=== PATIENT | female | born 1940 | race African-American/Black ===

== ENCOUNTER 2017-10-03 09:36 | Inpatient (IN) | payer MEDICARE, OTHER ==
[2017-10-03] MEDS ORDERED: LABETALOL HCL INJ 20 MG/4 ML DISP.SYRIN IV ONE (10:09)
--- NOTE | 2017-10-03 10:16 | ER Document Report ---
ED General - General Mode of Arrival: Medic Information source: Patient TRAVEL OUTSIDE OF THE [place] IN LAST 30 DAYS: No - HPI Onset: This morning Onset/Duration: Sudden <CLINT BERNARDO - Last Filed: 10/03/17 14:10> <MILESMAGI Cool - Last Filed: 10/03/17 16:44> - General Chief Complaint: High Blood Pressure Stated Complaint: VOMITING Time Seen by Provider: 10/03/17 09:50 Notes: Patient is a 77 year old female with a history of Type 2 Diabetes and CHF presents to the emergency department via EMS complaining of nausea and vomiting onset this morning. Patient states that she felt nauseous this morning after she woke and used the restroom. Patient states she took her blood pressure medication this morning but may have vomited it up. EMS states the patients blood pressure upon arrival to her home was 235/94. EMS gave the patient 1 Zofran and 5 Metoprolol. Upon arrival to the emergency department, the patients blood pressure was 216/81. At bedside that patient states that she is not in any pain and the Zofran medication given by EMS has helped. Patient denies chest pain or any trouble breathing. Patients PCP is Dr. Curran and band manager is Dr. Elizondo. (CLINT BERNARDO) - Related Data Allergies/Adverse Reactions: No Known Allergies Allergy (Verified 05/05/16 00:14) Home Medications: Current Home Medications Bumetanide 10/03/17 [History] Carvedilol 10/03/17 [History] Gabapentin 100 mg PO 10/03/17 [History] Hydrochlorothiazide [Hydrodiuril 25 mg Tablet] 10/03/17 [History] Multivit with Calcium,Iron,Min [Multiple Vitamins For Women] 1 each PO DAILY [History] Past Medical History - Social History Smoking Status: Unknown if Ever Smoked Frequency of alcohol use: None Family History: CVA, DM, Hypertension Patient has suicidal ideation: No Patient has homicidal ideation: No - Past Medical History Cardiac Medical History: Reports: Hx Congestive Heart Failure - Pt reports she had HF last year, Hx Hypercholesterolemia, Hx Hypertension Pulmonary Medical History: Denies: Hx Tuberculosis Neurological Medical History: Reports: Hx Cerebrovascular Accident Endocrine Medical History: Reports: Hx Diabetes Mellitus Type 2 Musculoskeltal Medical History: 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 Psychiatric Medical History: Reports: Hx Anxiety, Hx Depression Past Surgical History: Reports: Hx Cholecystectomy, Hx Orthopedic Surgery - hand - Immunizations Hx Diphtheria, Pertussis, Tetanus Vaccination: Yes Hx Pneumococcal Vaccination: 01/11/12 <CLINT BERNARDO - Last Filed: 10/03/17 14:10> Review of Systems - Review of Systems Constitutional: No symptoms reported EENT: No symptoms reported Cardiovascular: No symptoms reported Gastrointestinal: See HPI, Nausea, Vomiting Genitourinary: No symptoms reported Female Genitourinary: No symptoms reported Musculoskeletal: No symptoms reported Skin: No symptoms reported Hematologic/Lymphatic: No symptoms reported Neurological/Psychological: No symptoms reported -: Yes All other systems reviewed and negative <CLINT BERNARDO - Last Filed: 10/03/17 14:10> Physical Exam - General General appearance: Appears well, Alert In distress: None - HEENT Head: Normocephalic, Atraumatic Eyes: Normal Conjunctiva: Normal Pupils: PERRL Neck: No: Carotid bruit - Respiratory Respiratory status: No respiratory distress Chest status: Nontender Breath sounds: Normal Chest palpation: Normal - Cardiovascular Rhythm: Regular Heart sounds: Normal auscultation - Abdominal Inspection: Normal Distension: No distension Bowel sounds: Normal Tenderness: Nontender Organomegaly: No organomegaly - Back Back: Normal - Extremities General upper extremity: Normal inspection, Normal ROM General lower extremity: Normal inspection, Normal ROM Ankle: No: Edema - Neurological Neuro grossly intact: Yes Cognition: Normal Orientation: AAOx4 [place] Coma Scale Eye Opening: Spontaneous [place] Coma Scale Verbal: Oriented Betsey Coma Scale Motor: Obeys Commands [place] Coma Scale Total: 15 Speech: Normal - Psychological Associated symptoms: Normal affect, Normal mood - Skin Skin Temperature: Warm Skin Moisture: Dry Skin Color: Normal <TOVAJIMAMALIA - Last Filed: 10/03/17 14:10> - Vital signs Vitals: Resp Pulse Ox 11 L 99 10/03/17 09:47 10/03/17 09:47 Course - Laboratory Result Diagrams: 10/03/17 10:44 10/03/17 10:44 <CLINT BERNARDO - Last Filed: 10/03/17 14:10> - Laboratory Result Diagrams: 10/03/17 10:44 10/03/17 10:44 - Diagnostic Test Radiology reviewed: Image reviewed, Reports reviewed - Chest x-ray shows stable cardiomegaly with no acute findings. - EKG Interpretation by Me EKG shows normal: Sinus rhythm, Emma, QRS Complexes, ST-T Waves. abnormal: Intervals - Prolonged QT interval Rate: Normal - 61 Rhythm: NSR Emma/QRS: Right axis deviation When compared to previous EKG there are: Changes noted - Consults Dr. Youngblood Time consulted: 16:40 Consulted provider: will come to ER <MAGI AQUINO - Last Filed: 10/03/17 16:44> - Vital Signs Vital signs: Temp Pulse Resp BP Pulse Ox 17 159/63 H 98 10/03/17 15:01 10/03/17 15:01 10/03/17 15:01 - Laboratory Laboratory results interpreted by me: 10/03/17 10/03/17 10/03/17 10:44 10:44 13:00 WBC 11.4 H RBC 3.46 L Hgb 10.0 L Hct 29.7 L RDW 14.9 H Absolute Neutrophils 8.7 H Potassium 3.2 L BUN 45 H Creatinine 2.60 H Est GFR ( Amer) 22 L Est GFR (Non-Af Amer) 18 L Glucose 246 H Magnesium 1.3 L Creatine Kinase 28 L Total Protein 6.0 L Albumin 2.9 L Urine Protein Urine Glucose (UA) Ur Leukocyte Esterase 10/03/17 14:27 WBC RBC Hgb Hct RDW Absolute Neutrophils Potassium BUN Creatinine Est GFR ( Amer) Est GFR (Non-Af Amer) Glucose Magnesium Creatine Kinase Total Protein Albumin Urine Protein >=500 H Urine Glucose (UA) 150 H Ur Leukocyte Esterase TRACE H Critical Care Note - Critical Care Note Total time excluding time spent on procedures (mins): 40 <MILESMAGI - Last Filed: 10/03/17 16:44> Discharge <CLINT BERNARDO - Last Filed: 10/03/17 14:10> - Discharge Admitting Provider: Hospitalist Unit Admitted: Telemetry <MAGI AQUINO - Last Filed: 10/03/17 16:44> - Discharge Clinical Impression: Uncontrolled hypertension, Chronic renal insufficiency, stage IV (severe), Hypokalemia, Elevated troponin Nausea and vomiting Qualifiers: Vomiting type: unspecified Vomiting Intractability: non-intractable Qualified Code(s): R11.2 - Nausea with vomiting, unspecified Condition: Stable Disposition: ADMITTED INPATIENT Referrals: JAY GARCIA MD [Primary Care Provider] - Follow up as needed Scribe Attestation: 10/03/17 10:31 I personally performed the services described in the documentation, reviewed and edited the documentation which was dictated to the scribe in my presence, and it accurately records my words and actions. (MAGI AQUINO) Scribe Documentation - Scribe Written by Dorita:: Dorita Webster, 10/03/2017 10:18 acting as scribe for :: Miles <CLINT BERNARDO - Last Filed: 10/03/17 14:10>
--- NOTE | 2017-10-03 10:56 | EKG REPORT ---
SEVERITY:- ABNORMAL ECG - SINUS RHYTHM RIGHT AXIS DEVIATION PROLONGED QT INTERVAL : Confirmed by: Ann Miranda MD 03-Oct-2017 10:56:01
[2017-10-03 10:57] LABS: ABSOLUTE BASOPHILS # (AUTO) 0.1 10^3/uL (0.0-0.2); ABSOLUTE EOSINOPHILS # (AUTO) 0.1 10^3/uL (0.0-0.6); ABSOLUTE LYMPHOCYTES (AUTO) 2.2 10^3/uL (0.5-4.7); ABSOLUTE MONOCYTES (AUTO) 0.4 10^3/uL (0.1-1.4); ABSOLUTE NEUT (AUTO) 8.7 10^3/uL (1.7-8.2); BASOPHILS % (AUTO) 0.7 % (0-2); EOSINOPHILS % (AUTO) 0.9 % (0-6); HEMATOCRIT 29.7 % (36.0-47.0); LYMPHOCYTES % (AUTO) 18.9 % (13-45); MEAN CORPUSCULAR HEMOGLOBIN 28.8 pg (27.0-33.4); MEAN CORPUSCULAR HGB CONC 33.6 g/dL (32.0-36.0); MEAN CORPUSCULAR VOLUME 86 fl (80-97); MONOCYTES % (AUTO) 3.8 % (3-13); PLATELET COUNT 318 10^3/uL (150-450); RED BLOOD COUNT 3.46 10^6/uL (3.72-5.28); RED CELL DISTRIBUTION WIDTH 14.9 % (11.5-14.0); SEGMENTED NEUTROPHILS % (AUTO) 75.7 % (42-78); TOTAL CELLS COUNTED % (AUTO) 100 %; WHITE BLOOD COUNT 11.4 10^3/uL (4.0-10.5)
--- NOTE | 2017-10-03 11:07 | RADIOLOGY REPORT (SQ) ---
EXAM DESCRIPTION: CHEST SINGLE VIEW COMPLETED DATE/TIME: 10/03/2017 10:56 am REASON FOR STUDY: BP235/94 w/ N V COMPARISON: 08/02/2016 NUMBER OF VIEWS: One view. TECHNIQUE: Single frontal radiographic view of the chest acquired. LIMITATIONS: None. FINDINGS: LUNGS AND PLEURA: No opacities, masses or pneumothorax. No pleural effusion. MEDIASTINUM AND HILAR STRUCTURES: No masses. Contour normal. HEART AND VASCULAR STRUCTURES: Heart enlarged without failure. Normal vasculature. BONES: No acute findings. HARDWARE: None in the chest. OTHER: No other significant finding. IMPRESSION: STABLE CARDIOMEGALY. NO OTHER SIGNIFICANT RADIOGRAPHIC FINDING IN THE CHEST. TECHNICAL DOCUMENTATION: JOB ID: [id number] [employer]- All Rights Reserved
[2017-10-03 11:15] LABS: ALANINE AMINOTRANSFERASE 21 U/L (9-52); ALBUMIN 2.9 g/dL (3.5-5.0); ALKALINE PHOSPHATASE 81 U/L (38-126); ANION GAP 9 (5-19); ASPARTATE AMINO TRANSFERASE 17 U/L (14-36); BILIRUBIN,DIRECT 0.2 mg/dL (0.0-0.4); BILIRUBIN,TOTAL 0.4 mg/dL (0.2-1.3); BLOOD UREA NITROGEN 45 mg/dL (7-20); CALCIUM 9.8 mg/dL (8.4-10.2); CARBON DIOXIDE 30 mmol/L (22-30); CHLORIDE 105 mmol/L (98-107); CREATINE KINASE 32 U/L (30-135); GLUCOSE 246 mg/dL (75-110); MAGNESIUM 1.3 mg/dL (1.6-2.3); POTASSIUM 3.2 mmol/L (3.6-5.0); SODIUM 144.1 mmol/L (137-145)
[2017-10-03 11:26] LABS: CREATINE KINASE MB 0.28 ng/mL (<4.55)
[2017-10-03 11:28] LABS: TROPONIN I 0.057 ng/mL
[2017-10-03] MEDS ORDERED: HYDRALAZINE HCL INJ/PF 20 MG/1 ML SDV IV ONE ×3 (11:31→14:31)
[2017-10-03] MEDS ORDERED: POTASSIUM CHLORIDE 20 MEQ/15 ML UDCUP PO ONE (12:55)
[2017-10-03] MEDS ORDERED: ONDANSETRON HCL INJ/PF 4 MG/2 ML SDV IV ONE (12:55)
[2017-10-03 14:45] LABS: APPEARANCE,URINE SLIGHTLY-CLOUDY; BILIRUBIN,URINE NEGATIVE (NEGATIVE); COLOR,URINE YELLOW; GLUCOSE, URINE 150 mg/dL (NEGATIVE); KETONES,URINE NEGATIVE (NEGATIVE); LEUKOCYTE ESTERASE,URINE TRACE (NEGATIVE); NITRITE,URINE NEGATIVE (NEGATIVE); PROTEIN,URINE >=500 mg/dL (NEGATIVE); URINE SPECIFIC GRAVITY 1.009; UROBILINOGEN,URINE NEGATIVE mg/dL (<2.0)
[2017-10-03] MEDS ORDERED: ACETAMINOPHEN 325 MG TABLET PO PRN (16:53)
[2017-10-03] MEDS ORDERED: NITROGLYCERIN 0.4 MG/TAB 25 TAB/BOTTLE SL PRN ×2 (16:56→17:04)
[2017-10-03] MEDS ORDERED: CARVEDILOL 3.125 MG TABLET PO ONE (17:30)
[2017-10-03] MEDS ORDERED: ONDANSETRON HCL INJ/PF 4 MG/2 ML SDV IV PRN (18:00)
[2017-10-03] MEDS: FERROUS SULFATE 325 MG TABLET PO SCH (18:02)
[2017-10-03] MEDS ORDERED: DEXTROSE 50%-WATER 25 GM/50 ML DISP.SYRIN IV PRN ×2 (18:14)
[2017-10-03] MEDS ORDERED: DEXTROSE 40% GEL 15 GM TUBE PO PRN ×2 (18:14)
[2017-10-03] MEDS ORDERED: GLUCAGON,HUMAN RECOMB 1 MG INJ IM PRN (18:14)
[2017-10-03] MEDS ORDERED: INSULIN LISPRO 100 UNIT/ML 3 ML VIAL SUBCUT PRN (18:14)
--- NOTE | 2017-10-03 18:20 | PDOC H&P ---
History of Present Illness Admission Date/PCP: 10/03/17 16:49 JAY GARCIA Patient complains of: Headache and vomiting History of Present Illness: KAM DEAN is a 77 year old female history of hypertension, diabetes, CKD, congestive, heart failure, hyperlipidemia, peripheral vascular disease and pulmonary embolism and with a 1 day history of headache and vomiting. Patient states this morning she began vomiting. She reports taking her blood pressure medications and then she vomited again. When the EMS was called patient was noted to have systolic blood pressure of 235/95. Patient denied any chest pain or shortness of breath or have a headache. In the ED patient was noted to have a elevated blood pressure at which time she was given labetalol followed by several doses of IV hydralazine. Patient blood pressure did come down to 165/ 64. ED called to admit patient for hypertensive emergency. Past Medical History Cardiac Medical History: Reports: Congestive Heart Failure - Pt reports she had HF last year, Hyperlipidema, Hypertension Denies: Coronary Artery Disease, Myocardial Infarction, Peripheral Vascular Disease, Pulmonary Embolism Pulmonary Medical History: Denies: Tuberculosis Endocrine Medical History: Reports: Diabetes Mellitus Type 2 Musculoskeltal Medical History: Reports: Arthritis - hip Psychiatric Medical History: Reports: Depression Hematology: Reports: Anemia Past Surgical History Past Surgical History: Reports: Cholecystectomy, Orthopedic Surgery - hand Social History Information Source: Patient Smoking Status: Unknown if Ever Smoked Frequency of Alcohol Use: None Hx Recreational Drug Use: No Drugs: None Hx Prescription Drug Abuse: No - Advance Directive Resuscitation Status: Full Code Family History Family History: CVA, DM, Hypertension Parental Family History Reviewed: No Children Family History Reviewed: No Sibling(s) Family History Reviewed.: No Medication/Allergy Allergies/Adverse Reactions: No Known Allergies Allergy (Verified 05/05/16 00:14) Review of Systems Constitutional: ABSENT: chills, fever(s), headache(s), weight gain, weight loss Eyes: ABSENT: visual disturbances Ears: ABSENT: hearing changes Cardiovascular: ABSENT: chest pain, dyspnea on exertion, edema, orthropnea, palpitations Respiratory: ABSENT: cough, hemoptysis Gastrointestinal: ABSENT: abdominal pain, constipation, diarrhea, hematemesis, hematochezia, nausea, vomiting Genitourinary: ABSENT: dysuria, hematuria Musculoskeletal: PRESENT: muscle weakness. ABSENT: joint swelling Integumentary: ABSENT: rash, wounds Neurological: PRESENT: other - Headache. ABSENT: abnormal gait, abnormal speech , confusion, dizziness, focal weakness, syncope Psychiatric: ABSENT: anxiety, depression, homidical ideation, suicidal ideation Endocrine: ABSENT: cold intolerance, heat intolerance, polydipsia, polyuria Hematologic/Lymphatic: ABSENT: easy bleeding, easy bruising Physical Exam Vital Signs: Temp Pulse Resp BP Pulse Ox 15 158/59 H 97 10/03/17 17:01 10/03/17 17:01 10/03/17 17:01 General appearance: PRESENT: no acute distress, well-developed, well-nourished Head exam: PRESENT: atraumatic, normocephalic Eye exam: PRESENT: conjunctiva pink, EOMI, PERRLA. ABSENT: scleral icterus Ear exam: PRESENT: normal external ear exam Mouth exam: PRESENT: moist, tongue midline Teeth exam: PRESENT: poor dentation - Odiferous Neck exam: ABSENT: carotid bruit, JVD, lymphadenopathy, thyromegaly Respiratory exam: PRESENT: clear to auscultation santa. ABSENT: rales, rhonchi, wheezes Cardiovascular exam: PRESENT: RRR, +S1, +S2, other - Loud S2. ABSENT: diastolic murmur, rubs, systolic murmur Pulses: PRESENT: normal dorsalis pedis pul Vascular exam: PRESENT: normal capillary refill GI/Abdominal exam: PRESENT: normal bowel sounds, soft. ABSENT: distended, guarding, mass, organolmegaly, rebound, tenderness Rectal exam: PRESENT: deferred Extremities exam: PRESENT: full ROM. ABSENT: calf tenderness, clubbing, pedal edema Neurological exam: PRESENT: alert, awake, oriented to person, oriented to place , oriented to time, oriented to situation, CN II-XII grossly intact. ABSENT: motor sensory deficit Psychiatric exam: PRESENT: appropriate affect, normal mood. ABSENT: homicidal ideation, suicidal ideation Skin exam: PRESENT: dry, intact, warm. ABSENT: cyanosis, rash Results Laboratory Results: 10/03/17 10/03/17 10/03/17 10:44 10:44 10:44 WBC 11.4 H RBC 3.46 L Hgb 10.0 L Hct 29.7 L MCV 86 MCH 28.8 MCHC 33.6 RDW 14.9 H Plt Count 318 Seg Neutrophils % 75.7 Lymphocytes % 18.9 Monocytes % 3.8 Eosinophils % 0.9 Basophils % 0.7 Absolute Neutrophils 8.7 H Absolute Lymphocytes 2.2 Absolute Monocytes 0.4 Absolute Eosinophils 0.1 Absolute Basophils 0.1 Sodium 144.1 Potassium 3.2 L Chloride 105 Carbon Dioxide 30 Anion Gap 9 BUN 45 H Creatinine 2.60 H Est GFR ( Amer) 22 L Est GFR (Non-Af Amer) 18 L Glucose 246 H Calcium 9.8 Magnesium 1.3 L Total Bilirubin 0.4 Direct Bilirubin 0.2 AST 17 ALT 21 Alkaline Phosphatase 81 Creatine Kinase 32 Troponin I 0.057 Total Protein 6.0 L Albumin 2.9 L 10/03/17 10/03/17 10/03/17 13:00 13:00 15:00 WBC RBC Hgb Hct MCV MCH MCHC RDW Plt Count Seg Neutrophils % Lymphocytes % Monocytes % Eosinophils % Basophils % Absolute Neutrophils Absolute Lymphocytes Absolute Monocytes Absolute Eosinophils Absolute Basophils Sodium Potassium Chloride Carbon Dioxide Anion Gap BUN Creatinine Est GFR ( Amer) Est GFR (Non-Af Amer) Glucose Calcium Magnesium Total Bilirubin Direct Bilirubin AST ALT Alkaline Phosphatase Creatine Kinase 28 L Troponin I 0.068 0.077 Total Protein Albumin Impressions: Chest X-Ray 10/03/17 10:10 IMPRESSION: STABLE CARDIOMEGALY. NO OTHER SIGNIFICANT RADIOGRAPHIC FINDING IN THE CHEST. Assessment & Plan - Diagnosis (1) Hypertensive emergency Is this a current diagnosis for this admission?: Yes Plan: Hypertensive emergency resulting in headache and vomiting. Patient also has troponin leak. Patient was given several doses of IV hydralazine along with IV labetalol. Patient resumed on her home medications as she is no longer vomiting. Will monitor patient on telemetry. (2) Type 2 diabetes mellitus Qualifiers: Chronic kidney disease stage: stage 4 (severe) Is this a current diagnosis for this admission?: Yes Plan: Will start on sliding scale insulin. (3) Chronic renal insufficiency, stage IV (severe) Is this a current diagnosis for this admission?: Yes Plan: CKD stage IV uncertain of how her renal function is at baseline. Will follow- up BMP in the morning. Patient does follow-up with Dr. Elizondo nephrology. Monitor ins and outs and avoid nephrotoxins. (4) Elevated troponin Plan: Is likely due to elevated blood pressure. Patient denies any chest pain. Patient does have CKD stage IV. We will continue to trend troponins. Cardiac echo ordered for the morning. Patient being admitted on telemetry. Patient currently on Coreg 3.125 twice daily. (5) Hypokalemia Is this a current diagnosis for this admission?: Yes Plan: Likely due to the use of diuretics. She was given a dose of potassium in the ED. She was given 40 mEq. Follow-up in the a.m. (6) Hypomagnesemia Plan: Magnesium is 1.3. This is most likely also secondary to the use of diuretics. Patient given 2 g of magnesium. Will follow up in the morning. (7) Anemia Qualifiers: Chronic kidney disease stage: stage 4 (severe) Is this a current diagnosis for this admission?: Yes Plan: Most likely have anemia due to CKD stage IV. Will monitor hemoglobin. - Time Time Spent: 30 to 50 Minutes Anticipated discharge: Home Within: within 48 hours - Inpatient Certification Medical Necessity: Significant Comorbidiites Make Outpatient Treatment Too Risky , Need Close Monitoring Due to Risk of Patient Decompensation, Need For Continuous Telemetry Monitoring
[2017-10-03] MEDS ORDERED: INFLUENZA ADLT QUAD (36MOS+) 2017-18 VAC 0.5 ML SYR IM PRN (19:03)
[2017-10-03] MEDS ORDERED: HYDRALAZINE HCL INJ/PF 20 MG/1 ML SDV IV PRN (19:10)
[2017-10-03] MEDS ORDERED: HYDRALAZINE HCL 50 MG TABLET PO SCH (22:00)
[2017-10-03] MEDS ORDERED: DOXAZOSIN MESYLATE 2 MG TABLET PO SCH ×2 (22:00)
[2017-10-03] MEDS: HYDRALAZINE HCL 50 MG TABLET PO SCH (22:01)
[2017-10-03] MEDS: MAGNESIUM SULFATE/D5W 1 GM/100 ML RTUPB IV SCH ×2 (22:01→23:44)
[2017-10-03] MEDS: FAMOTIDINE 20 MG TABLET PO SCH (22:01)
[2017-10-03] MEDS: CARVEDILOL 3.125 MG TABLET PO SCH (23:40)
[2017-10-04] MEDS ORDERED: LANSOPRAZOLE 30 MG TAB.RAP.DR PO SCH (06:00)
[2017-10-04] MEDS: HYDRALAZINE HCL 50 MG TABLET PO SCH (06:15)
[2017-10-04 06:48] LABS: ANION GAP 6 (5-19); BLOOD UREA NITROGEN 49 mg/dL (7-20); CALCIUM 9.4 mg/dL (8.4-10.2); CARBON DIOXIDE 29 mmol/L (22-30); CHLORIDE 107 mmol/L (98-107); GLUCOSE 132 mg/dL (75-110); MAGNESIUM 2.1 mg/dL (1.6-2.3); POTASSIUM 3.4 mmol/L (3.6-5.0); SODIUM 142.3 mmol/L (137-145)
[2017-10-04 09:45] LABS: ANION GAP 11 (5-19); BLOOD UREA NITROGEN 49 mg/dL (7-20); CALCIUM 9.5 mg/dL (8.4-10.2); CARBON DIOXIDE 25 mmol/L (22-30); CHLORIDE 106 mmol/L (98-107); GLUCOSE 208 mg/dL (75-110); MAGNESIUM 2.2 mg/dL (1.6-2.3); POTASSIUM 3.5 mmol/L (3.6-5.0); SODIUM 142.2 mmol/L (137-145)
[2017-10-04] MEDS ORDERED: ESCITALOPRAM OXALATE 10 MG TABLET PO SCH (10:00)
[2017-10-04] MEDS ORDERED: (PENDING PHARMACY ID) (Multivit With Calcium,Iron,Min [Multiple Vitamins For Women] 1 EACH PO SCH (10:00)
[2017-10-04] MEDS ORDERED: MULTIVITAMIN TABLET PO SCH (10:00)
[2017-10-04] MEDS ORDERED: ISOSORBIDE MONONITRATE 30 MG TAB.ER.24H PO SCH ×2 (10:00)
[2017-10-04] MEDS ORDERED: CLOPIDOGREL BISULFATE 75 MG TABLET PO SCH (10:00)
[2017-10-04] MEDS ORDERED: ASPIRIN 81 MG TABLET, ENT COATED PO SCH (10:00)
[2017-10-04] MEDS: FERROUS SULFATE 325 MG TABLET PO SCH (10:34)
[2017-10-04] MEDS: FAMOTIDINE 20 MG TABLET PO SCH (10:35)
[2017-10-04] MEDS: CARVEDILOL 3.125 MG TABLET PO SCH (10:35)
--- NOTE | 2017-10-04 11:37 | XCELERA REPORT ---
[address] [address] Transthoracic Echocardiogram Report Name: KAM DEAN Age: 77 yrs Gender: Female : 1940 Patient Status: Inpatient Patient Location: [address] [place] [address] Study Date: 10/04/2017 09:16 AM Height: 66 in Weight: 176 lb BSA: 1.9 m2 Procedure: A complete two-dimensional transthoracic echocardiogram was performed (2D, M-mode, spectral and color flow Doppler). The study was technically adequate with some images being suboptimal in quality. Reason For Study: hypertension Ordering Physician: AMI BRAND Performed By: Sylvia Conn Interpretation Summary The left ventricular ejection fraction is normal. Doppler measurements suggest pseudonormalized left ventricular relaxation, which is associated with grade II/IV or mild to moderate diastolic dysfunction There is mild concentric left ventricular hypertrophy. The left ventricle is grossly normal size. Wall motion cannot be accurately commented on, but no definite regional wall motion abnormalities noted. The right ventricle is mildly dilated. The right ventricular systolic function is normal. The left atrium is moderately dilated. The right atrium is mildly dilated. There is a mild amount of mitral regurgitation There is no mitral valve stenosis. There is no aortic valve stenosis There is a trace amount of aortic regurgitation There is a trace to mild amount of tricuspid regurgitation There is moderate pulmonary hypertension by echo Right ventricular systolic pressure is estimated to be elevated at 50- 60mmHg. Small pericardial effusion. There are no echocardiographic or Doppler indications for cardiac tamponade MMode/2D Measurements & Calculations RVDd: 3.2 cm LVIDd: 4.8 cmFS: 26.7 % Ao root diam: 2.3 cm IVSd: 1.3 cm LVIDs: 3.5 cmEDV(Teich): 109.5 ml LVPWd: 1.5 cmESV(Teich): 52.6 ml Ao root area: 4.2 cm2 EF(Teich): 52.0 % LVOT diam: 2.0 cm LVOT area: 3.2 cm2 Doppler Measurements & Calculations MV E max hina: MV dec slope: Ao V2 max: LV V1 max P.1 cm/sec 864.1 cm/sec2 231.3 cm/sec 7.3 mmHg MV A max hina: MV dec time: Ao max PG: LV V1 mean P.8 cm/sec 0.17 sec 21.4 mmHg 4.0 mmHg MV E/A: 1.0 Ao V2 mean: LV V1 max: 156.1 cm/sec 135.1 cm/sec Ao mean PG: LV V1 mean: 10.7 mmHg 94.1 cm/sec Ao V2 VTI: 48.1 cmLV V1 VTI: NICHOLAS(I,D): 2.4 cm2 36.5 cm NICHOLAS(V,D): 1.9 cm2 SV(LVOT): 117.6 ml PA V2 max: PI end-d hina: TR max hina: 130.0 cm/sec 74.4 cm/sec 293.6 cm/sec PA max P.8 mmHg TR max P.5 mmHg Left Ventricle The left ventricle is grossly normal size. There is mild concentric left ventricular hypertrophy. The left ventricular ejection fraction is normal. Doppler measurements suggest pseudonormalized left ventricular relaxation, which is associated with grade II/IV or mild to moderate diastolic dysfunction. Wall motion cannot be accurately commented on, but no definite regional wall motion abnormalities noted. Right Ventricle The right ventricle is mildly dilated. There is normal right ventricular wall thickness. The right ventricular systolic function is normal. Atria The right atrium is mildly dilated. The left atrium is moderately dilated. Interarterial septum not well visualized and not well dopplered. Cannot comment on ASD/PFO presence. Mitral Valve The mitral valve is grossly normal. There is no mitral valve stenosis. There is a mild amount of mitral regurgitation. Aortic Valve The aortic valve is grossly normal. There is no aortic valve stenosis. There is a trace amount of aortic regurgitation. Tricuspid Valve The tricuspid valve is not well visualized, but is grossly normal. There is no tricuspid stenosis. There is a trace to mild amount of tricuspid regurgitation. There is moderate pulmonary hypertension by echo. Right ventricular systolic pressure is estimated to be elevated at 50-60mmHg. Pulmonic Valve The pulmonic valve is not well visualized. Great Vessels The aortic root is not well visualized but is probably normal size. The inferior vena cava appeared normal and decreased > 50% with respiration (RAP 5-10 mmHg). Effusions Small pericardial effusion. There are no echocardiographic or Doppler indications for cardiac tamponade. : AMI BRAND > Margie Denton
[2017-10-04 12:23] VITALS: BP 170/66
--- NOTE | 2017-10-05 16:11 | PDOC DISCHARGE SUMMARY ---
General - Admit/Disc Date/PCP Admission Date/Primary Care Provider: 10/03/17 16:49 JAY GARCIA Discharge Date: 10/04/17 - Discharge Diagnosis (1) Hypertensive emergency Is this a current diagnosis for this admission?: Yes (2) Type 2 diabetes mellitus Is this a current diagnosis for this admission?: Yes (3) Chronic renal insufficiency, stage IV (severe) Is this a current diagnosis for this admission?: Yes (5) Hypokalemia Is this a current diagnosis for this admission?: Yes (7) Anemia Is this a current diagnosis for this admission?: Yes (8) Diastolic CHF, chronic Is this a current diagnosis for this admission?: Yes - Additional Information Resuscitation Status: Full Code Discharge Diet: Cardiac, Diabetic Discharge Activity: Activity As Tolerated Home Medications: Aspirin [Ecotrin 81 mg EC Tablet] 81 mg PO DAILY 10/03/17 Bumetanide [Bumex 1 mg Tablet] 1 mg PO QAM 10/03/17 Cholecalciferol (Vitamin D3) [Vitamin D3 5000 unit Capsule] 5,000 unit PO DAILY 10/03/17 Clopidogrel Bisulfate [Plavix 75 mg Tablet] 75 mg PO DAILY 10/03/17 Doxazosin Mesylate [Cardura 4 mg Tablet] 4 mg PO Q12 10/03/17 Escitalopram Oxalate [Lexapro] 20 mg PO DAILY 10/03/17 Ferrous Sulfate [Feosol 325 mg Tablet] 325 mg PO BID 10/03/17 Gabapentin [Neurontin 100 mg Capsule] 200 mg PO Q8 10/03/17 Hydralazine HCl 100 mg PO Q8 10/03/17 Hydrochlorothiazide [Hydrodiuril 25 mg Tablet] 25 mg PO QAM 10/03/17 Isosorbide Mononitrate [Imdur 30 mg Tablet.er] 90 mg PO DAILY 10/03/17 Multivit-Min/Iron/Folic/Lutein [Centrum Silver Women Tablet] 1 each PO DAILY Nitroglycerin [Nitrostat 0.4 mg (1/150 Gr) Tabs 25/Bottle] 1 tab SL Q5MP PRN Pantoprazole Sodium [Protonix] 40 mg PO DAILY 10/03/17 Potassium Chloride [Klor-Con M20] 20 meq PO DAILY 10/03/17 Doxazosin Mesylate [Cardura 2 mg Tablet] 2 mg PO QHS tablet 10/04/17 Hydralazine HCl [Apresoline 50 mg Tablet] 100 mg PO Q8 tablet 10/04/17 History of Present Illness History of Present Illness: KAM DEAN is a 77 year old female history of hypertension, diabetes, CKD, congestive, heart failure, hyperlipidemia, peripheral vascular disease and pulmonary embolism and with a 1 day history of headache and vomiting. Patient states this morning she began vomiting. She reports taking her blood pressure medications and then she vomited again. When the EMS was called patient was noted to have systolic blood pressure of 235/95. Patient denied any chest pain or shortness of breath or have a headache. In the ED patient was noted to have a elevated blood pressure at which time she was given labetalol followed by several doses of IV hydralazine. Patient blood pressure did come down to 165/ 64. ED called to admit patient for hypertensive emergency. This original H&P was dictated by myself Dr. May Youngblood. Please refer to today's H&P for complete details. Hospital Course Hospital Course: Patient presented to the ED with symptomatic hypertension hypertensive emergency. Patient was vomiting with headache at home. Patient had systolic blood pressures greater than 200. Patient was given several doses of IV blood pressure medications resumed on her home medications. Patient headache and vomiting subsided on presentation to the ED. Patient was noted to have elevation in her troponins however patient did not have any chest pain. Her troponins did peak at 0.084 and trended back down to 0.079. Patient did have a cardiac echo done during this admission that did not show any wall motion abnormality concerning for an acute event. Patient was also placed on telemetry overnight. Patient was on beta-jacob twice a day however patient has bradycardia along with borderline QT prolongation. This medication was discontinued on discharge. Patient does have grade 2 out of 4 or mild to moderate diastolic dysfunction for which patient takes diuretics. Patient beta- jacob is being held until she follow-up with cardiology due to the above stated (bradycardia with borderline QT prolongation). She is continued on her diuretic with potassium supplementation. Patient was asked to follow-up with her hvac/r instructor prior to resuming this medication. Also had hypokalemia most likely due to the use of diuretics. Patient was given potassium supplementation. Her potassium was 3.5 on discharge. Patient was given 40 more mEq prior to discharge. Also had hypomagnesemia of 1.3 and this to may be secondary to the use of diuretics. Patient was given 2 g of magnesium. Patient repeat magnesium was 2.2. Patient does have a history of CKD stage IV. Her creatinine was mildly improved prior to discharge. Her creatinine went from 3.14 down to 3.01. Patient does follow with Dr. Elizondo her customer relations assistant. She most likely has anemia due to chronic kidney disease. Patient hemoglobin did appear fairly stable at 10. Patient blood pressures were improved along with her symptoms. Patient will have the follow-up with her PCP for further adjustment of her blood pressure medications to achieve the desired goal. Patient was discharged with a blood pressure of 170/66. She was feeling better and was ready to be discharged. Physical Exam Vital Signs: Temp Pulse Resp BP Pulse Ox 98.5 F 67 16 170/66 H 100 10/04/17 13:09 10/04/17 13:09 10/04/17 13:09 10/04/17 13:09 10/04/17 13:09 Intake & Output 10/04/17 10/05/17 10/06/17 06:59 06:59 06:59 Intake Total 310 Balance 310 Weight 80.6 kg General appearance: PRESENT: no acute distress, well-developed, well-nourished Head exam: PRESENT: normocephalic Eye exam: PRESENT: EOMI. ABSENT: scleral icterus Mouth exam: PRESENT: moist Neck exam: ABSENT: carotid bruit, JVD, lymphadenopathy, thyromegaly Respiratory exam: PRESENT: clear to auscultation santa. ABSENT: rales, rhonchi, wheezes Cardiovascular exam: PRESENT: RRR. ABSENT: diastolic murmur, rubs, systolic murmur Pulses: PRESENT: normal dorsalis pedis pul Vascular exam: PRESENT: normal capillary refill GI/Abdominal exam: PRESENT: normal bowel sounds, soft. ABSENT: distended, guarding, mass, organolmegaly, rebound, tenderness Rectal exam: PRESENT: deferred Extremities exam: PRESENT: full ROM. ABSENT: calf tenderness, clubbing, pedal edema Neurological exam: PRESENT: alert, awake, oriented to person, oriented to place , oriented to time, oriented to situation, CN II-XII grossly intact. ABSENT: motor sensory deficit Psychiatric exam: PRESENT: appropriate affect, normal mood. ABSENT: homicidal ideation, suicidal ideation Skin exam: PRESENT: dry, intact, warm. ABSENT: cyanosis, rash Results Laboratory Results: 10/04/17 09:04 10/03/17 10/03/17 17:53 23:48 Troponin I 0.084 0.079 Impressions: Chest X-Ray 10/03/17 10:10 IMPRESSION: STABLE CARDIOMEGALY. NO OTHER SIGNIFICANT RADIOGRAPHIC FINDING IN THE CHEST. Qualifiers PATEINT BEING DISCHARGED WITH ANY OF THE FOLLOWING DIAGNOSIS?: Heart Failure HF Pt being discharged on ACEI for LVEF less than 40%?: No Reason(s) for not prescribing ACEI:: Compl of medication care HF Pt being discharged on ARBS for LVEF less than 40%?: No Reason(s) for not prescribing ARBS:: Compl of medication care HF Pt discharged on evidence-based Beta Jacob:: No Reason(s) for not prescribing evidence-based Beta Jacob:: Compl of medication care Plan Time Spent: Greater than 30 Minutes - She was not discharged on any beta- jacob as she has sinus bradycardia along with borderline prolonged QT prolongation. Patient was asked to follow her hvac/r instructor prior to resuming this medication.
== END 2017-10-04 13:46 | disposition home or self-care (01) | DRG 305 ==
LOC: ER 09:36 → EH 16:49 → 5 18:46
PROVIDERS: ADMIT Pediatrics; ATTEND Pediatrics
DX: I16.1 Hypertensive emergency (principal); N18.4 Chronic kidney disease, stage 4 (severe); I50.32 Chronic diastolic (congestive) heart failure; I13.0 Hypertensive heart and chronic kidney disease with heart failure and stage 1 through stage 4 chronic kidney disease, or unspecified chronic kidney disease; D63.1 Anemia in chronic kidney disease; F41.9 Anxiety disorder, unspecified; R00.1 Bradycardia, unspecified; E83.42 Hypomagnesemia; R74.8 Abnormal levels of other serum enzymes; E11.51 Type 2 diabetes mellitus with diabetic peripheral angiopathy without gangrene; E11.22 Type 2 diabetes mellitus with diabetic chronic kidney disease; E87.6 Hypokalemia; F32.9 Major depressive disorder, single episode, unspecified; Z82.49 Family history of ischemic heart disease and other diseases of the circulatory system; Z83.3 Family history of diabetes mellitus; Z82.61 Family history of arthritis; Z90.49 Acquired absence of other specified parts of digestive tract; Z86.711 Personal history of pulmonary embolism; Z79.899 Other long term (current) drug therapy
CPT/HCPCS: 36415; 71010; 80048; 80053; 81001; 82550; 82553; 82962; 83735; 84484; 85025; 93005; 93010; 93306; 96374; 96375; 96376; 99291; J0360; J1815; J2405; J3475; J3490

== ENCOUNTER → 2017-10-30 | Outpatient (CLI) | payer MEDICARE, OTHER ==
--- NOTE | 2017-10-30 14:14 | RADIOLOGY REPORT (SQ) ---
EXAM DESCRIPTION: U/S RETROPERITON (RENAL/AORTA) COMPLETED DATE/TIME: 10/30/2017 11:02 am REASON FOR STUDY: CKD STAGE 4 N18.4 CHRONIC KIDNEY DISEASE, STAGE 4 (SEVERE) I12.9 HYPERTENSIVE CH RONIC KIDNEY DISEASE W STG 1-4/UNSP CHR COMPARISON: Bilateral renal ultrasound 01/11/2012 Abdominal ultrasound 08/03/2016 TECHNIQUE: Dynamic and static grayscale images acquired of the kidneys and bladder and recorded on P ACS. Additional selected color Doppler and spectral images recorded. LIMITATIONS: None. FINDINGS: RIGHT KIDNEY: 11.5 cm in length. Diffuse cortical thinning and increased echogenicity fro m medical renal disease. No hydronephrosis. No upper hydro ureter. No stones. No renal cysts or m asses. LEFT KIDNEY: 11 cm in length. Diffuse cortical thinning and increased cortical echogenicity from me dical renal disease. No hydronephrosis. No upper hydroureter. No stones. 2.2 cm left upper pole r enal cyst. No gross solid masses. BLADDER: No masses. Bilateral ureteral jets into the bladder are identified. OTHER FINDINGS: No other significant finding. IMPRESSION: Diffuse cortical thinning and increased echogenicity of both kidneys from medical renal disease 2.2 cm cyst left upper pole kidney TECHNICAL DOCUMENTATION: JOB ID: [email or web address]- All Rights Reserved
--- NOTE | 2017-10-30 14:20 | RADIOLOGY REPORT (SQ) ---
EXAM DESCRIPTION: U/S LTD DUPLEX ART/ROSA FLOW COMPLETED DATE/TIME: 10/30/2017 11:02 am REASON FOR STUDY: CKD STAGE 4 N18.4 CHRONIC KIDNEY DISEASE, STAGE 4 (SEVERE) I12.9 HYPERTENSIVE CH RONIC KIDNEY DISEASE W STG 1-4/UNSP CHR COMPARISON: Renal ultrasound 01/11/2012, 03/31/2015 Abdominal ultrasound 08/03/2016 TECHNIQUE: Realtime and static grayscale images acquired. Selected color Doppler, velocities and spe ctral images recorded. LIMITATIONS: Unable to adequately visualize the renal artery origins off the aorta due to midline mina wel gas FINDINGS: RIGHT KIDNEY: RENAL ARTERY VELOCITIES: At the hilum, 34 cm/sec. Segmental artery velocity 28 cm/sec. RENAL VEIN: Color doppler flow present, patent. VELOCITY RATIO: 0.5. Delayed systolic upstroke. More proximal renal artery stenosis could not be ex cluded. Consider non contrasted renal artery MRA for followup KIDNEY: 11.5 cm in length with diffuse cortical thinning and increased echogenicity. LEFT KIDNEY: RENAL ARTERY VELOCITIES: 32 cm/sec. Segmental artery velocity 28 cm/sec. RENAL VEIN: Color doppler flow present, patent. VELOCITY RATIO: 0.45. Delayed systolic upstroke. More proximal renal artery stenosis could not be ex cluded. Consider noncontrast renal artery MRA for followup KIDNEY: 11 cm in length with diffuse cortical thinning and increased echogenicity BLADDER: Unremarkable. Bilateral ureteral jets are identified OTHER: No other significant finding. IMPRESSION: Delayed systolic upstroke on the Doppler tracings at the left and right renal arteries a t the darya. More proximal renal artery stenosis could not be excluded. Consider non contrasted MRA of the renal arteries for followup COMMENT: NORMAL RENAL ARTERY/AORTA VELOCITY RATIO IS LESS THAN OR EQUAL TO 3.5. TECHNICAL DOCUMENTATION: JOB ID: [id number] [employer]- All Rights Reserved
== END ==
LOC: RAD 09:54
PROVIDERS: ATTEND Physician Assistant Medical
DX: I12.9 Hypertensive chronic kidney disease with stage 1 through stage 4 chronic kidney disease, or unspecified chronic kidney disease (principal); N18.4 Chronic kidney disease, stage 4 (severe); N28.1 Cyst of kidney, acquired
CPT/HCPCS: 76770; 93976

== ENCOUNTER 2017-11-02 11:47 | Inpatient (IN) | payer MEDICARE ==
--- NOTE | 2017-11-02 13:48 | ER Document Report ---
ED Medical Screen (RME) - General Chief Complaint: Blood Pressure Problem Stated Complaint: BLOOD PRESSURE ISSUES Time Seen by Provider: 11/02/17 13:43 Mode of Arrival: Ambulatory Information source: Patient Notes: 77 yo DM, HTN, renal failure (no dialysis) ACD-ID 3 yr ago female [address] Dr. Elizondo office appointment and had systolic blood pressure 260 and they send her to the ER after giving her an extra Clonidine in the office. No pain, headache, or dizziness. Stronger dose of clonidine [facility] 2 weeks [facility]. 239 /64 in [facility] again. TRAVEL OUTSIDE OF THE [place] IN LAST 30 DAYS: No - Related Data Allergies/Adverse Reactions: No Known Allergies Allergy (Verified 05/05/16 00:14) Past Medical History - Past Medical History Cardiac Medical History: Reports: Hx Congestive Heart Failure - Pt reports she had HF last year, Hx Hypercholesterolemia, Hx Hypertension Denies: Hx Coronary Artery Disease, Hx Heart Attack, Hx Peripheral Vascular Disease, Hx Pulmonary Embolism Pulmonary Medical History: Denies: Hx Tuberculosis Neurological Medical History: Reports: Hx Cerebrovascular Accident Endocrine Medical History: Reports: Hx Diabetes Mellitus Type 2 Renal/ Medical History: Denies: Hx Peritoneal Dialysis Musculoskeltal Medical History: 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 Psychiatric Medical History: Reports: Hx Anxiety, Hx Depression Past Surgical History: Reports: Hx Cholecystectomy, Hx Orthopedic Surgery - hand - Immunizations Hx Diphtheria, Pertussis, Tetanus Vaccination: Yes History of Influenza Vaccine for 07/2017 - 12/2017 Season: No Physical Exam - Vital signs Vitals: Temp Pulse Resp BP Pulse Ox 97.5 F 51 L 16 218/68 H 100 11/02/17 12:00 11/02/17 12:00 11/02/17 12:00 11/02/17 12:00 11/02/17 12:00 Course - Vital Signs Vital signs: Temp Pulse Resp BP Pulse Ox 97.5 F 51 L 16 218/68 H 100 11/02/17 12:00 11/02/17 12:00 11/02/17 12:00 11/02/17 12:00 11/02/17 12:00
--- NOTE | 2017-11-02 14:06 | ER Document Report ---
ED Medical Screen (RME) - General Chief Complaint: Blood Pressure Problem Stated Complaint: BLOOD PRESSURE ISSUES Time Seen by Provider: 11/02/17 13:43 Mode of Arrival: Ambulatory Notes: 77 [address] female sent from dr. kevin office with asymptomatic systolic hypertension. Started Clonidine 2 weeks ago, extra dose given in the office and sent to the ER . US and artrerial renal study done 1-22 her at [facility]. The radiologist does not think any further imaging today would help. Higher dose of clonidine called into to [facility]. Pt denises, headache , chest pain, SOB, dizziness, or abd. pain. TRAVEL OUTSIDE OF THE [place] IN LAST 30 DAYS: No - Related Data Allergies/Adverse Reactions: No Known Allergies Allergy (Verified 05/05/16 00:14) Past Medical History - Social History Chew tobacco use (# tins/day): No Frequency of alcohol use: None Drug Abuse: None - Past Medical History Cardiac Medical History: Reports: Hx Congestive Heart Failure - Pt reports she had HF last year, Hx Hypercholesterolemia, Hx Hypertension Denies: Hx Coronary Artery Disease, Hx Heart Attack, Hx Peripheral Vascular Disease, Hx Pulmonary Embolism Pulmonary Medical History: Denies: Hx Tuberculosis Neurological Medical History: Reports: Hx Cerebrovascular Accident Endocrine Medical History: Reports: Hx Diabetes Mellitus Type 2 Renal/ Medical History: Denies: Hx Peritoneal Dialysis Musculoskeltal Medical History: 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 Psychiatric Medical History: Reports: Hx Anxiety, Hx Depression Past Surgical History: Reports: Hx Cholecystectomy, Hx Orthopedic Surgery - hand - Immunizations Hx Diphtheria, Pertussis, Tetanus Vaccination: Yes History of Influenza Vaccine for 07/2017 - 12/2017 Season: No Physical Exam - Vital signs Vitals: Temp Pulse Resp BP Pulse Ox 97.5 F 51 L 16 218/68 H 100 11/02/17 12:00 11/02/17 12:00 11/02/17 12:00 11/02/17 12:00 11/02/17 12:00 Course - Vital Signs Vital signs: Temp Pulse Resp BP Pulse Ox 97.5 F 51 L 16 218/70 H 100 11/02/17 12:00 11/02/17 12:00 11/02/17 12:00 11/02/17 13:52 11/02/17 12:00
[2017-11-02 14:49] LABS: ABSOLUTE EOSINOPHILS # (AUTO) 0.1 10^3/uL (0.0-0.6); ABSOLUTE LYMPHOCYTES (AUTO) 2.5 10^3/uL (0.5-4.7); ABSOLUTE MONOCYTES (AUTO) 0.5 10^3/uL (0.1-1.4); ABSOLUTE NEUT (AUTO) 6.3 10^3/uL (1.7-8.2); BASOPHILS % (AUTO) 0.3 % (0-2); EOSINOPHILS % (AUTO) 0.8 % (0-6); HEMATOCRIT 26.5 % (36.0-47.0); HEMOGLOBIN 8.9 g/dL (12.0-15.5); LYMPHOCYTES % (AUTO) 26.6 % (13-45); MEAN CORPUSCULAR HEMOGLOBIN 29.3 pg (27.0-33.4); MEAN CORPUSCULAR HGB CONC 33.6 g/dL (32.0-36.0); MEAN CORPUSCULAR VOLUME 87 fl (80-97); PLATELET COUNT 258 10^3/uL (150-450); RED BLOOD COUNT 3.04 10^6/uL (3.72-5.28); RED CELL DISTRIBUTION WIDTH 15.1 % (11.5-14.0); SEGMENTED NEUTROPHILS % (AUTO) 67.3 % (42-78); TOTAL CELLS COUNTED % (AUTO) 100 %; WHITE BLOOD COUNT 9.4 10^3/uL (4.0-10.5)
[2017-11-02 15:04] LABS: APPEARANCE,URINE SLIGHTLY-CLOUDY; BILIRUBIN,URINE NEGATIVE (NEGATIVE); COLOR,URINE STRAW; GLUCOSE, URINE 50 mg/dL (NEGATIVE); KETONES,URINE NEGATIVE (NEGATIVE); LEUKOCYTE ESTERASE,URINE MODERATE (NEGATIVE); NITRITE,URINE NEGATIVE (NEGATIVE); PROTEIN,URINE >=500 mg/dL (NEGATIVE); URINE SPECIFIC GRAVITY 1.008; UROBILINOGEN,URINE NEGATIVE mg/dL (<2.0)
[2017-11-02 15:13] LABS: ALANINE AMINOTRANSFERASE 23 U/L (9-52); ALBUMIN 3.2 g/dL (3.5-5.0); ALKALINE PHOSPHATASE 75 U/L (38-126); ANION GAP 10 (5-19); ASPARTATE AMINO TRANSFERASE 14 U/L (14-36); BILIRUBIN,DIRECT 0.2 mg/dL (0.0-0.4); BILIRUBIN,TOTAL 0.4 mg/dL (0.2-1.3); BLOOD UREA NITROGEN 48 mg/dL (7-20); CALCIUM 9.7 mg/dL (8.4-10.2); CARBON DIOXIDE 25 mmol/L (22-30); CHLORIDE 110 mmol/L (98-107); GLUCOSE 158 mg/dL (75-110); SODIUM 144.5 mmol/L (137-145); TOTAL PROTEIN 6.3 g/dL (6.3-8.2)
--- NOTE | 2017-11-02 15:39 | EKG REPORT ---
SEVERITY:- ABNORMAL ECG - SINUS RHYTHM PROBABLE LEFT ATRIAL ABNORMALITY BORDERLINE R WAVE PROGRESSION, ANTERIOR LEADS BORDERLINE PROLONGED QT INTERVAL : Confirmed by: Margie Denton 02-Nov-2017 15:39:04
[2017-11-02] MEDS ORDERED: CLONIDINE HCL 0.1 MG TABLET PO ONE (15:49)
--- NOTE | 2017-11-02 15:49 | ER Document Report ---
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 Had extreme hypertension in the office. Was given clonidine. Has renal failure and but not on dialysis. Patient has had high blood pressure for a long time. Denies any symptoms at this time other than some shortness of breath. TRAVEL OUTSIDE OF THE [place] IN LAST 30 DAYS: No - HPI Patient complains to provider of: High blood pressure Onset/Duration: Gradual, Constant Quality of pain: No pain - Related Data Allergies/Adverse Reactions: No Known Allergies Allergy (Verified 05/05/16 00:14) Past Medical History - General Information source: Patient - Social History Smoking Status: Former Smoker Chew tobacco use (# tins/day): No Frequency of alcohol use: None Drug Abuse: None Lives with: Family Family History: CVA, DM, Hypertension Patient has suicidal ideation: No Patient has homicidal ideation: No - Past Medical History Cardiac Medical History: Reports: Hx Congestive Heart Failure - Pt reports she had HF last year, Hx Hypercholesterolemia, Hx Hypertension Denies: Hx Coronary Artery Disease, Hx Heart Attack, Hx Peripheral Vascular Disease, Hx Pulmonary Embolism Pulmonary Medical History: Denies: Hx Tuberculosis Neurological Medical History: Reports: Hx Cerebrovascular Accident Endocrine Medical History: Reports: Hx Diabetes Mellitus Type 2 Renal/ Medical History: Denies: Hx Peritoneal Dialysis Musculoskeltal Medical History: 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 Psychiatric Medical History: Reports: Hx Anxiety, Hx Depression Past Surgical History: Reports: Hx Cholecystectomy, Hx Orthopedic Surgery - hand - Immunizations Hx Diphtheria, Pertussis, Tetanus Vaccination: Yes Hx Pneumococcal Vaccination: 01/11/12 Review of Systems - Review of Systems Constitutional: Weakness. denies: Fever, Malaise EENT: Other - no Vision loss. denies: Eye pain, Blurred vision, Double vision, Nose discharge, Difficulty swallowing, Mouth pain, Mouth swelling Cardiovascular: denies: Chest pain, Palpitations, Heart racing Respiratory: Short of breath. denies: Sputum, Stridor, Wheezing Gastrointestinal: denies: Abdominal pain, Diarrhea, Nausea, Vomiting Genitourinary: denies: Burning, Dysuria, Discharge, Frequency, Flank pain Skin: denies: Change in color, Dryness, Lumps, Rash Hematologic/Lymphatic: Anemia. denies: Blood clots, Easy bleeding, Easy bruising Neurological/Psychological: denies: Confusion, Dementia, Hallucinations, Weakness, Lost consciousness, Headaches Physical Exam - Vital signs Vitals: Temp Pulse Resp BP Pulse Ox 97.5 F 51 L 16 218/68 H 100 11/02/17 12:00 11/02/17 12:00 11/02/17 12:00 11/02/17 12:00 11/02/17 12:00 Interpretation: Normal - General General appearance: Appears well, Alert - HEENT Head: Normocephalic, Atraumatic Eyes: Normal Pupils: PERRL - Respiratory Respiratory status: No respiratory distress Chest status: Nontender Breath sounds: Normal Chest palpation: Normal - Cardiovascular Rhythm: Regular Heart sounds: Normal auscultation Murmur: No - Abdominal Inspection: Normal Distension: No distension Bowel sounds: Normal Tenderness: Nontender Organomegaly: No organomegaly - Back Back: Normal, Nontender - Extremities General upper extremity: Normal inspection, Nontender, Normal color, Normal ROM , Normal temperature General lower extremity: Normal inspection, Nontender, Normal color, Normal ROM , Normal temperature, Normal weight bearing. No: Karen's sign - Neurological Neuro grossly intact: Yes Cognition: Normal Orientation: AAOx4 Betsey Coma Scale Eye Opening: Spontaneous Culver Coma Scale Verbal: Oriented Betsey Coma Scale Motor: Obeys Commands Culver Coma Scale Total: 15 Speech: Normal Motor strength normal: LUE, RUE, LLE, RLE Sensory: Normal - Psychological Associated symptoms: Normal affect, Normal mood - Skin Skin Temperature: Warm Skin Moisture: Dry Skin Color: Normal Course - Re-evaluation Re-evalutation: 11/02/17 17:59 Patient is extremely hypertensive. Followed by nephrology, Dr. Ryan Elizondo. Blood pressure systolic is still in the 250s and diastolic is right at 100. Slightly elevated troponin. Patient will need to be admitted for blood pressure control. Consulted hospitalist who agrees to the admit process at this time. - Vital Signs Vital signs: Temp Pulse Resp BP Pulse Ox 97.5 F 51 L 11 L 234/74 H 97 11/02/17 12:00 11/02/17 12:00 11/02/17 17:01 11/02/17 17:01 11/02/17 17:01 - Laboratory Result Diagrams: 11/02/17 14:12 11/02/17 14:12 Laboratory results interpreted by me: 11/02/17 11/02/17 11/02/17 14:12 14:12 14:12 RBC 3.04 L Hgb 8.9 L Hct 26.5 L RDW 15.1 H Chloride 110 H BUN 48 H Creatinine 3.49 H Est GFR ( Amer) 15 L Est GFR (Non-Af Amer) 13 L Glucose 158 H Albumin 3.2 L Urine Protein >=500 H Urine Glucose (UA) 50 H Ur Leukocyte Esterase MODERATE H Discharge - Discharge Clinical Impression: Hypertensive urgency Renal failure Qualifiers: Renal failure chronicity: chronic Chronic kidney disease stage: unspecified stage Qualified Code(s): N18.9 - Chronic kidney disease, unspecified Disposition: ADMITTED INPATIENT Admitting Provider: Silke Friend [place] [facility] Admitted: Telemetry
[2017-11-02 16:28] LABS: FREE T4 (FREE THYROXINE) 1.54 ng/dL (0.78-2.19)
[2017-11-02 16:42] LABS: THYROID STIMULATING HORMONE 3.45 uIU/mL (0.47-4.68)
--- NOTE | 2017-11-02 16:53 | RADIOLOGY REPORT (SQ) ---
EXAM DESCRIPTION: CHEST SINGLE VIEW COMPLETED DATE/TIME: 11/02/2017 4:33 pm REASON FOR STUDY: hypertension COMPARISON: 10/03/2017 EXAM PARAMETERS: NUMBER OF VIEWS: One view. TECHNIQUE: Single frontal radiographic view of the chest acquired. RADIATION DOSE: NA LIMITATIONS: None. FINDINGS: LUNGS AND PLEURA: No opacities, masses or pneumothorax. No pleural effusion. MEDIASTINUM AND HILAR STRUCTURES: No masses. Contour normal. HEART AND VASCULAR STRUCTURES: Cardiac silhouette remains enlarged and is unchanged in configuration. BONES: No acute findings. HARDWARE: None in the chest. OTHER: No other significant finding. IMPRESSION: No significant interval change. Cardiomegaly. No acute changes. Other findings as not ed above TECHNICAL DOCUMENTATION: JOB ID: [id number] [employer]- All Rights Reserved
[2017-11-02] MEDS ORDERED: ASPIRIN 81 MG TABLET, CHEWABLE PO ONE (18:00)
[2017-11-02] MEDS ORDERED: MAGNESIUM HYDROXIDE SUSP 30 ML UDCUP PO PRN (18:19)
[2017-11-02] MEDS ORDERED: OXYCODONE-ACETAMINOPHEN 5-325 MG TABLET PO PRN (18:19)
[2017-11-02] MEDS ORDERED: ONDANSETRON HCL INJ/PF 4 MG/2 ML SDV IV PRN (18:19)
[2017-11-02] MEDS ORDERED: MAG HYDROX/AL HYDROX/SIMETH SUSP 30 ML UDCUP PO PRN (18:19)
[2017-11-02] MEDS ORDERED: ZOLPIDEM TARTRATE 5 MG TABLET PO PRN (18:19)
[2017-11-02] MEDS ORDERED: ACETAMINOPHEN 325 MG TABLET PO PRN (18:19)
[2017-11-02] MEDS ORDERED: NITROGLYCERIN 0.4 MG/TAB 25 TAB/BOTTLE SL PRN (18:24)
[2017-11-02] MEDS ORDERED: DEXTROSE 40% GEL 15 GM TUBE PO PRN ×2 (18:38)
[2017-11-02] MEDS ORDERED: GLUCAGON,HUMAN RECOMB 1 MG INJ IM PRN (18:38)
[2017-11-02] MEDS ORDERED: DEXTROSE 50%-WATER 25 GM/50 ML DISP.SYRIN IV PRN ×2 (18:38)
--- NOTE | 2017-11-02 18:43 | PDOC H&P ---
History of Present Illness Admission Date/PCP: 11/02/17 18:21 Patient complains of: Elevated blood pressure History of Present Illness: KAM DEAN is a 77 year old female resistant hypertension and chronic kidney disease, stage 4, who was sent to the emergency department by her recreation worker today for evaluation and treatment of blood pressure. Apparently her blood pressure was markedly elevated. She has no specific complaints. In the ED, she had a pressure as high as 265/90. She did not report headache, visual disturbance, chest pain, palpitation, or acute shortness of breath. Gradually, she has experienced more fatigue with exertion. She is also noticed mild ankle edema. She was last hospitalized 10/03/2017 to 10/04/2017 for a hypertensive emergency. At that time, she was symptomatic with headache and vomiting. She did not tolerate a beta-ry due to bradycardia and prolonged QT interval. Past Medical History Cardiac Medical History: Reports: Congestive Heart Failure - Pt reports she had HF last year, Hyperlipidema, Hypertension Denies: Coronary Artery Disease, Myocardial Infarction, Peripheral Vascular Disease, Pulmonary Embolism Pulmonary Medical History: Denies: Tuberculosis Endocrine Medical History: Reports: Diabetes Mellitus Type 2 Musculoskeltal Medical History: Reports: Arthritis - hip Psychiatric Medical History: Reports: Depression Hematology: Reports: Anemia Past Surgical History Past Surgical History: Reports: Cholecystectomy, Orthopedic Surgery - hand Social History Information Source: Patient Lives with: Family Smoking Status: Former Smoker Frequency of Alcohol Use: None Hx Recreational Drug Use: No Drugs: None Hx Prescription Drug Abuse: No - Advance Directive Resuscitation Status: Full Code Family History Family History: CVA, DM, Hypertension Parental Family History Reviewed: No Children Family History Reviewed: No Sibling(s) Family History Reviewed.: No Medication/Allergy Home Medications: Aspirin [Ecotrin 81 mg EC Tablet] 81 mg PO DAILY 10/03/17 Bumetanide [Bumex 1 mg Tablet] 1 mg PO QAM 10/03/17 Cholecalciferol (Vitamin D3) [Vitamin D3 5000 unit Capsule] 5,000 unit PO DAILY 10/03/17 Clopidogrel Bisulfate [Plavix 75 mg Tablet] 75 mg PO DAILY 10/03/17 Doxazosin Mesylate [Cardura 4 mg Tablet] 4 mg PO Q12 10/03/17 Escitalopram Oxalate [Lexapro] 20 mg PO DAILY 10/03/17 Ferrous Sulfate [Feosol 325 mg Tablet] 325 mg PO BID 10/03/17 Gabapentin [Neurontin 100 mg Capsule] 200 mg PO Q8 10/03/17 Hydralazine HCl 100 mg PO Q8 10/03/17 Hydrochlorothiazide [Hydrodiuril 25 mg Tablet] 25 mg PO QAM 10/03/17 Isosorbide Mononitrate [Imdur 30 mg Tablet.er] 90 mg PO DAILY 10/03/17 Multivit-Min/Iron/Folic/Lutein [Centrum Silver Women Tablet] 1 each PO DAILY Nitroglycerin [Nitrostat 0.4 mg (1/150 Gr) Tabs 25/Bottle] 1 tab SL Q5MP PRN Pantoprazole Sodium [Protonix] 40 mg PO DAILY 10/03/17 Potassium Chloride [Klor-Con M20] 20 meq PO DAILY 10/03/17 Doxazosin Mesylate [Cardura 2 mg Tablet] 2 mg PO QHS tablet 10/04/17 Hydralazine HCl [Apresoline 50 mg Tablet] 100 mg PO Q8 tablet 10/04/17 Allergies/Adverse Reactions: No Known Allergies Allergy (Verified 05/05/16 00:14) Review of Systems Constitutional: ABSENT: fever(s), headache(s) Eyes: ABSENT: visual disturbances Ears: ABSENT: hearing changes Cardiovascular: PRESENT: dyspnea on exertion, edema. ABSENT: chest pain, orthropnea, palpitations Respiratory: ABSENT: dyspnea Gastrointestinal: ABSENT: abdominal pain, constipation, diarrhea, hematemesis, hematochezia, nausea, vomiting Musculoskeletal: ABSENT: joint swelling Neurological: ABSENT: abnormal gait, abnormal speech, confusion, dizziness, focal weakness, syncope Psychiatric: ABSENT: anxiety, depression, homidical ideation, suicidal ideation Endocrine: ABSENT: cold intolerance, heat intolerance, polydipsia, polyuria Physical Exam Vital Signs: Temp Pulse Resp BP Pulse Ox 97.5 F 51 L 19 230/79 H 96 11/02/17 12:00 11/02/17 12:00 11/02/17 18:01 11/02/17 18:01 11/02/17 18:01 General appearance: PRESENT: no acute distress, obese Head exam: PRESENT: atraumatic, normocephalic Eye exam: PRESENT: EOMI, PERRLA Mouth exam: PRESENT: moist Teeth exam: PRESENT: dental caries Neck exam: PRESENT: full ROM. ABSENT: carotid bruit, JVD Respiratory exam: PRESENT: clear to auscultation santa, unlabored Cardiovascular exam: PRESENT: bradycardia. ABSENT: diastolic murmur, gallop, systolic murmur GI/Abdominal exam: PRESENT: normal bowel sounds, soft. ABSENT: distended, guarding, mass, organolmegaly, rebound, tenderness Extremities exam: PRESENT: +1 edema - Ankles Neurological exam: PRESENT: alert, awake, oriented to person, oriented to place , oriented to time, oriented to situation, CN II-XII grossly intact. ABSENT: motor sensory deficit Psychiatric exam: PRESENT: appropriate affect, normal mood. ABSENT: homicidal ideation, suicidal ideation Results Impressions: Chest X-Ray 11/02/17 16:15 IMPRESSION: No significant interval change. Cardiomegaly. No acute changes. Other findings as noted above Assessment & Plan - Diagnosis (1) Hypertensive urgency Is this a current diagnosis for this admission?: Yes Plan: She is asymptomatic at this time. Admit. Telemetry. Resume home medications. Add Procardia XL 60 mg daily starting today. IV hydralazine ordered as needed for SBP > 160 or DBP > 90. (2) Chronic renal insufficiency, stage IV (severe) Is this a current diagnosis for this admission?: Yes Plan: Consult Dr. Elizondo. (3) Bradycardia Is this a current diagnosis for this admission?: Yes Plan: Unable to use beta blockers. (4) Diastolic CHF, chronic Is this a current diagnosis for this admission?: Yes Plan: Asymptomatic. (5) Type 2 diabetes mellitus Qualifiers: Diabetes mellitus complication status: with kidney complications Diabetes mellitus complication detail: with chronic kidney disease Diabetes mellitus chcf insulin use: without terminologist use Chronic kidney disease stage: stage 4 (severe) Qualified Code(s): E11.22 - Type 2 diabetes mellitus with diabetic chronic kidney disease; N18.4 - Chronic kidney disease, stage 4 (severe ); N18.4 - Chronic kidney disease, stage 4 (severe); N18.4 - Chronic kidney disease, stage 4 (severe); N18.4 - Chronic kidney disease, stage 4 (severe) Is this a current diagnosis for this admission?: Yes Plan: Blood sugars well controlled. Continue sliding scale. (6) Anemia in chronic kidney disease (CKD) Qualifiers: Chronic kidney disease stage: stage 4 (severe) Qualified Code(s): N18.4 - Chronic kidney disease, stage 4 (severe); D63.1 - Anemia in chronic kidney disease; D63.1 - Anemia in chronic kidney disease Is this a current diagnosis for this admission?: Yes Plan: Continue to monitor. - Time Time Spent: 50 to 70 Minutes Medications reviewed and adjusted accordingly: Yes Anticipated discharge: Home Within: within 48 hours - Inpatient Certification Based on my medical assessment, after consideration of the patient's comorbidities, presenting symptoms, or acuity I expect that the services needed warrant INPATIENT care.: Yes I certify that my determination is in accordance with my understanding of Medicare's requirements for reasonable and necessary INPATIENT services [42 CFR 412.3e].: Yes Medical Necessity: Failure to Improve With Outpatient Therapy
[2017-11-02] MEDS: HYDRALAZINE HCL INJ/PF 20 MG/1 ML SDV IV PRN (18:48)
[2017-11-02] MEDS ORDERED: NIFEDIPINE 30 MG TAB.ER.24 PO ONE (19:00)
[2017-11-02] MEDS ORDERED: (PENDING PHARMACY ID) (Hydralazine Hcl [Hydralazine Hcl] 100 MG) PO SCH (22:00)
[2017-11-02] MEDS: HYDRALAZINE HCL 50 MG TABLET PO SCH (23:01)
[2017-11-02] MEDS: GABAPENTIN 100 MG CAPSULE PO SCH (23:01)
[2017-11-02] MEDS: DOXAZOSIN MESYLATE 4 MG TABLET PO SCH (23:02)
[2017-11-02] MEDS: HEPARIN SOD (PORCINE) 5,000 UNIT/ML 1 ML SYRINGE SUBCUT SCH (23:02)
[2017-11-02] MEDS: INSULIN LISPRO 100 UNIT/ML 3 ML VIAL SUBCUT PRN (23:55)
[2017-11-03 07:41] LABS: HEMATOCRIT 25.1 % (36.0-47.0); HEMOGLOBIN 8.6 g/dL (12.0-15.5); MEAN CORPUSCULAR HEMOGLOBIN 29.6 pg (27.0-33.4); MEAN CORPUSCULAR HGB CONC 34.2 g/dL (32.0-36.0); MEAN CORPUSCULAR VOLUME 87 fl (80-97); PLATELET COUNT 249 10^3/uL (150-450); WHITE BLOOD COUNT 8.5 10^3/uL (4.0-10.5)
[2017-11-03 08:01] LABS: ALANINE AMINOTRANSFERASE 20 U/L (9-52); ALBUMIN 2.7 g/dL (3.5-5.0); ALKALINE PHOSPHATASE 64 U/L (38-126); ANION GAP 9 (5-19); ASPARTATE AMINO TRANSFERASE 13 U/L (14-36); BILIRUBIN,DIRECT 0.1 mg/dL (0.0-0.4); BILIRUBIN,TOTAL 0.3 mg/dL (0.2-1.3); BLOOD UREA NITROGEN 53 mg/dL (7-20); CALCIUM 9.1 mg/dL (8.4-10.2); CARBON DIOXIDE 24 mmol/L (22-30); CHLORIDE 110 mmol/L (98-107); GLUCOSE 104 mg/dL (75-110); MAGNESIUM 1.4 mg/dL (1.6-2.3); PHOSPHORUS 4.5 mg/dL (2.5-4.5); POTASSIUM 3.7 mmol/L (3.6-5.0); SODIUM 143.4 mmol/L (137-145); TOTAL PROTEIN 5.7 g/dL (6.3-8.2)
[2017-11-03] MEDS: CHOLECALCIFEROL (D3) 1,000 UNIT TABLET PO SCH (09:30)
[2017-11-03] MEDS: FERROUS SULFATE 325 MG TABLET PO SCH ×2 (09:30→17:40)
[2017-11-03] MEDS: ASPIRIN 81 MG TABLET, ENT COATED PO SCH (09:30)
[2017-11-03] MEDS: CLOPIDOGREL BISULFATE 75 MG TABLET PO SCH (09:31)
[2017-11-03] MEDS: POTASSIUM CHLORIDE 10 MEQ TABLET.SA PO SCH (09:31)
[2017-11-03] MEDS: MULTIVITAMIN TABLET PO SCH (09:32)
[2017-11-03] MEDS: ESCITALOPRAM OXALATE 10 MG TABLET PO SCH (09:32)
[2017-11-03] MEDS: NIFEDIPINE 30 MG TAB.ER.24 PO SCH (09:33)
[2017-11-03] MEDS: ISOSORBIDE MONONITRATE 30 MG TAB.ER.24H PO SCH (09:33)
[2017-11-03] MEDS: LANSOPRAZOLE 30 MG TAB.RAP.DR PO SCH (09:35)
[2017-11-03] MEDS: GABAPENTIN 100 MG CAPSULE PO SCH ×3 (09:35→22:59)
[2017-11-03] MEDS: HEPARIN SOD (PORCINE) 5,000 UNIT/ML 1 ML SYRINGE SUBCUT SCH ×3 (09:35→22:59)
[2017-11-03] MEDS: HYDRALAZINE HCL 50 MG TABLET PO SCH ×3 (09:35→23:11)
[2017-11-03] MEDS: DOXAZOSIN MESYLATE 4 MG TABLET PO SCH (09:35)
[2017-11-03] MEDS: HYDROCHLOROTHIAZIDE 25 MG TABLET PO SCH (09:35)
[2017-11-03] MEDS ORDERED: (PENDING PHARMACY ID) (Potassium Chloride [Klor-Con M20] 20 MEQ) PO SCH (10:00)
[2017-11-03] MEDS ORDERED: (PENDING PHARMACY ID) (Multivit-Min/Iron/Folic/Lutein [Centrum Silver Women Tablet] 1 EACH PO SCH (10:00)
[2017-11-03] MEDS: DOCUSATE SODIUM 100 MG CAPSULE PO SCH ×2 (11:40→17:40)
[2017-11-03] MEDS: BUMETANIDE 1 MG TABLET PO SCH (11:40)
[2017-11-03] MEDS ORDERED: DOXAZOSIN MESYLATE 4 MG TABLET PO SCH (11:57)
[2017-11-03] MEDS ORDERED: INFLUENZA ADLT QUAD (36MOS+) 2017-18 VAC 0.5 ML SYR IM PRN (13:18)
--- NOTE | 2017-11-03 13:37 | PDOC CONSULTATION ---
Consultation Consult Date: 11/03/17 Consult reason:: chronic renal failure History of Present Illness Admission Date/PCP: 11/02/17 18:21 History of Present Illness: KAM EDAN is a 77 year old female resistant hypertension, chronic kidney disease stage 4 with a baseline creatinine of 2.1,hypokalemia and iron deficiency anemia. I saw her at my office yesterday and at the time during the appointment she had an elevated bp in the 260s systolic. She was given 0.1mg of PO clonidine, which brought her bp to 210s systolic. At the time she did not complain of any signs or symptoms related her severely elevated bp. At home her blood pressures have been in the 200s but she once again denies any signs or symptoms. With the bp still elevated I recommended to her that she go to the ER so that she could be admitted and her blood pressure could be better controlled. In the ED, she had a pressure as high as 265/90, still asymptomatic. At the time of examination her blood pressure is controlled after several medications. According to her she is complaint with her home medications. Prior to this admission she was having to use increased dosages of clonidine and a renal artery doppler was done. The doppler suggested an MRA to truly rule out renal artery stenosis. She was last hospitalized 10/03/2017 to 10/04/2017 for a hypertensive emergency. At that time, she was symptomatic with headache and vomiting. Past Medical History Cardiac Medical History: Reports: Hyperlipidemia Denies: Coronary Artery Disease, Myocardial Infarction, Peripheral Vascular Disease, Pulmonary Embolism Pulmonary Medical History: Denies: Tuberculosis Endocrine Medical History: Reports: Diabetes Mellitus Type 2 Renal/ Medical History: Reports: Chronic Kidney Disease Stage IV, Hypokalemia , Hypomagnesemia Musculoskeltal Medical History: Reports: Arthritis - hip Psychiatric Medical History: Reports: Depression Past Surgical History Past Surgical History: Reports: Cholecystectomy, Orthopedic Surgery - hand Social History Lives with: Family Smoking Status: Former Smoker Frequency of Alcohol Use: None Hx Recreational Drug Use: No Drugs: None Hx Prescription Drug Abuse: No - Advance Directive Resuscitation Status: Full Code Family History Parental Family History Reviewed: No Children Family History Reviewed: NA Sibling(s) Family History Reviewed.: NA Medication/Allergy Home Medications: Atorvastatin Calcium [Lipitor 20 mg Tablet] 20 mg PO QHS 11/02/17 Bumetanide [Bumex 1 mg Tablet] 1 mg PO DAILY 11/02/17 Clonidine HCl [Catapres 0.2 mg Tablet] 0.2 mg PO Q12 11/02/17 Clopidogrel Bisulfate [Plavix 75 mg Tablet] 75 mg PO DAILY 11/02/17 Doxazosin Mesylate [Cardura 4 mg Tablet] 4 mg PO Q12 11/02/17 Escitalopram Oxalate [Lexapro] 20 mg PO DAILY 11/02/17 Isosorbide Mononitrate [Isosorbide Mononitrate ER] 30 mg PO Q8 11/02/17 Pantoprazole Sodium [Protonix] 40 mg PO DAILY 11/02/17 Allergies/Adverse Reactions: No Known Allergies Allergy (Verified 05/05/16 00:14) Review of Systems Constitutional: PRESENT: weakness. ABSENT: chills, fever(s), headache(s) Eyes: ABSENT: visual disturbances Nose, Mouth, and Throat: ABSENT: headache(s) Cardiovascular: PRESENT: edema. ABSENT: chest pain, dyspnea on exertion, orthropnea, palpitations Respiratory: ABSENT: cough, dyspnea, sputum Gastrointestinal: ABSENT: abdominal pain, constipation, diarrhea, nausea, vomiting Genitourinary: ABSENT: dysuria Musculoskeletal: PRESENT: muscle weakness. ABSENT: back pain Neurological: PRESENT: weakness. ABSENT: confusion, dizziness, focal weakness, numbness Physical Exam Vital Signs: Temp Pulse Resp BP Pulse Ox 97.7 F 65 18 135/45 H 96 11/03/17 08:43 11/03/17 08:43 11/03/17 08:43 11/03/17 08:43 11/03/17 08:43 Intake & Output 11/02/17 11/03/17 11/04/17 06:59 06:59 06:59 Weight 81.8 kg General appearance: PRESENT: no acute distress, well-developed, well-nourished Mouth exam: PRESENT: moist, tongue midline Neck exam: PRESENT: full ROM. ABSENT: carotid bruit, JVD, tracheal deviation Respiratory exam: PRESENT: clear to auscultation santa. ABSENT: accessory muscle use, crackles, rales, rhonchi, wheezes Cardiovascular exam: PRESENT: RRR, +S1, +S2 GI/Abdominal exam: PRESENT: normal bowel sounds, soft. ABSENT: ascites, distended, guarding, rebound, tenderness Extremities exam: PRESENT: pedal edema - -trace+. ABSENT: tenderness Musculoskeletal exam: PRESENT: normal inspection. ABSENT: tenderness Neurological exam: PRESENT: alert, awake, oriented to person, oriented to place , oriented to time, oriented to situation Psychiatric exam: PRESENT: appropriate affect, normal mood Skin exam: PRESENT: dry, intact, warm. ABSENT: cyanosis, rash Results Laboratory Results: 11/03/17 07:28 11/03/17 07:28 11/03/17 11/03/17 07:28 07:28 WBC 8.5 RBC 2.90 L Hgb 8.6 L Hct 25.1 L MCV 87 MCH 29.6 MCHC 34.2 RDW 15.0 H Plt Count 249 Sodium 143.4 Potassium 3.7 Chloride 110 H Carbon Dioxide 24 Anion Gap 9 BUN 53 H Creatinine 3.54 H Est GFR ( Amer) 15 L Est GFR (Non-Af Amer) 13 L Glucose 104 Calcium 9.1 Phosphorus 4.5 Magnesium 1.4 L Total Bilirubin 0.3 AST 13 L ALT 20 Alkaline Phosphatase 64 Total Protein 5.7 L Albumin 2.7 L Impressions: Chest X-Ray 11/02/17 16:15 IMPRESSION: No significant interval change. Cardiomegaly. No acute changes. Other findings as noted above Assessment & Plan - Diagnosis (1) Uncontrolled hypertension Plan: Recommend keeping blood pressure no lower than 160 systolic for the next few of days. Then in a few days bp can be tighter controlled. Ordering MRA w/o contrast to rule out renal artery stenosis. Also considering hyperaldosteronism , Aldosteron to renin ratio. Unlikely cushings as she does not have many of the features for cushings. Also unlikely to be pheochromocytoma since her only related symptom is occasional flushing. (2) Acute on chronic renal failure Plan: Most likely due to severely elevated blood pressure. Could also be from renal artery stenosis. Doppler could not rule out RANDY, will get MRA w/o contrast to rule out renal artery stenosis. No recent antibiotic use, does not appear to be dehydrated, and she is urinating fine so unlikely post obstructive JENIFER. (3) Anemia in chronic kidney disease (CKD) Qualifiers: Chronic kidney disease stage: stage 4 (severe) Qualified Code(s): N18.4 - Chronic kidney disease, stage 4 (severe); D63.1 - Anemia in chronic kidney disease; D63.1 - Anemia in chronic kidney disease Is this a current diagnosis for this admission?: Yes Plan: on PO iron, will draw iron saturations. If normal will consider epogen (4) Chronic renal insufficiency, stage IV (severe) Is this a current diagnosis for this admission?: Yes Plan: Base line is 2.1 (5) Hypokalemia Plan: looks to be currently controlled (6) Hypomagnesemia Plan: on PO replacement, will re-evaluate (7) Type 2 diabetes mellitus Qualifiers: Diabetes mellitus complication status: with kidney complications Diabetes mellitus complication detail: with chronic kidney disease Diabetes mellitus termite helper insulin use: without termite helper use Chronic kidney disease stage: stage 4 (severe) Qualified Code(s): E11.22 - Type 2 diabetes mellitus with diabetic chronic kidney disease; N18.4 - Chronic kidney disease, stage 4 (severe ); N18.4 - Chronic kidney disease, stage 4 (severe); N18.4 - Chronic kidney disease, stage 4 (severe); N18.4 - Chronic kidney disease, stage 4 (severe) Is this a current diagnosis for this admission?: Yes Plan: discussed with her proper control of diabetes - Notes Notes: Case and plan were discussed and formulated with Dr. Elizondo
--- NOTE | 2017-11-03 13:40 | RADIOLOGY REPORT (SQ) ---
EXAM DESCRIPTION: MRA ABDOMEN WITHOUT COMPLETED DATE/TIME: 11/03/2017 1:14 pm REASON FOR STUDY: Uncontrolled hypertension/Renal artery stenosis COMPARISON: None. TECHNIQUE: Coronal and Axial imaging with T1 and T2 weighting through the kidneys. 3-D MIPs perform ed at the work station. CONTRAST TYPE AND DOSE: Noncontrast study. RENAL FUNCTION: Noncontrast study. LIMITATIONS: None. FINDINGS: KIDNEYS: Kidneys are of normal size. Cortical cyst in the left kidney. OTHER ABDOMINAL ORGANS: No significant finding. BONY STRUCTURES: No significant finding as visualized. VASCULAR STRUCTURES: No significant finding. RIGHT RENAL ARTERY: A single renal artery. Normal without evidence for stenosis. LEFT RENAL ARTERY: A single renal artery. Normal without evidence for stenosis. AORTA, SMA, CELIAC AXIS AND ILIAC ARTERIES: No significant finding or stenosis. Incomplete imaging o f the origin of the celiac axis. OTHER: No other significant finding. IMPRESSION: NORMAL LEFT AND RIGHT RENAL ARTERIES. TECHNICAL DOCUMENTATION: JOB ID: [id number] [employer]- All Rights Reserved
--- NOTE | 2017-11-03 18:05 | PDOC PROGRESS REPORT ---
Subjective Progress Note for:: 11/03/17 Subjective:: No complaints Review of systems All organ systems evaluated and negative except as in subjective All significant laboratories and diagnostics have been reviewed Reason For Visit: HYPERTENSIVE URGENCY Physical Exam Vital Signs: Temp Pulse Resp BP Pulse Ox 98.2 F 53 L 18 135/49 H 95 11/03/17 16:03 11/03/17 16:03 11/03/17 16:03 11/03/17 16:03 11/03/17 16:03 Intake & Output 11/02/17 11/03/17 11/04/17 06:59 06:59 06:59 Intake Total 237 Balance 237 Weight 81.8 kg General appearance: PRESENT: no acute distress, cooperative Head exam: PRESENT: atraumatic, normocephalic Eye exam: PRESENT: EOMI, nystagmus Ear exam: PRESENT: normal external ear exam Mouth exam: PRESENT: moist Neck exam: PRESENT: full ROM. ABSENT: JVD, tenderness Respiratory exam: PRESENT: clear to auscultation santa Cardiovascular exam: PRESENT: RRR. ABSENT: diastolic murmur, systolic murmur Vascular exam: PRESENT: normal capillary refill GI/Abdominal exam: PRESENT: normal bowel sounds, soft. ABSENT: tenderness Extremities exam: ABSENT: full ROM, joint swelling, pedal edema Musculoskeletal exam: PRESENT: ambulatory, full ROM Neurological exam: PRESENT: alert, awake, oriented to person, oriented to place , oriented to time, oriented to situation, CN II-XII grossly intact Psychiatric exam: PRESENT: appropriate affect, normal mood Skin exam: PRESENT: intact, normal color Results Laboratory Results: 11/03/17 07:28 11/03/17 07:28 11/03/17 11/03/17 07:28 07:28 WBC 8.5 RBC 2.90 L Hgb 8.6 L Hct 25.1 L MCV 87 MCH 29.6 MCHC 34.2 RDW 15.0 H Plt Count 249 Sodium 143.4 Potassium 3.7 Chloride 110 H Carbon Dioxide 24 Anion Gap 9 BUN 53 H Creatinine 3.54 H Est GFR ( Amer) 15 L Est GFR (Non-Af Amer) 13 L Glucose 104 Calcium 9.1 Phosphorus 4.5 Magnesium 1.4 L Total Bilirubin 0.3 AST 13 L ALT 20 Alkaline Phosphatase 64 Total Protein 5.7 L Albumin 2.7 L Impressions: Chest X-Ray 11/02/17 16:15 IMPRESSION: No significant interval change. Cardiomegaly. No acute changes. Other findings as noted above Abdomen MRI with MRA 11/03/17 11:50 IMPRESSION: NORMAL LEFT AND RIGHT RENAL ARTERIES. Assessment & Plan - Diagnosis (1) Anemia in chronic kidney disease (CKD) Qualifiers: Chronic kidney disease stage: stage 4 (severe) Qualified Code(s): N18.4 - Chronic kidney disease, stage 4 (severe); D63.1 - Anemia in chronic kidney disease; D63.1 - Anemia in chronic kidney disease Is this a current diagnosis for this admission?: Yes Plan: Stable (2) Hypertensive urgency Is this a current diagnosis for this admission?: Yes Plan: Resolved. Renal adjusting medication due to sudden blood drop in blood pressure (3) Chronic renal insufficiency, stage IV (severe) Is this a current diagnosis for this admission?: Yes Plan: Renal requesting MRI and MRA of the kidneys (4) Diastolic CHF, chronic Is this a current diagnosis for this admission?: Yes Plan: stable - Time Time Spent with patient: Less than 15 minutes Medications reviewed and adjusted accordingly: Yes Anticipated discharge: Home Within: within 24 hours - Inpatient Certification Based on my medical assessment, after consideration of the patient's comorbidities, presenting symptoms, or acuity I expect that the services needed warrant INPATIENT care.: No I certify that my determination is in accordance with my understanding of Medicare's requirements for reasonable and necessary INPATIENT services [42 CFR 412.3e].: Yes Medical Necessity: Need Close Monitoring Due to Risk of Patient Decompensation
[2017-11-03] MEDS: HYDRALAZINE HCL INJ/PF 20 MG/1 ML SDV IV PRN (22:59)
[2017-11-03] MEDS: DOXAZOSIN MESYLATE 2 MG TABLET PO SCH (22:59)
[2017-11-03] MEDS: INSULIN LISPRO 100 UNIT/ML 3 ML VIAL SUBCUT PRN (23:23)
[2017-11-04 05:29] LABS: ABSOLUTE EOSINOPHILS # (AUTO) 0.3 10^3/uL (0.0-0.6); ABSOLUTE LYMPHOCYTES (AUTO) 2.7 10^3/uL (0.5-4.7); ABSOLUTE MONOCYTES (AUTO) 0.8 10^3/uL (0.1-1.4); ABSOLUTE NEUT (AUTO) 4.7 10^3/uL (1.7-8.2); BASOPHILS % (AUTO) 0.3 % (0-2); EOSINOPHILS % (AUTO) 3.2 % (0-6); HEMATOCRIT 23.5 % (36.0-47.0); HEMOGLOBIN 8.1 g/dL (12.0-15.5); MEAN CORPUSCULAR HEMOGLOBIN 30.3 pg (27.0-33.4); MEAN CORPUSCULAR HGB CONC 34.6 g/dL (32.0-36.0); MEAN CORPUSCULAR VOLUME 88 fl (80-97); PLATELET COUNT 228 10^3/uL (150-450); RED BLOOD COUNT 2.68 10^6/uL (3.72-5.28); RED CELL DISTRIBUTION WIDTH 15.3 % (11.5-14.0); SEGMENTED NEUTROPHILS % (AUTO) 55.5 % (42-78); TOTAL CELLS COUNTED % (AUTO) 100 %; WHITE BLOOD COUNT 8.4 10^3/uL (4.0-10.5)
[2017-11-04 05:42] LABS: ANION GAP 8 (5-19); BLOOD UREA NITROGEN 55 mg/dL (7-20); CALCIUM 8.9 mg/dL (8.4-10.2); CARBON DIOXIDE 26 mmol/L (22-30); CHLORIDE 110 mmol/L (98-107); GLUCOSE 83 mg/dL (75-110); POTASSIUM 3.6 mmol/L (3.6-5.0); SODIUM 143.6 mmol/L (137-145)
[2017-11-04] MEDS: HYDRALAZINE HCL 50 MG TABLET PO SCH (06:14)
[2017-11-04] MEDS: HEPARIN SOD (PORCINE) 5,000 UNIT/ML 1 ML SYRINGE SUBCUT SCH (06:14)
[2017-11-04] MEDS: GABAPENTIN 100 MG CAPSULE PO SCH (06:15)
[2017-11-04] MEDS: LANSOPRAZOLE 30 MG TAB.RAP.DR PO SCH (06:15)
[2017-11-04] MEDS: BUMETANIDE 1 MG TABLET PO SCH (08:37)
[2017-11-04] MEDS: HYDROCHLOROTHIAZIDE 25 MG TABLET PO SCH (08:39)
[2017-11-04] MEDS: CHOLECALCIFEROL (D3) 1,000 UNIT TABLET PO SCH (09:50)
[2017-11-04] MEDS: ISOSORBIDE MONONITRATE 30 MG TAB.ER.24H PO SCH (09:51)
[2017-11-04] MEDS: DOCUSATE SODIUM 100 MG CAPSULE PO SCH (09:52)
[2017-11-04] MEDS: POTASSIUM CHLORIDE 10 MEQ TABLET.SA PO SCH (09:52)
[2017-11-04] MEDS: CLOPIDOGREL BISULFATE 75 MG TABLET PO SCH (09:53)
[2017-11-04] MEDS: ESCITALOPRAM OXALATE 10 MG TABLET PO SCH (09:53)
[2017-11-04] MEDS: MULTIVITAMIN TABLET PO SCH (09:53)
[2017-11-04] MEDS: ASPIRIN 81 MG TABLET, ENT COATED PO SCH (09:53)
[2017-11-04] MEDS: NIFEDIPINE 30 MG TAB.ER.24 PO SCH (09:54)
[2017-11-04] MEDS: FERROUS SULFATE 325 MG TABLET PO SCH (09:55)
[2017-11-04] MEDS: DOXAZOSIN MESYLATE 2 MG TABLET PO SCH (09:56)
[2017-11-04 13:02] VITALS: BP 218/70
--- NOTE | 2017-11-04 14:09 | PDOC DISCHARGE SUMMARY ---
General - Admit/Disc Date/PCP Admission Date/Primary Care Provider: 11/02/17 18:21 Discharge Date: 11/04/17 - Discharge Diagnosis (1) Hypertensive urgency Is this a current diagnosis for this admission?: Yes (2) Anemia in chronic kidney disease (CKD) Is this a current diagnosis for this admission?: Yes (3) Chronic renal insufficiency, stage IV (severe) Is this a current diagnosis for this admission?: Yes (4) Diastolic CHF, chronic Is this a current diagnosis for this admission?: Yes - Additional Information Resuscitation Status: Full Code Prescriptions: Doxazosin Mesylate [Cardura 2 mg Tablet] 2 mg PO Q12 #60 tablet Nifedipine [Procardia XL 30 mg Tablet] 60 mg PO DAILY #60 tab.er.24 Home Medications: Atorvastatin Calcium [Lipitor 20 mg Tablet] 20 mg PO QHS 11/02/17 Bumetanide [Bumex 1 mg Tablet] 1 mg PO DAILY 11/02/17 Clonidine HCl [Catapres 0.2 mg Tablet] 0.2 mg PO Q12 11/02/17 Clopidogrel Bisulfate [Plavix 75 mg Tablet] 75 mg PO DAILY 11/02/17 Escitalopram Oxalate [Lexapro] 20 mg PO DAILY 11/02/17 Isosorbide Mononitrate [Isosorbide Mononitrate ER] 30 mg PO Q8 11/02/17 Pantoprazole Sodium [Protonix] 40 mg PO DAILY 11/02/17 Doxazosin Mesylate [Cardura 2 mg Tablet] 2 mg PO Q12 #60 tablet 11/04/17 Nifedipine [Procardia XL 30 mg Tablet] 60 mg PO DAILY #60 tab.er.24 11/04/17 History of Present Illness History of Present Illness: KAM DEAN is a 77 year old female with resistant hypertension and chronic kidney disease, stage 4, who was sent to the emergency department by her vp product on the day of for evaluation and treatment of blood pressure. Apparently her blood pressure was markedly elevated. She had no specific complaints. In the ED, she had a pressure as high as 265/90. She did not report headache, visual disturbance, chest pain, palpitation, or acute shortness of breath. She had mild ankle edema. She was last hospitalized 10/03/2017 to 10/04/2017 for a hypertensive emergency. At that time, she was symptomatic with headache and vomiting. She did not tolerate a beta-ry due to bradycardia and prolonged QT interval. Patient was admitted under the hospitalist service Hospital Course Hospital Course: Patient responded to adjustments of medication regimen which included adding Procardia XL to her regimen. She was followed up by renal service and decrease Cardura dose out of concern of not hypoperfusing her kidneys. MRI and MRA of the kidneys were negative for renal artery stenosis. Patient has been advised to follow both with her primary care provider and renal service. We anticipate that further adjustments of her medication will need to be pursued but can be done as outpatient. Patient remained stable throughout hospital stay and since she had achieved maximum benefit of hospitalization stay prompted to discharge under stable condition Physical Exam Vital Signs: Temp Pulse Resp BP Pulse Ox 98.5 F 54 L 18 146/49 H 97 11/03/17 23:13 11/04/17 03:51 11/03/17 23:13 11/03/17 23:13 11/04/17 03:51 Intake & Output 11/03/17 11/04/17 11/05/17 06:59 06:59 06:59 Intake Total 737 Output Total 1 Balance 736 Weight 81.8 kg General appearance: PRESENT: no acute distress, cooperative, well-developed, well-nourished Head exam: PRESENT: atraumatic, normocephalic Eye exam: PRESENT: EOMI, PERRLA Ear exam: PRESENT: normal external ear exam Mouth exam: PRESENT: moist, neck supple Neck exam: PRESENT: full ROM. ABSENT: JVD, lymphadenopathy, tenderness Respiratory exam: PRESENT: clear to auscultation [place] Cardiovascular exam: PRESENT: RRR. ABSENT: diastolic murmur, systolic murmur Vascular exam: PRESENT: normal capillary refill GI/Abdominal exam: PRESENT: normal bowel sounds, soft. ABSENT: tenderness Extremities exam: PRESENT: full ROM. ABSENT: clubbing, joint swelling, pedal edema Musculoskeletal exam: PRESENT: ambulatory, full ROM Neurological exam: PRESENT: alert, awake, oriented to person, oriented to place , oriented to time, oriented to situation, CN II-XII grossly intact Psychiatric exam: PRESENT: depressed. ABSENT: appropriate affect, normal mood Skin exam: PRESENT: intact, normal color Results Laboratory Results: 11/04/17 04:07 11/04/17 04:07 11/03/17 11/03/17 11/04/17 07:28 07:28 04:07 WBC 8.5 8.4 RBC 2.90 L 2.68 L Hgb 8.6 L 8.1 L Hct 25.1 L 23.5 L MCV 87 88 MCH 29.6 30.3 MCHC 34.2 34.6 RDW 15.0 H 15.3 H Plt Count 249 228 Seg Neutrophils % 55.5 Lymphocytes % 32.0 Monocytes % 9.0 Eosinophils % 3.2 Basophils % 0.3 Absolute Neutrophils 4.7 Absolute Lymphocytes 2.7 Absolute Monocytes 0.8 Absolute Eosinophils 0.3 Absolute Basophils 0.0 Sodium 143.4 Potassium 3.7 Chloride 110 H Carbon Dioxide 24 Anion Gap 9 BUN 53 H Creatinine 3.54 H Est GFR ( Amer) 15 L Est GFR (Non-Af Amer) 13 L Glucose 104 Calcium 9.1 Phosphorus 4.5 Magnesium 1.4 L Total Bilirubin 0.3 AST 13 L ALT 20 Alkaline Phosphatase 64 Total Protein 5.7 L Albumin 2.7 L 11/04/17 04:07 WBC RBC Hgb Hct MCV MCH MCHC RDW Plt Count Seg Neutrophils % Lymphocytes % Monocytes % Eosinophils % Basophils % Absolute Neutrophils Absolute Lymphocytes Absolute Monocytes Absolute Eosinophils Absolute Basophils Sodium 143.6 Potassium 3.6 Chloride 110 H Carbon Dioxide 26 Anion Gap 8 BUN 55 H Creatinine 3.42 H Est GFR ( Amer) 16 L Est GFR (Non-Af Amer) 13 L Glucose 83 Calcium 8.9 Phosphorus Magnesium Total Bilirubin AST ALT Alkaline Phosphatase Total Protein Albumin Impressions: Chest X-Ray 11/02/17 16:15 IMPRESSION: No significant interval change. Cardiomegaly. No acute changes. Other findings as noted above Abdomen MRI with MRA 11/03/17 11:50 IMPRESSION: NORMAL LEFT AND RIGHT RENAL ARTERIES. Plan Discharge Plan: Discharge home Time Spent: Less than 30 Minutes
[2017-11-08 15:14] LABS: ALDOSTERONE 1.1 ng/dL (0.0-30.0); ALDOSTERONE RENIN RATIO 2 1.8 (0.0-30.0); RENIN ACTIVITY 0.608 ng/mL/hr (0.167-5.380)
== END 2017-11-04 13:00 | disposition home or self-care (01) | DRG 305 ==
LOC: ER 11:47 → EH 18:21 → 3N 11-03 08:25
PROVIDERS: ADMIT Emergency Medicine; ATTEND Emergency Medicine
DX: I16.0 Hypertensive urgency (principal); N18.4 Chronic kidney disease, stage 4 (severe); I50.32 Chronic diastolic (congestive) heart failure; N17.9 Acute kidney failure, unspecified; I13.0 Hypertensive heart and chronic kidney disease with heart failure and stage 1 through stage 4 chronic kidney disease, or unspecified chronic kidney disease; D63.1 Anemia in chronic kidney disease; E87.6 Hypokalemia; E78.5 Hyperlipidemia, unspecified; M16.10 Unilateral primary osteoarthritis, unspecified hip; F32.9 Major depressive disorder, single episode, unspecified; E83.42 Hypomagnesemia; E11.22 Type 2 diabetes mellitus with diabetic chronic kidney disease; R00.1 Bradycardia, unspecified; I45.81 Long QT syndrome; F41.9 Anxiety disorder, unspecified; Z79.899 Other long term (current) drug therapy; Z90.49 Acquired absence of other specified parts of digestive tract; Z87.891 Personal history of nicotine dependence; Z86.73 Personal history of transient ischemic attack (TIA), and cerebral infarction without residual deficits; Z82.3 Family history of stroke; Z83.3 Family history of diabetes mellitus; Z82.49 Family history of ischemic heart disease and other diseases of the circulatory system
CPT/HCPCS: 36415; 71045; 80048; 80053; 81001; 82088; 82962; 83735; 84100; 84244; 84439; 84443; 84484; 85025; 85027; 93005; 93010; 99291; C8901; J0360; J1644; J1815; J3490

== ENCOUNTER 2018-01-01 08:46 | Emergency (ER) | payer MEDICARE, OTHER ==
[2018-01-01] MEDS ORDERED: LABETALOL HCL INJ 20 MG/4 ML DISP.SYRIN IV ONE (09:07)
--- NOTE | 2018-01-01 09:10 | ER Document Report ---
ED General - General Stated Complaint: VOMITING Time Seen by Provider: 01/01/18 09:00 Notes: HPI-77 years old female presents today with diffuse abdominal pain/discomfort and nausea since this morning. Denies any radiation of pain denies any crampy pain denies any diarrhea or constipation. Denies any dysuria frequency urgency. Denies any fever chills or other constitutional symptoms except that feeling general malaise. She has not taken her medications this morning. Her blood pressure is elevated. Denies any chest pain shortness of breath. All focal weaknesses REVIEW OF SYSTEMS: CONSTITUTIONAL : Denies fever, chills, or sweats. Denies recent illness. EENT: Denies eye, ear, throat, or mouth pain or symptoms. Denies nasal or sinus congestion or discharge. Denies throat, tongue, or mouth swelling or difficulty swallowing. CARDIOVASCULAR: Denies chest pain. Denies palpitations or racing or irregular heart beat. Denies ankle edema. RESPIRATORY: Denies cough, cold, or chest congestion. Denies shortness of breath, difficulty breathing, or wheezing. GASTROINTESTINAL: Denies blood in vomitus, stools, or per rectum. Denies black, tarry stools. Denies constipation. GENITOURINARY: Denies difficulty urinating, painful urination, burning, frequency, blood in urine, or discharge. FEMALE GENITOURINARY: Denies vaginal bleeding, heavy or abnormal periods, irregular periods. Denies vaginal discharge or odor. MUSCULOSKELETAL: Denies back or neck pain or stiffness. Denies joint pain or swelling. SKIN: Denies rash, lesions or sores. HEMATOLOGIC : Denies easy bruising or bleeding. LYMPHATIC: Denies swollen, enlarged glands. NEUROLOGICAL: Denies confusion or altered mental status. Denies passing out or loss of consciousness. Denies dizziness or lightheadedness. Denies headache. Denies weakness or paralysis or loss of use of either side. Denies problems with gait or speech. Denies sensory loss, numbness, or tingling. Denies seizures. PSYCHIATRIC: Denies anxiety or stress. Denies depression, suicidal ideation, or homicidal ideation. ALL OTHER SYSTEMS REVIEWED AND NEGATIVE. PHYSICAL EXAMINATION: GENERAL: Well-appearing, well-nourished and in no acute distress. HEAD: Atraumatic, normocephalic. EYES: Pupils equal round and reactive to light, extraocular movements intact, conjunctiva are normal. ENT: Nares patent, oropharynx clear without exudates. Moist mucous membranes. NECK: Normal range of motion, supple without lymphadenopathy LUNGS: Breath sounds clear to auscultation bilaterally and equal. No wheezes rales or rhonchi. HEART: Regular rate and rhythm without murmurs ABDOMEN: Soft, nontender, nondistended abdomen. No guarding, no rebound. No masses appreciated. Female : deferred Musculoskeletal: Normal range of motion, no pitting or edema. No cyanosis. NEUROLOGICAL: Cranial nerves grossly intact. Normal speech, normal gait. Normal sensory, motor exams PSYCH: Normal mood, normal affect. SKIN: Warm, Dry, normal turgor, no rashes or lesions noted. Dictation was performed using [employer] voice recognition software TRAVEL OUTSIDE OF THE [place] IN LAST 30 DAYS: No - Related Data Allergies/Adverse Reactions: No Known Allergies Allergy (Verified 01/01/18 09:16) Past Medical History - Social History Smoking Status: Never Smoker Family History: CVA, DM, Hypertension - Past Medical History Cardiac Medical History: Reports: Hx Congestive Heart Failure - Pt reports she had HF last year, Hx Hypercholesterolemia, Hx Hypertension Denies: Hx Coronary Artery Disease, Hx Heart Attack, Hx Peripheral Vascular Disease, Hx Pulmonary Embolism Pulmonary Medical History: Denies: Hx Tuberculosis Neurological Medical History: Reports: Hx Cerebrovascular Accident Endocrine Medical History: Reports: Hx Diabetes Mellitus Type 2 Renal/ Medical History: Denies: Hx Peritoneal Dialysis Musculoskeltal Medical History: 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 Psychiatric Medical History: Reports: Hx Anxiety, Hx Depression Past Surgical History: Reports: Hx Cholecystectomy, Hx Orthopedic Surgery - hand - Immunizations Hx Diphtheria, Pertussis, Tetanus Vaccination: Yes Hx Pneumococcal Vaccination: 01/11/12 Review of Systems - Review of Systems Notes: As per history of complain Constitutional: See HPI EENT: See HPI. denies: No symptoms reported, Eye pain, Eye discharge, Blurred vision, Tearing, Double vision, Ear pain, Ear discharge, Nose pain, Nose congestion, Nose discharge, Sinus pressure, Sinus discharge, Throat pain, Difficulty swallowing, Throat swelling, Mouth pain, Mouth swelling, Dental problem, Vertigo, Other Cardiovascular: See HPI. denies: No symptoms reported, Chest pain, Palpitations , Heart racing, Orthopnea, Dyspnea, Syncope, Dizziness, Lightheaded, Edema, Other, Paroxysmal Nocturnal Dysp Respiratory: See HPI Gastrointestinal: See HPI Genitourinary: See HPI Musculoskeletal: denies: No symptoms reported, See HPI, Back pain, Gout, Joint pain, Joint swelling, Muscle pain, Muscle stiffness, Neck pain, Deformity, Leg swelling, Ankle swelling, Other Skin: denies: No symptoms reported, See HPI, Change in color, Change in hair/ nails, Dryness, Lesions, Lumps, Rash, Other Physical Exam - Vital signs Vitals: Resp 10 L 01/01/18 09:01 Course - Re-evaluation Re-evalutation: 01/01/18 14:54 Blood pressure has come down after being treated with Cardizem - Vital Signs Vital signs: Temp Pulse Resp BP Pulse Ox 97.6 F 65 15 155/71 H 98 01/01/18 09:11 01/01/18 09:11 01/01/18 16:00 01/01/18 14:06 01/01/18 16:00 - Laboratory Result Diagrams: 01/01/18 09:07 01/01/18 09:07 Laboratory results interpreted by me: 01/01/18 01/01/18 01/01/18 09:07 09:07 12:42 WBC 17.3 H RDW 14.5 H Absolute Neutrophils 13.0 H Potassium 3.3 L BUN 44 H Creatinine 2.88 H Est GFR ( Amer) 19 L Est GFR (Non-Af Amer) 16 L Glucose 317 H Albumin 3.1 L Urine Protein >=500 H Urine Glucose (UA) >=500 H Urine Ketones TRACE H Ur Leukocyte Esterase TRACE H - Diagnostic Test Radiology reviewed: Reports reviewed - Abdominal series reported by radiologist as unremarkable-on my exam I find large amount of fecal material CT of the abdomen/pelvis reported by radiologist as normal Discharge - Discharge Clinical Impression: Constipation by delayed colonic transit, Hypertensive emergency Abdominal pain Qualifiers: Abdominal location: generalized Qualified Code(s): R10.84 - Generalized abdominal pain Condition: Fair Disposition: HOME, SELF-CARE Instructions: Abdominal Pain ([facility]), Antinausea Medication ([facility]), Bowel Obstruction ([facility]) Prescriptions: Dicyclomine HCl [Bentyl 10 mg Capsule] 1 cap PO TID #30 cap Lactulose [Cephulac Syrup 20 gm/30 ml Udcup] 20 gm PO BID #240 udc Forms: Return to Work
[2018-01-01 09:17] LABS: ABSOLUTE BASOPHILS # (AUTO) 0.2 10^3/uL (0.0-0.2); ABSOLUTE EOSINOPHILS # (AUTO) 0.2 10^3/uL (0.0-0.6); ABSOLUTE LYMPHOCYTES (AUTO) 3.4 10^3/uL (0.5-4.7); ABSOLUTE MONOCYTES (AUTO) 0.5 10^3/uL (0.1-1.4); EOSINOPHILS % (AUTO) 0.9 % (0-6); HEMATOCRIT 36.2 % (36.0-47.0); HEMOGLOBIN 12.1 g/dL (12.0-15.5); LYMPHOCYTES % (AUTO) 19.6 % (13-45); MEAN CORPUSCULAR HEMOGLOBIN 28.9 pg (27.0-33.4); MEAN CORPUSCULAR HGB CONC 33.4 g/dL (32.0-36.0); MEAN CORPUSCULAR VOLUME 86 fl (80-97); MONOCYTES % (AUTO) 3.1 % (3-13); PLATELET COUNT 378 10^3/uL (150-450); RED BLOOD COUNT 4.19 10^6/uL (3.72-5.28); RED CELL DISTRIBUTION WIDTH 14.5 % (11.5-14.0); SEGMENTED NEUTROPHILS % (AUTO) 75.4 % (42-78); TOTAL CELLS COUNTED % (AUTO) 100 %; WHITE BLOOD COUNT 17.3 10^3/uL (4.0-10.5)
[2018-01-01 09:35] LABS: ALANINE AMINOTRANSFERASE 15 U/L (9-52); ALBUMIN 3.1 g/dL (3.5-5.0); ALKALINE PHOSPHATASE 93 U/L (38-126); ANION GAP 9 (5-19); ASPARTATE AMINO TRANSFERASE 17 U/L (14-36); BILIRUBIN,DIRECT 0.4 mg/dL (0.0-0.4); BILIRUBIN,TOTAL 0.5 mg/dL (0.2-1.3); BLOOD UREA NITROGEN 44 mg/dL (7-20); CALCIUM 9.2 mg/dL (8.4-10.2); CARBON DIOXIDE 26 mmol/L (22-30); CHLORIDE 106 mmol/L (98-107); GLUCOSE 317 mg/dL (75-110); LIPASE 260.4 U/L (23-300); POTASSIUM 3.3 mmol/L (3.6-5.0); SODIUM 141.2 mmol/L (137-145); TOTAL PROTEIN 6.9 g/dL (6.3-8.2)
--- NOTE | 2018-01-01 09:47 | RADIOLOGY REPORT (SQ) ---
EXAM DESCRIPTION: ACUTE ABDOMEN SERIES COMPLETED DATE/TIME: 01/01/2018 9:36 am REASON FOR STUDY: Abdominal pain COMPARISON: None. NUMBER OF VIEWS: Three views. TECHNIQUE: Frontal chest, supine abdomen and upright/decubitus abdomen radiographic images acquired. LIMITATIONS: None. FINDINGS: CHEST: Lungs clear of infiltrates. FREE AIR: None. No abnormal gas collections. BOWEL GAS PATTERN: Nonobstructive pattern. No dilated loops or air fluid levels. CALCIFICATIONS: No suspicious calcifications. HARDWARE: None in the abdomen. SOFT TISSUES: No gross mass or suggestion of organomegaly. BONES: No acute fracture. No worrisome bone lesions. OTHER: No other significant finding. IMPRESSION: NO RADIOGRAPHIC EVIDENCE FOR ACUTE ABDOMINAL DISEASE. TECHNICAL DOCUMENTATION: JOB ID: [id number] [employer]- All Rights Reserved Reading location - IP/workstation name: [email or web address]
[2018-01-01] MEDS ORDERED: HYDRALAZINE HCL INJ/PF 20 MG/1 ML SDV IV ONE (09:59)
[2018-01-01] MEDS ORDERED: DILTIAZEM HCL INJ 25 MG/5 ML VIAL IV ONE (12:09)
[2018-01-01 13:17] LABS: APPEARANCE,URINE SLIGHTLY-CLOUDY; BILIRUBIN,URINE NEGATIVE (NEGATIVE); COLOR,URINE YELLOW; GLUCOSE, URINE >=500 mg/dL (NEGATIVE); KETONES,URINE TRACE mg/dL (NEGATIVE); LEUKOCYTE ESTERASE,URINE TRACE (NEGATIVE); NITRITE,URINE NEGATIVE (NEGATIVE); PROTEIN,URINE >=500 mg/dL (NEGATIVE); URINE SPECIFIC GRAVITY 1.017; UROBILINOGEN,URINE NEGATIVE mg/dL (<2.0)
[2018-01-01] MEDS ORDERED: POTASSIUM CHLORIDE 10 MEQ TABLET.SA PO ONE (14:24)
--- NOTE | 2018-01-01 14:39 | RADIOLOGY REPORT (SQ) ---
EXAM DESCRIPTION: CT ABD/PELVIS NO ORAL OR IV COMPLETED DATE/TIME: 01/01/2018 2:26 pm REASON FOR STUDY: Abdominal pain COMPARISON: None. TECHNIQUE: CT scan of the abdomen and pelvis performed without intravenous or oral contrast. Images reviewed with lung, soft tissue, and bone windows. Reconstructed coronal and sagittal MPR images revi ewed. All images stored on PACS. All CT scanners at this facility use dose modulation, iterative reconstruction, and/or weight based d osing when appropriate to reduce radiation dose to as low as reasonably achievable (ALARA). [facility]: Dose Right [facility]: CareDose [facility]: Dose Right [facility]: Teradose 4D [facility]: [employer] RADIATION DOSE: CT Rad equipment meets quality standard of care and radiation dose reduction techniq ues were employed. CTDIvol: 13.9 mGy. DLP: 783 mGy-cm.mGy. LIMITATIONS: Patient motion. FINDINGS: LOWER CHEST: Small pericardial effusion. Cardiomegaly. NON-CONTRASTED LIVER, SPLEEN, ADRENALS: Evaluation limited by lack of IV contrast. No identified sign ificant masses. PANCREAS: No masses. No peripancreatic inflammatory changes. GALLBLADDER: Surgically absent. RIGHT KIDNEY AND URETER: No suspicious masses. Assessment limited by lack of IV contrast. Renal yelena culi measuring up to about 2 mm. No hydronephrosis or hydroureter. LEFT KIDNEY AND URETER: No suspicious masses. Assessment limited by lack of IV contrast. No signifi cant calcifications. No hydronephrosis or hydroureter. AORTA AND RETROPERITONEUM: No aneurysm. No retroperitoneal masses or adenopathy. BOWEL AND PERITONEAL CAVITY: Diverticulosis descending and sigmoid colon. No inflammatory change. APPENDIX: Normal. PELVIS, BLADDER, AND ABDOMINAL WALL:Small amount of free fluid. Uterine fibroids. BONES: No acute findings. OTHER: No other significant finding. IMPRESSION: No acute findings in the abdomen or pelvis. COMMENT: Quality ID # [id number]: Final reports with documentation of one or more dose reduction techniques (e.g., Automated exposure control, adjustment of the mA and/or kV according to patient size, use of iterative reconstruction technique) TECHNICAL DOCUMENTATION: JOB ID: [id number] [employer]- All Rights Reserved Reading location - IP/workstation name: [email or web address]
[2018-01-01 16:20] VITALS: BP 155/71
== END 2018-01-01 16:27 | disposition home or self-care (01) ==
LOC: ER 08:46
DX: K59.01 Slow transit constipation (principal); I16.1 Hypertensive emergency; R10.84 Generalized abdominal pain; R11.2 Nausea with vomiting, unspecified; R53.81 Other malaise; I10 Essential (primary) hypertension; E11.9 Type 2 diabetes mellitus without complications; Z79.899 Other long term (current) drug therapy
CPT/HCPCS: 99285; 51701; 96374; 96375; 36415; 83690; 85025; 80076; 80048; 81001; 74022; 74176; J0360; J3490; A9270

== ENCOUNTER 2018-03-05 19:18 | Emergency (ER) | payer MEDICARE, OTHER ==
[2018-03-05] MEDS ORDERED: ONDANSETRON HCL INJ/PF 4 MG/2 ML SDV IV ONE (19:40)
[2018-03-05] MEDS ORDERED: NORMAL SALINE 1000 ML 500 ML IV ONE (19:40)
[2018-03-05 20:20] LABS: ABSOLUTE BASOPHILS # (AUTO) 0.1 10^3/uL (0.0-0.2); ABSOLUTE EOSINOPHILS # (AUTO) 0.1 10^3/uL (0.0-0.6); ABSOLUTE LYMPHOCYTES (AUTO) 1.8 10^3/uL (0.5-4.7); ABSOLUTE MONOCYTES (AUTO) 0.7 10^3/uL (0.1-1.4); ABSOLUTE NEUT (AUTO) 9.9 10^3/uL (1.7-8.2); BASOPHILS % (AUTO) 0.6 % (0-2); EOSINOPHILS % (AUTO) 0.5 % (0-6); HEMATOCRIT 30.2 % (36.0-47.0); HEMOGLOBIN 9.9 g/dL (12.0-15.5); LYMPHOCYTES % (AUTO) 14.3 % (13-45); MEAN CORPUSCULAR HEMOGLOBIN 28.1 pg (27.0-33.4); MEAN CORPUSCULAR HGB CONC 32.7 g/dL (32.0-36.0); MEAN CORPUSCULAR VOLUME 86 fl (80-97); MONOCYTES % (AUTO) 5.7 % (3-13); PLATELET COUNT 247 10^3/uL (150-450); RED BLOOD COUNT 3.51 10^6/uL (3.72-5.28); RED CELL DISTRIBUTION WIDTH 14.6 % (11.5-14.0); SEGMENTED NEUTROPHILS % (AUTO) 78.9 % (42-78); TOTAL CELLS COUNTED % (AUTO) 100 %; WHITE BLOOD COUNT 12.6 10^3/uL (4.0-10.5)
[2018-03-05] MEDS ORDERED: CLONIDINE HCL 0.2 MG TABLET PO ONE (20:36)
--- NOTE | 2018-03-05 20:37 | ER Document Report ---
ED General - General Chief Complaint: Nausea/Vomiting Stated Complaint: VOMITTING Time Seen by Provider: 03/05/18 19:35 Notes: Patient is a 77-year-old female with a past medical history of chronic kidney disease without dialysis dependence, hypertension, hyperlipidemia, who presents after having one episode of vomiting. Family states shortly prior to arrival the patient complained of some upper abdominal discomfort and then had one episode of mucousy vomiting. Patient states that since that time she has overall felt fine and no longer has any complaints. Family reports that the patient has a recurrent history of similar symptoms in the past and chart review does demonstrate that the patient has had multiple visits to the emergency department for similar complaints with no clear etiology seen on imaging or labs. At the time of my assessment the patient denies having any symptoms of any kind and previously states that she did not have any chest pain , shortness of breath, headache, neck pain weakness or numbness. She states that she simply felt nauseated, had some upper stomach cramping and then vomited. She has not discussed her recurrent vomiting episodes with her primary care doctor. She has not noted that anything seemed to improve or worsen her symptoms. TRAVEL OUTSIDE OF THE [place] IN LAST 30 DAYS: No - Related Data Allergies/Adverse Reactions: No Known Allergies Allergy (Verified 01/17/18 10:37) Past Medical History - General Information source: Patient, Relative - Social History Smoking Status: Never Smoker Chew tobacco use (# tins/day): No Frequency of alcohol use: None Drug Abuse: None Lives with: Family Family History: CVA, DM, Hypertension Patient has suicidal ideation: No Patient has homicidal ideation: No - Past Medical History Cardiac Medical History: Reports: Hx Congestive Heart Failure - Pt reports she had HF last year, Hx Hypercholesterolemia, Hx Hypertension Denies: Hx Coronary Artery Disease, Hx Heart Attack, Hx Peripheral Vascular Disease, Hx Pulmonary Embolism Pulmonary Medical History: Denies: Hx Tuberculosis Neurological Medical History: Reports: Hx Cerebrovascular Accident Endocrine Medical History: Reports: Hx Diabetes Mellitus Type 2 Renal/ Medical History: Denies: Hx Peritoneal Dialysis Musculoskeltal Medical History: 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 Psychiatric Medical History: Reports: Hx Anxiety, Hx Depression Past Surgical History: Reports: Hx Cholecystectomy, Hx Orthopedic Surgery - hand - Immunizations Hx Diphtheria, Pertussis, Tetanus Vaccination: Yes Hx Pneumococcal Vaccination: 01/11/12 Review of Systems - Review of Systems Notes: Constitutional: Negative for fever. HENT: Negative for sore throat. Eyes: Negative for visual changes. Cardiovascular: Negative for chest pain. Respiratory: Negative for shortness of breath. Gastrointestinal: Positive for abdominal discomfort and vomiting Genitourinary: Negative for dysuria. Musculoskeletal: Negative for back pain. Skin: Negative for rash. Neurological: Negative for headaches, weakness or numbness. 10 point ROS negative except as marked above and in HPI. Physical Exam - Vital signs Vitals: Resp Pulse Ox 20 92 03/05/18 19:35 03/05/18 19:35 Interpretation: Hypertensive Notes: PHYSICAL EXAMINATION: GENERAL: Appears stated age, in no distress HEAD: Atraumatic, normocephalic. EYES: Pupils equal round and reactive to light, extraocular movements intact, sclera anicteric, conjunctiva are normal. ENT: nares patent, oropharynx clear without exudates. Moderately dry mucous membranes. NECK: Normal range of motion, supple without lymphadenopathy LUNGS: Breath sounds clear to auscultation bilaterally and equal. No wheezes rales or rhonchi. HEART: Regular rate and rhythm without murmurs ABDOMEN: Soft, nontender, normoactive bowel sounds. No guarding, no rebound. No masses appreciated. EXTREMITIES: Normal range of motion, no pitting or edema. No cyanosis. NEUROLOGICAL: No focal neurological deficits. Moves all extremities spontaneously and on command. PSYCH: Normal mood, normal affect. SKIN: Warm, Dry, normal turgor, no rashes or lesions noted. Course - Re-evaluation Re-evalutation: 03/05/18 20:36 Patient is a 77-year-old female who presents with one episode of vomiting and generalized abdominal discomfort. The patient has been seen in the emergency department repeatedly for a similar issue with reassuring evaluations on each occasion. She denies any ongoing abdominal discomfort today. She denies any ongoing nausea. She states that she believes that she vomited up her afternoon antihypertensive medication clonidine. She denies any chest pain or shortness of breath. On abdominal examination she has no focal areas of rebound or guarding. Given her advanced age and chronic medical conditions will proceed with a workup including blood work, urinalysis, CT of the abdomen pelvis without contrast given history of renal dysfunction and reassess. 03/05/18 22:07 CT of the abdomen pelvis without any acute findings. Patient continues to feel well, no further vomiting or nausea. Her labs show improved kidney function from her most recent visit as well as her troponin likewise again being below where she normally is. Given her oral are all very reassuring assessment, I believe the patient is safe for disposition to home and the family agrees. At this time will discharge with return precautions and follow-up recommendations. Verbal discharge instructions given a the bedside and opportunity for questions given. Medication warnings reviewed. Patient is in agreement with this plan and has verbalized understanding of return precautions and the need for primary care follow-up in the next 24-72 hours. - Vital Signs Vital signs: Temp Pulse Resp BP Pulse Ox 98.4 F 20 92 03/05/18 19:52 03/05/18 19:35 03/05/18 19:35 - Laboratory Result Diagrams: 03/05/18 20:10 03/05/18 20:10 Laboratory results interpreted by me: 03/05/18 03/05/18 20:10 20:10 WBC 12.6 H RBC 3.51 L Hgb 9.9 L Hct 30.2 L RDW 14.6 H Seg Neutrophils % 78.9 H Absolute Neutrophils 9.9 H BUN 41 H Creatinine 3.03 H Est GFR ( Amer) 18 L Est GFR (Non-Af Amer) 15 L Glucose 237 H Albumin 3.0 L - Diagnostic Test Radiology reviewed: Image reviewed, Reports reviewed - EKG Interpretation by Me Additional EKG results interpreted by me: 03/05/18 22:12 Sinus rhythm. Rate 97. No ST elevations or depressions. QTC is 468. Discharge - Discharge Clinical Impression: Hypertensive urgency, Chronic renal insufficiency, stage IV (severe) Nausea and vomiting Qualifiers: Vomiting type: unspecified Vomiting Intractability: non-intractable Qualified Code(s): R11.2 - Nausea with vomiting, unspecified Condition: Stable Disposition: HOME, SELF-CARE Additional Instructions: You have been seen in the Emergency Department (ED) today for nausea and vomiting. Your work up today has not shown a clear cause for your symptoms. Follow up with your doctor as soon as possible regarding today's emergent visit and your symptoms of nausea. Return to the Emergency Department (ED) if you develop abdominal pain, bloody vomiting, bloody diarrhea, if you are unable to tolerate fluids due to vomiting , or if you develop other symptoms that concern you.
[2018-03-05 20:44] LABS: ALANINE AMINOTRANSFERASE 20 U/L (9-52); ALKALINE PHOSPHATASE 88 U/L (38-126); ANION GAP 13 (5-19); ASPARTATE AMINO TRANSFERASE 17 U/L (14-36); BILIRUBIN,DIRECT 0.4 mg/dL (0.0-0.4); BILIRUBIN,TOTAL 0.5 mg/dL (0.2-1.3); BLOOD UREA NITROGEN 41 mg/dL (7-20); CALCIUM 9.8 mg/dL (8.4-10.2); CARBON DIOXIDE 25 mmol/L (22-30); CHLORIDE 106 mmol/L (98-107); GLUCOSE 237 mg/dL (75-110); LIPASE 183.1 U/L (23-300); POTASSIUM 3.9 mmol/L (3.6-5.0); SODIUM 143.6 mmol/L (137-145); TOTAL PROTEIN 6.4 g/dL (6.3-8.2)
--- NOTE | 2018-03-05 21:18 | RADIOLOGY REPORT (SQ) ---
EXAM DESCRIPTION: CT ABD/PELVIS NO ORAL OR IV COMPLETED DATE/TIME: 03/05/2018 9:07 pm REASON FOR STUDY: vomiting, ab pain COMPARISON: 01/17/2018 and 01/01/2018. TECHNIQUE: CT scan of the abdomen and pelvis performed without intravenous or oral contrast. Images reviewed with lung, soft tissue, and bone windows. Reconstructed coronal and sagittal MPR images revi ewed. All images stored on PACS. All CT scanners at this facility use dose modulation, iterative reconstruction, and/or weight based d osing when appropriate to reduce radiation dose to as low as reasonably achievable (ALARA). [facility]: Dose Right [facility]: CareDose [facility]: Dose Right [facility]: Teradose 4D [facility]: [employer] RADIATION DOSE: CT Rad equipment meets quality standard of care and radiation dose reduction techniq ues were employed. CTDIvol: 7.7 mGy. DLP: 389 mGy-cm.mGy. LIMITATIONS: None. FINDINGS: LOWER CHEST: Moderate pleural effusions. Cardiomegaly. Trace pericardial effusion. NON-CONTRASTED LIVER, SPLEEN, ADRENALS: Evaluation limited by lack of IV contrast. No identified sign ificant masses. PANCREAS: No masses. No peripancreatic inflammatory changes. GALLBLADDER: Surgically absent. RIGHT KIDNEY AND URETER: No suspicious masses. Assessment limited by lack of IV contrast. No signif icant calcifications. No hydronephrosis or hydroureter. LEFT KIDNEY AND URETER: Cortical cyst. No suspicious masses. Assessment limited by lack of IV contra st. No significant calcifications. No hydronephrosis or hydroureter. AORTA AND RETROPERITONEUM: No aneurysm. No retroperitoneal masses or adenopathy. BOWEL AND PERITONEAL CAVITY: Diverticuli particularly in the descending and sigmoid colon. No obviou s masses or inflammatory changes. No free fluid. APPENDIX: Normal. PELVIS, BLADDER, AND ABDOMINAL WALL:No abnormal masses. No free fluid. Bladder normal. BONES: No significant findings. Chronic degenerative changes in the spine. OTHER: No other significant finding. IMPRESSION: 1. COLONIC DIVERTICULOSIS. NO CT FINDINGS OF ACUTE DIVERTICULITIS. 2. CORTICAL CYST LEFT KIDNEY. 3. MODERATE PLEURAL EFFUSIONS. CARDIOMEGALY WITH TRACE PERICARDIAL EFFUSION. 4. NO OTHER SIGNIFICANT OR ACUTE PROCESS IN THE ABDOMEN OR PELVIS. COMMENT: Quality ID # [id number]: Final reports with documentation of one or more dose reduction techniques (e.g., Automated exposure control, adjustment of the mA and/or kV according to patient size, use of iterative reconstruction technique) TECHNICAL DOCUMENTATION: JOB ID: [id number] [employer]- All Rights Reserved Reading location - IP/workstation name: [email or web address]
--- NOTE | 2018-03-05 22:27 | EKG REPORT ---
SEVERITY:- ABNORMAL ECG - SINUS TACHYCARDIA BORDERLINE T ABNORMALITIES, LATERAL LEADS : Confirmed by: Margie Denton 05-Mar-2018 22:26:15
[2018-03-05 22:48] VITALS: BP 201/87
== END 2018-03-05 23:22 | disposition home or self-care (01) ==
LOC: ER 19:18
DX: I12.9 Hypertensive chronic kidney disease with stage 1 through stage 4 chronic kidney disease, or unspecified chronic kidney disease (principal); I16.0 Hypertensive urgency; N18.4 Chronic kidney disease, stage 4 (severe); R11.2 Nausea with vomiting, unspecified; R10.10 Upper abdominal pain, unspecified; E11.9 Type 2 diabetes mellitus without complications
CPT/HCPCS: 93005; 99284; 96361; 96374; 36415; 82962; 83690; 85025; 80053; 84484; 74176; 93010; A9270; J2405; J7030

== ENCOUNTER 2018-03-09 09:15 | Inpatient (IN) | payer MEDICARE, OTHER ==
--- NOTE | 2018-03-09 10:12 | ER Document Report ---
ED General - General Chief Complaint: High Blood Pressure Stated Complaint: POSSIBLE HYPERTENSION Time Seen by Provider: 03/09/18 10:01 Notes: 77-year-old female patient to the emergency department chief complaint of hypertension and headache and right upper quadrant and right flank abdominal pain. Patient was seen here a few days ago and had complaints of evaluation. Everything checked out fairly unremarkable with exception of her baseline labs being slightly elevated. Patient has a chronic elevated troponin. Denies any chest pain at this time. States that she woke up this morning with a headache. Her son checked her blood pressure and it was 250/120 and she was also complaining of pain in the right upper quadrant again. By a doctor in [facility]. Denies any fever, chills, sweats. No change in her bowel habits. TRAVEL OUTSIDE OF THE [place] IN LAST 30 DAYS: No - HPI Onset: This morning Onset/Duration: Gradual - Related Data Allergies/Adverse Reactions: No Known Allergies Allergy (Verified 03/09/18 09:32) Past Medical History - General Information source: Patient, Relative - Social History Smoking Status: Never Smoker Frequency of alcohol use: None Drug Abuse: None Lives with: Family Family History: CVA, DM, Hypertension Patient has suicidal ideation: No Patient has homicidal ideation: No - Past Medical History Cardiac Medical History: Reports: Hx Congestive Heart Failure - Pt reports she had HF last year, Hx Hypercholesterolemia, Hx Hypertension Denies: Hx Coronary Artery Disease, Hx Heart Attack, Hx Peripheral Vascular Disease, Hx Pulmonary Embolism Pulmonary Medical History: Denies: Hx Tuberculosis Neurological Medical History: Reports: Hx Cerebrovascular Accident Endocrine Medical History: Reports: Hx Diabetes Mellitus Type 2 Renal/ Medical History: Denies: Hx Peritoneal Dialysis GI Medical History: Reports: Hx Gastroesophageal Reflux Disease Musculoskeltal Medical History: 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 Psychiatric Medical History: Reports: Hx Anxiety, Hx Depression Past Surgical History: Reports: Hx Cardiac Catheterization - stents, Hx Cholecystectomy, Hx Orthopedic Surgery - hand - Immunizations Hx Diphtheria, Pertussis, Tetanus Vaccination: Yes Hx Pneumococcal Vaccination: 01/11/12 Review of Systems - Review of Systems Constitutional: denies: Fever, Malaise, Weakness EENT: No symptoms reported Cardiovascular: denies: Chest pain, Palpitations, Heart racing Respiratory: denies: Cough, Hurts to breathe, Short of breath, Wheezing Gastrointestinal: Abdominal pain. denies: Diarrhea, Nausea, Vomiting Genitourinary: denies: Burning, Dysuria, Discharge Female Genitourinary: No symptoms reported Musculoskeletal: denies: Back pain, Joint pain, Muscle pain Skin: No symptoms reported Hematologic/Lymphatic: No symptoms reported Neurological/Psychological: Headaches. denies: Paralysis, Seizure, Lost consciousness Physical Exam - Vital signs Vitals: Temp Resp Pulse Ox 98.1 F 18 94 03/09/18 09:15 03/09/18 09:15 03/09/18 09:15 Interpretation: Normal - General General appearance: Appears well, Alert - HEENT Head: Normocephalic, Atraumatic Eyes: Normal Conjunctiva: Other - Only pale conjunctiva. no Obvious jaundice. Pupils: PERRL - Respiratory Respiratory status: No respiratory distress Chest status: Nontender Breath sounds: Normal Chest palpation: Normal - Cardiovascular Rhythm: Regular Heart sounds: Normal auscultation Murmur: No - Abdominal Inspection: Normal Distension: No distension Bowel sounds: Normal Tenderness: Tender, Other - Tenderness palpation right upper quadrant. No guarding. No rebound. No palpable masses. Pulsatile masses. Organomegaly: No organomegaly - Back Back: Normal, Nontender - Extremities General upper extremity: Normal inspection, Nontender, Normal color, Normal ROM , Normal temperature General lower extremity: Normal inspection, Nontender, Normal color, Normal ROM , Normal temperature, Normal weight bearing. No: Karen's sign - Neurological Neuro grossly intact: Yes Cognition: Normal Orientation: AAOx4 [place] Coma Scale Eye Opening: Spontaneous [place] Coma Scale Verbal: Oriented [place] Coma Scale Motor: Obeys Commands [place] Coma Scale Total: 15 Speech: Normal Motor strength normal: LUE, RUE, LLE, RLE Sensory: Normal - Psychological Associated symptoms: Normal affect, Normal mood - Skin Skin Temperature: Warm Skin Moisture: Dry Skin Color: Normal Course - Re-evaluation Re-evalutation: 03/09/18 13:25 At this time patient has slightly elevated troponin which is likely chronic but definitely worse than her baseline. Blood pressure is still quite elevated. This would classify her as a hypertensive emergency. Hydralazine and clonidine has been given. Aspirin given. I have consulted with the hospitalist at this time for admission. She does have a pleural effusion. She does have worsening hemoglobin and hematocrit but guaiac negative. Told to Dr. Pichardo will admit to [facility] - Vital Signs Vital signs: Temp Pulse Resp BP Pulse Ox 98.1 F 12 199/76 H 94 03/09/18 09:15 03/09/18 12:42 03/09/18 12:42 03/09/18 12:42 - Laboratory Result Diagrams: 03/09/18 09:45 03/09/18 09:45 Laboratory results interpreted by me: 03/09/18 03/09/18 03/09/18 09:45 09:45 12:35 RBC 2.93 L Hgb 8.5 L Hct 25.5 L RDW 14.5 H BUN 44 H Creatinine 3.25 H Est GFR ( Amer) 17 L Est GFR (Non-Af Amer) 14 L Glucose 260 H Total Protein 5.7 L Albumin 2.6 L Urine Protein >=500 H Urine Glucose (UA) 150 H Ur Leukocyte Esterase SMALL H - EKG Interpretation by Me EKG shows normal: Sinus rhythm, Ing[place], Intervals, QRS Complexes, ST-T Waves When compared to previous EKG there are: No significant change Critical Care Note - Critical Care Note Total time excluding time spent on procedures (mins): 45 Comments: Hypertensive, anemia elevated troponin Discharge - Discharge Clinical Impression: Hypertensive emergency, Chronic anemia, Elevated cardiac troponin Disposition: ADMITTED INPATIENT Admitting Provider: Hospitalist - [facility] Admitted: [facility]
[2018-03-09 10:16] LABS: ABSOLUTE LYMPHOCYTES (AUTO) 1.6 10^3/uL (0.5-4.7); ABSOLUTE MONOCYTES (AUTO) 0.6 10^3/uL (0.1-1.4); ABSOLUTE NEUT (AUTO) 6.8 10^3/uL (1.7-8.2); BASOPHILS % (AUTO) 0.3 % (0-2); EOSINOPHILS % (AUTO) 0.2 % (0-6); HEMATOCRIT 25.5 % (36.0-47.0); HEMOGLOBIN 8.5 g/dL (12.0-15.5); LYMPHOCYTES % (AUTO) 17.4 % (13-45); MEAN CORPUSCULAR HEMOGLOBIN 28.9 pg (27.0-33.4); MEAN CORPUSCULAR HGB CONC 33.3 g/dL (32.0-36.0); MEAN CORPUSCULAR VOLUME 87 fl (80-97); MONOCYTES % (AUTO) 6.3 % (3-13); PLATELET COUNT 211 10^3/uL (150-450); RED BLOOD COUNT 2.93 10^6/uL (3.72-5.28); RED CELL DISTRIBUTION WIDTH 14.5 % (11.5-14.0); SEGMENTED NEUTROPHILS % (AUTO) 75.8 % (42-78); TOTAL CELLS COUNTED % (AUTO) 100 %
[2018-03-09] MEDS ORDERED: CLONIDINE HCL 0.1 MG TABLET PO ONE (10:30)
[2018-03-09 10:33] LABS: ALANINE AMINOTRANSFERASE 18 U/L (9-52); ALBUMIN 2.6 g/dL (3.5-5.0); ALKALINE PHOSPHATASE 75 U/L (38-126); ANION GAP 9 (5-19); ASPARTATE AMINO TRANSFERASE 14 U/L (14-36); BILIRUBIN,DIRECT 0.3 mg/dL (0.0-0.4); BILIRUBIN,TOTAL 0.4 mg/dL (0.2-1.3); BLOOD UREA NITROGEN 44 mg/dL (7-20); CALCIUM 9.6 mg/dL (8.4-10.2); CARBON DIOXIDE 26 mmol/L (22-30); CHLORIDE 107 mmol/L (98-107); CREATINE KINASE 36 U/L (30-135); GLUCOSE 260 mg/dL (75-110); POTASSIUM 4.3 mmol/L (3.6-5.0); SODIUM 142.1 mmol/L (137-145); TOTAL PROTEIN 5.7 g/dL (6.3-8.2)
--- NOTE | 2018-03-09 10:36 | RADIOLOGY REPORT (SQ) ---
EXAM DESCRIPTION: CHEST SINGLE VIEW COMPLETED DATE/TIME: 03/09/2018 10:27 am REASON FOR STUDY: right rib pain COMPARISON: 01/17/2018, 11/02/2017 EXAM PARAMETERS: NUMBER OF VIEWS: One view. TECHNIQUE: Single frontal radiographic view of the chest acquired. RADIATION DOSE: NA LIMITATIONS: None. FINDINGS: LUNGS AND PLEURA: Left basilar airspace disease is present, atelectasis versus pneumonia. Right lung clear. No pleural effusion no pneumothorax. MEDIASTINUM AND HILAR STRUCTURES: No masses. Contour normal. HEART AND VASCULAR STRUCTURES: Stable marked cardiomegaly. BONES: No acute findings. HARDWARE: None in the chest. OTHER: No other significant finding. IMPRESSION: Left basilar airspace disease Stable marked cardiomegaly TECHNICAL DOCUMENTATION: JOB ID: [id number]- All Rights Reserved Reading location - IP/workstation name: [email or web address]
[2018-03-09 10:42] LABS: CREATINE KINASE MB 1.61 ng/mL (<4.55)
[2018-03-09 10:44] LABS: INTERNATIONAL RATION (INR) 1.01; PROTHROMBIN TIME 13.8 SEC (11.4-15.4)
[2018-03-09 10:45] LABS: PARTIAL THROMBOPLASTIN TIME 30.8 SEC (23.5-35.8); TROPONIN I 0.232 ng/mL
--- NOTE | 2018-03-09 10:51 | RADIOLOGY REPORT (SQ) ---
EXAM DESCRIPTION: CT HEAD WITHOUT COMPLETED DATE/TIME: 03/09/2018 10:36 am REASON FOR STUDY: hypertensive headache COMPARISON: 03/27/2015 CT brain TECHNIQUE: Axial images acquired through the brain without intravenous contrast. Images reviewed wi th bone, brain and subdural windows. Additional sagittal and coronal reconstructions were generated. Images stored on PACS. All CT scanners at this facility use dose modulation, iterative reconstruction, and/or weight based d osing when appropriate to reduce radiation dose to as low as reasonably achievable (ALARA). [facility]: Dose Right [facility]: CareDose [facility]: Dose Right [facility]: Teradose 4D [facility]: [employer] RADIATION DOSE: CT Rad equipment meets quality standard of care and radiation dose reduction techniq ues were employed. CTDIvol: 53.2 mGy. DLP: 1044 mGy-cm. mGy. LIMITATIONS: None. FINDINGS: VENTRICLES: Normal size and contour. CEREBRUM: No CT evidence of acute large territory ischemic change, acute intracranial hemorrhage, mas s effect, or midline shift. Old infarct in the left frontal deep periventricular white matter. Moderate small vessel ischemic ch jae in the hemispheric white matter, stable. CEREBELLUM: No masses. No hemorrhage. No alteration of density. No evidence for acute infarction. EXTRAAXIAL SPACES: No fluid collections. No masses. ORBITS AND GLOBE: No intra- or extraconal masses. Normal contour of globe without masses. CALVARIUM: No fracture. PARANASAL SINUSES: No fluid or mucosal thickening. SOFT TISSUES: No mass or hematoma. OTHER: No other significant finding. IMPRESSION: White matter disease and old left frontal deep periventricular white matter lacunar infa rct. No acute findings. EVIDENCE OF ACUTE STROKE: NO. COMMENT: Quality ID # [id number]: Final reports with documentation of one or more dose reduction techniques (e.g., Automated exposure control, adjustment of the mA and/or kV according to patient size, use of iterative reconstruction technique) TECHNICAL DOCUMENTATION: JOB ID: [id number] [email or web address]- All Rights Reserved Reading location - IP/workstation name: [facility]
[2018-03-09] MEDS ORDERED: ASPIRIN 325 MG TABLET PO ONE (11:10)
[2018-03-09] MEDS ORDERED: HYDRALAZINE HCL INJ/PF 20 MG/1 ML SDV IV ONE (12:18)
[2018-03-09 12:59] LABS: AMORPHOUS SEDIMENT,URINE TRACE /HPF; APPEARANCE,URINE SLIGHTLY-CLOUDY; BILIRUBIN,URINE NEGATIVE (NEGATIVE); COLOR,URINE YELLOW; GLUCOSE, URINE 150 mg/dL (NEGATIVE); KETONES,URINE NEGATIVE (NEGATIVE); LEUKOCYTE ESTERASE,URINE SMALL (NEGATIVE); NITRITE,URINE NEGATIVE (NEGATIVE); PROTEIN,URINE >=500 mg/dL (NEGATIVE); UROBILINOGEN,URINE NEGATIVE mg/dL (<2.0)
--- NOTE | 2018-03-09 13:21 | RADIOLOGY REPORT (SQ) ---
EXAM DESCRIPTION: U/S ABDOMEN COMPLETE W/O DOP COMPLETED DATE/TIME: 03/09/2018 1:11 pm REASON FOR STUDY: diffuse abd pain mostly RUQ, no GB COMPARISON: CT abdomen pelvis 03/05/2018, 01/17/2018 TECHNIQUE: Dynamic and static grayscale images acquired of the abdomen and recorded on PACS. Additio nal selected color Doppler and spectral images recorded. LIMITATIONS: Bowel gas FINDINGS: PANCREAS: Midline pancreas unremarkable LIVER: No masses. Echotexture normal. LIVER VASCULATURE: Normal directional flow of the main portal vein and hepatic veins. GALLBLADDER: Surgically absent ULTRASOUND-DETECTED DECKER'S SIGN: Not applicable INTRAHEPATIC DUCTS AND COMMON DUCT: CBD and intrahepatic ducts normal caliber. No filling defects. INFERIOR VENA CAVA: Normal flow. AORTA: No aneurysm. RIGHT KIDNEY: Normal size. Normal echogenicity. No solid or suspicious masses. No hydronephros is. No calcifications. LEFT KIDNEY: Normal size. Normal echogenicity. 2.5 cm left renal cortical cyst. No solid or odell picious masses. No hydronephrosis. No calcifications. SPLEEN: Normal size. No solid masses. PERITONEAL AND PLEURAL SPACES: Right pleural effusion at the edge of the field of view. OTHER: No other significant finding. IMPRESSION: Post cholecystectomy. TECHNICAL DOCUMENTATION: JOB ID: [id number] [employer]- All Rights Reserved Reading location - IP/workstation name: [email or web address]
[2018-03-09] MEDS ORDERED: HYDRALAZINE HCL INJ/PF 20 MG/1 ML SDV IV PRN ×2 (15:29→15:40)
[2018-03-09] MEDS ORDERED: ACETAMINOPHEN 325 MG TABLET PO PRN (15:30)
[2018-03-09] MEDS ORDERED: DEXTROSE 40% GEL 15 GM TUBE PO PRN ×2 (15:44)
[2018-03-09] MEDS ORDERED: DEXTROSE 50%-WATER 25 GM/50 ML DISP.SYRIN IV PRN ×2 (15:44)
[2018-03-09] MEDS ORDERED: GLUCAGON,HUMAN RECOMB 1 MG INJ IM PRN (15:44)
[2018-03-09] MEDS ORDERED: HYDRALAZINE HCL INJ/PF 20 MG/1 ML SDV ONE (15:58)
--- NOTE | 2018-03-09 16:28 | PDOC H&P ---
History of Present Illness Admission Date/PCP: 03/09/18 13:43 Dr Bina Elizondo Nephrology History of Present Illness: KAM DEAN is a 77 year old female with a known history of uncontrolled hypertension , CKD stage IV , chronic anemia who presented to the ED with severe headache. Patient may have forgotten to take her meds last night This morning her brother checked her blood pressure and it was over 250 systolic Call 911 she was brought to the ED for evaluation Upon initial evaluation in the ED the blood pressure was over the systolic was over 250 Patient was treated with hydralazine clonidine; blood pressure systolic came down to 190 She was subsequently admitted under hospitalist service for further evaluation and care Past Medical History Cardiac Medical History: Reports: Congestive Heart Failure - Pt reports she had HF last year, Hyperlipidema, Hypertension Denies: Coronary Artery Disease, Myocardial Infarction, Peripheral Vascular Disease, Pulmonary Embolism Pulmonary Medical History: Denies: Tuberculosis Endocrine Medical History: Reports: Diabetes Mellitus Type 2 GI Medical History: Reports: Gastroesophageal Reflux Disease Musculoskeltal Medical History: Reports: Arthritis - hip Psychiatric Medical History: Reports: Depression Hematology: Reports: Anemia Past Surgical History Past Surgical History: Reports: Cardiac Catheterization - stents, Cholecystectomy, Orthopedic Surgery - hand Social History Lives with: Family Smoking Status: Former Smoker Frequency of Alcohol Use: None Hx Recreational Drug Use: No Drugs: None Hx Prescription Drug Abuse: No - Advance Directive Resuscitation Status: Full Code Surrogate healthcare decision maker:: Brother Jeremi Rodriguez Family History Family History: CVA, DM, Hypertension Parental Family History Reviewed: Yes Children Family History Reviewed: Yes Sibling(s) Family History Reviewed.: Yes Medication/Allergy Home Medications: Atorvastatin Calcium [Lipitor 20 mg Tablet] 20 mg PO QHS 11/02/17 Bumetanide [Bumex 1 mg Tablet] 1 mg PO DAILY 11/02/17 Clonidine HCl [Catapres 0.2 mg Tablet] 0.2 mg PO TID 11/02/17 Clopidogrel Bisulfate [Plavix 75 mg Tablet] 75 mg PO DAILY 11/02/17 Escitalopram Oxalate [Lexapro] 20 mg PO DAILY 11/02/17 Isosorbide Mononitrate [Isosorbide Mononitrate ER] 90 mg PO DAILY 11/02/17 Pantoprazole Sodium [Protonix] 40 mg PO DAILY 11/02/17 Doxazosin Mesylate [Cardura 2 mg Tablet] 2 mg PO Q12 #60 tablet 11/04/17 Alprazolam 0.25 mg PO BID PRN 03/09/18 Aspirin [Aspirin EC] 81 mg PO DAILY 03/09/18 Calcitriol [Calcitriol] 0.25 mcg PO MOWEFR@1000 03/09/18 Ferrous Sulfate 325 mg PO BID 03/09/18 Gabapentin 200 mg PO TID 03/09/18 Hydralazine HCl 100 mg PO TID 03/09/18 Lisinopril 5 mg PO QHS 03/09/18 Magnesium 400 mg PO BID 03/09/18 Nitroglycerin [Nitrostat 0.4 mg (1/150 Gr) Tabs 25/Bottle] 1 tab SL Q5MP PRN 10/26 Potassium Chloride 20 meq PO DAILY 03/09/18 Allergies/Adverse Reactions: No Known Allergies Allergy (Verified 03/09/18 09:32) Review of Systems Constitutional: ABSENT: chills, fever(s), headache(s), weight gain, weight loss Eyes: ABSENT: visual disturbances Ears: ABSENT: hearing changes Cardiovascular: ABSENT: chest pain, dyspnea on exertion, edema, orthropnea, palpitations Respiratory: ABSENT: cough, hemoptysis Gastrointestinal: ABSENT: abdominal pain, constipation, diarrhea, hematemesis, hematochezia, nausea, vomiting Musculoskeletal: ABSENT: joint swelling Neurological: PRESENT: other - Severe headache Endocrine: ABSENT: cold intolerance, heat intolerance, polydipsia, polyuria Hematologic/Lymphatic: ABSENT: easy bleeding, easy bruising Physical Exam Vital Signs: Temp Pulse Resp BP Pulse Ox 98.1 F 81 18 201/69 H 97 03/09/18 09:15 03/09/18 14:53 03/09/18 14:34 03/09/18 14:32 03/09/18 14:34 General appearance: PRESENT: no acute distress, well-developed, well-nourished Head exam: PRESENT: atraumatic, normocephalic Eye exam: PRESENT: conjunctiva pink, EOMI, PERRLA. ABSENT: scleral icterus Neck exam: ABSENT: carotid bruit, JVD, lymphadenopathy, thyromegaly Respiratory exam: PRESENT: clear to auscultation santa. ABSENT: rales, rhonchi, wheezes Cardiovascular exam: PRESENT: RRR. ABSENT: diastolic murmur, rubs, systolic murmur Pulses: PRESENT: normal dorsalis pedis pul Vascular exam: PRESENT: normal capillary refill GI/Abdominal exam: PRESENT: normal bowel sounds, soft. ABSENT: distended, guarding, mass, organolmegaly, rebound, tenderness Extremities exam: ABSENT: calf tenderness, clubbing, full ROM, joint swelling, pedal edema, tenderness, +1 edema, +2 edema, other Musculoskeletal exam: ABSENT: ambulatory, deformity, dislocation, full ROM, normal inspection, tenderness, other Neurological exam: PRESENT: alert, awake, oriented to person, oriented to place , oriented to time, oriented to situation, CN II-XII grossly intact. ABSENT: motor sensory deficit Psychiatric exam: PRESENT: appropriate affect, normal mood Results Laboratory Results: 03/09/18 13:46 Lactic Acid 1.1 03/09/18 13:46 Troponin I 0.389 Impressions: Chest X-Ray 03/09/18 09:45 IMPRESSION: Left basilar airspace disease Stable marked cardiomegaly Abdomen Ultrasound 03/09/18 10:15 IMPRESSION: Post cholecystectomy. 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 No acute findings. EVIDENCE OF ACUTE STROKE: NO. Assessment & Plan - Diagnosis (1) Chronic anemia Is this a current diagnosis for this admission?: Yes (2) Hypertensive emergency Is this a current diagnosis for this admission?: Yes (3) Acute encephalopathy Is this a current diagnosis for this admission?: Yes (4) Diastolic CHF, chronic Is this a current diagnosis for this admission?: Yes (5) Type 2 diabetes mellitus Qualifiers: Is this a current diagnosis for this admission?: Yes (6) Elevated troponin Is this a current diagnosis for this admission?: Yes - Time Time Spent with patient: Patient medications was resumed We did order intermittent doses of hydralazine 20 mg every 4 hours to control blood pressure if systolic more than 160 If blood pressure cannot be controlled adequately in IMCU patient will be transferred to ICU for Cardene drip Patient has elevated troponin at 0.3 Elevated troponin likely secondary to hypertensive urgency; patient has no chest pain Initial EKG shows normal sinus rhythm LVH with ST-T changes We will continue aspirin Plavix Lipitor We will order serial troponins Repeat EKG in a.m. Time Spent: 50 to 70 Minutes - Inpatient Certification Based on my medical assessment, after consideration of the patient's comorbidities, presenting symptoms, or acuity I expect that the services needed warrant INPATIENT care.: Yes I certify that my determination is in accordance with my understanding of Medicare's requirements for reasonable and necessary INPATIENT services [42 CFR 412.3e].: Yes Medical Necessity: Need For Continuous Telemetry Monitoring
[2018-03-09] MEDS ORDERED: (PENDING PHARMACY ID) (Hydralazine Hcl [Hydralazine Hcl] 100 MG) PO SCH (18:00)
[2018-03-09] MEDS: INSULIN LISPRO 100 UNIT/ML 3 ML VIAL SUBCUT PRN ×2 (18:04→23:00)
[2018-03-09 18:34] LABS: ABSOLUTE BASOPHILS # (AUTO) 0.1 10^3/uL (0.0-0.2); ABSOLUTE EOSINOPHILS # (AUTO) 0.1 10^3/uL (0.0-0.6); ABSOLUTE LYMPHOCYTES (AUTO) 2.5 10^3/uL (0.5-4.7); ABSOLUTE MONOCYTES (AUTO) 0.6 10^3/uL (0.1-1.4); ABSOLUTE NEUT (AUTO) 6.2 10^3/uL (1.7-8.2); BASOPHILS % (AUTO) 0.8 % (0-2); EOSINOPHILS % (AUTO) 0.6 % (0-6); HEMATOCRIT 25.1 % (36.0-47.0); HEMOGLOBIN 8.6 g/dL (12.0-15.5); LYMPHOCYTES % (AUTO) 26.8 % (13-45); MEAN CORPUSCULAR HEMOGLOBIN 29.4 pg (27.0-33.4); MEAN CORPUSCULAR HGB CONC 34.1 g/dL (32.0-36.0); MEAN CORPUSCULAR VOLUME 86 fl (80-97); MONOCYTES % (AUTO) 6.2 % (3-13); PLATELET COUNT 206 10^3/uL (150-450); RED BLOOD COUNT 2.92 10^6/uL (3.72-5.28); RED CELL DISTRIBUTION WIDTH 14.4 % (11.5-14.0); SEGMENTED NEUTROPHILS % (AUTO) 65.6 % (42-78); TOTAL CELLS COUNTED % (AUTO) 100 %; WHITE BLOOD COUNT 9.4 10^3/uL (4.0-10.5)
--- NOTE | 2018-03-09 20:54 | EKG REPORT ---
SEVERITY:- ABNORMAL ECG - SINUS RHYTHM PROBABLE LVH WITH SECONDARY REPOL ABNRM BORDERLINE PROLONGED QT INTERVAL : Confirmed by: Margie Denton 09-Mar-2018 20:53:45
[2018-03-09] MEDS: GABAPENTIN 100 MG CAPSULE PO SCH (21:16)
[2018-03-09] MEDS: FAMOTIDINE 20 MG TABLET PO SCH (21:16)
[2018-03-09] MEDS: ATORVASTATIN CALCIUM 20 MG TABLET PO SCH (21:16)
[2018-03-09] MEDS: HYDRALAZINE HCL 50 MG TABLET PO SCH (21:17)
[2018-03-09] MEDS: DOXAZOSIN MESYLATE 2 MG TABLET PO SCH (21:17)
[2018-03-09] MEDS: CLONIDINE HCL 0.2 MG TABLET PO SCH (21:17)
[2018-03-09] MEDS ORDERED: LISINOPRIL 5 MG TABLET PO SCH (22:00)
[2018-03-10] MEDS: LANSOPRAZOLE 30 MG TAB.RAP.DR PO SCH (05:45)
[2018-03-10] MEDS: CLONIDINE HCL 0.2 MG TABLET PO SCH ×3 (05:45→22:28)
[2018-03-10] MEDS: GABAPENTIN 100 MG CAPSULE PO SCH ×3 (05:45→22:28)
[2018-03-10] MEDS: HYDRALAZINE HCL 50 MG TABLET PO SCH ×3 (05:46→22:28)
[2018-03-10 06:55] LABS: ABSOLUTE EOSINOPHILS # (AUTO) 0.2 10^3/uL (0.0-0.6); ABSOLUTE LYMPHOCYTES (AUTO) 2.3 10^3/uL (0.5-4.7); ABSOLUTE MONOCYTES (AUTO) 0.7 10^3/uL (0.1-1.4); ABSOLUTE NEUT (AUTO) 5.3 10^3/uL (1.7-8.2); BASOPHILS % (AUTO) 0.5 % (0-2); EOSINOPHILS % (AUTO) 2.5 % (0-6); HEMATOCRIT 23.4 % (36.0-47.0); MEAN CORPUSCULAR HEMOGLOBIN 29.2 pg (27.0-33.4); MEAN CORPUSCULAR HGB CONC 33.6 g/dL (32.0-36.0); MEAN CORPUSCULAR VOLUME 87 fl (80-97); MONOCYTES % (AUTO) 7.9 % (3-13); PLATELET COUNT 179 10^3/uL (150-450); RED BLOOD COUNT 2.69 10^6/uL (3.72-5.28); RED CELL DISTRIBUTION WIDTH 14.7 % (11.5-14.0); SEGMENTED NEUTROPHILS % (AUTO) 62.1 % (42-78); TOTAL CELLS COUNTED % (AUTO) 100 %; WHITE BLOOD COUNT 8.5 10^3/uL (4.0-10.5)
[2018-03-10 06:57] LABS: HEMOGLOBIN 7.9 g/dL (12.0-15.5)
[2018-03-10 07:13] LABS: BLOOD UREA NITROGEN 44 mg/dL (7-20); CALCIUM 9.5 mg/dL (8.4-10.2); GLUCOSE 144 mg/dL (75-110)
[2018-03-10 07:14] LABS: ALANINE AMINOTRANSFERASE 22 U/L (9-52); ALBUMIN 2.3 g/dL (3.5-5.0); ALKALINE PHOSPHATASE 68 U/L (38-126); ANION GAP 7 (5-19); ASPARTATE AMINO TRANSFERASE 14 U/L (14-36); BILIRUBIN,DIRECT 0.3 mg/dL (0.0-0.4); BILIRUBIN,TOTAL 0.4 mg/dL (0.2-1.3); CARBON DIOXIDE 26 mmol/L (22-30); CHLORIDE 107 mmol/L (98-107); CHOLESTEROL 192.27 mg/dL (0-200); POTASSIUM 4.1 mmol/L (3.6-5.0); SODIUM 139.6 mmol/L (137-145); TOTAL PROTEIN 5.2 g/dL (6.3-8.2); TRIGLYCERIDES 107 mg/dL (<150)
[2018-03-10 07:25] LABS: DIRECT LDL 98 mg/dL (<100)
[2018-03-10] MEDS: INSULIN LISPRO 100 UNIT/ML 3 ML VIAL SUBCUT PRN ×3 (07:57→22:28)
[2018-03-10] MEDS ORDERED: FUROSEMIDE INJ/PF 40 MG/4 ML SDV IV PRN (09:00)
[2018-03-10] MEDS ORDERED: NORMAL SALINE 250 ML IV PRN ×2 (09:00)
[2018-03-10] MEDS ORDERED: CEFTRIAXONE 1 GM/D5W RTU 1 GM/50 ML RTUPB IV SCH (10:00)
[2018-03-10] MEDS ORDERED: AMLODIPINE BESYLATE 10 MG TABLET PO SCH (10:00)
[2018-03-10] MEDS ORDERED: LISINOPRIL 5 MG TABLET PO SCH (10:00)
[2018-03-10] MEDS ORDERED: ISOSORBIDE MONONITRATE 30 MG TAB.ER.24H PO SCH ×2 (10:00)
[2018-03-10 10:07] LABS: ABSOLUTE RETICS # 0.048 10^6/uL (0.028-0.122); RETICULOCYTE COUNT (AUTO) 1.77 % (0.66-2.85)
[2018-03-10 10:43] LABS: FOLATE 7.92 ng/mL (>2.76)
[2018-03-10 10:53] LABS: IRON(TIBC) < 10.1 ug/dL (37-170)
[2018-03-10] MEDS ORDERED: EPOETIN ALFA INJ 20000 UNIT/1 ML VIAL (RENAL) SUBCUT ONE (11:00)
[2018-03-10] MEDS: FAMOTIDINE 20 MG TABLET PO SCH ×2 (11:07→22:28)
[2018-03-10] MEDS: DOXAZOSIN MESYLATE 2 MG TABLET PO SCH ×2 (11:07→22:28)
[2018-03-10] MEDS: ISOSORBIDE MONONITRATE 60 MG TAB.ER.24H PO SCH ×2 (11:07→22:27)
[2018-03-10] MEDS: CLOPIDOGREL BISULFATE 75 MG TABLET PO SCH (11:08)
[2018-03-10] MEDS: BUMETANIDE 1 MG TABLET PO SCH (11:08)
[2018-03-10] MEDS: LISINOPRIL 10 MG TABLET PO SCH ×2 (11:09→22:28)
[2018-03-10] MEDS: DOXYCYCLINE HYCLATE 100 MG TABLET PO SCH ×2 (11:09→22:28)
[2018-03-10] MEDS: FUROSEMIDE INJ/PF 40 MG/4 ML SDV IV SCH (11:10)
[2018-03-10] MEDS: ASPIRIN 81 MG TABLET, ENT COATED PO SCH (11:10)
[2018-03-10] MEDS: ESCITALOPRAM OXALATE 10 MG TABLET PO SCH (11:10)
[2018-03-10] MEDS: CEFTRIAXONE SODIUM 1,000 MG in DEXTROSE 5%-WATER 50 ML IV SCH (11:11)
--- NOTE | 2018-03-10 17:50 | PDOC PROGRESS REPORT ---
Subjective Progress Note for:: 03/10/18 Subjective:: patient has no complaints no chest pains or SOB Reason For Visit: ACCELERATED HYPERTENSION Physical Exam Vital Signs: Temp Pulse Resp BP Pulse Ox 98.8 F 63 20 167/55 H 95 03/10/18 17:00 03/10/18 17:00 03/10/18 17:00 03/10/18 17:00 03/10/18 17:00 Intake & Output 03/09/18 03/10/18 03/11/18 00:59 00:59 00:59 Intake Total 242 458 Output Total 0 Balance 242 458 Weight 76.4 kg 76.2 kg General appearance: PRESENT: no acute distress, well-developed, well-nourished Head exam: PRESENT: atraumatic, normocephalic Eye exam: PRESENT: conjunctiva pink, EOMI, PERRLA. ABSENT: scleral icterus Neck exam: ABSENT: carotid bruit, JVD, lymphadenopathy, thyromegaly Respiratory exam: PRESENT: clear to auscultation santa. ABSENT: rales, rhonchi, wheezes Cardiovascular exam: PRESENT: RRR. ABSENT: diastolic murmur, rubs, systolic murmur Pulses: PRESENT: normal dorsalis pedis pul Vascular exam: PRESENT: normal capillary refill GI/Abdominal exam: PRESENT: normal bowel sounds, soft. ABSENT: distended, guarding, mass, organolmegaly, rebound, tenderness Extremities exam: ABSENT: calf tenderness, clubbing, full ROM, joint swelling, pedal edema, tenderness, +1 edema, +2 edema, other Musculoskeletal exam: ABSENT: ambulatory, deformity, dislocation, full ROM, normal inspection, tenderness, other Neurological exam: PRESENT: alert, awake, oriented to person, oriented to place , oriented to time, oriented to situation, CN II-XII grossly intact. ABSENT: motor sensory deficit Psychiatric exam: PRESENT: appropriate affect, normal mood Results Laboratory Results: 03/10/18 06:17 03/10/18 06:17 03/09/18 03/09/18 03/10/18 17:47 18:16 06:17 WBC Cancelled 9.4 RBC Cancelled 2.92 L Hgb Cancelled 8.6 L Hct Cancelled 25.1 L MCV Cancelled 86 MCH Cancelled 29.4 MCHC Cancelled 34.1 RDW Cancelled 14.4 H Plt Count Cancelled 206 Seg Neutrophils % Cancelled 65.6 Lymphocytes % Cancelled 26.8 Monocytes % Cancelled 6.2 Eosinophils % Cancelled 0.6 Basophils % Cancelled 0.8 Absolute Neutrophils Cancelled 6.2 Absolute Lymphocytes Cancelled 2.5 Absolute Monocytes Cancelled 0.6 Absolute Eosinophils Cancelled 0.1 Absolute Basophils Cancelled 0.1 Retic Count (auto) Absolute Retic Sodium 139.6 Potassium 4.1 Chloride 107 Carbon Dioxide 26 Anion Gap 7 BUN 44 H Creatinine 3.15 H Est GFR ( Amer) 17 L Est GFR (Non-Af Amer) 14 L Glucose 144 H Calcium 9.5 Magnesium 1.9 Iron TIBC % Saturation Ferritin Total Bilirubin 0.4 AST 14 ALT 22 Alkaline Phosphatase 68 Total Protein 5.2 L Albumin 2.3 L Triglycerides 107 Cholesterol 192.27 LDL Cholesterol Direct 98 VLDL Cholesterol 21.0 HDL Cholesterol 47 Vitamin B12 Folate TSH Blood Type Antibody Screen 03/10/18 03/10/18 03/10/18 06:17 06:17 06:17 WBC 8.5 RBC 2.69 L Hgb 7.9 L Hct 23.4 L MCV 87 MCH 29.2 MCHC 33.6 RDW 14.7 H Plt Count 179 Seg Neutrophils % 62.1 Lymphocytes % 27.0 Monocytes % 7.9 Eosinophils % 2.5 Basophils % 0.5 Absolute Neutrophils 5.3 Absolute Lymphocytes 2.3 Absolute Monocytes 0.7 Absolute Eosinophils 0.2 Absolute Basophils 0.0 Retic Count (auto) Absolute Retic Sodium Potassium Chloride Carbon Dioxide Anion Gap BUN Creatinine Est GFR ( Amer) Est GFR (Non-Af Amer) Glucose Calcium Magnesium Iron < 10.1 L TIBC 176 L % Saturation UNABLE TO CALCULATE Ferritin 293.00 H Total Bilirubin AST ALT Alkaline Phosphatase Total Protein Albumin Triglycerides Cholesterol LDL Cholesterol Direct VLDL Cholesterol HDL Cholesterol Vitamin B12 826.0 Folate 7.92 TSH 2.25 Blood Type Antibody Screen 03/10/18 03/10/18 09:45 09:45 WBC RBC Hgb Hct MCV MCH MCHC RDW Plt Count Seg Neutrophils % Lymphocytes % Monocytes % Eosinophils % Basophils % Absolute Neutrophils Absolute Lymphocytes Absolute Monocytes Absolute Eosinophils Absolute Basophils Retic Count (auto) 1.77 Absolute Retic 0.048 Sodium Potassium Chloride Carbon Dioxide Anion Gap BUN Creatinine Est GFR ( Amer) Est GFR (Non-Af Amer) Glucose Calcium Magnesium Iron TIBC % Saturation Ferritin Total Bilirubin AST ALT Alkaline Phosphatase Total Protein Albumin Triglycerides Cholesterol LDL Cholesterol Direct VLDL Cholesterol HDL Cholesterol Vitamin B12 Folate TSH Blood Type B POSITIVE Antibody Screen NEGATIVE 03/09/18 03/09/18 03/09/18 13:46 17:47 18:16 Troponin I 0.389 Cancelled 0.379 NT-Pro-B Natriuret Pep 03/10/18 03/10/18 03/10/18 00:23 06:17 06:17 Troponin I 0.295 0.227 NT-Pro-B Natriuret Pep [id number] H Impressions: Chest X-Ray 03/09/18 09:45 IMPRESSION: Left basilar airspace disease Stable marked cardiomegaly Abdomen Ultrasound 03/09/18 10:15 IMPRESSION: Post cholecystectomy. 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 No acute findings. EVIDENCE OF ACUTE STROKE: NO. Assessment & Plan - Diagnosis (1) Chronic anemia Is this a current diagnosis for this admission?: Yes Plan: acute on chronic anemia iron deficiency and chronic disease transfuse 1 unit PRBC's replace iron / epoietin alpha (2) Hypertensive emergency Is this a current diagnosis for this admission?: Yes Plan: reevaluated meds (3) Acute encephalopathy Is this a current diagnosis for this admission?: Yes (4) Diastolic CHF, chronic Is this a current diagnosis for this admission?: Yes Plan: diurese with lasix [id number] (5) Type 2 diabetes mellitus Qualifiers: Is this a current diagnosis for this admission?: Yes (6) Elevated troponin Is this a current diagnosis for this admission?: Yes Plan: likely secondary to hypertensive episode continue ASA and plavix cardiology consult pending - Time Time Spent with patient: overall patient is stable and BP is normalizing Time Spent with patient: 25-34 minutes
[2018-03-10] MEDS ORDERED: FERUMOXYTOL (NESRD) 510 MG/17 ML VIAL IV ONE (18:36)
[2018-03-10] MEDS ORDERED: FERUMOXYTOL 510 MG in NORMAL SALINE 100 ML IV ONE (19:30)
[2018-03-10 20:49] LABS: HEMATOCRIT 27.9 % (36.0-47.0); HEMOGLOBIN 9.6 g/dL (12.0-15.5); MEAN CORPUSCULAR HEMOGLOBIN 29.4 pg (27.0-33.4); MEAN CORPUSCULAR HGB CONC 34.3 g/dL (32.0-36.0); MEAN CORPUSCULAR VOLUME 86 fl (80-97); PLATELET COUNT 193 10^3/uL (150-450); RED BLOOD COUNT 3.25 10^6/uL (3.72-5.28); RED CELL DISTRIBUTION WIDTH 14.7 % (11.5-14.0); WHITE BLOOD COUNT 9.8 10^3/uL (4.0-10.5)
[2018-03-10] MEDS: ATORVASTATIN CALCIUM 20 MG TABLET PO SCH (22:28)
[2018-03-10] MEDS ORDERED: BENZOCAINE/MENTHOL SORE THROAT LOZENGE BUCCAL PRN (23:42)
[2018-03-11] MEDS: LANSOPRAZOLE 30 MG TAB.RAP.DR PO SCH (05:26)
[2018-03-11] MEDS: HYDRALAZINE HCL 50 MG TABLET PO SCH ×2 (05:26→13:06)
[2018-03-11] MEDS: GABAPENTIN 100 MG CAPSULE PO SCH ×2 (05:26→13:06)
[2018-03-11] MEDS ORDERED: FERUMOXYTOL 510 MG in NORMAL SALINE 100 ML IV ONE (08:00)
--- NOTE | 2018-03-11 08:23 | EKG REPORT ---
SEVERITY:- ABNORMAL ECG - SINUS RHYTHM RIGHT AXIS DEVIATION BORDERLINE R WAVE PROGRESSION, ANTERIOR LEADS NONSPECIFIC T ABNORMALITIES, ANT-LAT LEADS : Confirmed by: Margie Denton 11-Mar-2018 08:23:24
[2018-03-11] MEDS: ISOSORBIDE MONONITRATE 60 MG TAB.ER.24H PO SCH (09:39)
[2018-03-11] MEDS: LISINOPRIL 10 MG TABLET PO SCH (09:39)
[2018-03-11] MEDS: DOXYCYCLINE HYCLATE 100 MG TABLET PO SCH (09:39)
[2018-03-11] MEDS: ESCITALOPRAM OXALATE 10 MG TABLET PO SCH (09:40)
[2018-03-11] MEDS: FAMOTIDINE 20 MG TABLET PO SCH (09:40)
[2018-03-11] MEDS: DOXAZOSIN MESYLATE 2 MG TABLET PO SCH (09:40)
[2018-03-11] MEDS: CLONIDINE HCL 0.2 MG TABLET PO SCH (09:40)
[2018-03-11] MEDS: ASPIRIN 81 MG TABLET, ENT COATED PO SCH (09:41)
[2018-03-11] MEDS: BUMETANIDE 1 MG TABLET PO SCH (09:41)
[2018-03-11] MEDS: FUROSEMIDE INJ/PF 40 MG/4 ML SDV IV SCH (09:41)
[2018-03-11] MEDS: CLOPIDOGREL BISULFATE 75 MG TABLET PO SCH (09:41)
[2018-03-11] MEDS: CEFTRIAXONE SODIUM 1,000 MG in DEXTROSE 5%-WATER 50 ML IV SCH (09:42)
[2018-03-11] MEDS ORDERED: NIFEDIPINE 30 MG TAB.ER.24 PO SCH (10:00)
[2018-03-11 11:35] VITALS: BP 146/66
[2018-03-11] MEDS: INSULIN LISPRO 100 UNIT/ML 3 ML VIAL SUBCUT PRN (12:01)
--- NOTE | 2018-03-11 16:58 | PDOC DISCHARGE SUMMARY ---
General - Admit/Disc Date/PCP Admission Date/Primary Care Provider: 03/09/18 13:43 NO LOCALMD Discharge Date: 03/11/18 - Discharge Diagnosis (1) Chronic anemia Is this a current diagnosis for this admission?: Yes Summary: 03/09/18 03/10/18 03/10/18 09:45 06:17 20:40 Hgb 8.5 L 9.6 L Hct 25.5 L 27.9 L Iron < 10.1 L TIBC 176 L % Saturation UNABLE TO CALCULATE Ferritin 293.00 H Vitamin B12 826.0 Folate 7.92 Acute on chronic anemia secondary to iron deficiency and chronic disease Patient was transfused 1 unit of blood She was also given an infusion of Feraheme Epoetin alpha 20,000 units subcu was administered (2) Hypertensive emergency Is this a current diagnosis for this admission?: Yes Summary: Patient had blood pressure over 200 on admission She was treated with intermittent doses of hydralazine Medications were reevaluated; at discharge blood pressure is controlled and vital signs are stable Selected Entries 03/11/18 12:36 Temperature 97.7 F Pulse Rate 71 Respiratory 18 Rate Blood Pressure 146/66 H [Left Upper Arm ] O2 Sat by Pulse 97 Oximetry (3) Acute encephalopathy Is this a current diagnosis for this admission?: Yes (4) Diastolic CHF, chronic Is this a current diagnosis for this admission?: Yes Summary: BNP was markedly elevated Chest x-ray was suggestive of left basilar airspace disease It was not suggestive heart failure Patient was given some Lasix IV She was discharged home her prior medication regimen (5) Type 2 diabetes mellitus Is this a current diagnosis for this admission?: Yes Summary: Patient was treated with intermittent doses of lispro She is to continue her prior regimen (6) Elevated troponin Is this a current diagnosis for this admission?: Yes Summary: Patient had elevated troponins between 0.2 and 0.3 She never had chest pain EKG remained unchanged It was felt that it was likely secondary to the hypertensive episode and not consistent with an acute coronary syndrome Patient is to follow-up with Dr. Miranda as an outpatient and stress testing will be scheduled if indicated (7) Pneumonia Is this a current diagnosis for this admission?: Yes Summary: Patient had an infiltrate at the left base She was treated with ceftriaxone and doxycycline during her stay she was discharged on doxycycline p.o. to complete 10 day treatment - Additional Information Resuscitation Status: Full Code Discharge Diet: Cardiac Discharge Activity: Activity As Tolerated Prescriptions: Clonidine HCl [Catapres 0.2 mg Tablet] 0.2 mg PO Q12 30 Days #60 tablet Doxycycline Hyclate [Vibramycin 100 mg Tablet] 100 mg PO Q12 #14 tablet Isosorbide Mononitrate [Imdur 60 mg Tablet.er] 120 mg PO DAILY 30 Days #60 tab.er.24h Lisinopril [Prinivil 10 mg Tablet] 20 mg PO Q12 30 Days #60 tablet Nifedipine [Procardia XL 30 mg Tablet] 60 mg PO Q12 30 Days #60 tab.er.24 Home Medications: Atorvastatin Calcium [Lipitor 20 mg Tablet] 20 mg PO QHS 11/02/17 Bumetanide [Bumex 1 mg Tablet] 1 mg PO DAILY 11/02/17 Clonidine HCl [Catapres 0.2 mg Tablet] 0.2 mg PO TID 11/02/17 Clopidogrel Bisulfate [Plavix 75 mg Tablet] 75 mg PO DAILY 11/02/17 Escitalopram Oxalate [Lexapro] 20 mg PO DAILY 11/02/17 Pantoprazole Sodium [Protonix] 40 mg PO DAILY 11/02/17 Doxazosin Mesylate [Cardura 2 mg Tablet] 2 mg PO Q12 #60 tablet 11/04/17 Alprazolam 0.25 mg PO BID PRN 03/09/18 Aspirin [Aspirin EC] 81 mg PO DAILY 03/09/18 Calcitriol 0.25 mcg PO MOWEFR@1000 03/09/18 Ferrous Sulfate 325 mg PO BID 03/09/18 Gabapentin 200 mg PO TID 03/09/18 Hydralazine HCl 100 mg PO TID 03/09/18 Magnesium 400 mg PO BID 03/09/18 Nitroglycerin [Nitrostat 0.4 mg (1/150 Gr) Tabs 25/Bottle] 1 tab SL Q5MP PRN 10/26 Potassium Chloride 20 meq PO DAILY 03/09/18 Clonidine HCl [Catapres 0.2 mg Tablet] 0.2 mg PO Q12 30 Days #60 tablet Doxycycline Hyclate [Vibramycin 100 mg Tablet] 100 mg PO Q12 #14 tablet Isosorbide Mononitrate [Imdur 60 mg Tablet.er] 120 mg PO DAILY 30 Days #60 tab.er.24h 03/11/18 Lisinopril [Prinivil 10 mg Tablet] 20 mg PO Q12 30 Days #60 tablet 03/11/18 Nifedipine [Procardia XL 30 mg Tablet] 60 mg PO Q12 30 Days #60 tab.er.24 History of Present Illness Patient complains of: headache; high blood pressure History of Present Illness: KAM DEAN is a 77 year old female with a known history of uncontrolled hypertension , CKD stage IV , chronic anemia who presented to the ED with severe headache. Patient may have forgotten to take her meds last night This morning her brother checked her blood pressure and it was over 250 systolic Call 911 she was brought to the ED for evaluation Upon initial evaluation in the ED the blood pressure was over the systolic was over 250 Patient was treated with hydralazine clonidine; blood pressure systolic came down to 190 She was subsequently admitted under hospitalist service for further evaluation and care Hospital Course Hospital Course: see above Physical Exam Vital Signs: Temp Pulse Resp BP Pulse Ox 97.7 F 71 18 146/66 H 97 03/11/18 12:36 03/11/18 12:36 03/11/18 12:36 03/11/18 12:36 03/11/18 12:36 Intake & Output 03/10/18 03/11/18 03/12/18 00:59 00:59 00:59 Intake Total 242 1470 1036 Output Total 0 Balance 242 1470 1036 Weight 76.4 kg 76.2 kg 75.6 kg Results Laboratory Results: 03/10/18 20:40 03/10/18 06:17 03/10/18 20:40 WBC 9.8 RBC 3.25 L Hgb 9.6 L Hct 27.9 L MCV 86 MCH 29.4 MCHC 34.3 RDW 14.7 H Plt Count 193 03/09/18 03/09/18 03/09/18 13:46 17:47 18:16 Troponin I 0.389 Cancelled 0.379 NT-Pro-B Natriuret Pep 03/10/18 03/10/18 03/10/18 00:23 06:17 06:17 Troponin I 0.295 0.227 NT-Pro-B Natriuret Pep [id number] H 03/11/18 05:22 Troponin I 0.141 NT-Pro-B Natriuret Pep EKG Comments: SINUS RHYTHM [MVSPC] . MULTIPLE PREMATURE COMPLEXES, VENT & SUPRAVEN [RAD] . RIGHT AXIS DEVIATION [AMI1] . BORDERLINE R WAVE PROGRESSION, ANTERIOR LEADS [T1AL] . NONSPECIFIC T ABNORMALITIES, ANT-LAT LEADS Impressions: Chest X-Ray 03/09/18 09:45 IMPRESSION: Left basilar airspace disease Stable marked cardiomegaly Abdomen Ultrasound 03/09/18 10:15 IMPRESSION: Post cholecystectomy. 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 No acute findings. EVIDENCE OF ACUTE STROKE: NO. Qualifiers - * PATIENT BEING DISCHARGED WITH ANY OF THE FOLLOWING DIAGNOSIS: No Plan Discharge Plan: discharge home ; follow up with PMD in 1 week Time Spent: Greater than 30 Minutes
--- NOTE | 2018-03-11 21:24 | PROGRESS NOTE E ---
Progress Note NAME: KAM DEAN : 1940 AGE: 77Y DATE: 03/11/2018 ROOM: 321 SUBJECTIVE: The patient denies any chest pain or discomfort. She appears to be less depressed today. There is no PND, orthopnea, or leg edema. There are no anginal symptoms. There is no arrhythmia seen on the monitor. There is no TIA or CVA symptoms. OBJECTIVE: GENERAL: On examination the patient appears to be well-built, presents as well-groomed. She is in no acute distress. VITAL SIGNS: She is afebrile with a temperature of 97.7 degrees Fahrenheit, pulse is 79 beats per minute, blood pressure 146/66, respirations are 18 per minute, O2 saturations are 97% on room air. HEENT: Head is atraumatic, normocephalic. Eyes: Pupils are equal, round and regular, reactive to light and accommodation. Extraocular movements are normal. There is no conjunctival pallor. There is no scleral icterus. ENT is negative. NECK: Supple. There is no JVD. There is no lymphadenopathy. There is no goiter. Carotids are equal. There is no bruit. Trachea is central. LUNGS: Clear to auscultation and percussion. HEART: S1, S2 is heard. There is no S3 gallop. There is no S4 gallop. There is a systolic murmur in the left sternal border and the apex. There is no rub. ABDOMEN: Soft, nontender. There is no hepatosplenomegaly. Bowel sounds are well heard. There are no tender areas or masses. EXTREMITIES: Femorals are diminished. Leg pulses are diminished. There is no pedal edema. There is no cyanosis or clubbing. There is no DVT or cellulitis. There is no calf tenderness. CENTRAL NERVOUS SYSTEM: The patient is conscious, awake, alert and oriented x3 with no focal deficits. PSYCHIATRIC: The patient.s judgment and insight are intact. Her affect is normal. She appears to be less depressed. DIAGNOSTICS: The patient's EKG shows sinus rhythm with premature ventricular beats and premature atrial beats, nonspecific T abnormalities anterolateral leads. The patient's troponin I has trended further down to 0.141. The patient's blood sugar is 177. IMPRESSION: 1. ACCELERATED HYPERTENSION/HYPERTENSIVE EMERGENCY. At present blood pressure is much well-controlled. Continue the patient on Cardura, clonidine, hydralazine, and Procardia XL 60 mg p.o. q.12 hours. 2. ELEVATED TROPONIN I. No definite evidence of non-ST elevation MN. Elevated troponin I is secondary to hypertensive emergency, this is hypertensive cardiovascular disease. 3. 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 Patient without any anginal symptoms, continue Imdur, continue aspirin and Plavix, continue other antihypertensive medication. 4. DIABETES MELLITUS TYPE 2 NONINSULIN DEPENDENT. Continue diet control. 5. DEPRESSION. Continue her antidepressants. 6. CHRONIC KIDNEY DISEASE STAGE 4. Continue to follow up with nephrology. Avoid nephrotoxic medications. 7. ANEMIA, IRON DEFICIENCY AND ANEMIA OF CHRONIC DISEASE. Note that the patient did receive blood transfusion and also given iron transfusion. 8. GERD. At present asymptomatic. Patient on proton-pump inhibitors. RECOMMENDATIONS: The patient is stable, would recommend discharging the patient. At present there is no clear cut indication for a stress test since the patient has no angina symptoms and also the patient should be treated medically since we know that the patient has nonobstructive coronary artery disease in the past. Also, unless the patient has significant anginal symptoms uncontrolled with medication the patient would not be a candidate for cardiac catheterization in view of her renal function. Cardiac catheterization to be done only if patient has intractable angina or impending acute coronary syndrome. Note, discussed with the patient and the patient's granddaughter and also with the attending physician on the case. A message left for patient's brother, Mr Jeremi Rodriguez, to call me back. He has not called me back again. The patient desires to follow up with me. We will follow the patient in the office. TIME SPENT: Thirty-five minutes spent on this patient with more than 50% of the time spent on direct patient care. Also her medications have been reviewed and discussed with the attending physician. Medical decision making at present is of moderate complexity. We will sign off and we will follow the patient in the office. DICTATING PHYSICIAN: LORENZA RING M.D. [id number] PHY#: [id number] ID: [id number] JOB#: [id number] ACCT: [id number] cc: >
--- NOTE | 2018-03-12 07:20 | CONSULTATION REPORT E ---
Consultation Report NAME: KAM DEAN : 1940 AGE: 77Y DATE: 03/10/2018 ROOM: 321 B TO: LORENZA RING M.D. FROM: Requesting Physician REASON FOR CONSULTATION: Elevated troponin I in a patient with uncontrolled/hypertensive emergency. HISTORY OF PRESENT ILLNESS: The patient is a poor historian. She is a 77-year-old -[place] female with known history of hypertension, which is difficult to control, chronic kidney disease stage 4, history of coronary artery disease, past history of non-ST elevation NM, past history of LV systolic dysfunction which recovered. She states that she woke up yesterday morning with severe headache. Her blood pressure was found by her brother to be 250/120 and she was brought to the emergency room. The patient denies any chest pain or palpitations. She was a little confused and dazed. She had some mental changes which is now resolved. Although the patient still has a slow mentation. She denies palpitations or syncope. There are no clear cut anginal symptoms. She did have some shortness of breath and her blood pressure was high. The patient's EKG is suggestive of sinus rhythm, probably LVH with strain pattern and the patient's troponin I was elevated at 0.227. PAST MEDICAL HISTORY: Is positive for a history of hypertension, which is difficult to control. She also has a history of diabetes mellitus type 2, it seems to be diet controlled. She has history of chronic kidney disease stage 4. She has a past history of CVA, the details of which are not very apparent but the patient states that she is recovered. She also has a history of GERD and also has right hip arthritis. In 2014, the patient was admitted with altered mental status, uncontrolled hypertension, and elevated troponin I which peaked to 11.94 at [facility]. She underwent a cardiac catheterization there which showed basically nonobstructive coronary artery disease and the patient's LV ejection fraction at the time was 25-30%. The patient was treated medically. The patient has no anginal symptoms. The patient has not had a recent stress test. Subsequently in 2015, the patient had a MUGA which showed a left ventricular ejection fraction of 73%. The patient also had an echocardiogram done here in September 2017 which showed that the left ventricular ejection fraction is normal. There was mild to moderate diastolic dysfunction. There is mild concentric left ventricular hypertrophy. Wall motion could not be accurately commented on but no definite regional wall motion abnormality. The right ventricle was mildly dilated. The right ventricular systolic function was normal. The left atrium is moderately dilated. There is mild amount of mitral regurgitation. There is no mitral valve stenosis. There is trace amount of aortic regurgitation. No aortic valve stenosis. There is a mild amount of tricuspid regurgitation. There is moderate pulmonary hypertension by echo. The right ventricular systolic pressure was moderately to severely elevated at 50-60 mmHg. There is a small pleural effusion. The patient has a history of depression and also the patient is found to be anemic. PAST SURGICAL HISTORY: Positive for cardiac catheterization, cholecystectomy, orthopedic surgery of the right hand. SOCIAL HISTORY: The patient lives with family. She is a former smoker but there is no history of EtOH abuse. She quit smoking a long time ago. ADVANCE DIRECTIVES: The patient is a full code. Her brother, Jeremi Rodriguez, is her healthcare power of sports attorney/surrogate healthcare decision maker. FAMILY HISTORY: Positive for CVA, diabetes mellitus, and hypertension. ALLERGIES: She has no known medical allergies. MEDICATIONS: 1. Acetaminophen 650 mg p.o. q.4 hours p.r.n. 2. Amlodipine 10 mg p.o. daily. 3. Aspirin 81 mg p.o. daily. 4. Lipitor 20 mg a day. 5. Bumex 1 mg p.o. daily. 6. Calcitriol 0.25 mcg p.o. Monday, Monday, Monday. 7. Ceftriaxone 1 gram IV daily. 8. Clonidine 0.2 mg p.o. q.12 hours. 9. Plavix 75 mg p.o. daily. 10. Hypoglycemic precautions with dextrose 30 grams p.o. and 15 grams p.o. p.r.n. hypoglycemia. 11. Dextrose 50 grams IV and 25 grams IV p.r.n. hypoglycemia. 12. Cardura 2 mg p.o. q.12 hours. 13. Doxycycline (Vibramycin) 100 mg p.o. q.12 hours. 14. Procrit 20,000 units subcutaneously q. month. 15. Lexapro 20 mg p.o. daily. 16. Pepcid 20 mg p.o. q.12 hours. 17. Feraheme injection, she has received 510 mg IV x1 and after that she did get an infusion of iron. She also got a blood transfusion. 18. Hydralazine 100 mg p.o. q.8 hours. 19. Accu-Chek a.c., t.i.d., and bedtime with sliding scale insulin coverage. 20. Glucagon 1 mg IM p.r.n., hypoglycemia. 21. Isosorbide mononitrate (Imdur) 60 mg p.o. q.12 hours. 22. Normal saline 30 mL per hour during blood transfusions. 23. Lisinopril 20 mg p.o. q.12 hours. 24. Prevacid 30 mg p.o. q.6 a.m. 25. She has received 1 unit of leukocyte reduced RBCs. REVIEW OF SYSTEMS: CONSTITUTIONAL: Denies any fever, chills or rigors. Complains of generalized fatigue and weakness. HEAD: Had headaches and was due blood pressure being high. She had transient altered mental status due to her hypertensive encephalopathy which is now resolved but the patient's mentation is slow. She also had some dizziness when her blood pressure was high. EYES: No history of amblyopia or diplopia. No history of amaurosis fugax. EARS: No history of hearing loss. No history of tinnitus. No history of recurrent ear infections. NOSE: No history of hay fever. No history of nosebleeds. No history of nasal polyps. MOUTH: No altered taste sensation. No ulcers in the mouth. No bleeding from the gums. THROAT: There is no odynophagia or dysphagia. No recurrent sore throats. SKIN: There is no pruritus. There is no eczema. There is no psoriasis. There is no yellowish discoloration of the skin. NECK: No painful or painless swelling of the neck. No neck pain. LUNGS: No history of asthma or COPD. No history of sleep apnea. No history of hemoptysis. No history of cough or sputum production. No history of wheezing. No history of pleuritic chest pain. No history of pulmonary embolism. CARDIAC: History of hypertension, difficult to control. History of coronary artery disease, nonobstructive in the past after a cath when she had a non-ST elevation NM. At the time the patient's LV ejection fraction was reduced at 25-30%, which has now normalized. She has a past history of LV diastolic heart failure, none recently. She did have some shortness of breath when her blood pressure was high. She denies any anginal symptoms. There is no PND, orthopnea, or leg edema. She said that she had trace to mild leg edema at home but after she was treated here in the hospital the edema is resolved. There is no syncope. There are no palpitations. GASTROINTESTINAL: History of GERD present, well-controlled with medication. No history of fatty food intolerance. She came in with right upper quadrant pain which as now resolved, the etiology of which is not clear. She has no altered bowel movements. There is no hematemesis or melena. There is no history of jaundice or cirrhosis of the liver. RENAL: History of chronic kidney disease stage 4, although the patient has no symptoms of UTI. No hematuria, pyuria, or dysuria. The patient's urine is suggestive of a UTI and the patient is being treated for that on antibiotics. MUSCULOSKELETAL: History of right hip arthritis present but no collagen vascular disease. ENDOCRINE: History of diabetes mellitus, most likely diet controlled. No history of thyroid disease. No history of polydipsia or polyuria. No history of heat or cold intolerance. No history of excessive sweating. No history of hirsutism. CENTRAL NERVOUS SYSTEM: Past history of CVA, the details of which are not clear but the patient states she is fully recovered. The patient had headaches when the patient came in with a blood pressure of 250 systolic, which is now resolved. There is no focal neurological signs when the blood pressure was high. There is no history of migraines or seizures. No gait imbalance. PSYCHIATRIC: The patient has a history of depression, does still appear to be depressed with a flat affect. There is no anxiety. There is no suicidal ideation. There is no homicidal ideation. VASCULAR: No history of calf or buttock claudication. No history of DVT. HEMATOLOGICAL: The patient is anemic, this seems to be iron deficient by workup. There is no history of bleeding diathesis or clotting disorders. PHYSICAL EXAMINATION: GENERAL: On examination the patient is well-built and well-nourished. She appears to be well-groomed, although appears to be depressed and with a flat affect. VITAL SIGNS: She is afebrile with a temperature of 97.9 degrees Fahrenheit, pulse is 57 beats per minute, blood pressure is 183/55, respirations are 18 per minute, O2 saturations are 98% on room air. HEENT: Head is atraumatic, normocephalic. Eyes: Pupils are equal, round and regular, reactive to light and accommodation. Extraocular movements are normal. There is no conjunctival pallor. There is no scleral icterus. Ears: Tympanic membranes are intact, external auditory canals are clear. Nose: There is no deviated nasal septum, there is no inflammation of the nasal mucous membrane. Mouth: Mucous membranes of the mouth are moist. Tongue is moist. There is no ulcer. There is no bleeding from the gums. Throat: There is no redness of the oropharynx. There are no exudates. SKIN: There are no skin rashes. There is no skin lesion. There is no petechiae or ecchymosis. NECK: Supple. There is no JVD. There is no lymphadenopathy. There is no goiter. Carotids are equal. There is no bruit. Trachea is central. LUNGS: Clear to auscultation and percussion. There is no chest wall tenderness. HEART: S1, S2 is heard. There is an S4 gallop present. There is no S3 gallop. There is a systolic murmur in the left sternal border and the apex. There is no rub. ABDOMEN: Soft, nontender. There is no hepatosplenomegaly. Bowel sounds are well heard. There are no tender areas or masses. EXTREMITIES: Femorals are slightly diminished. Leg pulses are diminished. At present there is trace pedal edema bilaterally. There is no cyanosis or clubbing. There is no DVT or cellulitis. There is no calf tenderness. CENTRAL NERVOUS SYSTEM: The patient is conscious, awake, slightly drowsy but oriented x3 with no focal deficits. PSYCHIATRIC: The patient's judgment and insight are intact, although she has slow mentation and has a flat affect and appears to be depressed. She does not appear to be combative or agitated. DIAGNOSTICS: The patient's EKG shows sinus rhythm probable LVH with strain pattern. The patient's troponin I was 0.227. Liver function tests are normal. The patient's sodium is 139.6, potassium 4.1, chloride is 107, CO2 is 26. The patient's BUN is 44, creatinine is 3.15, GFR is reduced at 17 mL which is chronic kidney disease stage 4. Her glucose is 144. Hemoglobin A1c is 8.5. Calcium is 9.5 and magnesium is 1.9. NT-proBNP was 100,000. Earlier the patient's troponin I was 0.389 on admission and subsequently came down to 0.39 and today is 0.227. The patient's adrenal cortisol is good at 47. LDL cholesterol is 98 and triglycerides are 107. Albumin is 2.3, total protein is 5.3. The rest of the labs have been reviewed. The patient's abdominal ultrasound shows post cholecystectomy, right pleural effusion at the edge of the view. Right kidney is of normal size, left kidney is of normal size. There is a 2.5 cm left renal cortical cyst, no solids or suspicious masses, no hydronephrosis, no . The spleen is normal size and no solid masses. Gallbladder is surgically absent. Liver vasculature normal. Directional flow of the main portal vein and hepatic vein. Liver shows no masses, echotexture is normal. Pancreas is midline and pancreas is unremarkable. The patient's chest x-ray shows left basilar airspace disease, stable marked cardiomegaly. IMPRESSION: 1. Hypertension emergency with hypertensive encephalopathy and also hypertensive cardiovascular disease causing leakage of troponin I. Blood pressure is better but still not optimally controlled. Agree with getting the patient's blood pressure down gently. 2. Elevated troponin I secondary to uncontrolled hypertension. Note, that the patient has in the past a nonobstructive coronary artery disease but this could have progressed and 3 years later would recommend that the patient have an IV Lexiscan Cardiolite. 3. Anemia secondary to chronic kidney disease and also iron deficiency. The patient received 1 unit of blood transfusion and also the patient received iron infusion. 4. Chronic kidney disease stage 4. 5. Coronary artery disease, nonobstructive by cath, would recommend continue the patient on isosorbide. 6. Diabetes mellitus type 2. The patient not on home medication. Note hemoglobin A1c is high. The patient may need antidiabetic medication to be started. At present the patient is on insulin. 7. History of LV diastolic heart failure in the past and history of LV systolic dysfunction with LV ejection fraction of 25-30% in 2014, which has recovered and September 2017 echo EF was normal with LV diastolic dysfunction. 8. Past history of CVA, fully recovered. 9. GERD. 10. Arthritis. 11. History of UTI. The patient being treated with antibiotic. 12. Depression. 13. Hyperlipidemia. 14. Transient altered mental status, most likely secondary to hypertensive encephalopathy now resolved. RECOMMENDATIONS: Continue current medication. If her blood pressure still is not well-controlled would change the patient's amlodipine to Procardia. Note that the patient has bradycardia, this may be secondary to , uncontrolled hypertension, and and also because the patient is on clonidine. The patient does not need any treatment for this at present. We will recheck an echo in the morning. We will recheck the patient's EKG and troponin I in the morning. Later the patient can have IV Lexiscan Cardiolite stress test, this can be also done as an outpatient once the blood pressure is well-controlled. Note, medical decision is of high complexity. The patient's medications have been reviewed and suggestions made. We will follow with you. TIME SPENT: Note that the patient was seen around 8 a.m. this morning. Note 60 minutes spent on this patient with more than 50% percent of the time spent on direct patient care. Note also records from [facility] have also been reviewed, especially the ones from 2016 and 2014. Her medications have been reviewed and the case discussed with the hospitalist. DICTATING PHYSICIAN: LORENZA RING M.D. [id number] PHY#: [id number] ID: [id number] JOB#: [id number] ACCT: [id number] cc:LORENZA RING M.D. >
[2018-03-12] MEDS ORDERED: CALCITRIOL 0.25 MCG CAPSULE PO SCH (10:00)
== END 2018-03-11 15:26 | disposition home health service (06) | DRG 304 ==
LOC: ER 09:15 → EH 13:43 → 3W 14:41
PROVIDERS: ADMIT Emergency Medicine; ATTEND Emergency Medicine
PROC: 30233N1 Transfusion of Nonautologous Red Blood Cells into Peripheral Vein, Percutaneous Approach (ICD-10-PCS; principal; 2018-03-10)
DX: I16.1 Hypertensive emergency (principal); J18.9 Pneumonia, unspecified organism; I50.32 Chronic diastolic (congestive) heart failure; N18.4 Chronic kidney disease, stage 4 (severe); I67.4 Hypertensive encephalopathy; Q61.01 Congenital single renal cyst; D50.9 Iron deficiency anemia, unspecified; I11.0 Hypertensive heart disease with heart failure; D63.1 Anemia in chronic kidney disease; E11.22 Type 2 diabetes mellitus with diabetic chronic kidney disease; I25.10 Atherosclerotic heart disease of native coronary artery without angina pectoris; I25.2 Old myocardial infarction; K21.9 Gastro-esophageal reflux disease without esophagitis; I08.3 Combined rheumatic disorders of mitral, aortic and tricuspid valves; M16.11 Unilateral primary osteoarthritis, right hip; I27.20 Pulmonary hypertension, unspecified; F32.9 Major depressive disorder, single episode, unspecified; E78.00 Pure hypercholesterolemia, unspecified; M19.90 Unspecified osteoarthritis, unspecified site; F41.9 Anxiety disorder, unspecified; Z79.899 Other long term (current) drug therapy; Z90.49 Acquired absence of other specified parts of digestive tract; Z86.73 Personal history of transient ischemic attack (TIA), and cerebral infarction without residual deficits; Z87.891 Personal history of nicotine dependence; Z79.02 Long term (current) use of antithrombotics/antiplatelets; Z79.82 Long term (current) use of aspirin; Z82.3 Family history of stroke; Z83.3 Family history of diabetes mellitus; Z82.49 Family history of ischemic heart disease and other diseases of the circulatory system
CPT/HCPCS: 36415; 36430; 70450; 71045; 76700; 80053; 80061; 81001; 82272; 82550; 82553; 82607; 82728; 82746; 82962; 83036; 83540; 83550; 83605; 83690; 83735; 83880; 84443; 84484; 85025; 85027; 85045; 85610; 85730; 86850; 86900; 86901; 86920; 87086; 87088; 87186; 93005; 93010; 96374; 99291; J0360; J0696; J1815; J1940; J3490; P9016; Q0139; Q4081

== ENCOUNTER 2018-04-13 23:50 | Emergency (ER) | payer MEDICARE, OTHER ==
--- NOTE | 2018-04-14 00:05 | ER Document Report ---
ED General - General Stated Complaint: BLOOD PRESSURE ISSUE Time Seen by Provider: 04/13/18 23:57 Notes: Patient is a 78-year-old female presents with complaint of fusion for over 24 hours. Family has not arrived but per report confusion has been there for almost 3 days. Patient is unable to give me any history whatsoever. She is hypertensive upon arrival. We will have to wait for family to arrive to get more history. TRAVEL OUTSIDE OF THE [place] IN LAST 30 DAYS: No - Related Data Allergies/Adverse Reactions: No Known Allergies Allergy (Verified 03/09/18 09:32) Past Medical History - Social History Smoking Status: Unknown if Ever Smoked Frequency of alcohol use: unknown Drug Abuse: Other - unknown Family History: CVA, DM, Hypertension - Past Medical History Cardiac Medical History: Reports: Hx Congestive Heart Failure - Pt reports she had HF last year, Hx Hypercholesterolemia, Hx Hypertension Denies: Hx Coronary Artery Disease, Hx Heart Attack, Hx Peripheral Vascular Disease, Hx Pulmonary Embolism Pulmonary Medical History: Denies: Hx Tuberculosis Neurological Medical History: Reports: Hx Cerebrovascular Accident Endocrine Medical History: Reports: Hx Diabetes Mellitus Type 2 Renal/ Medical History: Denies: Hx Peritoneal Dialysis GI Medical History: Reports: Hx Gastroesophageal Reflux Disease Musculoskeltal Medical History: 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 Psychiatric Medical History: Reports: Hx Anxiety, Hx Depression Past Surgical History: Reports: Hx Cardiac Catheterization - stents, Hx Cholecystectomy, Hx Orthopedic Surgery - hand - Immunizations Hx Diphtheria, Pertussis, Tetanus Vaccination: Yes Hx Pneumococcal Vaccination: 01/11/12 Review of Systems - Review of Systems -: Yes ROS unobtainable due to patient's medical condition - patient is altered Physical Exam - Vital signs Vitals: Resp Pulse Ox 15 98 04/13/18 23:56 04/13/18 23:56 - Notes Notes: General Appearance: She is awake but is not talking or answering questions. She is at times looking around the room. Confused and at other times just keeping her eyes closed. Vitals: reviewed, See vital signs table. Head: no swelling or tenderness to the head Eyes: PERRL, EOMI, Conjuctiva clear Mouth: No decreasd moisture Throat: No tonsillar inflammation, No airway obstruction, No lymphadenopathy Neck: Supple, no neck tenderness Lungs: No wheezing, No rales, No rhonci, No accessory muscle use, good air exchange bilaterally. Heart: Normal rate, Regular rythm, No murmur, no rub Abdomen: Normal BS, soft, No rigidity, no grimacing upon palpation of abdomen., No guarding, no rebound, no abdominal masses, no organomegaly Extremities: strength 5/5 in all extremities, good pulses in all extremities, no swelling or tenderness in the extremities, no edema. Skin: warm, dry, appropriate color, no rash Neuro: Awake but not talking. She will not following commands at this time. She does move her upper extremities little bit on her own. She also move her legs some on her own. This is spontaneous and not per command. No convulsions. She does withdrawal to painful stimuli. Course - Re-evaluation Re-evalutation: 04/14/18 00:16 Patient has a intraparenchymal head bleed on CT scan. I have ordered Cardene for blood pressure control. I have informed the nurse the plan to titrate to control her systolic blood pressure between 140-160. I have contacted [facility] spoke with the transfer center and they will be call me back with the neurosurgeon. 04/14/18 00:33 04/14/18 00:34 Spoke with Jazmin, nurse practitioner for neurosurgical team at [facility], who agrees to accept the patient for transfer. Requests that the patient's blood pressure be titrated below 140. IV access has now been obtained and we are starting nicardipine to titrate blood pressure. 04/14/18 01:58 Patient's mental status has remained unchanged. We are still trying to get her blood pressure under better control. She is maxed out on the nicardipine drip. I have also placed Nitropaste on her chest. I am now ordering hydralazine to try to get her blood pressure under better control. 04/14/18 02:37 Patient is actually clinically improving now. She is now more awake and alert and actually answering questions now. We will continue to try to do treat her blood pressure. She is just received a hydralazine. I will wait see if this improves her pressure any further. 04/14/18 03:28 The hydralazine did help her blood pressure. It is currently 147/51. It came as low as 120 systolically. She continues to be on the nicardipine drip. I have reevaluated her and she continues to be arousable and still continues to talk and look improved comparison when she first arrived. She has no signs of impending airway compromise. Patient is stable for transfer. Dictation of this chart was performed using voice recognition software; therefore, there may be some unintended grammatical errors. - Vital Signs Vital signs: Temp Pulse Resp BP Pulse Ox 98.3 F 17 187/73 H 96 04/13/18 23:57 04/14/18 02:08 04/14/18 02:08 04/14/18 02:08 - Laboratory Result Diagrams: 04/14/18 00:33 04/14/18 01:53 Laboratory results interpreted by me: 04/14/18 04/14/18 00:33 01:53 Hgb 11.2 L Hct 33.5 L RDW 15.7 H Chloride 112 H BUN 33 H Creatinine 3.31 H Est GFR ( Amer) 16 L Est GFR (Non-Af Amer) 14 L Glucose 193 H Albumin 3.0 L - EKG Interpretation by Me Additional EKG results interpreted by me: 04/14/18 01:28 EKG is reviewed and interpreted by me. EKG shows sinus rhythm with rate of [address] segment elevation or depression. No ischemic T-wave inversions. HI interval, QRS duration, QTc intervals are within normal range. Old EKG for comparison is from March 11, 2018. Discharge - Discharge Clinical Impression: Intracerebral bleed Qualifiers: Intracerebral hemorrhage etiology: nontraumatic Cerebral hemorrhage location: unspecified cerebral location Laterality: left Qualified Code(s): I61.9 - Nontraumatic intracerebral hemorrhage, unspecified Condition: Stable Disposition: [facility] Referrals: LOCALMD,NO [NO LOCAL MD] - Follow up as needed
--- NOTE | 2018-04-14 00:21 | RADIOLOGY REPORT (SQ) ---
EXAM DESCRIPTION: CT HEAD WITHOUT IV CONTRAST COMPLETED DATE/TME: 04/14/2018 00:00 CLINICAL HISTORY: 78 years, Female, altered mental status COMPARISON: 03/09/2018 TECHNIQUE: Axial CT images of the brain were obtained without contrast. [facility] 1043 Images stored on PACS. All CT scanners at this facility use dose modulation, iterative reconstruction, and/or weight based dosing when appropriate to reduce radiation dose to as low as reasonably achievable (ALARA). [facility]: Dose Right [facility]: CareDose [facility]: Dose Right [facility]: Teradose 4D [facility]: Smart mVisum LIMITATIONS: Somewhat limited secondary to patient motion FINDINGS: There is a 2.2 x 1.0 cm hemorrhage centered within the left basal ganglia with surrounding vasogenic edema. There is no midline shift, herniation, or hydrocephalus. There is diffuse cerebral atrophy with moderate periventricular deep white matter chronic microvascular changes. Again noted is an lacunar infarct involving the left basal ganglia. The paranasal sinuses and mastoid air cells are clear. There is no acute fracture. IMPRESSION: 2.2 x 1.0 cm hemorrhage centered within the left basal ganglia with surrounding vasogenic edema. No midline shift, herniation, or hydrocephalus. The above critical findings were discussed with and acknowledged by Dr. Soto at 11:19 PM on 04/13/2018. TECHNICAL DOCUMENTATION: Quality ID # [id number]: Final reports with documentation of one or more dose reduction techniques (e.g., Automated exposure control, adjustment of the mA and/or kV according to patient size, use of iterative reconstruction technique) 2010 [employer]- All Rights Reserved
--- NOTE | 2018-04-14 00:33 | RADIOLOGY REPORT (SQ) ---
EXAM DESCRIPTION: XR CHEST 1 VIEW COMPLETED DATE/TME: 04/14/2018 00:01 CLINICAL HISTORY: 78 years Female, altered mental status COMPARISON: 6.1.18 NUMBER OF VIEWS/TECHNIQUE: 1/AP FINDINGS: Adequate lung volume, clear parenchyma, mildly enlarged cardiac silhouette, and intact bony thorax. IMPRESSION: No acute cardiopulmonary findings.
[2018-04-14] MEDS: NICARDIPINE HCL RTU, ISO-OS 20 MG/200 ML RTUINJ IV PRN ×3 (00:37→03:37)
[2018-04-14 00:50] LABS: ABSOLUTE BASOPHILS # (AUTO) 0.1 10^3/uL (0.0-0.2); ABSOLUTE EOSINOPHILS # (AUTO) 0.3 10^3/uL (0.0-0.6); ABSOLUTE LYMPHOCYTES (AUTO) 3.4 10^3/uL (0.5-4.7); ABSOLUTE MONOCYTES (AUTO) 0.8 10^3/uL (0.1-1.4); ABSOLUTE NEUT (AUTO) 4.8 10^3/uL (1.7-8.2); BASOPHILS % (AUTO) 0.6 % (0-2); EOSINOPHILS % (AUTO) 3.2 % (0-6); HEMATOCRIT 33.5 % (36.0-47.0); HEMOGLOBIN 11.2 g/dL (12.0-15.5); MEAN CORPUSCULAR HGB CONC 33.5 g/dL (32.0-36.0); MEAN CORPUSCULAR VOLUME 87 fl (80-97); MONOCYTES % (AUTO) 8.3 % (3-13); PLATELET COUNT 273 10^3/uL (150-450); RED BLOOD COUNT 3.88 10^6/uL (3.72-5.28); RED CELL DISTRIBUTION WIDTH 15.7 % (11.5-14.0); SEGMENTED NEUTROPHILS % (AUTO) 51.9 % (42-78); TOTAL CELLS COUNTED % (AUTO) 100 %; WHITE BLOOD COUNT 9.3 10^3/uL (4.0-10.5)
[2018-04-14 00:52] LABS: INTERNATIONAL RATION (INR) 0.97; PARTIAL THROMBOPLASTIN TIME 26.7 SEC (23.5-35.8); PROTHROMBIN TIME 13.3 SEC (11.4-15.4)
[2018-04-14] MEDS ORDERED: NITROGLYCERIN 2% OINTMENT 1 GM PACKET TP ONE (01:26)
[2018-04-14] MEDS ORDERED: HYDRALAZINE HCL INJ/PF 20 MG/1 ML SDV IV ONE (01:58)
[2018-04-14 02:23] LABS: ALANINE AMINOTRANSFERASE 18 U/L (9-52); ALKALINE PHOSPHATASE 86 U/L (38-126); ANION GAP 11 (5-19); ASPARTATE AMINO TRANSFERASE 17 U/L (14-36); BILIRUBIN,DIRECT 0.4 mg/dL (0.0-0.4); BILIRUBIN,TOTAL 0.5 mg/dL (0.2-1.3); BLOOD UREA NITROGEN 33 mg/dL (7-20); CALCIUM 9.9 mg/dL (8.4-10.2); CARBON DIOXIDE 22 mmol/L (22-30); CHLORIDE 112 mmol/L (98-107); GLUCOSE 193 mg/dL (75-110); POTASSIUM 4.7 mmol/L (3.6-5.0); SODIUM 144.5 mmol/L (137-145); TOTAL PROTEIN 6.5 g/dL (6.3-8.2)
[2018-04-14 03:42] VITALS: BP 148/69
--- NOTE | 2018-04-14 10:37 | EKG REPORT ---
SEVERITY:- ABNORMAL ECG - SINUS RHYTHM PROBABLE LVH WITH SECONDARY REPOL ABNRM : Confirmed by: Doe Padilla MD 14-Apr-2018 10:36:38
== END 2018-04-14 03:45 | disposition short-term general hospital (02) ==
LOC: ER 23:50
DX: I61.9 Nontraumatic intracerebral hemorrhage, unspecified (principal); R41.0 Disorientation, unspecified; I11.0 Hypertensive heart disease with heart failure; I50.9 Heart failure, unspecified; E78.00 Pure hypercholesterolemia, unspecified; E11.9 Type 2 diabetes mellitus without complications; K21.9 Gastro-esophageal reflux disease without esophagitis; Z86.73 Personal history of transient ischemic attack (TIA), and cerebral infarction without residual deficits
CPT/HCPCS: 93005; 99285; 96375; 96365; 96366; 36415; 85025; 85610; 85730; 80053; 84484; 71045; 70450; 93010; A9270; J0360; J3490

== ENCOUNTER 2018-05-03 12:15 | Outpatient (CLI) | payer MEDICARE ==
[~2018-05-03 12:15] MED LIST: ACETAMINOPHEN 325 MG TABLET PO PRN; DIPHENHYDRAMINE HCL 25 MG CAPSULE PO PRN; FUROSEMIDE INJ/PF 20 MG/2 ML SDV IV PRN
[2018-05-03 13:03] LABS: HEMATOCRIT 22.7 % (36.0-47.0); MEAN CORPUSCULAR HEMOGLOBIN 29.5 pg (27.0-33.4); MEAN CORPUSCULAR HGB CONC 33.8 g/dL (32.0-36.0); MEAN CORPUSCULAR VOLUME 87 fl (80-97); PLATELET COUNT 189 10^3/uL (150-450); RED BLOOD COUNT 2.59 10^6/uL (3.72-5.28); RED CELL DISTRIBUTION WIDTH 17.9 % (11.5-14.0); WHITE BLOOD COUNT 8.6 10^3/uL (4.0-10.5)
[2018-05-03] MEDS ORDERED: NORMAL SALINE 250 ML IV PRN (13:10)
[2018-05-03 13:12] LABS: HEMOGLOBIN 7.7 g/dL (12.0-15.5)
[2018-05-04 00:21] LABS: ABSOLUTE EOSINOPHILS # (AUTO) 0.3 10^3/uL (0.0-0.6); ABSOLUTE LYMPHOCYTES (AUTO) 1.9 10^3/uL (0.5-4.7); ABSOLUTE MONOCYTES (AUTO) 0.6 10^3/uL (0.1-1.4); ABSOLUTE NEUT (AUTO) 4.4 10^3/uL (1.7-8.2); BASOPHILS % (AUTO) 0.4 % (0-2); EOSINOPHILS % (AUTO) 4.1 % (0-6); HEMATOCRIT 25.9 % (36.0-47.0); HEMOGLOBIN 8.7 g/dL (12.0-15.5); LYMPHOCYTES % (AUTO) 26.9 % (13-45); MEAN CORPUSCULAR HEMOGLOBIN 29.1 pg (27.0-33.4); MEAN CORPUSCULAR HGB CONC 33.7 g/dL (32.0-36.0); MEAN CORPUSCULAR VOLUME 86 fl (80-97); MONOCYTES % (AUTO) 7.6 % (3-13); PLATELET COUNT 171 10^3/uL (150-450); RED CELL DISTRIBUTION WIDTH 16.7 % (11.5-14.0); TOTAL CELLS COUNTED % (AUTO) 100 %; WHITE BLOOD COUNT 7.2 10^3/uL (4.0-10.5)
[2018-05-04] MEDS ORDERED: CLONIDINE HCL 0.1 MG TABLET ONE (05:58)
[2018-05-04] MEDS ORDERED: CLONIDINE HCL 0.1 MG TABLET PO ONE (06:15)
[2018-05-04 08:30] VITALS: BP 159/50
== END 2018-05-04 08:23 ==
LOC: LAB 12:15 → 2S 12:52 → LAB 05-04 08:23
PROVIDERS: ATTEND Internal Medicine
PROC: 30233N1 Transfusion of Nonautologous Red Blood Cells into Peripheral Vein, Percutaneous Approach (ICD-10-PCS; principal; 2018-05-03)
DX: D64.9 Anemia, unspecified (principal)
CPT/HCPCS: 86900; 86901; 36415; 36430; 86850; 82962; 85025; 86920; P9016; A9270 ×3; J1940

== ENCOUNTER 2018-05-09 01:38 | Inpatient (IN) | payer MEDICARE ==
[2018-05-09] MEDS ORDERED: IPRATROPIUM/ALBUTEROL 0.5-2.5 MG/3 ML AMPUL NEB ONE ×3 (01:54→04:24)
[2018-05-09] MEDS ORDERED: MAGNESIUM SULFATE/D5W 1 GM/100 ML RTUPB IV ONE ×2 (01:54)
[2018-05-09] MEDS ORDERED: METHYLPREDNISOLONE INJ 125 MG/2 ML SDV IV ONE (01:54)
--- NOTE | 2018-05-09 01:56 | ER Document Report ---
ED Respiratory Problem - General Stated Complaint: SHORTNESS OF BREATH Time Seen by Provider: 05/09/18 01:49 Notes: Patient is a 78-year-old female that comes emergency department by EMS from [facility] for chief complaint of respiratory distress. Patient was diagnosed with pneumonia yesterday, placed on Levaquin, EMS found patient initially with oxygen saturation in the 80s, she was given DuoNeb treatment and placed on oxygen, oxygen came up into the upper 90s. Past medical history includes CHF, CAD, no history of COPD or asthma reported. Patient is confused at baseline, she is unable to give me any meaningful history at this time. TRAVEL OUTSIDE OF THE [place] IN LAST 30 DAYS: No - Related Data Allergies/Adverse Reactions: No Known Allergies Allergy (Verified 03/09/18 09:32) Past Medical History - General Information source: Patient, Transfer Record, Emergency Med Personnel - Social History Smoking Status: Never Smoker Frequency of alcohol use: None Drug Abuse: None Lives with: Alf Family History: CVA, DM, Hypertension - Past Medical History Cardiac Medical History: Reports: Hx Congestive Heart Failure - Pt reports she had HF last year, Hx Hypercholesterolemia, Hx Hypertension Denies: Hx Coronary Artery Disease, Hx Heart Attack, Hx Peripheral Vascular Disease, Hx Pulmonary Embolism Pulmonary Medical History: Denies: Hx Tuberculosis Neurological Medical History: Reports: Hx Cerebrovascular Accident Endocrine Medical History: Reports: Hx Diabetes Mellitus Type 2 Renal/ Medical History: Denies: Hx Peritoneal Dialysis GI Medical History: Reports: Hx Gastroesophageal Reflux Disease Musculoskeletal Medical History: 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 Psychiatric Medical History: Reports: Hx Anxiety, Hx Depression Past Surgical History: Reports: Hx Cardiac Catheterization - stents, Hx Cholecystectomy, Hx Orthopedic Surgery - hand - Immunizations Hx Diphtheria, Pertussis, Tetanus Vaccination: Yes Hx Pneumococcal Vaccination: 01/11/12 Review of Systems - Review of Systems Constitutional: No symptoms reported EENT: No symptoms reported Cardiovascular: No symptoms reported Respiratory: See HPI Gastrointestinal: No symptoms reported Genitourinary: No symptoms reported Female Genitourinary: No symptoms reported Musculoskeletal: No symptoms reported Skin: No symptoms reported Hematologic/Lymphatic: No symptoms reported Neurological/Psychological: No symptoms reported Physical Exam - Vital signs Vitals: Pulse Ox 97 05/09/18 01:41 - Notes Notes: GENERAL: Alert, mild respiratory distress HEAD: Normocephalic, atraumatic. EYES: Pupils equal, round, and reactive to light. Extraocular movements intact. ENT: Oral mucosa moist, tongue midline. [Nares patent, no nasal septal hematoma , TM's intact.] NECK: Full range of motion. Supple. Trachea midline. LUNGS: Extra wheezes throughout, few scattered rhonchi, no overt rales noted. Patient is tachypneic. HEART: Regular rate and rhythm. No murmur ABDOMEN: Soft, non-tender. Non-distended. Bowel sounds present in all 4 quadrants. EXTREMITIES: Moves all 4 extremities spontaneously. No edema, normal radial and dorsalis pedis pulses bilaterally. No cyanosis. BACK: no cervical, thoracic, lumbar midline tenderness. No saddle anesthesia, normal distal neurovascular exam. NEUROLOGICAL: Patient is alert, she is cooperative, she answers questions but she is confused to time and events [cranial nerves II through XII grossly intact ]. SKIN: Warm, dry, normal turgor. No rashes or lesions noted. Course - Re-evaluation Re-evalutation: On initial evaluation patient is in mild respiratory distress with tachypnea, expiratory wheezes throughout, a few scattered rhonchi. No overt rales. No overt lower extremity edema. Patient is unable to give me any meaningful history but she is alert and cooperative. After DuoNeb, magnesium tachypnea resolved, patient is breathing normally now. Respiratory distress has resolved. Chest x-ray showing either multifocal pneumonia or fluid overload. Leukocytosis , recent starting of Levaquin for pneumonia, and patient's evaluation are more suggestive of pneumonia. Starting additional antibiotic. Patient does have history of CHF, BNP is elevated, given dose of Lasix as well. Urine showing infection, culture placed. Discussed with Dr. Soto. Chemistry showing chronic kidney disease without significant change from prior. Indeterminate troponin. Venous blood gas is unremarkable. After respiratory distress resolved patient fell asleep, remains arousable, heart rate did drop into the 40s and 50s although she has had this in the past as well. She denies any dizziness, chest pain. Blood pressure without significant change. 05/09/18 03:15 Brother came to bedside, states that patient is full code, she had a recent hemorrhagic stroke at [facility] and is at [facility] for rehab from this. Patient is answering questions appropriately, identifies brother without difficulty, he states she is at her mental baseline at this time. Because of patient's oxygen requirement with multifocal pneumonia will discuss with hospitalist for admission. He states agreement with this plan. 05/09/18 04:40 Called and spoke with hospitalist, Dr. Vega, they are backed up with multiple admissions at this time, they did take report however, admit initiated at this time. 05/09/18 07:[address] Landry, patient will be accepted to the hospital, Anu ALCANTAR will see the patient. - Vital Signs Vital signs: Temp Pulse Resp BP Pulse Ox 98.6 F 13 147/44 H 99 05/09/18 07:00 05/09/18 07:01 05/09/18 07:00 05/09/18 07:01 - Laboratory Result Diagrams: 05/09/18 02:03 05/09/18 02:03 Laboratory results interpreted by me: 05/09/18 05/09/18 05/09/18 02:03 02:03 02:03 WBC 14.3 H RBC 3.39 L Hgb 9.7 L Hct 29.5 L RDW 16.5 H Seg Neutrophils % 89.9 H Lymphocytes % 8.4 L Monocytes % 1.3 L Absolute Neutrophils 12.9 H Sodium 145.9 H Chloride 112 H Carbon Dioxide 20 L BUN 53 H Creatinine 4.77 H Est GFR ( Amer) 11 L Est GFR (Non-Af Amer) 9 L Glucose 120 H NT-Pro-B Natriuret Pep 15646 H Albumin 2.9 L Urine Protein Urine Blood Ur Leukocyte Esterase 05/09/18 03:21 WBC RBC Hgb Hct RDW Seg Neutrophils % Lymphocytes % Monocytes % Absolute Neutrophils Sodium Chloride Carbon Dioxide BUN Creatinine Est GFR ( Amer) Est GFR (Non-Af Amer) Glucose NT-Pro-B Natriuret Pep Albumin Urine Protein >=500 H Urine Blood SMALL H Ur Leukocyte Esterase MODERATE H Discharge - Discharge Clinical Impression: Multifocal pneumonia, Hypoxia CHF exacerbation Qualifiers: Heart failure type: unspecified Qualified Code(s): I50.9 - Heart failure, unspecified Urinary tract infection Qualifiers: Urinary tract infection type: site unspecified Hematuria presence: without hematuria Qualified Code(s): N39.0 - Urinary tract infection, site not specified Condition: Stable Disposition: ADMITTED INPATIENT Admitting Provider: Hospitalist Unit Admitted: Telemetry Referrals: ARIZMENDI,ROSY D, DO [Primary Care Provider] - Follow up as needed
[2018-05-09] MEDS: MAGNESIUM SULFATE/D5W 1 GM/100 ML RTUPB IV SCH ×2 (02:10→02:17)
[2018-05-09 02:27] LABS: ABSOLUTE LYMPHOCYTES (AUTO) 1.2 10^3/uL (0.5-4.7); ABSOLUTE MONOCYTES (AUTO) 0.2 10^3/uL (0.1-1.4); ABSOLUTE NEUT (AUTO) 12.9 10^3/uL (1.7-8.2); BASOPHILS % (AUTO) 0.2 % (0-2); EOSINOPHILS % (AUTO) 0.2 % (0-6); HEMATOCRIT 29.5 % (36.0-47.0); HEMOGLOBIN 9.7 g/dL (12.0-15.5); LYMPHOCYTES % (AUTO) 8.4 % (13-45); MEAN CORPUSCULAR HEMOGLOBIN 28.5 pg (27.0-33.4); MEAN CORPUSCULAR HGB CONC 32.7 g/dL (32.0-36.0); MEAN CORPUSCULAR VOLUME 87 fl (80-97); MONOCYTES % (AUTO) 1.3 % (3-13); PLATELET COUNT 236 10^3/uL (150-450); RED BLOOD COUNT 3.39 10^6/uL (3.72-5.28); RED CELL DISTRIBUTION WIDTH 16.5 % (11.5-14.0); SEGMENTED NEUTROPHILS % (AUTO) 89.9 % (42-78); TOTAL CELLS COUNTED % (AUTO) 100 %; WHITE BLOOD COUNT 14.3 10^3/uL (4.0-10.5)
[2018-05-09 02:30] LABS: VENOUS BLOOD BASE EXCESS -2.7 mmol/L; VENOUS BLOOD HCO3 22.9 mmol/L (20-32); VENOUS BLOOD PCO2 43.1 mmHg (35-63); VENOUS BLOOD PH 7.34 (7.30-7.42)
[2018-05-09 02:44] LABS: ALANINE AMINOTRANSFERASE 22 U/L (9-52); ALBUMIN 2.9 g/dL (3.5-5.0); ALKALINE PHOSPHATASE 76 U/L (38-126); ANION GAP 14 (5-19); ASPARTATE AMINO TRANSFERASE 16 U/L (14-36); BILIRUBIN,DIRECT 0.4 mg/dL (0.0-0.4); BILIRUBIN,TOTAL 0.6 mg/dL (0.2-1.3); BLOOD UREA NITROGEN 53 mg/dL (7-20); CALCIUM 9.7 mg/dL (8.4-10.2); CARBON DIOXIDE 20 mmol/L (22-30); CHLORIDE 112 mmol/L (98-107); CREATINE KINASE 35 U/L (30-135); GLUCOSE 120 mg/dL (75-110); SODIUM 145.9 mmol/L (137-145); TOTAL PROTEIN 6.3 g/dL (6.3-8.2)
--- NOTE | 2018-05-09 02:55 | RADIOLOGY REPORT (SQ) ---
EXAM DESCRIPTION: XR CHEST 1 VIEW COMPLETED DATE/TME: 05/09/2018 01:53 CLINICAL HISTORY: 78 years Female, hypoxia, shortness of breath COMPARISON: None. NUMBER OF VIEWS/TECHNIQUE: 1/AP FINDINGS: Moderate lung volume, moderate bilateral lower lobar opacity-effusion, moderate interstitial markings, moderately enlarged cardiac silhouette, and intact bony thorax. IMPRESSION: Moderate mixed interstitial and basilar opacities. Differential diagnosis includes CHF/pulmonary edema and multifocal pneumonia.
[2018-05-09 03:06] LABS: TROPONIN I 0.037 ng/mL
[2018-05-09] MEDS ORDERED: CEFEPIME 2 GM/D5W RTU 2 GM/50 ML RTUPB IV ONE (03:08)
[2018-05-09] MEDS ORDERED: FUROSEMIDE INJ/PF 20 MG/2 ML SDV IV ONE (03:08)
[2018-05-09 03:56] LABS: APPEARANCE,URINE SLIGHTLY-CLOUDY; BILIRUBIN,URINE NEGATIVE (NEGATIVE); COLOR,URINE LIGHT YELLOW; GLUCOSE, URINE NEGATIVE (NEGATIVE); KETONES,URINE NEGATIVE (NEGATIVE); LEUKOCYTE ESTERASE,URINE MODERATE (NEGATIVE); NITRITE,URINE NEGATIVE (NEGATIVE); PROTEIN,URINE >=500 mg/dL (NEGATIVE); URINE SPECIFIC GRAVITY 1.012; UROBILINOGEN,URINE NEGATIVE mg/dL (<2.0)
[2018-05-09] MEDS ORDERED: LEVALBUTEROL HCL NEB 1.25 MG/3 ML AMPUL NEB PRN (08:59)
[2018-05-09] MEDS ORDERED: ACETAMINOPHEN 650 MG SUPP.RECT PR PRN (08:59)
[2018-05-09] MEDS ORDERED: ONDANSETRON HCL INJ/PF 4 MG/2 ML SDV IV PRN (09:11)
[2018-05-09] MEDS ORDERED: VANCOMYCIN HCL 0 MG in DEXTROSE 5%-WATER 250 ML IV NR (09:30)
[2018-05-09] MEDS ORDERED: CEFEPIME 2 GM/D5W RTU 2 GM/50 ML RTUPB IV SCH (10:00)
[2018-05-09] MEDS ORDERED: LEVOFLOXACIN 750 MG/D5W RTU 750 MG/150 ML RTUPB IV ONE (10:00)
[2018-05-09] MEDS ORDERED: (PENDING PHARMACY ID) (Isosorbide Mononitrate [Isosorbide Mononitrate Er] 120 MG) PO SCH (10:00)
[2018-05-09] MEDS ORDERED: FAMOTIDINE INJ/PF 20 MG/2 ML SDV IV SCH (10:00)
[2018-05-09] MEDS: ESCITALOPRAM OXALATE 10 MG TABLET PO SCH (10:05)
[2018-05-09] MEDS: FAMOTIDINE INJ/PF 20 MG/2 ML SDV IV SCH (10:05)
[2018-05-09] MEDS: FUROSEMIDE INJ/PF 20 MG/2 ML SDV IV SCH ×2 (10:05→21:09)
[2018-05-09] MEDS: ASPIRIN 81 MG TABLET, CHEWABLE PO SCH (10:06)
[2018-05-09] MEDS: DOXAZOSIN MESYLATE 2 MG TABLET PO SCH ×2 (10:06→21:08)
[2018-05-09] MEDS: ISOSORBIDE MONONITRATE 60 MG TAB.ER.24H PO SCH (10:06)
[2018-05-09] MEDS: AMLODIPINE BESYLATE 10 MG TABLET PO SCH (10:06)
[2018-05-09] MEDS ORDERED: VANCOMYCIN HCL 1,500 MG in DEXTROSE 5%-WATER 250 ML IV ONE (11:00)
[2018-05-09 11:09] LABS: ANION GAP 12 (5-19); BLOOD UREA NITROGEN 58 mg/dL (7-20); CALCIUM 8.7 mg/dL (8.4-10.2); CARBON DIOXIDE 21 mmol/L (22-30); CHLORIDE 111 mmol/L (98-107); GLUCOSE 147 mg/dL (75-110); POTASSIUM 5.2 mmol/L (3.6-5.0); SODIUM 143.7 mmol/L (137-145)
--- NOTE | 2018-05-09 12:05 | PDOC H&P ---
History of Present Illness Admission Date/PCP: 05/09/18 07:39 ROSY ARIZMENDI DO Patient complains of: Decreased alertness History of Present Illness: DAYA DEAN is a 78 year old female with an extensive past medical history including recent admission to [facility] in April 2018 for ICH, non- STEMI, encephalopathy, as well as, CHF, CAD, HTN, HLD, CKD3, IDDM, hypothyroidism, history of hepatitis C, and bipolar disorder who presented to the emergency department today from [facility] via EMS with report of decreased alertness. The patient was noted to be in respiratory distress, initially presumed to be related to treated with IV magnesium, Solu-Medrol, and nebulizer treatments. Evaluation in the emergency department reveals leukocytosis (WBC 14.3), baseline anemia (hemoglobin 9.7), hypernatremia (sodium 145.9), acute on chronic renal insufficiency (creatinine of 4.77, BUN 53, GFR 11), indeterminately elevated troponin (0.037), elevated proBNP (25k decreased from 100 k 03/26), EKG demonstrating normal sinus rhythm, and a chest x-ray which revealed pulmonary edema versus multifocal pneumonia. The patient is referred to the hospitalist service for admission and management of metabolic encephalopathy (unclear baseline), acute on chronic renal failure, and mild respiratory distress. Past Medical History Cardiac Medical History: Reports: Congestive Heart Failure, Coronary Artery Disease, Myocardial Infarction, Hyperlipidema, Hypertension Denies: Peripheral Vascular Disease, Pulmonary Embolism Pulmonary Medical History: Denies: Tuberculosis EENT Medical History: Reports: None Neurological Medical History: Reports: Hemorrhagic CVA Endocrine Medical History: Reports: Diabetes Mellitus Type 2, Hypothyroidism Renal/ Medical History: Reports: Chronic Kidney Disease Malignancy Medical History: Reports: None GI Medical History: Reports: Gastroesophageal Reflux Disease Musculoskeltal Medical History: Reports: Arthritis - hip Skin Medical History: Reports: None Psychiatric Medical History: Reports: Bipolar Disorder, Depression Traumatic Medical History: Reports: None Hematology: Reports: Anemia Infectious Medical History: Reports: None Past Surgical History Past Surgical History: Reports: Cardiac Catheterization - stents, Cholecystectomy, Orthopedic Surgery - hand Social History Information Source: Emergency Med Personnel, [facility] Records, Outside Facility Records Lives with: Fpc Smoking Status: Never Smoker Frequency of Alcohol Use: None Hx Recreational Drug Use: No Drugs: None Hx Prescription Drug Abuse: No - Advance Directive Resuscitation Status: Full Code Family History Family History: CVA, DM, Hypertension Family History: History obtained from [facility] records Parental Family History Reviewed: Yes Children Family History Reviewed: Yes Sibling(s) Family History Reviewed.: Yes Medication/Allergy Home Medications: Alprazolam [Xanax] 0.25 mg PO BIDP PRN 05/09/18 Amlodipine Besylate [Norvasc 10 mg Tablet] 10 mg PO DAILY 05/09/18 Aspirin [Aspirin 81 mg Chewable Tablet] 81 mg PO DAILY 05/09/18 Atorvastatin Calcium [Lipitor 20 mg Tablet] 20 mg PO QHS 05/09/18 Bumetanide [Bumex 1 mg Tablet] 1 mg PO DAILY 05/09/18 Calcitriol [Rocaltrol 0.25 mcg Capsule] 0.25 mcg PO MOWEFR@1000 05/09/18 Carvedilol [Coreg 12.5 mg Tablet] 12.5 mg PO BIDBS 05/09/18 Clonidine HCl [Catapres 0.1 mg Tablet] 0.1 mg PO Q8HP PRN 05/09/18 Doxazosin Mesylate [Cardura 2 mg Tablet] 2 mg PO Q12 05/09/18 Escitalopram Oxalate [Lexapro] 20 mg PO DAILY 05/09/18 Ferrous Sulfate [Feosol 325 mg Tablet] 325 mg PO BID 05/09/18 Gabapentin [Neurontin 100 mg Capsule] 200 mg PO Q8 05/09/18 Hydralazine HCl 100 mg PO Q8 05/09/18 Insulin Regular, Human [Humulin R (Reg) Insulin 100 unit/mL] 0 units SUBCUT ACHS 05/09/18 Isosorbide Mononitrate [Isosorbide Mononitrate ER] 120 mg PO DAILY 05/09/18 Lisinopril [Prinivil] 20 mg PO Q12 05/09/18 Multivit,Tx with Iron,Minerals [Thera-M] 1 tab PO WSUPPER 05/09/18 Nitroglycerin [Nitrostat] 0.4 mg SL Q5MP PRN 05/09/18 [place]-3 Fatty Acids/Fish Oil [[place]-3 1,000 mg Softgel] 4 cap PO DAILY 05/09/18 Pantoprazole Sodium [Protonix] 40 mg PO DAILY 05/09/18 Potassium Chloride 20 meq PO DAILY 05/09/18 Allergies/Adverse Reactions: No Known Allergies Allergy (Verified 03/09/18 09:32) Review of Systems ROS unobtainable: Due to mental status Physical Exam Vital Signs: Temp Pulse Resp BP Pulse Ox 98.2 F 7 L 152/50 H 100 05/09/18 09:31 05/09/18 09:31 05/09/18 09:31 05/09/18 09:31 Intake & Output 05/08/18 05/09/18 05/10/18 06:59 06:59 06:59 Weight 84.2 kg General appearance: PRESENT: mild distress, obese, well-nourished Head exam: PRESENT: atraumatic, normocephalic Eye exam: PRESENT: conjunctiva pink, EOMI, PERRLA Mouth exam: PRESENT: moist Teeth exam: PRESENT: edentulous, poor dentation Neck exam: PRESENT: full ROM. ABSENT: thyromegaly, tracheal deviation Respiratory exam: PRESENT: crackles - Bibasilar, decreased breath sounds - Poor inspiratory effort/body habitus, rhonchi, symmetrical, other - 4lpm via NC. ABSENT: accessory muscle use, retraction, wheezes Cardiovascular exam: PRESENT: bradycardia, +S1, +S2. ABSENT: systolic murmur Pulses: PRESENT: normal carotid pulses, normal dorsalis pedis pul GI/Abdominal exam: PRESENT: normal bowel sounds, soft. ABSENT: guarding, tenderness Rectal exam: PRESENT: deferred Extremities exam: ABSENT: pedal edema Neurological exam: PRESENT: oriented to person, other - Arousable with sternal rub; somnolent, quickly falls back to sleep. Was able to state her name but did not answer any further questions. Limited participation exam; does not follow directions. Unclear baseline: Confused, incontinent, requires feeding assistance per SNF notes. Skin exam: PRESENT: dry, intact, warm Results Laboratory Results: 05/09/18 10:15 05/09/18 10:15 Sodium 143.7 Potassium 5.2 H Chloride 111 H Carbon Dioxide 21 L Anion Gap 12 BUN 58 H Creatinine 3.94 H Est GFR ( Amer) 13 L Est GFR (Non-Af Amer) 11 L Glucose 147 H Calcium 8.7 Impressions: Chest X-Ray 05/09/18 01:53 IMPRESSION: Moderate mixed interstitial and basilar opacities. Differential diagnosis includes CHF/pulmonary edema and multifocal pneumonia. Assessment & Plan - Diagnosis (1) Acute respiratory failure with hypoxia Is this a current diagnosis for this admission?: Yes Plan: Pt presented via EMS with report respiratory distress and recent outpatient diagnosis of pneumonia. She was found to have room air oxygen saturations in the 80s. Likely her acute respiratory failure is multactorial secondary to HCAP, and A/C renal failure with CHF exacerbation resulting in pulmonary edema. The patient has already recieved Solu-medrol 125 mg IV, Magnesium 1 gm IV, and Furosemide 20 mg IV via the ED provider. VBG is reassuring; ABG pending. CXR reveals multifocal PNA vs pulmonary edema. The patient is admitted to [facility] on continuous cardiac telemetry. She is provided supplemental oxygen as needed to maintain saturations >88%. Scheduled and as needed nebulizer treatments are ordered. Cultures and antibiotics as outlined below. We will diuresis and evaluate CHF as outlined below. Nephrology has been consulted with regard to acutely worsened CKD. (2) Metabolic encephalopathy Is this a current diagnosis for this admission?: Yes Plan: The patient was sent from [facility] for report of decreased mental alertness and respiratory distress. The patient has an unclear baseline; per SNF notes she is confused at baseline, incontinent of urine and stool at baseline, and requires feeding assistance. Of note, the patient was recently admitted to [facility] for metabolic encephalopathy, intracranial hemorrhage, cerebral edema, and non-STEMI. Per ED provider's note, the patient answered questions appropriately and is reported at her baseline per family members. However, at that time I meet with the patient, she is arousable with sternal rub only, quickly falls back to sleep , was able to answer the that her name with Daya but would not answer or could not answer any further questions or follow directions. We will address infectious processes; UTI and HCAP as outlined elsewhere. We will manage acute on chronic CKD and acute on chronic CHF exacerbations is elsewhere. We will provide for patient safety; fall and aspiration precautions. Supportive therapy. PT/OT/ST evaluations are ordered. Low threshold for repeat head CT; will request recent CT/MRI results from provided for comparison. (3) Acute on chronic renal failure Qualifiers: Chronic kidney disease stage: stage 4 (severe) Is this a current diagnosis for this admission?: Yes Plan: The patient was admitted with a creatinine of 4.77; appears that her baseline is 3.1. BUN is slightly elevated at 58; baseline appears to be 45. eGFR is 11; baseline of 17. Although the patient does not appear to have peripheral edema, her chest x-ray is suggestive of pulmonary edema. She is being provided IV furosemide for diuresis. We will avoid nephrotoxic medications as able. Fortunately, her potassium was normal at 5.0. However, in anticipation of possible dialysis needs, will consult Dr. Elizondo. Appreciate nephrology's evaluation and recommendations. (4) CHF (congestive heart failure) Is this a current diagnosis for this admission?: Yes Plan: ProBNP is elevated to 25,800. Previous proBNP was 100,000. Outpatient records reveal that she recently had a non-STEMI at [facility]. We have requested most recent echocardiogram. Troponin is indeterminately elevated at 0.037; will trend. Repeat echo has been ordered. The patient's home medication regiment of amlodipine, atorvastatin, Cardura, hydralazine, and Imdur are continued. Holding lisinopril secondary to acute worsening of renal failure. Holding Bumex while providing IV furosemide for diuresis. We will trend troponins. Will obtain repeat CXR in the a.m. Consider cardiology consultation. (5) Leukocytosis Is this a current diagnosis for this admission?: Yes Plan: WBCs elevated to 14.3. T-max since arrival is 99.1. Leukocytosis is secondary to urinary tract infection and likely multifocal healthcare associated pneumonia. Blood and urine cultures are pending. Sputum culture has been ordered. The patient is empirically placed on IV cefepime, Levaquin, and vancomycin for coverage of healthcare associated pneumonia as the patient was recently admitted to an outpatient hospital. Antibiotics are renally adjusted by pharmacy. Will adjust antibiotics as cultures and sensitivities result. (6) Urinary tract infection Qualifiers: Urinary tract infection type: site unspecified Hematuria presence: without hematuria Qualified Code(s): N39.0 - Urinary tract infection, site not specified Is this a current diagnosis for this admission?: Yes Plan: Urinalysis is suggestive of UTI with small blood, moderate leuk esterase, 156 WBCs, and 3+ bacteria. The patient's mental status precludes her ability to confirm symptoms. Urine culture has been ordered. The patient has empirically been placed on cefepime, vancomycin, and Levaquin for coverage of healthcare associated pneumonia which should be more than sufficient to cover urinary tract infection. Of course, antibiotics will be adjusted as cultures result. Will keep in mind that the patient is likely colonized and may not have an active urinary tract infection. 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 Accu-Cheks before meals and at bedtime with Humalog for sliding scale coverage. Hypoglycemia protocols are in place. (8) Hx of intracranial hemorrhage Is this a current diagnosis for this admission?: No Plan: The patient was recently admitted to [facility] with intracranial hemorrhage, cerebral edema, encephalopathy, and non-STEMI. We will continue her daily aspirin therapy. We will hold on DVT prophylaxis heparin/Lovenox due to recent hemorrhage; she is placed on SAKINA hose and SCDs. We will request recent head CT/MRI. Low threshold for repeat imaging if the patient develops hypertensive urgency, further decreased mental status from present, seizure-like activity, or other signs/symptoms of acute process. (9) Hx of non-ST elevation myocardial infarction (NSTEMI) Is this a current diagnosis for this admission?: No Plan: Continue daily statin and ASA therapy. Will monitor on continuous cardiac telemetry. EKG revealed NSR without ST elevation or depression. Trending troponins. Have requested recent echocardiogram from [facility]. - Time Time Spent: Greater than 70 Minutes Medications reviewed and adjusted accordingly: Yes Anticipated discharge: SNF - Resident at [facility]. - Inpatient Certification Based on my medical assessment, after consideration of the patient's comorbidities, presenting symptoms, or acuity I expect that the services needed warrant INPATIENT care.: Yes I certify that my determination is in accordance with my understanding of Medicare's requirements for reasonable and necessary INPATIENT services [42 CFR 412.3e].: Yes Medical Necessity: Need For Continuous Telemetry Monitoring, Need for IV Antibiotics
[2018-05-09 13:25] LABS: ARTERIAL BLOOD BASE EXCESS -2.2 mmol/L; ARTERIAL BLOOD FIO2 ROOMAIR; ARTERIAL BLOOD HCO3 21.7 mmol/L (20-26); ARTERIAL BLOOD O2 SATURATION 97.3 % (94-98); ARTERIAL BLOOD PCO2 33.1 mmHg (35-45); ARTERIAL BLOOD PH 7.43 (7.35-7.45); ARTERIAL BLOOD PO2 91.5 mmHg (80-100); ARTERIAL BLOOD TOTAL CO2 22.7 mmol/L (21-25)
[2018-05-09] MEDS ORDERED: (PENDING PHARMACY ID) (Hydralazine Hcl [Hydralazine Hcl] 100 MG) PO SCH (14:00)
[2018-05-09] MEDS: HYDRALAZINE HCL 50 MG TABLET PO SCH ×2 (14:36→21:07)
[2018-05-09] MEDS: IPRATROPIUM/ALBUTEROL 0.5-2.5 MG/3 ML AMPUL NEB SCH ×2 (16:12→23:41)
[2018-05-09] MEDS: FERROUS SULFATE 325 MG TABLET PO SCH (17:59)
[2018-05-09] MEDS: CARVEDILOL 12.5 MG TABLET PO SCH (17:59)
--- NOTE | 2018-05-09 20:07 | XCELERA REPORT ---
[address] [address] Transthoracic Echocardiogram Report Name: KAM DEAN Age: 78 yrs Gender: Female : 1940 Patient Status: Inpatient Patient [address] Study Date: 05/09/2018 10:17 AM Procedure: A two-dimensional transthoracic echocardiogram with color flow Doppler was performed. Study Quality: Fair. Reason For Study: CHF, recent MO, pulm edema History: CHF, recent MO, pulm edema. Ordering Physician: CIRILO MEYERS Performed By: Briana Florence Interpretation Summary The left ventricle is normal in size. There is normal left ventricular wall thickness. LV EF is 65% Left ventricular systolic function is normal. The left ventricular wall motion is normal. There is no thrombus. The right ventricle is grossly normal size. The right atrium is normal. The interatrial septum is intact with no evidence for an atrial septal defect. The left atrium is moderately dilated. There is no evidence of mitral valve prolapse. There is no vegetation seen on the mitral valve. There is no mitral valve stenosis. There is a mild amount of mitral regurgitation There is no aortic valve stenosis There is no LVOT obstruction. No aortic regurgitation is present. There is no tricuspid stenosis. There is a mild amount of tricuspid regurgitation RVSP is 54 to 59 mm of Hg ,with RA mean of 5 to 10. There is no pulmonic valvular stenosis. There is a trace amount of pulmonic regurgitation There is no pericardial effusion. Small left pleural effusion. MMode/2D Measurements & Calculations RVDd: 3.0 cm LVIDd: 5.3 cm FS: 39.0 % Ao root diam: 3.0 cm IVSd: 0.90 cm LVIDs: 3.2 cm EDV(Teich): 137.1 mlAo root area: 7.2 cm2 LVPWd: 0.98 cmESV(Teich): 42.5 ml EF(Teich): 69.0 % LVOT diam: 1.7 cm LVOT area: 2.3 cm2 Doppler Measurements & Calculations Ao V2 max: LV V1 max PG: PA V2 max: PI max hina: 171.5 cm/sec 6.3 mmHg 108.4 cm/sec 126.2 cm/sec Ao max PG: LV V1 max: PA max PG: PI max P.4 mmHg 11.8 mmHg 125.2 cm/sec 4.7 mmHg PI dec slope: NICHOLAS(V,D): 1.6 cm2 108.4 cm/sec2 TR max hina: 351.0 cm/sec TR max P.3 mmHg Left Ventricle The left ventricle is normal in size. There is normal left ventricular wall thickness. LV EF is 65%. Left ventricular systolic function is normal. LV diastolic function not assessed. The left ventricular wall motion is normal. There is no thrombus. There is no ventricular septal defect visualized. Right Ventricle The right ventricle is grossly normal size. The right ventricle is not well visualized secondary to technical limitations. Atria The right atrium is normal. The left atrium is moderately dilated. The interatrial septum is intact with no evidence for an atrial septal defect. Mitral Valve There is no evidence of mitral valve prolapse. There is no vegetation seen on the mitral valve. There is no mitral valve stenosis. There is a mild amount of mitral regurgitation. Aortic Valve There is no aortic valvular vegetation. There is no aortic valve stenosis. There is no LVOT obstruction. No aortic regurgitation is present. Tricuspid Valve There is no tricuspid stenosis. There is a mild amount of tricuspid regurgitation. There is moderate pulmonary hypertension by echo. RVSP is 54 to 59 mm of Hg ,with RA mean of 5 to 10. Pulmonic Valve There is no pulmonic valvular stenosis. There is a trace amount of pulmonic regurgitation. Great Vessels The aortic root is not well visualized but is probably normal size. Effusions There is no pericardial effusion. Small left pleural effusion. : CIRILO MEYERS > Ann Miranda
[2018-05-09] MEDS: ATORVASTATIN CALCIUM 20 MG TABLET PO SCH (21:08)
[2018-05-09] MEDS: CEFEPIME 1 GM/D5W RTU 1 GM/50 ML RTUPB IV SCH (21:41)
--- NOTE | 2018-05-09 21:49 | EKG REPORT ---
SEVERITY:- BORDERLINE ECG - SINUS RHYTHM BORDERLINE R WAVE PROGRESSION, ANTERIOR LEADS : Confirmed by: Margie Denton 09-May-2018 21:48:55
[2018-05-10 04:58] LABS: ANION GAP 12 (5-19); BLOOD UREA NITROGEN 63 mg/dL (7-20); CALCIUM 9.3 mg/dL (8.4-10.2); CARBON DIOXIDE 22 mmol/L (22-30); CHLORIDE 110 mmol/L (98-107); GLUCOSE 177 mg/dL (75-110); POTASSIUM 5.1 mmol/L (3.6-5.0); SODIUM 143.7 mmol/L (137-145)
[2018-05-10 06:17] LABS: ABSOLUTE LYMPHOCYTES (AUTO) 0.9 10^3/uL (0.5-4.7); ABSOLUTE MONOCYTES (AUTO) 0.3 10^3/uL (0.1-1.4); ABSOLUTE NEUT (AUTO) 8.7 10^3/uL (1.7-8.2); HEMATOCRIT 22.7 % (36.0-47.0); LYMPHOCYTES % (AUTO) 8.7 % (13-45); MEAN CORPUSCULAR HGB CONC 33.4 g/dL (32.0-36.0); MEAN CORPUSCULAR VOLUME 87 fl (80-97); MONOCYTES % (AUTO) 3.3 % (3-13); PLATELET COUNT 188 10^3/uL (150-450); RED BLOOD COUNT 2.62 10^6/uL (3.72-5.28); RED CELL DISTRIBUTION WIDTH 16.8 % (11.5-14.0); TOTAL CELLS COUNTED % (AUTO) 100 %; WHITE BLOOD COUNT 9.9 10^3/uL (4.0-10.5)
[2018-05-10 06:31] LABS: HEMOGLOBIN 7.6 g/dL (12.0-15.5)
[2018-05-10] MEDS: HYDRALAZINE HCL 50 MG TABLET PO SCH ×3 (06:36→21:28)
[2018-05-10] MEDS: IPRATROPIUM/ALBUTEROL 0.5-2.5 MG/3 ML AMPUL NEB SCH ×3 (08:08→23:44)
[2018-05-10 08:17] LABS: ABSOLUTE MONOCYTES (AUTO) 0.4 10^3/uL (0.1-1.4); ABSOLUTE NEUT (AUTO) 8.5 10^3/uL (1.7-8.2); HEMATOCRIT 23.3 % (36.0-47.0); LYMPHOCYTES % (AUTO) 10.5 % (13-45); MEAN CORPUSCULAR HEMOGLOBIN 28.8 pg (27.0-33.4); MEAN CORPUSCULAR HGB CONC 33.6 g/dL (32.0-36.0); MEAN CORPUSCULAR VOLUME 86 fl (80-97); MONOCYTES % (AUTO) 4.1 % (3-13); PLATELET COUNT 188 10^3/uL (150-450); RED BLOOD COUNT 2.72 10^6/uL (3.72-5.28); RED CELL DISTRIBUTION WIDTH 16.8 % (11.5-14.0); SEGMENTED NEUTROPHILS % (AUTO) 85.4 % (42-78); TOTAL CELLS COUNTED % (AUTO) 100 %; WHITE BLOOD COUNT 9.9 10^3/uL (4.0-10.5)
[2018-05-10 08:21] LABS: HEMOGLOBIN 7.8 g/dL (12.0-15.5)
[2018-05-10 08:44] LABS: ANION GAP 13 (5-19); BLOOD UREA NITROGEN 63 mg/dL (7-20); CALCIUM 9.4 mg/dL (8.4-10.2); CARBON DIOXIDE 20 mmol/L (22-30); CHLORIDE 111 mmol/L (98-107); GLUCOSE 156 mg/dL (75-110); POTASSIUM 5.2 mmol/L (3.6-5.0); SODIUM 143.6 mmol/L (137-145)
--- NOTE | 2018-05-10 09:59 | RADIOLOGY REPORT (SQ) ---
EXAM DESCRIPTION: CHEST SINGLE VIEW COMPLETED DATE/TIME: 05/10/2018 9:35 am REASON FOR STUDY: dyspnea COMPARISON: 05/09/2018 NUMBER OF VIEWS: One view. TECHNIQUE: Single frontal radiographic image of the chest acquired. LIMITATIONS: None. FINDINGS: LUNGS AND PLEURA: Persistent bilateral airspace disease slightly improved from prior study . MEDIASTINUM AND HILAR STRUCTURES: Stable heart size. Less central vascular congestion. HEART AND VASCULAR STRUCTURES: Stable appearance. BONES: No acute findings. HARDWARE: None in the chest. OTHER: No other significant finding. IMPRESSION: Findings are most consistent with resolving vascular congestion. TECHNICAL DOCUMENTATION: JOB ID: [id number] [employer]- All Rights Reserved Reading location - IP/workstation name: [email or web address]
[2018-05-10] MEDS: FAMOTIDINE INJ/PF 20 MG/2 ML SDV IV SCH (10:30)
[2018-05-10] MEDS: FERROUS SULFATE 325 MG TABLET PO SCH ×2 (10:31→18:45)
[2018-05-10] MEDS: AMLODIPINE BESYLATE 10 MG TABLET PO SCH (10:31)
[2018-05-10] MEDS: DOXAZOSIN MESYLATE 2 MG TABLET PO SCH ×2 (10:32→21:30)
[2018-05-10] MEDS: ESCITALOPRAM OXALATE 10 MG TABLET PO SCH (10:32)
[2018-05-10] MEDS: ASPIRIN 81 MG TABLET, CHEWABLE PO SCH (10:32)
[2018-05-10] MEDS: ISOSORBIDE MONONITRATE 60 MG TAB.ER.24H PO SCH (10:32)
[2018-05-10] MEDS: CARVEDILOL 12.5 MG TABLET PO SCH ×2 (10:33→18:45)
[2018-05-10] MEDS: FUROSEMIDE INJ/PF 20 MG/2 ML SDV IV SCH ×2 (14:03→21:30)
--- NOTE | 2018-05-10 14:46 | PDOC CONSULTATION ---
Consultation Consult Date: 05/10/18 Consult reason:: acute on chronic renal failure History of Present Illness Admission Date/PCP: 05/09/18 07:39 ROSY ARIZMENDI DO History of Present Illness: KAM DEAN is a 78 year old female with an extensive past medical history including recent admission to [facility] in April 2018 for ICH, non- STEMI, encephalopathy, as well as, CHF, CAD, HTN, HLD, CKD4, IDDM, hypothyroidism, history of hepatitis C, and bipolar disorder. She was brought to the ED via EMS from the [facility]. She was brought due to respiratory distress and and altered mental status. Initial oxygen saturation were in the 80s. She was given solu-medrol, IV magnesium and some nebulizer treatments. She had a chest x-ray and some labs done. The chest x-ray showed pulmonary edema with possible pneumonia. The labs showed a creatinine of 4.7, bun of 53, hemoglobin of 9.7, BNP that was at 25,000 and a UA that was positive for possible UTI. She was given IV lasix and started on several broad spectrum antibiotics. Today on examination the patient still appeared altered. She was not oriented to person, place or time. She at the time denied chest pain, SOB, fevers, chills , nausea, vomiting, diarrhea, or constipation. Her appetite is normal. Her hemoglobin this morning was 7.8 from 9.7. She denies seeing blood in her stool. Due to her altered mental status she was not able to give a detailed history. The accuracy of her answers to her examination/ROS are not reliable due to her AMS. 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 Endocrine Medical History: Reports: Diabetes Mellitus Type 2, Hypothyroidism Complications of Diabetes: Reports: None Renal/ Medical History: Reports: Chronic Kidney Disease Stage IV, Hypokalemia , Hypomagnesemia Malignancy Medical History: Reports: None GI Medical History: Reports: Gastroesophageal Reflux Disease Musculoskeltal Medical History: Reports: Arthritis - hip Skin Medical History: Reports: None Psychiatric Medical History: Reports: Bipolar Disorder, Depression Traumatic Medical History: Reports: None Infectious Medical History: Reports: None Past Surgical History Past Surgical History: Reports: Cardiac Catheterization - stents, Cholecystectomy, Orthopedic Surgery - hand Social History Lives with: Intermediate Smoking Status: Never Smoker Frequency of Alcohol Use: None Hx Recreational Drug Use: No Drugs: None Hx Prescription Drug Abuse: No - Advance Directive Resuscitation Status: Full Code Family History Parental Family History Reviewed: No Children Family History Reviewed: NA Sibling(s) Family History Reviewed.: NA Medication/Allergy Home Medications: Alprazolam [Xanax] 0.25 mg PO BIDP PRN 05/09/18 Amlodipine Besylate [Norvasc 10 mg Tablet] 10 mg PO DAILY 05/09/18 Aspirin [Aspirin 81 mg Chewable Tablet] 81 mg PO DAILY 05/09/18 Atorvastatin Calcium [Lipitor 20 mg Tablet] 20 mg PO QHS 05/09/18 Bumetanide [Bumex 1 mg Tablet] 1 mg PO DAILY 05/09/18 Calcitriol [Rocaltrol 0.25 mcg Capsule] 0.25 mcg PO MOWEFR@1000 05/09/18 Carvedilol [Coreg 12.5 mg Tablet] 12.5 mg PO BIDBS 05/09/18 Clonidine HCl [Catapres 0.1 mg Tablet] 0.1 mg PO Q8HP PRN 05/09/18 Doxazosin Mesylate [Cardura 2 mg Tablet] 2 mg PO Q12 05/09/18 Escitalopram Oxalate [Lexapro] 20 mg PO DAILY 05/09/18 Ferrous Sulfate [Feosol 325 mg Tablet] 325 mg PO BID 05/09/18 Gabapentin [Neurontin 100 mg Capsule] 200 mg PO Q8 05/09/18 Hydralazine HCl 100 mg PO Q8 05/09/18 Insulin Regular, Human [Humulin R (Reg) Insulin 100 unit/mL] 0 units SUBCUT ACHS 05/09/18 Isosorbide Mononitrate [Isosorbide Mononitrate ER] 120 mg PO DAILY 05/09/18 Lisinopril [Prinivil] 20 mg PO Q12 05/09/18 Multivit,Tx with Iron,Minerals [Thera-M] 1 tab PO WSUPPER 05/09/18 Nitroglycerin [Nitrostat] 0.4 mg SL Q5MP PRN 05/09/18 [place]-3 Fatty Acids/Fish Oil [[place]-3 1,000 mg Softgel] 4 cap PO DAILY 05/09/18 Pantoprazole Sodium [Protonix] 40 mg PO DAILY 05/09/18 Potassium Chloride 20 meq PO DAILY 05/09/18 Allergies/Adverse Reactions: No Known Allergies Allergy (Verified 03/09/18 09:32) Review of Systems Constitutional: ABSENT: anorexia, chills, fever(s), headache(s), weakness Nose, Mouth, and Throat: ABSENT: headache(s) Cardiovascular: PRESENT: dyspnea on exertion, edema. ABSENT: chest pain, orthropnea, palpitations Respiratory: PRESENT: cough, sputum. ABSENT: dyspnea Gastrointestinal: ABSENT: abdominal pain, constipation, diarrhea, nausea, vomiting Genitourinary: PRESENT: dysuria. ABSENT: difficulty urinating, hematuria Neurological: ABSENT: confusion, dizziness, numbness, weakness Physical Exam Vital Signs: Temp Pulse Resp BP Pulse Ox 97.3 F 64 15 139/49 H 98 05/10/18 07:49 05/10/18 07:49 05/10/18 07:49 05/10/18 07:49 05/10/18 07:49 Intake & Output 05/09/18 05/10/18 05/11/18 06:59 06:59 06:59 Intake Total 450 Output Total 1100 Balance -650 Weight 81.8 kg General appearance: PRESENT: no acute distress, well-developed, well-nourished Mouth exam: PRESENT: moist, neck supple Neck exam: PRESENT: full ROM. ABSENT: JVD Respiratory exam: PRESENT: crackles, rhonchi. ABSENT: accessory muscle use, rales, wheezes Cardiovascular exam: PRESENT: RRR, +S1, +S2 GI/Abdominal exam: PRESENT: soft. ABSENT: ascites, distended, mass, tenderness Extremities exam: PRESENT: pedal edema, +2 edema. ABSENT: tenderness Musculoskeletal exam: ABSENT: normal inspection, tenderness Neurological exam: PRESENT: altered, awake. ABSENT: alert, oriented to person, oriented to place, oriented to time, oriented to situation Skin exam: PRESENT: dry, intact, warm. ABSENT: cyanosis Results Laboratory Results: 05/10/18 08:01 05/10/18 08:01 05/09/18 05/09/18 05/09/18 10:15 12:20 12:25 WBC RBC Hgb Hct MCV MCH MCHC RDW Plt Count Seg Neutrophils % Lymphocytes % Monocytes % Eosinophils % Basophils % Absolute Neutrophils Absolute Lymphocytes Absolute Monocytes Absolute Eosinophils Absolute Basophils Carbonic Acid 1.00 L HCO3/H2CO3 Ratio 21:1 ABG pH 7.43 ABG pCO2 33.1 L ABG pO2 91.5 ABG HCO3 21.7 ABG O2 Saturation 97.3 ABG Base Excess -2.2 FiO2 ROOMAIR Sodium 143.7 Potassium 5.2 H Chloride 111 H Carbon Dioxide 21 L Anion Gap 12 BUN 58 H Creatinine 3.94 H Est GFR ( Amer) 13 L Est GFR (Non-Af Amer) 11 L Glucose 147 H Lactic Acid 0.9 Calcium 8.7 05/10/18 05/10/18 05/10/18 04:25 04:25 05:58 WBC Cancelled 9.9 RBC Cancelled 2.62 L Hgb Cancelled 7.6 L D Hct Cancelled 22.7 L MCV Cancelled 87 MCH Cancelled 29.0 MCHC Cancelled 33.4 RDW Cancelled 16.8 H Plt Count Cancelled 188 Seg Neutrophils % Cancelled 88.0 H Lymphocytes % Cancelled 8.7 L Monocytes % Cancelled 3.3 Eosinophils % Cancelled 0.0 Basophils % Cancelled 0.0 Absolute Neutrophils Cancelled 8.7 H Absolute Lymphocytes Cancelled 0.9 Absolute Monocytes Cancelled 0.3 Absolute Eosinophils Cancelled 0.0 Absolute Basophils Cancelled 0.0 Carbonic Acid HCO3/H2CO3 Ratio ABG pH ABG pCO2 ABG pO2 ABG HCO3 ABG O2 Saturation ABG Base Excess FiO2 Sodium 143.7 Potassium 5.1 H Chloride 110 H Carbon Dioxide 22 Anion Gap 12 BUN 63 H Creatinine 4.82 H Est GFR ( Amer) 11 L Est GFR (Non-Af Amer) 9 L Glucose 177 H Lactic Acid Calcium 9.3 05/10/18 05/10/18 08:01 08:01 WBC 9.9 RBC 2.72 L Hgb 7.8 L Hct 23.3 L MCV 86 MCH 28.8 MCHC 33.6 RDW 16.8 H Plt Count 188 Seg Neutrophils % 85.4 H Lymphocytes % 10.5 L Monocytes % 4.1 Eosinophils % 0.0 Basophils % 0.0 Absolute Neutrophils 8.5 H Absolute Lymphocytes 1.0 Absolute Monocytes 0.4 Absolute Eosinophils 0.0 Absolute Basophils 0.0 Carbonic Acid HCO3/H2CO3 Ratio ABG pH ABG pCO2 ABG pO2 ABG HCO3 ABG O2 Saturation ABG Base Excess FiO2 Sodium 143.6 Potassium 5.2 H Chloride 111 H Carbon Dioxide 20 L Anion Gap 13 BUN 63 H Creatinine 4.49 H Est GFR ( Amer) 12 L Est GFR (Non-Af Amer) 10 L Glucose 156 H Lactic Acid Calcium 9.4 05/09/18 05/09/18 05/09/18 10:15 15:55 21:28 Troponin I 0.044 0.041 0.044 NT-Pro-B Natriuret Pep 05/10/18 04:25 Troponin I NT-Pro-B Natriuret Pep 61540 H Assessment & Plan - Diagnosis (1) Acute on chronic renal failure Qualifiers: Chronic kidney disease stage: stage 4 (severe) Is this a current diagnosis for this admission?: Yes Plan: nonoliguric JENIFER due to CHF, other factors affecting it include ATN from her current pneumonia and UTI. Continue on current dose of lasix. Will look to also get a renal ultrasound of the kidneys. Re-evaluate tomorrow morning. No current indication for [employer]. (2) Anemia Qualifiers: Chronic kidney disease stage: stage 4 (severe) Plan: concerns for an internal bleed with the sudden drop in hemoglobin over a one day period. Will look to get iron studies for tomorrow pending studies she may need procrit, pen. If there is no internal bleed than the hemoglobin should come slightly. up with more fluid being removed. (3) CHF (congestive heart failure) Is this a current diagnosis for this admission?: Yes Plan: continue on lasix as is. Currently looks to be improving clinically. (4) Acute respiratory failure with hypoxia Is this a current diagnosis for this admission?: Yes Plan: Currently being managed by hospitalist (5) Multifocal pneumonia Plan: Currently on vanc, cefepime and levofloxicin. Recommend a sputum culture for more accurate antibiotic treatment. (6) Urinary tract infection Qualifiers: Urinary tract infection type: site unspecified Hematuria presence: without hematuria Qualified Code(s): N39.0 - Urinary tract infection, site not specified Is this a current diagnosis for this admission?: Yes Plan: currently awaiting culture, on 3 antibiotics previously listed. (7) Acute encephalopathy Plan: could be due to UTI other concerns include elevated ammonia. Will look to day an ammonia level. (8) Uncontrolled hypertension Plan: becoming more controlled as fluid is removed. (9) Elevated troponin Plan: due to CHF and CKD. She denies chest pain (10) Diabetes Qualifiers: Diabetes mellitus type: type 2 Diabetes mellitus assisted insulin use: with assisted use Chronic kidney disease stage: stage 4 (severe) Is this a current diagnosis for this admission?: Yes (11) Hx of non-ST elevation myocardial infarction (NSTEMI) Is this a current diagnosis for this admission?: No (12) Hx of intracranial hemorrhage Is this a current diagnosis for this admission?: No
[2018-05-10 15:44] LABS: HEMATOCRIT 23.1 % (36.0-47.0); MEAN CORPUSCULAR HEMOGLOBIN 28.9 pg (27.0-33.4); MEAN CORPUSCULAR HGB CONC 33.5 g/dL (32.0-36.0); MEAN CORPUSCULAR VOLUME 86 fl (80-97); PLATELET COUNT 190 10^3/uL (150-450); RED BLOOD COUNT 2.68 10^6/uL (3.72-5.28); WHITE BLOOD COUNT 9.9 10^3/uL (4.0-10.5)
[2018-05-10 15:48] LABS: HEMOGLOBIN 7.8 g/dL (12.0-15.5)
[2018-05-10 15:54] LABS: ANION GAP 11 (5-19); BLOOD UREA NITROGEN 63 mg/dL (7-20); CALCIUM 9.3 mg/dL (8.4-10.2); CARBON DIOXIDE 24 mmol/L (22-30); CHLORIDE 109 mmol/L (98-107); GLUCOSE 175 mg/dL (75-110); POTASSIUM 5.2 mmol/L (3.6-5.0); SODIUM 143.9 mmol/L (137-145)
--- NOTE | 2018-05-10 19:24 | PDOC PROGRESS REPORT ---
Subjective Progress Note for:: 05/10/18 Subjective:: The patient is a 78 year old female with an extensive past medical history including recent admission to [facility] in April 2018 for ICH, non- STEMI, encephalopathy, as well as, CHF, CAD, HTN, HLD, CKD3, IDDM, hypothyroidism, history of hepatitis C, and bipolar disorder who was admitted on 05/09/18 for acute respiratory failure with hypoxia, metabolic encephalopathy, acute on chronic renal failure, and acute CHF exacerbation. The patient was seen on morning rounds. She was found resting in bed comfortably on supplemental oxygen via nasal cannula. She is alert and oriented to self today. She is conversational, although remains confused and inappropriate with some of her statements. Overall, she is demonstrating much improved alertness and clarity in speech today. It is possible that she has returned to her baseline mental status as SNF notes reports that she is confused and incontinent at baseline and requires assistance with meals. Due to altered mental status, the patient is not able to comment on HPI/ROS. No concerns per nursing. Reason For Visit: ACUTE RESPIRATORY FAILURE,MULTIFOCAL PNA, Physical Exam Vital Signs: Temp Pulse Resp BP Pulse Ox 98.1 F 57 L 16 134/43 H 98 05/10/18 15:26 05/10/18 16:10 05/10/18 16:10 05/10/18 15:26 05/10/18 16:10 Intake & Output 05/09/18 05/10/18 05/11/18 06:59 06:59 06:59 Intake Total 450 428 Output Total 1100 450 Balance -650 -22 Weight 81.8 kg General appearance: PRESENT: no acute distress, hard of hearing, obese, well- developed, well-nourished Head exam: PRESENT: atraumatic, normocephalic Eye exam: PRESENT: conjunctiva pink, EOMI, PERRLA. ABSENT: scleral icterus Ear exam: PRESENT: normal external ear exam Mouth exam: PRESENT: moist, tongue midline Neck exam: ABSENT: carotid bruit, JVD, lymphadenopathy, thyromegaly Respiratory exam: PRESENT: crackles - Decreased from yesterday, decreased breath sounds - Bibasilar, symmetrical, unlabored, other - Supplemental oxygen via nasal cannula. ABSENT: rales, wheezes Cardiovascular exam: PRESENT: RRR, +S1, +S2. ABSENT: diastolic murmur, rubs, systolic murmur Pulses: PRESENT: normal dorsalis pedis pul Vascular exam: PRESENT: normal capillary refill GI/Abdominal exam: PRESENT: normal bowel sounds, soft. ABSENT: distended, guarding, mass, organolmegaly, rebound, tenderness Rectal exam: PRESENT: deferred Extremities exam: ABSENT: calf tenderness, clubbing, pedal edema Neurological exam: PRESENT: alert, awake, oriented to person. ABSENT: oriented to place, oriented to time, oriented to situation, motor sensory deficit Psychiatric exam: PRESENT: flat affect, normal mood. ABSENT: homicidal ideation , suicidal ideation Skin exam: PRESENT: dry, intact, warm. ABSENT: cyanosis, rash Results Laboratory Results: 05/10/18 15:07 05/10/18 15:07 05/10/18 05/10/18 05/10/18 04:25 04:25 05:58 WBC Cancelled 9.9 RBC Cancelled 2.62 L Hgb Cancelled 7.6 L D Hct Cancelled 22.7 L MCV Cancelled 87 MCH Cancelled 29.0 MCHC Cancelled 33.4 RDW Cancelled 16.8 H Plt Count Cancelled 188 Seg Neutrophils % Cancelled 88.0 H Lymphocytes % Cancelled 8.7 L Monocytes % Cancelled 3.3 Eosinophils % Cancelled 0.0 Basophils % Cancelled 0.0 Absolute Neutrophils Cancelled 8.7 H Absolute Lymphocytes Cancelled 0.9 Absolute Monocytes Cancelled 0.3 Absolute Eosinophils Cancelled 0.0 Absolute Basophils Cancelled 0.0 Sodium 143.7 Potassium 5.1 H Chloride 110 H Carbon Dioxide 22 Anion Gap 12 BUN 63 H Creatinine 4.82 H Est GFR ( Amer) 11 L Est GFR (Non-Af Amer) 9 L Glucose 177 H Calcium 9.3 Ammonia 05/10/18 05/10/18 05/10/18 08:01 08:01 15:07 WBC 9.9 9.9 RBC 2.72 L 2.68 L Hgb 7.8 L 7.8 L Hct 23.3 L 23.1 L MCV 86 86 MCH 28.8 28.9 MCHC 33.6 33.5 RDW 16.8 H 17.0 H Plt Count 188 190 Seg Neutrophils % 85.4 H Lymphocytes % 10.5 L Monocytes % 4.1 Eosinophils % 0.0 Basophils % 0.0 Absolute Neutrophils 8.5 H Absolute Lymphocytes 1.0 Absolute Monocytes 0.4 Absolute Eosinophils 0.0 Absolute Basophils 0.0 Sodium 143.6 Potassium 5.2 H Chloride 111 H Carbon Dioxide 20 L Anion Gap 13 BUN 63 H Creatinine 4.49 H Est GFR ( Amer) 12 L Est GFR (Non-Af Amer) 10 L Glucose 156 H Calcium 9.4 Ammonia 05/10/18 05/10/18 15:07 16:28 WBC RBC Hgb Hct MCV MCH MCHC RDW Plt Count Seg Neutrophils % Lymphocytes % Monocytes % Eosinophils % Basophils % Absolute Neutrophils Absolute Lymphocytes Absolute Monocytes Absolute Eosinophils Absolute Basophils Sodium 143.9 Potassium 5.2 H Chloride 109 H Carbon Dioxide 24 Anion Gap 11 BUN 63 H Creatinine 4.89 H Est GFR ( Amer) 10 L Est GFR (Non-Af Amer) 9 L Glucose 175 H Calcium 9.3 Ammonia < 8.7 L 05/09/18 05/09/18 05/09/18 10:15 15:55 21:28 Troponin I 0.044 0.041 0.044 NT-Pro-B Natriuret Pep 05/10/18 04:25 Troponin I NT-Pro-B Natriuret Pep 94397 H Impressions: Chest X-Ray 05/10/18 06:00 IMPRESSION: Findings are most consistent with resolving vascular congestion. Assessment & Plan - Diagnosis (1) Acute respiratory failure with hypoxia Is this a current diagnosis for this admission?: Yes Plan: Improved; is no longer tachypneic, have been able to reduce supplemental oxygen at 2 lpm while maintaining oxygen saturations in the high 90s. Pt presented via EMS with report respiratory distress and recent outpatient diagnosis of pneumonia. She was found to have room air oxygen saturations in the 80s. Likely her acute respiratory failure is multactorial secondary to HCAP, and A/C renal failure with CHF exacerbation resulting in pulmonary edema. The patient has already recieved Solu-medrol 125 mg IV, Magnesium 1 gm IV, and Furosemide 20 mg IV via the ED provider. VBG is reassuring; ABG normal. CXR reveals multifocal PNA vs pulmonary edema. Repeat chest x-ray demonstrates improvement of vascular congestion; more likely pulmonary edema than multifocal pneumonia. The patient is admitted to [facility] on continuous cardiac telemetry. She is provided supplemental oxygen as needed to maintain saturations >88%. Scheduled and as needed nebulizer treatments are ordered. Cultures and antibiotics as outlined below. We will diuresis and evaluate CHF as outlined below. Nephrology has been consulted with regard to acutely worsened CKD. (2) Metabolic encephalopathy Is this a current diagnosis for this admission?: Yes Plan: Improved; the patient is alert and oriented to self, conversational but confused. Improved clarity of speech and alertness today. Likely at or near his baseline. Per SNF notes she is confused at baseline, incontinent of urine and stool at baseline, and requires feeding assistance. Of note, the patient was recently admitted to [facility] for metabolic encephalopathy, intracranial hemorrhage, cerebral edema, and non-STEMI. Ammonia is normal. We will address infectious processes; UTI and HCAP as outlined elsewhere. We will manage acute on chronic CKD and acute on chronic CHF exacerbations is elsewhere. We will provide for patient safety; fall and aspiration precautions. Supportive therapy. PT/OT/ST evaluations are ordered. Low threshold for repeat head CT; will request recent CT/MRI results from provided for comparison. (3) Acute on chronic renal failure Qualifiers: Chronic kidney disease stage: stage 4 (severe) Is this a current diagnosis for this admission?: Yes Plan: Stable; chronic. The patient was admitted with a creatinine of 4.77. Although the patient does not appear to have peripheral edema, her chest x-ray is suggestive of pulmonary edema. She is being provided IV furosemide for diuresis. We will avoid nephrotoxic medications as able. Appreciate nephrology's evaluation and recommendations; fortunately, the patient is known to Dr. Elizondo and his PA. Appreciate their evaluation and recommendations. (4) CHF (congestive heart failure) Is this a current diagnosis for this admission?: Yes Plan: Improved; although proBNP is trending up slightly, her respiratory status, lung sounds, chest x-ray are much improved. Outpatient records reveal that she recently had a non-STEMI at [facility]. We have requested most recent echocardiogram. Troponins indeterminately elevated, but stable 4. Will no longer trend. Echocardiogram revealed LVEF 65% The patient's home medication regiment of amlodipine, atorvastatin, Cardura, hydralazine, and Imdur are continued. Holding lisinopril secondary to acute worsening of renal failure. Blood pressures are acceptable. Holding Bumex while providing IV furosemide for diuresis. Consider cardiology consultation. (5) Leukocytosis Is this a current diagnosis for this admission?: Yes Plan: Resolved. Leukocytosis is secondary to urinary tract infection and less likely multifocal healthcare associated pneumonia. Blood cultures have no growth at 24 hours Urine culture is growing gram-negative rods Sputum culture has been ordered. The patient is empirically placed on IV cefepime, Levaquin, and vancomycin for coverage of healthcare associated pneumonia as the patient was recently admitted to an outpatient hospital. Antibiotics are renally adjusted by pharmacy. Will adjust antibiotics as cultures and sensitivities result. (6) Urinary tract infection Qualifiers: Urinary tract infection type: site unspecified Hematuria presence: without hematuria Qualified Code(s): N39.0 - Urinary tract infection, site not specified Is this a current diagnosis for this admission?: Yes Plan: Urinalysis is suggestive of UTI with small blood, moderate leuk esterase, 156 WBCs, and 3+ bacteria. The patient's mental status precludes her ability to confirm symptoms. Urine culture growing gram-negative rods. The patient has empirically been placed on cefepime, vancomycin, and Levaquin for coverage of healthcare associated pneumonia which should be more than sufficient to cover urinary tract infection. Of course, antibiotics will be adjusted as cultures result. (7) Diabetes Qualifiers: Diabetes mellitus type: type 2 Diabetes mellitus long-term insulin use: with long-term use Chronic kidney disease stage: stage 4 (severe) Is this a current diagnosis for this admission?: Yes Plan: The patient is placed on a consistent carb diet. Accu-Cheks before meals and at bedtime with Humalog for sliding scale coverage. Hypoglycemia protocols are in place. (8) Hx of intracranial hemorrhage Is this a current diagnosis for this admission?: No Plan: The patient was recently admitted to [facility] with intracranial hemorrhage, cerebral edema, encephalopathy, and non-STEMI. We will continue her daily aspirin therapy. We will hold on DVT prophylaxis heparin/Lovenox due to recent hemorrhage; she is placed on SAKINA hose and SCDs. We will request recent head CT/MRI. Low threshold for repeat imaging if the patient develops hypertensive urgency, further decreased mental status from present, seizure-like activity, or other signs/symptoms of acute process. (9) Hx of non-ST elevation myocardial infarction (NSTEMI) Is this a current diagnosis for this admission?: No Plan: Continue daily statin and ASA therapy. Will monitor on continuous cardiac telemetry. EKG revealed NSR without ST elevation or depression. Trending troponins. Have requested recent echocardiogram from [facility]. - Time Time Spent with patient: 15-24 minutes Medications reviewed and adjusted accordingly: Yes Anticipated discharge: SNF
[2018-05-10] MEDS: ATORVASTATIN CALCIUM 20 MG TABLET PO SCH (21:29)
[2018-05-10] MEDS: CEFEPIME 1 GM/D5W RTU 1 GM/50 ML RTUPB IV SCH (21:31)
[2018-05-11 05:05] LABS: ABSOLUTE LYMPHOCYTES (AUTO) 1.6 10^3/uL (0.5-4.7); ABSOLUTE MONOCYTES (AUTO) 0.8 10^3/uL (0.1-1.4); ABSOLUTE NEUT (AUTO) 9.2 10^3/uL (1.7-8.2); ABSOLUTE RETICS # 0.029 10^6/uL (0.028-0.122); BASOPHILS % (AUTO) 0.1 % (0-2); HEMATOCRIT 23.6 % (36.0-47.0); LYMPHOCYTES % (AUTO) 13.8 % (13-45); MEAN CORPUSCULAR HEMOGLOBIN 28.4 pg (27.0-33.4); MEAN CORPUSCULAR HGB CONC 33.1 g/dL (32.0-36.0); MEAN CORPUSCULAR VOLUME 86 fl (80-97); MONOCYTES % (AUTO) 6.9 % (3-13); PLATELET COUNT 197 10^3/uL (150-450); RED BLOOD COUNT 2.75 10^6/uL (3.72-5.28); RED CELL DISTRIBUTION WIDTH 17.1 % (11.5-14.0); RETICULOCYTE COUNT (AUTO) 1.06 % (0.66-2.85); SEGMENTED NEUTROPHILS % (AUTO) 79.2 % (42-78); TOTAL CELLS COUNTED % (AUTO) 100 %; WHITE BLOOD COUNT 11.6 10^3/uL (4.0-10.5)
[2018-05-11 05:10] LABS: HEMOGLOBIN 7.8 g/dL (12.0-15.5)
[2018-05-11 05:31] LABS: ANION GAP 12 (5-19); BLOOD UREA NITROGEN 69 mg/dL (7-20); CALCIUM 9.1 mg/dL (8.4-10.2); CARBON DIOXIDE 22 mmol/L (22-30); CHLORIDE 110 mmol/L (98-107); GLUCOSE 135 mg/dL (75-110); IRON(TIBC) 111.7 ug/dL (37-170); POTASSIUM 4.6 mmol/L (3.6-5.0); SODIUM 143.7 mmol/L (137-145)
[2018-05-11] MEDS ORDERED: LORAZEPAM INJ 2 MG/1 ML VIAL IM ONE (06:15)
[2018-05-11 06:28] LABS: FOLATE 8.07 ng/mL (>2.76)
[2018-05-11] MEDS: IPRATROPIUM/ALBUTEROL 0.5-2.5 MG/3 ML AMPUL NEB SCH ×2 (08:28→15:53)
[2018-05-11] MEDS ORDERED: FUROSEMIDE INJ/PF 40 MG/4 ML SDV IV SCH (09:15)
[2018-05-11] MEDS ORDERED: LEVOFLOXACIN 500 MG/D5W RTU 500 MG/100 ML RTUPB IV SCH (10:00)
[2018-05-11] MEDS ORDERED: FUROSEMIDE INJ/PF 20 MG/2 ML SDV IV SCH (10:00)
[2018-05-11] MEDS: FUROSEMIDE INJ/PF 40 MG/4 ML SDV IV SCH ×2 (10:03→21:30)
[2018-05-11] MEDS: AMLODIPINE BESYLATE 10 MG TABLET PO SCH (10:04)
[2018-05-11] MEDS: ISOSORBIDE MONONITRATE 60 MG TAB.ER.24H PO SCH (10:04)
[2018-05-11] MEDS: ASPIRIN 81 MG TABLET, CHEWABLE PO SCH (10:04)
[2018-05-11] MEDS: DOXAZOSIN MESYLATE 2 MG TABLET PO SCH ×2 (10:04→21:30)
[2018-05-11] MEDS: ESCITALOPRAM OXALATE 10 MG TABLET PO SCH (10:04)
[2018-05-11] MEDS: FERROUS SULFATE 325 MG TABLET PO SCH ×2 (10:07→18:08)
[2018-05-11] MEDS: CARVEDILOL 12.5 MG TABLET PO SCH (10:07)
[2018-05-11] MEDS ORDERED: VANCOMYCIN HCL 750 MG in DEXTROSE 5%-WATER 250 ML IV SCH (11:00)
--- NOTE | 2018-05-11 11:43 | PDOC PROGRESS REPORT ---
Subjective Progress Note for:: 05/11/18 Subjective:: The patient is a 78 year old female with an extensive past medical history including recent admission to [facility] in April 2018 for ICH, non- STEMI, encephalopathy, as well as, CHF, CAD, HTN, HLD, CKD3, IDDM, hypothyroidism, history of hepatitis C, and bipolar disorder who was admitted on 05/09/18 for acute respiratory failure with hypoxia, metabolic encephalopathy, acute on chronic renal failure, and acute CHF exacerbation. The patient was seen on morning rounds. She was found resting in bed comfortably on supplemental oxygen via nasal cannula eating breakfast with assistance. She is alert and oriented to self only. She is conversational, and although remains confused, is further improved from yesterday. The patient denies headaches, dizziness, chest pain, shortness of breath and cough. No concerns per nursing. Reason For Visit: ACUTE RESPIRATORY FAILURE,MULTIFOCAL PNA, Physical Exam Vital Signs: Temp Pulse Resp BP Pulse Ox 98.3 F 51 L 14 156/55 H 99 05/11/18 07:38 05/11/18 08:28 05/11/18 08:28 05/11/18 07:38 05/11/18 08:28 Intake & Output 05/10/18 05/11/18 05/12/18 06:59 06:59 06:59 Intake Total 450 578 Output Total 1100 1100 Balance -650 -522 Weight 81.8 kg 84.7 kg General appearance: PRESENT: no acute distress, hard of hearing, obese, well- developed, well-nourished Head exam: PRESENT: atraumatic, normocephalic Eye exam: PRESENT: conjunctiva pink, EOMI, PERRLA. ABSENT: scleral icterus Ear exam: PRESENT: normal external ear exam Mouth exam: PRESENT: moist, tongue midline Neck exam: ABSENT: carotid bruit, JVD, lymphadenopathy, thyromegaly Respiratory exam: PRESENT: clear to auscultation santa, symmetrical, unlabored, other - Oxygen at 2lpm via NC. ABSENT: rales, rhonchi, wheezes Cardiovascular exam: PRESENT: RRR. ABSENT: diastolic murmur, rubs, systolic murmur Pulses: PRESENT: normal dorsalis pedis pul Vascular exam: PRESENT: normal capillary refill GI/Abdominal exam: PRESENT: normal bowel sounds, soft. ABSENT: distended, guarding, mass, organolmegaly, rebound, tenderness Rectal exam: PRESENT: deferred Extremities exam: PRESENT: full ROM. ABSENT: calf tenderness, clubbing, pedal edema Neurological exam: PRESENT: alert, awake, oriented to person, CN II-XII grossly intact, other - Pleasantly confused. ABSENT: oriented to place, oriented to time, oriented to situation, motor sensory deficit Psychiatric exam: PRESENT: appropriate affect, normal mood. ABSENT: homicidal ideation, suicidal ideation Skin exam: PRESENT: dry, intact, warm. ABSENT: cyanosis, rash Results Laboratory Results: 05/11/18 04:19 05/11/18 04:19 05/10/18 05/10/18 05/10/18 15:07 15:07 16:28 WBC 9.9 RBC 2.68 L Hgb 7.8 L Hct 23.1 L MCV 86 MCH 28.9 MCHC 33.5 RDW 17.0 H Plt Count 190 Seg Neutrophils % Lymphocytes % Monocytes % Eosinophils % Basophils % Absolute Neutrophils Absolute Lymphocytes Absolute Monocytes Absolute Eosinophils Absolute Basophils Retic Count (auto) Absolute Retic Sodium 143.9 Potassium 5.2 H Chloride 109 H Carbon Dioxide 24 Anion Gap 11 BUN 63 H Creatinine 4.89 H Est GFR ( Amer) 10 L Est GFR (Non-Af Amer) 9 L Glucose 175 H Calcium 9.3 Iron TIBC % Saturation Ferritin Ammonia < 8.7 L Vitamin B12 Folate 05/11/18 05/11/18 04:19 04:19 WBC 11.6 H RBC 2.75 L Hgb 7.8 L Hct 23.6 L MCV 86 MCH 28.4 MCHC 33.1 RDW 17.1 H Plt Count 197 Seg Neutrophils % 79.2 H Lymphocytes % 13.8 Monocytes % 6.9 Eosinophils % 0.0 Basophils % 0.1 Absolute Neutrophils 9.2 H Absolute Lymphocytes 1.6 Absolute Monocytes 0.8 Absolute Eosinophils 0.0 Absolute Basophils 0.0 Retic Count (auto) 1.06 Absolute Retic 0.029 Sodium 143.7 Potassium 4.6 Chloride 110 H Carbon Dioxide 22 Anion Gap 12 BUN 69 H Creatinine 4.91 H Est GFR ( Amer) 10 L Est GFR (Non-Af Amer) 9 L Glucose 135 H Calcium 9.1 Iron 111.7 TIBC 154 L % Saturation 73 Ferritin 501.00 H Ammonia Vitamin B12 821.0 Folate 8.07 05/09/18 05/09/18 05/09/18 10:15 15:55 21:28 Troponin I 0.044 0.041 0.044 NT-Pro-B Natriuret Pep 05/10/18 05/11/18 04:25 04:19 Troponin I NT-Pro-B Natriuret Pep 86944 H 78916 H Impressions: Chest X-Ray 05/10/18 06:00 IMPRESSION: Findings are most consistent with resolving vascular congestion. Assessment & Plan - Diagnosis (1) Acute respiratory failure with hypoxia Is this a current diagnosis for this admission?: Yes Plan: Continues to improve; vital signs are stable, lung sounds are clear. Pt presented via EMS with report respiratory distress and recent outpatient diagnosis of pneumonia. She was found to have room air oxygen saturations in the 80s. Likely her acute respiratory failure is related to A/C renal failure with CHF exacerbation resulting in pulmonary edema. Do not feel that the patient has a healthcare associated pneumonia. VBG is reassuring; ABG normal. CXR reveals multifocal PNA vs pulmonary edema. Repeat chest x-ray demonstrated improved bilateral airspace disease most consistent with resolving vascular congestion. The patient is admitted to [facility] on continuous cardiac telemetry. She is provided supplemental oxygen as needed to maintain saturations >88%; will begin attempting to wean oxygen today. Scheduled and as needed nebulizer treatments are ordered. Cultures and antibiotics as outlined below. We will diuresis and evaluate CHF as outlined below. Nephrology has been consulted with regard to acutely worsened CKD. (2) Metabolic encephalopathy Is this a current diagnosis for this admission?: Yes Plan: Resolved; patient likely at baseline mental status. The patient is alert and oriented to self, conversational but confused, does follow directions and answer short yes/no questions appropriately. Per SNF notes she is confused at baseline, incontinent of urine and stool at baseline, and requires feeding assistance. Of note, the patient was recently admitted to [facility] for metabolic encephalopathy, intracranial hemorrhage, cerebral edema, and non-STEMI. Ammonia is normal. We will address UTI as outlined elsewhere. We will manage acute on chronic CKD and acute on chronic CHF exacerbations is elsewhere. We will provide for patient safety; fall and aspiration precautions. Supportive therapy. PT/OT/ST evaluations are ordered. Low threshold for repeat head CT; will request recent CT/MRI results from provided for comparison. (3) Acute on chronic renal failure Qualifiers: Chronic kidney disease stage: stage 4 (severe) Is this a current diagnosis for this admission?: Yes Plan: Stable; chronic. We will avoid nephrotoxic medications as able. Appreciate nephrology's evaluation and recommendations; fortunately, the patient is known to Dr. Elizondo and his PA. Appreciate their evaluation and recommendations. (4) CHF (congestive heart failure) Is this a current diagnosis for this admission?: Yes Plan: Continues to improve; although proBNP is trending up slightly. Acute respiratory failure is resolving; lung sounds clear, no edema. Outpatient records reveal that she recently had a non-STEMI at [facility]. We have requested most recent echocardiogram. Troponins indeterminately elevated, but stable 4. Will no longer trend. Echocardiogram revealed LVEF 65% The patient's home medication regiment of amlodipine, atorvastatin, Cardura, hydralazine, and Imdur are continued. Holding lisinopril secondary to acute worsening of renal failure. Blood pressures are acceptable. Holding Bumex while providing IV furosemide for diuresis. Consider cardiology consultation. (5) Leukocytosis Is this a current diagnosis for this admission?: Yes Plan: Improved. Leukocytosis is secondary to urinary tract infection. Blood cultures have no growth at 48 hours Urine culture grew E. coli Sputum culture has been ordered. The patient was empirically placed on IV cefepime, Levaquin, and vancomycin for coverage of healthcare associated pneumonia as the patient was recently admitted to an outpatient hospital. As HCAP has been ruled out, will de-escalate to cefepime only. Antibiotics are renally adjusted by pharmacy. (6) Urinary tract infection Qualifiers: Urinary tract infection type: site unspecified Hematuria presence: without hematuria Qualified Code(s): N39.0 - Urinary tract infection, site not specified Is this a current diagnosis for this admission?: Yes Plan: Urinalysis is suggestive of UTI with small blood, moderate leuk esterase, 156 WBCs, and 3+ bacteria. The patient's mental status precludes her ability to confirm symptoms. Urine culture positive for E. coli. Continue IV cefepime. 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 Accu-Cheks before meals and at bedtime with Humalog for sliding scale coverage. Hypoglycemia protocols are in place. (8) Anemia Qualifiers: Anemia type: due to chronic kidney disease Chronic kidney disease stage: stage 4 (severe) Qualified Code(s): N18.4 - Chronic kidney disease, stage 4 ( severe); D63.1 - Anemia in chronic kidney disease; D63.1 - Anemia in chronic kidney disease Is this a current diagnosis for this admission?: Yes Plan: Hgb 9.7 on admission; slight downward trend to 7.8 Occult stool is pending. No outward sign of bleeding. Anemia panel reviewed. Plan per nephrology. Will monitor and transfuse for Hgb <7 or if active bleeding. (9) Hx of non-ST elevation myocardial infarction (NSTEMI) Is this a current diagnosis for this admission?: No Plan: Continue daily statin and ASA therapy. Will monitor on continuous cardiac telemetry. EKG revealed NSR without ST elevation or depression. Trending troponins. Have requested recent echocardiogram from [facility]. (10) Hx of intracranial hemorrhage Is this a current diagnosis for this admission?: No Plan: The patient was recently admitted to [facility] with intracranial hemorrhage, cerebral edema, encephalopathy, and non-STEMI. We will continue her daily aspirin therapy. We will hold on DVT prophylaxis heparin/Lovenox due to recent hemorrhage; she is placed on SAKINA hose and SCDs. We will request recent head CT/MRI. Low threshold for repeat imaging if the patient develops hypertensive urgency, further decreased mental status from present, seizure-like activity, or other signs/symptoms of acute process. - Time Time Spent with patient: 15-24 minutes Medications reviewed and adjusted accordingly: Yes Anticipated discharge: SNF [facility] Within: within 48 hours
--- NOTE | 2018-05-11 11:46 | PDOC PROGRESS REPORT ---
Subjective Progress Note for:: 05/11/18 Subjective:: Patient was laying in her bed at the time of examination. She was altered and believed that she was in a house laying in bed. She denied chest pain, SOB, n/v/ d/c. She also denied fevers or chills. Reason For Visit: ACUTE RESPIRATORY FAILURE,MULTIFOCAL PNA, Physical Exam Vital Signs: Temp Pulse Resp BP Pulse Ox 98.3 F 51 L 14 156/55 H 99 05/11/18 07:38 05/11/18 08:28 05/11/18 08:28 05/11/18 07:38 05/11/18 08:28 Intake & Output 05/10/18 05/11/18 05/12/18 06:59 06:59 06:59 Intake Total 450 578 Output Total 1100 1100 Balance -650 -522 Weight 81.8 kg 84.7 kg General appearance: PRESENT: no acute distress, well-developed, well-nourished Mouth exam: PRESENT: moist, neck supple Neck exam: ABSENT: JVD Respiratory exam: PRESENT: crackles, rales. ABSENT: accessory muscle use, clear to auscultation santa, rhonchi, wheezes Cardiovascular exam: PRESENT: RRR, +S1, +S2 GI/Abdominal exam: PRESENT: soft. ABSENT: ascites, distended, mass, tenderness Extremities exam: PRESENT: +1 edema. ABSENT: pedal edema, +2 edema Musculoskeletal exam: PRESENT: normal inspection. ABSENT: tenderness Neurological exam: PRESENT: altered. ABSENT: oriented to person, oriented to place, oriented to time, oriented to situation Skin exam: PRESENT: dry, intact, warm. ABSENT: cyanosis Results Laboratory Results: 05/11/18 04:19 05/11/18 04:19 05/10/18 05/10/18 05/10/18 15:07 15:07 16:28 WBC 9.9 RBC 2.68 L Hgb 7.8 L Hct 23.1 L MCV 86 MCH 28.9 MCHC 33.5 RDW 17.0 H Plt Count 190 Seg Neutrophils % Lymphocytes % Monocytes % Eosinophils % Basophils % Absolute Neutrophils Absolute Lymphocytes Absolute Monocytes Absolute Eosinophils Absolute Basophils Retic Count (auto) Absolute Retic Sodium 143.9 Potassium 5.2 H Chloride 109 H Carbon Dioxide 24 Anion Gap 11 BUN 63 H Creatinine 4.89 H Est GFR ( Amer) 10 L Est GFR (Non-Af Amer) 9 L Glucose 175 H Calcium 9.3 Iron TIBC % Saturation Ferritin Ammonia < 8.7 L Vitamin B12 Folate 05/11/18 05/11/18 04:19 04:19 WBC 11.6 H RBC 2.75 L Hgb 7.8 L Hct 23.6 L MCV 86 MCH 28.4 MCHC 33.1 RDW 17.1 H Plt Count 197 Seg Neutrophils % 79.2 H Lymphocytes % 13.8 Monocytes % 6.9 Eosinophils % 0.0 Basophils % 0.1 Absolute Neutrophils 9.2 H Absolute Lymphocytes 1.6 Absolute Monocytes 0.8 Absolute Eosinophils 0.0 Absolute Basophils 0.0 Retic Count (auto) 1.06 Absolute Retic 0.029 Sodium 143.7 Potassium 4.6 Chloride 110 H Carbon Dioxide 22 Anion Gap 12 BUN 69 H Creatinine 4.91 H Est GFR ( Amer) 10 L Est GFR (Non-Af Amer) 9 L Glucose 135 H Calcium 9.1 Iron 111.7 TIBC 154 L % Saturation 73 Ferritin 501.00 H Ammonia Vitamin B12 821.0 Folate 8.07 05/09/18 05/09/18 05/09/18 10:15 15:55 21:28 Troponin I 0.044 0.041 0.044 NT-Pro-B Natriuret Pep 05/10/18 05/11/18 04:25 04:19 Troponin I NT-Pro-B Natriuret Pep 93551 H 43381 H Impressions: Chest X-Ray 05/10/18 06:00 IMPRESSION: Findings are most consistent with resolving vascular congestion. Assessment & Plan - Diagnosis (1) Acute on chronic renal failure Is this a current diagnosis for this admission?: Yes Plan: currently not improving, does still have signs of fluid overload. Will look to increase lasix dose. 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 Discussed with the family about her receiving procrit, I informed them of the pro's and con's. Also I informed them of common side affects and the black box warnings that come with procrit. The family was agreeable to her to receive procrit. Will order for procrit 20,000 units q7 weeks. (3) CHF (congestive heart failure) Is this a current diagnosis for this admission?: Yes Plan: increased lasix (4) Acute respiratory failure with hypoxia Is this a current diagnosis for this admission?: Yes Plan: resolved (5) Multifocal pneumonia Plan: on vanc, cefepime and levofloxic, managed by hospitalist (6) Urinary tract infection Qualifiers: Qualified Code(s): N39.0 - Urinary tract infection, site not specified Is this a current diagnosis for this admission?: Yes Plan: resolving, on antibiotics (7) Acute encephalopathy Plan: amonia levels were normal, more likely to be related to UTI. 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
[2018-05-11] MEDS ORDERED: EPOETIN ALFA INJ 20000 UNIT/1 ML VIAL (RENAL) SUBCUT SCH (12:00)
[2018-05-11] MEDS: HYDRALAZINE HCL 50 MG TABLET PO SCH ×4 (12:05→21:31)
[2018-05-11 14:12] LABS: HEMATOCRIT 23.3 % (36.0-47.0); MEAN CORPUSCULAR HGB CONC 33.7 g/dL (32.0-36.0); MEAN CORPUSCULAR VOLUME 86 fl (80-97); PLATELET COUNT 187 10^3/uL (150-450); RED BLOOD COUNT 2.71 10^6/uL (3.72-5.28); RED CELL DISTRIBUTION WIDTH 16.7 % (11.5-14.0); WHITE BLOOD COUNT 9.7 10^3/uL (4.0-10.5)
[2018-05-11 14:14] LABS: HEMOGLOBIN 7.9 g/dL (12.0-15.5)
[2018-05-11 14:29] LABS: ANION GAP 11 (5-19); BLOOD UREA NITROGEN 71 mg/dL (7-20); CALCIUM 8.9 mg/dL (8.4-10.2); CARBON DIOXIDE 22 mmol/L (22-30); CHLORIDE 110 mmol/L (98-107); GLUCOSE 99 mg/dL (75-110); POTASSIUM 4.5 mmol/L (3.6-5.0); SODIUM 143.4 mmol/L (137-145)
--- NOTE | 2018-05-11 18:18 | EKG REPORT ---
SEVERITY:- OTHERWISE NORMAL ECG - SINUS BRADYCARDIA APCs : Confirmed by: Margie Denton 11-May-2018 18:18:33
[2018-05-11] MEDS: CEFEPIME 1 GM/D5W RTU 1 GM/50 ML RTUPB IV SCH (21:29)
[2018-05-11] MEDS: ATORVASTATIN CALCIUM 20 MG TABLET PO SCH (21:30)
[2018-05-12] MEDS: IPRATROPIUM/ALBUTEROL 0.5-2.5 MG/3 ML AMPUL NEB SCH ×3 (00:36→17:15)
[2018-05-12] MEDS: HYDRALAZINE HCL 50 MG TABLET PO SCH ×3 (05:01→21:21)
[2018-05-12 05:19] LABS: ABSOLUTE MONOCYTES (AUTO) 0.9 10^3/uL (0.1-1.4); ABSOLUTE NEUT (AUTO) 6.6 10^3/uL (1.7-8.2); BASOPHILS % (AUTO) 0.1 % (0-2); EOSINOPHILS % (AUTO) 0.4 % (0-6); HEMATOCRIT 23.4 % (36.0-47.0); LYMPHOCYTES % (AUTO) 21.3 % (13-45); MEAN CORPUSCULAR HEMOGLOBIN 29.4 pg (27.0-33.4); MEAN CORPUSCULAR VOLUME 86 fl (80-97); MONOCYTES % (AUTO) 9.7 % (3-13); PLATELET COUNT 189 10^3/uL (150-450); RED BLOOD COUNT 2.71 10^6/uL (3.72-5.28); RED CELL DISTRIBUTION WIDTH 16.7 % (11.5-14.0); SEGMENTED NEUTROPHILS % (AUTO) 68.5 % (42-78); TOTAL CELLS COUNTED % (AUTO) 100 %; WHITE BLOOD COUNT 9.6 10^3/uL (4.0-10.5)
[2018-05-12 05:44] LABS: ANION GAP 14 (5-19); BLOOD UREA NITROGEN 71 mg/dL (7-20); CARBON DIOXIDE 21 mmol/L (22-30); CHLORIDE 110 mmol/L (98-107); GLUCOSE 76 mg/dL (75-110); POTASSIUM 4.3 mmol/L (3.6-5.0)
[2018-05-12] MEDS: FERROUS SULFATE 325 MG TABLET PO SCH ×2 (09:59→17:38)
[2018-05-12] MEDS: ASPIRIN 81 MG TABLET, CHEWABLE PO SCH (09:59)
[2018-05-12] MEDS: AMLODIPINE BESYLATE 10 MG TABLET PO SCH (10:00)
[2018-05-12] MEDS: ESCITALOPRAM OXALATE 10 MG TABLET PO SCH (10:00)
[2018-05-12] MEDS: ISOSORBIDE MONONITRATE 60 MG TAB.ER.24H PO SCH (10:00)
[2018-05-12] MEDS: DOXAZOSIN MESYLATE 2 MG TABLET PO SCH ×2 (10:00→21:21)
[2018-05-12] MEDS: FUROSEMIDE INJ/PF 40 MG/4 ML SDV IV SCH ×2 (10:00→21:21)
--- NOTE | 2018-05-12 16:07 | PDOC PROGRESS REPORT ---
Subjective Progress Note for:: 05/12/18 Subjective:: The patient is a 78 year old female with an extensive past medical history including recent admission to [facility] in April 2018 for ICH, non- STEMI, encephalopathy, as well as, CHF, CAD, HTN, HLD, CKD3, IDDM, hypothyroidism, history of hepatitis C, and bipolar disorder who was admitted on 05/09/18 for acute respiratory failure with hypoxia, metabolic encephalopathy, acute on chronic renal failure, and acute CHF exacerbation. The patient was seen on morning rounds. She was found resting in bed comfortably on supplemental oxygen via nasal cannula. She was found sleeping but woke easily when I set her name. Initially she did not respond to my questions, but then as I was leaving the room asked whether or not her heart was okay. She is told that her heart rate is okay today which she smiles. The patient denies headaches, dizziness, chest pain, shortness of breath and cough. She denies any other questions or concerns. No concerns per nursing. Reason For Visit: ACUTE RESPIRATORY FAILURE,MULTIFOCAL PNA, Physical Exam Vital Signs: Temp Pulse Resp BP Pulse Ox 99.2 F 60 12 142/42 H 98 05/12/18 11:46 05/12/18 14:00 05/12/18 11:46 05/12/18 11:46 05/12/18 11:46 Intake & Output 05/11/18 05/12/18 05/13/18 06:59 06:59 06:59 Intake Total 578 633 50 Output Total 1100 1375 425 Balance -522 -742 -375 Weight 84.7 kg 84.6 kg General appearance: PRESENT: no acute distress, obese, well-developed, well- nourished Head exam: PRESENT: atraumatic, normocephalic Eye exam: PRESENT: conjunctiva pink, EOMI, PERRLA. ABSENT: scleral icterus Ear exam: PRESENT: normal external ear exam Mouth exam: PRESENT: moist, tongue midline Neck exam: ABSENT: carotid bruit, JVD, lymphadenopathy, thyromegaly Respiratory exam: PRESENT: clear to auscultation santa, symmetrical, unlabored, other - Supplemental oxygen via nasal cannula. ABSENT: rales, rhonchi, wheezes Cardiovascular exam: PRESENT: bradycardia, RRR. ABSENT: diastolic murmur, rubs , systolic murmur Pulses: PRESENT: normal dorsalis pedis pul Vascular exam: PRESENT: normal capillary refill GI/Abdominal exam: PRESENT: normal bowel sounds, soft. ABSENT: distended, guarding, mass, organolmegaly, rebound, tenderness Rectal exam: PRESENT: deferred Extremities exam: PRESENT: full ROM. ABSENT: calf tenderness, clubbing, pedal edema Neurological exam: PRESENT: alert, awake, oriented to person, CN II-XII grossly intact, other - Pleasantly confused. ABSENT: oriented to place, oriented to time, oriented to situation, motor sensory deficit Psychiatric exam: PRESENT: appropriate affect, normal mood. ABSENT: homicidal ideation, suicidal ideation Skin exam: PRESENT: dry, intact, warm. ABSENT: cyanosis, rash Results Laboratory Results: 05/12/18 04:06 05/12/18 04:06 05/12/18 05/12/18 04:06 04:06 WBC 9.6 RBC 2.71 L Hgb 8.0 L Hct 23.4 L MCV 86 MCH 29.4 MCHC 34.0 RDW 16.7 H Plt Count 189 Seg Neutrophils % 68.5 Lymphocytes % 21.3 Monocytes % 9.7 Eosinophils % 0.4 Basophils % 0.1 Absolute Neutrophils 6.6 Absolute Lymphocytes 2.0 Absolute Monocytes 0.9 Absolute Eosinophils 0.0 Absolute Basophils 0.0 Sodium 145.0 Potassium 4.3 Chloride 110 H Carbon Dioxide 21 L Anion Gap 14 BUN 71 H Creatinine 4.59 H Est GFR ( Amer) 11 L Est GFR (Non-Af Amer) 9 L Glucose 76 Calcium 9.0 05/09/18 05/09/18 05/09/18 10:15 15:55 21:28 Troponin I 0.044 0.041 0.044 NT-Pro-B Natriuret Pep 05/10/18 05/11/18 05/12/18 04:25 04:19 04:06 Troponin I NT-Pro-B Natriuret Pep 13531 H 92609 H 81558 H Impressions: Chest X-Ray 05/10/18 06:00 IMPRESSION: Findings are most consistent with resolving vascular congestion. Assessment & Plan - Diagnosis (1) Acute respiratory failure with hypoxia Is this a current diagnosis for this admission?: Yes Plan: Continues to improve; vital signs are stable, lung sounds are clear. Attempting to wean oxygen today. Pt presented via EMS with report respiratory distress and recent outpatient diagnosis of pneumonia. She was found to have room air oxygen saturations in the 80s. Likely her acute respiratory failure is related to A/C renal failure with CHF exacerbation resulting in pulmonary edema. Do not feel that the patient has a healthcare associated pneumonia. VBG is reassuring; ABG normal. CXR reveals multifocal PNA vs pulmonary edema. Repeat chest x-ray demonstrated improved bilateral airspace disease most consistent with resolving vascular congestion. The patient is admitted to [facility] on continuous cardiac telemetry. She is provided supplemental oxygen as needed to maintain saturations >88%; will begin attempting to wean oxygen today. Scheduled and as needed nebulizer treatments are ordered. Cultures and antibiotics as outlined below. We will diuresis and evaluate CHF as outlined below. Nephrology has been consulted with regard to acutely worsened CKD. (2) Metabolic encephalopathy Is this a current diagnosis for this admission?: Yes Plan: Resolved; at baseline mental status s/p recent ICH. The patient is alert and oriented to self, conversational but confused, does follow directions and answer short yes/no questions appropriately. Per SNF notes she is confused at baseline, incontinent of urine and stool at baseline, and requires feeding assistance. Of note, the patient was recently admitted to [facility] for metabolic encephalopathy, intracranial hemorrhage, cerebral edema, and non-STEMI. Laboratory evaluation including ammonia is unremarkable other than her baseline kidney function. We will address UTI as outlined elsewhere. We will manage acute on chronic CKD and acute on chronic CHF exacerbations is elsewhere. We will provide for patient safety; fall and aspiration precautions. Supportive therapy. PT/OT/ST evaluations are ordered. Low threshold for repeat head CT; will request recent CT/MRI results from [facility] for comparison. We have received MRI results from [facility] if comparison is necessary. (3) Acute on chronic renal failure Qualifiers: Chronic kidney disease stage: stage 4 (severe) Is this a current diagnosis for this admission?: Yes Plan: Stable; chronic. We will avoid nephrotoxic medications as able. Appreciate nephrology's evaluation and recommendations; fortunately, the patient is known to Dr. Elizondo and his PA. Appreciate their evaluation and recommendations. Furosemide increased per nephrology. (4) CHF (congestive heart failure) Is this a current diagnosis for this admission?: Yes Plan: Appears to have resolved; proBNP is stable at 32K. Acute respiratory failure has resolving; lung sounds clear, no edema. Outpatient records reveal that she recently had a non-STEMI at [facility]. Records from [facility] now in paper chart. Troponins indeterminately elevated, but stable 4. Will no longer trend. Echocardiogram revealed LVEF 65% The patient's home medication regiment of amlodipine, atorvastatin, Cardura, hydralazine, and Imdur are continued. Carvedilol discontinued secondary to bradycardia. Holding lisinopril secondary to acute worsening of renal failure. Holding Bumex while providing IV furosemide for diuresis; furosemide recently increased by nephrology. (5) Leukocytosis Is this a current diagnosis for this admission?: Yes Plan: Resolved. Leukocytosis is secondary to urinary tract infection. Blood cultures have no growth at 72 hours Urine culture grew E. coli Sputum culture has been ordered. The patient was empirically placed on IV cefepime, Levaquin, and vancomycin for coverage of healthcare associated pneumonia as the patient was recently admitted to an outpatient hospital. As HCAP has been ruled out, will de-escalate to cefepime only. Day #3 Antibiotics are renally adjusted by pharmacy. (6) Urinary tract infection Qualifiers: Urinary tract infection type: site unspecified Hematuria presence: without hematuria Qualified Code(s): N39.0 - Urinary tract infection, site not specified Is this a current diagnosis for this admission?: Yes Plan: Urinalysis is suggestive of UTI with small blood, moderate leuk esterase, 156 WBCs, and 3+ bacteria. The patient's mental status precludes her ability to confirm symptoms. Urine culture positive for E. coli. Continue IV cefepime. Day #3. We will repeat urinalysis in the a.m.; if cleared, may discontinue antibiotic therapy. 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 Accu-Cheks before meals and at bedtime with Humalog for sliding scale coverage. Hypoglycemia protocols are in place. (8) Anemia Qualifiers: Anemia type: due to chronic kidney disease Chronic kidney disease stage: stage 4 (severe) Qualified Code(s): N18.4 - Chronic kidney disease, stage 4 ( severe); D63.1 - Anemia in chronic kidney disease; D63.1 - Anemia in chronic kidney disease Is this a current diagnosis for this admission?: Yes Plan: Hgb 9.7 on admission; slight downward trend to 7.6. Now stable at 8.0 Occult stool is pending. No outward sign of bleeding. Anemia panel reviewed. Plan per nephrology. Has been provided Procrit. Will monitor and transfuse for Hgb <7 or if active bleeding. (9) Hx of non-ST elevation myocardial infarction (NSTEMI) Is this a current diagnosis for this admission?: No Plan: Continue daily statin and ASA therapy. Will monitor on continuous cardiac telemetry. EKG revealed NSR without ST elevation or depression. Trending troponins. Have requested recent echocardiogram from [facility]. (10) Hx of intracranial hemorrhage Is this a current diagnosis for this admission?: No Plan: The patient was recently admitted to [facility] with intracranial hemorrhage, cerebral edema, encephalopathy, and non-STEMI. We will continue her daily aspirin therapy. We will hold on DVT prophylaxis heparin/Lovenox due to recent hemorrhage; she is placed on SAKINA hose and SCDs. We will request recent head CT/MRI. Low threshold for repeat imaging if the patient develops hypertensive urgency, further decreased mental status from present, seizure-like activity, or other signs/symptoms of acute process. - Time Time Spent with patient: 15-24 minutes Medications reviewed and adjusted accordingly: Yes [facility]: within 48 hours - Once cleared by nephrology.
[2018-05-12] MEDS: CEFEPIME 1 GM/D5W RTU 1 GM/50 ML RTUPB IV SCH (21:20)
[2018-05-12] MEDS: ATORVASTATIN CALCIUM 20 MG TABLET PO SCH (21:21)
[2018-05-13] MEDS: IPRATROPIUM/ALBUTEROL 0.5-2.5 MG/3 ML AMPUL NEB SCH ×2 (00:54→08:31)
[2018-05-13 05:00] LABS: HEMATOCRIT 25.6 % (36.0-47.0); HEMOGLOBIN 8.8 g/dL (12.0-15.5); MEAN CORPUSCULAR HEMOGLOBIN 29.6 pg (27.0-33.4); MEAN CORPUSCULAR HGB CONC 34.4 g/dL (32.0-36.0); MEAN CORPUSCULAR VOLUME 86 fl (80-97); PLATELET COUNT 190 10^3/uL (150-450); RED BLOOD COUNT 2.98 10^6/uL (3.72-5.28); RED CELL DISTRIBUTION WIDTH 16.3 % (11.5-14.0); WHITE BLOOD COUNT 8.4 10^3/uL (4.0-10.5)
[2018-05-13 05:30] LABS: ANION GAP 13 (5-19); BLOOD UREA NITROGEN 66 mg/dL (7-20); CALCIUM 9.3 mg/dL (8.4-10.2); CARBON DIOXIDE 24 mmol/L (22-30); CHLORIDE 110 mmol/L (98-107); GLUCOSE 79 mg/dL (75-110); POTASSIUM 3.7 mmol/L (3.6-5.0); SODIUM 146.5 mmol/L (137-145)
[2018-05-13] MEDS: HYDRALAZINE HCL 50 MG TABLET PO SCH ×3 (05:35→22:49)
[2018-05-13 06:38] LABS: APPEARANCE,URINE SLIGHTLY-CLOUDY; BILIRUBIN,URINE NEGATIVE (NEGATIVE); COLOR,URINE STRAW; GLUCOSE, URINE NEGATIVE (NEGATIVE); KETONES,URINE NEGATIVE (NEGATIVE); LEUKOCYTE ESTERASE,URINE TRACE (NEGATIVE); NITRITE,URINE NEGATIVE (NEGATIVE); PROTEIN,URINE 100 mg/dL (NEGATIVE); URINE SPECIFIC GRAVITY 1.009; UROBILINOGEN,URINE NEGATIVE mg/dL (<2.0)
[2018-05-13] MEDS: AMLODIPINE BESYLATE 10 MG TABLET PO SCH (10:23)
[2018-05-13] MEDS: DOXAZOSIN MESYLATE 2 MG TABLET PO SCH ×2 (10:23→22:49)
[2018-05-13] MEDS: ESCITALOPRAM OXALATE 10 MG TABLET PO SCH (10:23)
[2018-05-13] MEDS: FUROSEMIDE 40 MG TABLET PO SCH ×2 (10:23→18:25)
[2018-05-13] MEDS: FERROUS SULFATE 325 MG TABLET PO SCH ×2 (10:23→18:25)
[2018-05-13] MEDS: ASPIRIN 81 MG TABLET, CHEWABLE PO SCH (10:23)
[2018-05-13] MEDS: ISOSORBIDE MONONITRATE 60 MG TAB.ER.24H PO SCH (10:24)
--- NOTE | 2018-05-13 12:13 | PDOC PROGRESS REPORT ---
Subjective Progress Note for:: 05/13/18 Subjective:: The patient is a 78 year old female with an extensive past medical history including recent admission to [facility] in April 2018 for ICH, non- STEMI, encephalopathy, as well as, CHF, CAD, HTN, HLD, CKD3, IDDM, hypothyroidism, history of hepatitis C, and bipolar disorder who was admitted on 05/09/18 for acute respiratory failure with hypoxia, metabolic encephalopathy, acute on chronic renal failure, and acute CHF exacerbation. The patient was seen on morning rounds. She was found resting in bed on supplemental oxygen via nasal cannula. She was found sleeping but woke easily when I said her name. She is orientated to self today but does not answer any other questions. She appears to be comfortable and is not in any acute distress. ROS limited secondary to patient's baseline mental status. No concerns per nursing. Reason For Visit: ACUTE RESPIRATORY FAILURE,MULTIFOCAL PNA, Physical Exam Vital Signs: Temp Pulse Resp BP Pulse Ox 97.8 F 70 14 155/63 H 99 05/13/18 07:49 05/13/18 08:24 05/13/18 08:24 05/13/18 07:49 05/13/18 08:24 Intake & Output 05/12/18 05/13/18 05/14/18 06:59 06:59 06:59 Intake Total 633 265 Output Total 1375 7655 - Weight 84.6 kg 81.8 kg General appearance: PRESENT: no acute distress, well-developed, well-nourished Head exam: PRESENT: atraumatic, normocephalic Eye exam: PRESENT: conjunctiva pink, EOMI, PERRLA. ABSENT: scleral icterus Ear exam: PRESENT: normal external ear exam Mouth exam: PRESENT: moist, tongue midline Neck exam: ABSENT: carotid bruit, JVD, lymphadenopathy, thyromegaly Respiratory exam: PRESENT: clear to auscultation santa, symmetrical, unlabored. ABSENT: rales, rhonchi, wheezes Cardiovascular exam: PRESENT: RRR, +S1, +S2. ABSENT: diastolic murmur, rubs, systolic murmur Pulses: PRESENT: normal dorsalis pedis pul Vascular exam: PRESENT: normal capillary refill GI/Abdominal exam: PRESENT: normal bowel sounds, soft. ABSENT: distended, guarding, mass, organolmegaly, rebound, tenderness Rectal exam: PRESENT: deferred Extremities exam: PRESENT: full ROM. ABSENT: calf tenderness, clubbing, pedal edema Neurological exam: PRESENT: alert, awake, oriented to person, other - Baseline mental status.. ABSENT: oriented to place, oriented to time, oriented to situation, motor sensory deficit Psychiatric exam: PRESENT: appropriate affect, normal mood. ABSENT: homicidal ideation, suicidal ideation Skin exam: PRESENT: dry, intact, warm. ABSENT: cyanosis, rash Results Laboratory Results: 05/13/18 04:04 05/13/18 04:04 05/13/18 05/13/18 05/13/18 04:04 04:04 06:15 WBC 8.4 RBC 2.98 L Hgb 8.8 L Hct 25.6 L MCV 86 MCH 29.6 MCHC 34.4 RDW 16.3 H Plt Count 190 Sodium 146.5 H Potassium 3.7 Chloride 110 H Carbon Dioxide 24 Anion Gap 13 BUN 66 H Creatinine 4.53 H Est GFR ( Amer) 11 L Est GFR (Non-Af Amer) 9 L Glucose 79 Calcium 9.3 Urine Color STRAW Urine Appearance SLIGHTLY-CLOUDY Urine pH 5.0 Ur Specific [place] 1.009 Urine Protein 100 H Urine Glucose (UA) NEGATIVE Urine Ketones NEGATIVE Urine Blood NEGATIVE Urine Nitrite NEGATIVE Ur Leukocyte Esterase TRACE H Urine WBC (Auto) 24 Urine RBC (Auto) 8 05/09/18 05/09/18 05/09/18 10:15 15:55 21:28 Troponin I 0.044 0.041 0.044 NT-Pro-B Natriuret Pep 05/10/18 05/11/18 05/12/18 04:25 04:19 04:06 Troponin I NT-Pro-B Natriuret Pep 26687 H 74748 H 29049 H Impressions: Chest X-Ray 05/10/18 06:00 IMPRESSION: Findings are most consistent with resolving vascular congestion. Assessment & Plan - Diagnosis (1) Acute respiratory failure with hypoxia Is this a current diagnosis for this admission?: Yes Plan: Resolved; vital signs are stable, lung sounds are clear. Successfully weaning oxygen. Pt presented via EMS with report respiratory distress and recent outpatient diagnosis of pneumonia. She was found to have room air oxygen saturations in the 80s. Likely her acute respiratory failure is related to A/C renal failure with CHF exacerbation resulting in pulmonary edema. Do not feel that the patient has a healthcare associated pneumonia. VBG is reassuring; ABG normal. CXR reveals multifocal PNA vs pulmonary edema. Repeat chest x-ray demonstrated improved bilateral airspace disease most consistent with resolving vascular congestion. The patient is admitted to [facility] on continuous cardiac telemetry. She is provided supplemental oxygen as needed to maintain saturations >88%. As needed nebulizer treatments are provided. Cultures and antibiotics as outlined below. We will diuresis and evaluate CHF as outlined below. Nephrology has been consulted with regard to acutely worsened CKD. (2) Metabolic encephalopathy Is this a current diagnosis for this admission?: Yes Plan: Resolved; at baseline mental status s/p recent ICH. The patient is alert and oriented to self, conversational but confused, does follow directions and answer short yes/no questions appropriately. Per SNF notes she is confused at baseline, incontinent of urine and stool at baseline, and requires feeding assistance. Of note, the patient was recently admitted to [facility] for metabolic encephalopathy, intracranial hemorrhage, cerebral edema, and non-STEMI. Laboratory evaluation including ammonia is unremarkable other than her baseline kidney function. We will address UTI as outlined elsewhere. We will manage acute on chronic CKD and acute on chronic CHF exacerbations is elsewhere. We will provide for patient safety; fall and aspiration precautions. Supportive therapy. PT/OT/ST evaluations are ordered. Low threshold for repeat head CT; will request recent CT/MRI results from [facility] for comparison. We have received MRI results from [facility] if comparison is necessary. (3) Acute on chronic renal failure Qualifiers: Chronic kidney disease stage: stage 4 (severe) Is this a current diagnosis for this admission?: Yes Plan: Stable; chronic. We will avoid nephrotoxic medications as able. Appreciate nephrology's evaluation and recommendations; fortunately, the patient is known to Dr. Elizondo and his PA. Appreciate their evaluation and recommendations. Will transition to p.o. furosemide today. Pre-renal diet, daily weights, strict I&Os. (4) CHF (congestive heart failure) Is this a current diagnosis for this admission?: Yes Plan: Appears to have resolved; proBNP is stable at 32K. Acute respiratory failure has resolving; lung sounds clear, no edema. Outpatient records reveal that she recently had a non-STEMI at [facility]. Records from [facility] now in paper chart. Troponins indeterminately elevated, but stable 4. Will no longer trend. Echocardiogram revealed LVEF 65% The patient's home medication regiment of amlodipine, atorvastatin, Cardura, hydralazine, and Imdur are continued. Carvedilol discontinued secondary to bradycardia. Holding lisinopril secondary to acute worsening of renal failure. Transitioned to p.o. furosemide today. Cardiac diet, daily weights, strict I&Os. (5) Leukocytosis Is this a current diagnosis for this admission?: Yes Plan: Resolved. Leukocytosis is secondary to urinary tract infection. Blood cultures have no growth at 72 hours. Urine culture grew E. coli. Sputum culture has been ordered. The patient was empirically placed on IV cefepime, Levaquin, and vancomycin for coverage of healthcare associated pneumonia as the patient was recently admitted to an outpatient hospital. IV antibiotics have been discontinued. She received Vancomycin x3 days, Levaquin x3 days, Cefepime x 4 days. (6) Urinary tract infection Qualifiers: Urinary tract infection type: site unspecified Hematuria presence: without hematuria Qualified Code(s): N39.0 - Urinary tract infection, site not specified Is this a current diagnosis for this admission?: Yes Plan: Urinalysis is suggestive of UTI with small blood, moderate leuk esterase, 156 WBCs, and 3+ bacteria. The patient's mental status precludes her ability to confirm symptoms. Urine culture positive for E. coli. Repeat UA this am much improved; trace leuk exterase, 24 WBC, trace bacteria. Recieved cefepime x4 days. Will continue ceftin 250 mg BID to complete a total 10 day course. Will d/c matos in am to allow for continued I&O monitoring after transition to p.o. lasix. (7) Diabetes Qualifiers: Diabetes mellitus type: type 2 Diabetes mellitus termination clerk insulin use: with termination clerk use Chronic kidney disease stage: stage 4 (severe) Is this a current diagnosis for this admission?: Yes Plan: The patient is placed on a consistent carb diet. Accu-Cheks before meals and at bedtime with Humalog for sliding scale coverage. Hypoglycemia protocols are in place. (8) Anemia Qualifiers: Anemia type: due to chronic kidney disease Chronic kidney disease stage: stage 4 (severe) Qualified Code(s): N18.4 - Chronic kidney disease, stage 4 ( severe); D63.1 - Anemia in chronic kidney disease; D63.1 - Anemia in chronic kidney disease Is this a current diagnosis for this admission?: Yes Plan: Hgb 9.7 on admission; slight downward trend to 7.6. Now improved to 8.8 Occult stool is pending. No outward sign of bleeding. Anemia panel reviewed. Plan per nephrology. Has been provided Procrit. Will monitor and transfuse for Hgb <7 or if active bleeding. (9) Hx of non-ST elevation myocardial infarction (NSTEMI) Is this a current diagnosis for this admission?: No Plan: Continue daily statin and ASA therapy. Will monitor on continuous cardiac telemetry. EKG revealed NSR without ST elevation or depression. Trending troponins. Have requested recent echocardiogram from [facility]. (10) Hx of intracranial hemorrhage Is this a current diagnosis for this admission?: No Plan: The patient was recently admitted to [facility] with intracranial hemorrhage, cerebral edema, encephalopathy, and non-STEMI. We will continue her daily aspirin therapy. We will hold on DVT prophylaxis heparin/Lovenox due to recent hemorrhage; she is placed on SAKINA hose and SCDs. We will request recent head CT/MRI. Low threshold for repeat imaging if the patient develops hypertensive urgency, further decreased mental status from present, seizure-like activity, or other signs/symptoms of acute process. - Time Time Spent with patient: 15-24 minutes Medications reviewed and adjusted accordingly: Yes Anticipated discharge: SNF - Established resident at [facility] Within: within 24 hours
[2018-05-13] MEDS: CEFUROXIME 250 MG TABLET PO SCH (18:25)
--- NOTE | 2018-05-13 19:20 | PROGRESS NOTE E ---
Progress Note NAME: KAM DEAN : 1940 AGE: 78Y DATE: 05/13/2018 ROOM: 309 SUBJECTIVE: Note, the patient remains in sinus rhythm. Her heart rate is much improved. The patient is nonverbal, but seems to be awake. There is no arrhythmia seen on the monitor. Unable to get any further history, since the patient does not respond verbally. OBJECTIVE: GENERAL: On examination, the patient appears to be chronically ill. She is well-groomed. VITAL SIGNS: She is afebrile, with a temperature of 98.3 degrees Fahrenheit, a pulse of 70 beats per minute, blood pressure 122/56, respirations of 16 per minute. O2 sats are 99% on 1 liter nasal cannula. HEENT: Head is atraumatic, normocephalic. Eyes: Pupils are equal, round, regular, reactive to light. ENT is negative. NECK: Supple. There is no JVD. Carotids are equal. There is no bruit. There is no lymphadenopathy. There is no goiter. There is no JVD. Trachea is central. LUNGS: Clear to auscultation and percussion. HEART: S1, S2 are heard. There is no S3 gallop. There is no S4 gallop. There is a systolic murmur at the left sternal border, at the apex. There is no rub. ABDOMEN: Soft, nontender. There is no hepatosplenomegaly. Bowel sounds are well-heard. There are no tender areas or masses. EXTREMITIES: Femorals are diminished. There are no femoral bruits. Leg pulses are diminished. There is no pedal edema. There is no DVT or cellulitis. There is no cyanosis or clubbing. DIRECTOR OF HOME ECONOMICS: The patient is conscious and awake, but nonverbal. She does move all 4 extremities. PSYCHIATRIC: The patient does not appear to be agitated. Full psychiatric exam could not be done. DIAGNOSTICS: The patient's white count is 8400, hemoglobin is 8.8, hematocrit is 25.6 and the platelet count is 190,000. The patient's sodium is 146.5, potassium 3.6, chloride is 110, CO2 is 24. The patient's BUN is 66, creatinine is 4.53. GFR is reduced at 11, which is chronic kidney disease, stage 5. His glucose is 79. Calcium is 9.3. IMPRESSION: 1. BRADYCARDIA, SECONDARY TO BETA CLEMENCIA, HAS RESOLVED. Heart rate has come up. Will slowly restart the patient on Coreg 3.125 mg p.o. q.12 hours and increase as tolerated. 2. ALTERED MENTAL STATUS, SECONDARY TO METABOLIC ENCEPHALOPATHY. 3. ACUTE RESPIRATORY FAILURE WITH HYPOXEMIA, WHICH SEEMS TO HAVE RESOLVED. Her O2 sats are acceptable. 4. ACUTE ON CHRONIC RENAL FAILURE. The patient is chronic kidney disease, stage 5. 5. CONGESTIVE HEART FAILURE, MOST LIKELY DIASTOLIC HEART FAILURE, SECONDARY TO VOLUME OVERLOAD. At present, seems to be compensated. 6. URINARY TRACT INFECTION. Patient on antibiotics. 7. DIABETES MELLITUS. 8. ANEMIA, MOST LIKELY SECONDARY TO CHRONIC DISEASE. 9. PAST HISTORY OF NON-ST ELEVATION DC. 10. PAST HISTORY OF INTRACRANIAL HEMORRHAGE. RECOMMENDATIONS: As mentioned earlier, continue current medications. The patient is on aspirin. Would restart the patient's Coreg at 3.125 mg p.o. q.12 hours and increase as tolerated. Continue hydralazine, isosorbide mononitrate and Lasix. Continue respiratory treatment. Continue statin. Continue amlodipine. Note, 40 minutes spent on this patient, with more than 50% of the time spent on direct patient care. Medical decision-making is of moderate to high complexity. Dr. Denton will follow the patient in the a.m. DICTATING PHYSICIAN: LORENZA RING M.D. [id number] PHY#: [id number] ID: [id number] JOB#: [id number] ACCT: [id number] cc: >
[2018-05-13] MEDS: ATORVASTATIN CALCIUM 20 MG TABLET PO SCH (22:49)
[2018-05-13] MEDS: CARVEDILOL 3.125 MG TABLET PO SCH (22:50)
[2018-05-14 05:18] LABS: HEMOGLOBIN 8.5 g/dL (12.0-15.5); MEAN CORPUSCULAR HEMOGLOBIN 29.4 pg (27.0-33.4); MEAN CORPUSCULAR HGB CONC 34.2 g/dL (32.0-36.0); MEAN CORPUSCULAR VOLUME 86 fl (80-97); PLATELET COUNT 210 10^3/uL (150-450); RED CELL DISTRIBUTION WIDTH 16.2 % (11.5-14.0); WHITE BLOOD COUNT 10.6 10^3/uL (4.0-10.5)
[2018-05-14] MEDS: CEFUROXIME 250 MG TABLET PO SCH (05:22)
[2018-05-14] MEDS: HYDRALAZINE HCL 50 MG TABLET PO SCH ×2 (05:23→13:32)
[2018-05-14 06:05] LABS: ANION GAP 12 (5-19); BLOOD UREA NITROGEN 63 mg/dL (7-20); CARBON DIOXIDE 26 mmol/L (22-30); CHLORIDE 109 mmol/L (98-107); GLUCOSE 90 mg/dL (75-110); POTASSIUM 3.2 mmol/L (3.6-5.0); SODIUM 146.6 mmol/L (137-145)
[2018-05-14] MEDS ORDERED: POTASSIUM CHLORIDE 20 MEQ/15 ML UDCUP PO ONE (09:00)
[2018-05-14] MEDS: ASPIRIN 81 MG TABLET, CHEWABLE PO SCH (09:44)
[2018-05-14] MEDS: FERROUS SULFATE 325 MG TABLET PO SCH (09:44)
[2018-05-14] MEDS: DOXAZOSIN MESYLATE 2 MG TABLET PO SCH (09:44)
[2018-05-14] MEDS: ESCITALOPRAM OXALATE 10 MG TABLET PO SCH (09:45)
[2018-05-14] MEDS: ISOSORBIDE MONONITRATE 60 MG TAB.ER.24H PO SCH (09:45)
[2018-05-14] MEDS: FUROSEMIDE 40 MG TABLET PO SCH (09:45)
[2018-05-14] MEDS: CARVEDILOL 3.125 MG TABLET PO SCH (09:45)
[2018-05-14] MEDS: AMLODIPINE BESYLATE 10 MG TABLET PO SCH (09:46)
--- NOTE | 2018-05-14 10:35 | CONSULTATION REPORT E ---
Consultation Report NAME: KMA DEAN : 1940 AGE: 78Y DATE: 05/12/2018 309 A TO: LORENZA RING M.D. FROM: DOUGLAS CERVANTES M.D. Requesting Physician PHYSICAL EXAMINATION: GENERAL: On physical examination the patient is conscious but confused with no focal deficit. PSYCHIATRIC: The patient does not appear to be agitated. DIAGNOSTICS: The patient's EKG done yesterday shows sinus bradycardia with a heart rate of 43 beats per minute, otherwise within normal limits. The patient's echocardiogram done there is normal left ventricular wall thickness and ejection fraction is 65%. The left ventricular systolic function is normal. There is no wall motion . There is no mitral valve stenosis. There is no mitral prolapse. There is mild to moderate mitral regurgitation. There is no aortic valve stenosis. There is no aortic regurgitation. There is no tricuspid stenosis. There is mild tricuspid regurgitation. Right ventricle systolic pressure is moderately increased at 10 mmHg with a RA mean of 5-10. There is no pericardial effusion. There is a small left pleural effusion. LABORATORY: The patient's white count is 9600, hemoglobin is 9, hematocrit is 23.4, platelet count is 189,000. The patient's sodium is 145, potassium 4.3, chloride 110, CO2 is 110. The patient's BUN is 71, creatinine is 4.59. GFR is reduced at 11 which is chronic kidney disease stage V. Glucose is 76, calcium is 9.0. IMPRESSION: 1. Bradycardia secondary to the beta ry. Note, the heart rate has improved after stopping of beta ry. 2. Acute respiratory failure with hypoxemia, improved. 3. Metabolic encephalopathy, still patient appears to be confused. 4. Acute on chronic renal failure. At present patient approaching end-stage renal disease. 5. History of congestive heart failure at present most likely secondary to volume overload since patient's systolic function is normal. 6. Urinary tract infection. Patient on antibiotics. 7. Diabetes mellitus. 8. Past history of intracranial hemorrhage. 9. Recent history of non-ST elevation myocardial infarction. The patient on statin and aspirin. RECOMMENDATIONS: Would stop the patient's beta ry and reassess and see if she can be started on a smaller dose. Derek has been discussed with the patient's attending physician. Note, medical decision-making is of moderate complexity. Medications have been reviewed and medications adjusted. Note, 50 minutes spent on this patient with more than 50% of the time spent on direct patient care. Will try to get the patient's medical records from [facility]. Thanking you. Will follow with you. DICTATING PHYSICIAN: LORENZA RING M.D. [id number] PHY#: [id number] ID: [id number] JOB#: [id number] ACCT: [id number] cc:LORENZA RING M.D. >
--- NOTE | 2018-05-14 10:36 | CONSULTATION REPORT E ---
Consultation Report NAME: KAM DEAN : 1940 AGE: 78Y DATE: 05/12/2018 309 A TO: LORENZA RING M.D. FROM: DOUGLAS CERVANTES M.D. Requesting Physician REASON FOR CONSULTATION: Pericardial . HISTORY OF PRESENT ILLNESS: Note the patient has dementia and is not able to give a good history. Her records were reviewed. She has a history of being admitted this admission for acute on chronic respiratory failure with hypoxemia, acute on chronic renal failure and also urinary tract infection and metabolic encephalopathy. The patient is found to be bradycardia with a heart rate of 30s to 40s with a stable blood pressure that the patient was on Coreg 12.5 mg p.o. b.i.d. which has been stopped and the patient's heart rate is now 57 beats per minute. The patient appears to be comfortable. There is no leg edema. The patient is able to lie down flat. No other history obtainable. PAST MEDICAL HISTORY: Positive for a history of hypertension, which is difficult to control. She has a history of diabetes mellitus type 2. She has history of chronic kidney disease stage 4. She has a past history of CVA, the details of which are not apparent but has fully. She also has a history of GERD. She, as per records, was recently admitted to [facility] with non-ST elevation CA. The patient in the past had an LV ejection fraction which is severely depressed at 25-30% but recently her LV ejection fraction has been within normal limits. In September 2017, the patient had an echo which showed normal LV ejection fraction. The patient also has a history of depression and also has a history of dementia. PAST SURGICAL HISTORY: Positive for cardiac catheterization, cholecystectomy, and orthopedic surgery of the right hand. SOCIAL HISTORY: The patient lives with family. She is a former smoker but there is no history of EtOH abuse. She quit smoking a long time ago. ADVANCE DIRECTIVES: The patient is a FULL CODE. Her brother, Jeremi Rodriguez, is her healthcare power of civil rights attorney/surrogate healthcare decision maker. Previous symptoms not obtainable. MEDICATIONS: Medication records have been reviewed and note her Coreg has been discontinued by me. ALLERGIES: The patient has no known medical allergies. PHYSICAL EXAMINATION: GENERAL: On examination the patient is well-built and well-nourished. She appears to be well-groomed, although appears to be depressed and with a flat affect. VITAL SIGNS: On examination, patient's temperature is 99.3 degrees Fahrenheit, her pulse is 57 beats per minute, blood pressure is 142/42, respirations are 12 per minute, O2 saturations are 98% on 2 L. HEENT: Head is atraumatic, normocephalic. Eyes: Pupils are equal, round and regular, reactive to light and accommodation. There is no conjunctival pallor. There is no scleral icterus. Ears: Tympanic membranes are intact, external auditory canals are clear. Nose: There is no deviated nasal septum, there is no inflammation of the nasal mucous membrane. Mouth: Mucous membranes of the mouth are moist. Tongue is moist. There is no ulcer. There is no bleeding from the gums. Throat: There is no redness of the oropharynx. There are no exudates. SKIN: There are no skin rashes. There is no petechiae or ecchymosis. There is no skin lesion. NECK: Supple. There is no JVD. Carotids are equal. There is no bruit. There is no lymphadenopathy. There is no goiter. Trachea is central. LUNGS: Clear to auscultation and percussion. HEART: S1, S2 is heard. S1 is of normal intensity. There is no S3 gallop. There is no S4 gallop. There is a systolic murmur in the left sternal border and the apex. There is no rub. ABDOMEN: Soft, nontender. There is no hepatosplenomegaly. Bowel sounds are well heard. There are no tender areas or masses. EXTREMITIES: Femorals are slightly diminished. Leg pulses are diminished. At present there is no pedal edema. There is no cyanosis or clubbing. CENTRAL NERVOUS SYSTEM: The patient is conscious, awake, alert, oriented x3 with no focal deficits. END OF DICTATION DICTATING PHYSICIAN: LORENZA RING M.D. [id number] PHY#: [id number] ID: [id number] JOB#: [id number] ACCT: [id number] cc:LORENZA RING M.D. >
--- NOTE | 2018-05-14 13:47 | PDOC PROGRESS REPORT ---
Subjective Progress Note for:: 05/14/18 Subjective:: Patient was sitting up in her bed at the time eating strawberries. She was altered and not speaking much. She was not able to answer any of the questions I was asking her. Reason For Visit: ACUTE RESPIRATORY FAILURE,MULTIFOCAL PNA, Physical Exam Vital Signs: Temp Pulse Resp BP Pulse Ox 99.0 F 81 16 153/45 H 97 05/14/18 11:25 05/14/18 11:48 05/14/18 11:48 05/14/18 11:25 05/14/18 11:48 Intake & Output 05/13/18 05/14/18 05/15/18 06:59 06:59 06:59 Intake Total 265 100 Output Total 2275 4700 Balance -2009 Weight 81.8 kg 80.4 kg General appearance: PRESENT: no acute distress, well-developed, well-nourished Mouth exam: PRESENT: moist, neck supple Neck exam: ABSENT: JVD Respiratory exam: PRESENT: clear to auscultation santa. ABSENT: accessory muscle use, crackles, rales, rhonchi, wheezes Cardiovascular exam: PRESENT: RRR, +S1, +S2 GI/Abdominal exam: PRESENT: soft. ABSENT: ascites, distended, mass, tenderness Extremities exam: ABSENT: pedal edema, tenderness, +1 edema, +2 edema Musculoskeletal exam: PRESENT: normal inspection. ABSENT: tenderness Neurological exam: PRESENT: altered, awake. ABSENT: oriented to person, oriented to place, oriented to time, oriented to situation Psychiatric exam: PRESENT: appropriate affect, normal mood Skin exam: PRESENT: dry, intact, warm Results Laboratory Results: 05/14/18 04:41 05/14/18 04:41 05/14/18 05/14/18 04:41 04:41 WBC 10.6 H RBC 2.90 L Hgb 8.5 L Hct 25.0 L MCV 86 MCH 29.4 MCHC 34.2 RDW 16.2 H Plt Count 210 Sodium 146.6 H Potassium 3.2 L Chloride 109 H Carbon Dioxide 26 Anion Gap 12 BUN 63 H Creatinine 4.00 H Est GFR ( Amer) 13 L Est GFR (Non-Af Amer) 11 L Glucose 90 Calcium 9.0 05/09/18 05/09/18 05/09/18 10:15 15:55 21:28 Troponin I 0.044 0.041 0.044 NT-Pro-B Natriuret Pep 05/10/18 05/11/18 05/12/18 04:25 04:19 04:06 Troponin I NT-Pro-B Natriuret Pep 51262 H 70210 H 55742 H Impressions: Chest X-Ray 05/10/18 06:00 IMPRESSION: Findings are most consistent with resolving vascular congestion. Assessment & Plan - Diagnosis (1) Acute on chronic renal failure Is this a current diagnosis for this admission?: Yes Plan: patient is trending toward baseline, at this time she is stable and can be discharged from nephrology's standpoint. Recommend she follows up in 10 to 14 days with me in the office. (2) Anemia Qualifiers: Qualified Code(s): N18.4 - Chronic kidney disease, stage 4 (severe); D63.1 - Anemia in chronic kidney disease; D63.1 - Anemia in chronic kidney disease Plan: will look to continue her on procrit (3) CHF (congestive heart failure) Is this a current diagnosis for this admission?: Yes Plan: improved (4) Multifocal pneumonia Plan: resolving (5) Urinary tract infection Qualifiers: Qualified Code(s): N39.0 - Urinary tract infection, site not specified Is this a current diagnosis for this admission?: Yes Plan: resolving (6) Acute encephalopathy Plan: looks to have a baseline altered mental status since the stroke a month ago (7) Uncontrolled hypertension Plan: mostly controlled (8) Diabetes Qualifiers: Qualified Code(s): E11.22 - Type 2 diabetes mellitus with diabetic chronic kidney disease; N18.4 - Chronic kidney disease, stage 4 (severe); N18.4 - Chronic kidney disease, stage 4 (severe); N18.4 - Chronic kidney disease, stage 4 (severe); N18.4 - Chronic kidney disease, stage 4 (severe); Z79.4 - FDC (current) use of insulin; Z79.4 - FDC (current) use of insulin; Z79.4 - FDC (current) use of insulin; 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
--- NOTE | 2018-05-14 13:55 | PDOC TRANSFER SUMMARY ---
General - Admit/Disc Date/PCP Admission Date/Primary Care Provider: 05/09/18 07:39 ROSY ARIZMENDI, DO Discharge Date: 05/14/18 - Discharge Diagnosis (1) Acute respiratory failure with hypoxia Is this a current diagnosis for this admission?: Yes Summary: Resolved. The patient was admitted by EMS with report of respiratory distress and recent outpatient diagnosis of pneumonia. She was found to have a room air oxygen saturation in the 80s. Her acute respiratory distress with was presumed to be related to pulmonary edema in the setting of acute on chronic renal failure and CHF exacerbation. She was empirically placed on IV antibiotics for concern for healthcare acquired pneumonia. This has subsequently been ruled out. Her medications were optimized for control of her chronic renal insufficiency and CHF. She is successfully been weaned from supplemental oxygen. She is discharged to [facility] where she is an established resident. Recommendations are for the patient to follow-up with her primary care provider within [address] Elizondo within 10-14 days. She should have repeat CBC and BMP evaluated within 1 week. (2) Metabolic encephalopathy Is this a current diagnosis for this admission?: Yes Summary: Resolved; secondary to hypoxia, acute on chronic kidney failure, CHF exacerbation, and urinary tract infection. The patient presented with a report of decreased mental status from her baseline. Of note, the patient was recently discharged from an outside facility with intracranial hemorrhage and cerebral edema; per the records, the patient is oriented to self at baseline, impulsive, incontinent and requires assistance with meals. Upon admission, the patient was noted to be somnolent but arousable and unable to answer questions or follow commands. She is now oriented to self and intermittently appropriately conversational. She does follow commands with prompting. (3) Acute on chronic renal failure Is this a current diagnosis for this admission?: Yes Summary: Improving. The patient was found to have fluid volume overload; her gabapentin and lisinopril were discontinued. Her Bumex was held and she was provided diuresis with IV furosemide. She had excellent urinary output with resolution of pumonary edema and downward trend in creatinine; currently 4.0. Nephrology was consulted and aided in management of renal function. They have cleared her for discharge. She is discharged with a prescription for p.o. furosemide. (4) CHF (congestive heart failure) Is this a current diagnosis for this admission?: Yes Summary: Stable; chronic. The patient was admitted with a CHF exacerbation evidenced by pulmonary edema. Her proBNP noted to be 32,000. Her acute respiratory failure and pulmonary edema resolved with IV furosemide. She did experience some bradycardia and therefore her carvedilol dose was reduced from 12.5 twice daily to 3.5 twice daily. Echocardiogram at our facility as this admission demonstrated LVEF 65%. (5) Leukocytosis Is this a current diagnosis for this admission?: Yes Summary: Improving; secondary to urinary tract infection and inflammatory response to acute respiratory failure. Blood cultures were negative at 5 days. Urine culture demonstrated E. coli with minimal resistance. (6) Urinary tract infection Is this a current diagnosis for this admission?: Yes Summary: The patient's urinalysis was suggestive of urinary tract infection. Urine culture revealed E. coli. She was initially placed on cefepime and vancomycin for concern for age; this is been ruled out. Once culture results were available she was transitioned to oral Ceftin for completion of antibiotic therapy. She is discharged with a prescription for Ceftin to complete a total of 10 days of antibiotic therapy. (7) Diabetes Is this a current diagnosis for this admission?: Yes (8) Anemia Is this a current diagnosis for this admission?: Yes Summary: Chronic, secondary to chronic renal insufficiency. She was provided Procrit during this admission. Hemoglobin now stable at 8.5; trending up. (9) Hx of non-ST elevation myocardial infarction (NSTEMI) Is this a current diagnosis for this admission?: No (10) Hx of intracranial hemorrhage Is this a current diagnosis for this admission?: No - Additional Information Resuscitation Status: Full Code Discharge Diet: Cardiac, Other (Comments) - Pre-Renal Discharge Activity: Activity As Tolerated, Balance Activity w/Rest Prescriptions: Carvedilol [Coreg 3.125 mg Tablet] 3.125 mg PO Q12 #60 tablet Cefuroxime Axetil [Ceftin 250 mg Tablet] 250 mg PO Q12A #14 tablet Furosemide [Lasix 40 mg Tablet] 40 mg PO BID #60 tablet Potassium Chloride 20 meq PO DAILY #30 tablet.er Home Medications: Alprazolam [Xanax] 0.25 mg PO BIDP PRN 05/09/18 Amlodipine Besylate [Norvasc 10 mg Tablet] 10 mg PO DAILY 05/09/18 Aspirin [Aspirin 81 mg Chewable Tablet] 81 mg PO DAILY 05/09/18 Atorvastatin Calcium [Lipitor 20 mg Tablet] 20 mg PO QHS 05/09/18 Calcitriol [Rocaltrol 0.25 mcg Capsule] 0.25 mcg PO MOWEFR@1000 05/09/18 Clonidine HCl [Catapres 0.1 mg Tablet] 0.1 mg PO Q8HP PRN 05/09/18 Doxazosin Mesylate [Cardura 2 mg Tablet] 2 mg PO Q12 05/09/18 Escitalopram Oxalate [Lexapro] 20 mg PO DAILY 05/09/18 Ferrous Sulfate [Feosol 325 mg Tablet] 325 mg PO BID 05/09/18 Hydralazine HCl 100 mg PO Q8 05/09/18 Isosorbide Mononitrate [Isosorbide Mononitrate ER] 120 mg PO DAILY 05/09/18 Multivit,Tx with Iron,Minerals [Thera-M] 1 tab PO WSUPPER 05/09/18 Nitroglycerin [Nitrostat] 0.4 mg SL Q5MP PRN 05/09/18 Lynn-3 Fatty Acids/Fish Oil [Lynn-3 1,000 mg Softgel] 4 cap PO DAILY 05/09/18 Pantoprazole Sodium [Protonix] 40 mg PO DAILY 05/09/18 Carvedilol [Coreg 3.125 mg Tablet] 3.125 mg PO Q12 #60 tablet 05/14/18 Cefuroxime Axetil [Ceftin 250 mg Tablet] 250 mg PO Q12A #14 tablet 05/14/18 Furosemide [Lasix 40 mg Tablet] 40 mg PO BID #60 tablet 05/14/18 Potassium Chloride 20 meq PO DAILY #30 tablet.er 05/14/18 History of Present Illness Admission Date/PCP: 05/09/18 07:39 ROSY ARIZMENDI DO History of Present Illness: KAM DEAN is a 78 year old female with an extensive past medical history including recent admission to [facility] in April 2018 for ICH, non- STEMI, encephalopathy, as well as, CHF, CAD, HTN, HLD, CKD3, IDDM, hypothyroidism, history of hepatitis C, and bipolar disorder who presented to the emergency department today from [facility] via EMS with report of decreased alertness. The patient was noted to be in respiratory distress, initially presumed to be related to treated with IV magnesium, Solu-Medrol, and nebulizer treatments. Evaluation in the emergency department reveals leukocytosis (WBC 14.3), baseline anemia (hemoglobin 9.7), hypernatremia (sodium 145.9), acute on chronic renal insufficiency (creatinine of 4.77, BUN 53, GFR 11), indeterminately elevated troponin (0.037), elevated proBNP (25k decreased from 100 k 03/26), EKG demonstrating normal sinus rhythm, and a chest x-ray which revealed pulmonary edema versus multifocal pneumonia. The patient is referred to the hospitalist service for admission and management of metabolic encephalopathy (unclear baseline), acute on chronic renal failure, and mild respiratory distress. Physical Exam Vital Signs: Temp Pulse Resp BP Pulse Ox 99.0 F 81 16 153/45 H 97 05/14/18 11:25 05/14/18 11:48 05/14/18 11:48 05/14/18 11:25 05/14/18 11:48 Intake & Output 05/13/18 05/14/18 05/15/18 06:59 06:59 06:59 Intake Total 265 100 Output Total 2275 1210 Weight 81.8 kg 80.4 kg Results Laboratory Results: 05/14/18 04:41 05/14/18 04:41 05/14/18 05/14/18 04:41 04:41 WBC 10.6 H RBC 2.90 L Hgb 8.5 L Hct 25.0 L MCV 86 MCH 29.4 MCHC 34.2 RDW 16.2 H Plt Count 210 Sodium 146.6 H Potassium 3.2 L Chloride 109 H Carbon Dioxide 26 Anion Gap 12 BUN 63 H Creatinine 4.00 H Est GFR ( Amer) 13 L Est GFR (Non-Af Amer) 11 L Glucose 90 Calcium 9.0 05/09/18 05/09/18 05/09/18 10:15 15:55 21:28 Troponin I 0.044 0.041 0.044 NT-Pro-B Natriuret Pep 05/10/18 05/11/18 05/12/18 04:25 04:19 04:06 Troponin I NT-Pro-B Natriuret Pep 83975 H 04241 H 43519 H Impressions: Chest X-Ray 05/10/18 06:00 IMPRESSION: Findings are most consistent with resolving vascular congestion. Transfer Plan - Disposition Transfer Plan: Discharge to SNF; pr is an established resident at [facility]. - Time Spent with Patient Time spent with patient: Less than 30 Minutes Qualifiers - * PATIENT BEING DISCHARGED WITH ANY OF THE FOLLOWING DIAGNOSIS: Heart Failure HF Pt being discharged on ACEI for LVEF less than 40%?: No Reason(s) for not prescribing ACEI:: Medical Contraindication HF Pt being discharged on ARBS for LVEF less than 40%?: No Reason(s) for not prescribing ARBS:: Medical Contraindication HF Pt with Afib discharged with Warfarin?: No Reason(s) for not prescribing Warfarin:: Not indicated - NSR HF Pt discharged on evidence-based Beta Jacob:: Yes Plan Discharge Plan: Discharge to [facility]. Follow up with Primary Care Provider within 1 week. Follow up with Dr. Elizondo within 10-14 days. Recommend repeat CBC and BMP within 1 week. Time Spent: Less than 30 Minutes
[2018-05-14 15:28] VITALS: BP 135/44
== END 2018-05-14 16:35 | DRG 193 ==
LOC: ER 01:38 → EH 07:39 → 3N 17:52
PROVIDERS: ADMIT Internal Medicine; ATTEND Internal Medicine
PROC: 3E0F73Z Introduction of Anti-inflammatory into Respiratory Tract, Via Natural or Artificial Opening (ICD-10-PCS; principal; 2018-05-09)
DX: J18.9 Pneumonia, unspecified organism (principal); J96.21 Acute and chronic respiratory failure with hypoxia; G93.41 Metabolic encephalopathy; N17.0 Acute kidney failure with tubular necrosis; I50.33 Acute on chronic diastolic (congestive) heart failure; N18.4 Chronic kidney disease, stage 4 (severe); I13.0 Hypertensive heart and chronic kidney disease with heart failure and stage 1 through stage 4 chronic kidney disease, or unspecified chronic kidney disease; E11.22 Type 2 diabetes mellitus with diabetic chronic kidney disease; D63.1 Anemia in chronic kidney disease; I25.10 Atherosclerotic heart disease of native coronary artery without angina pectoris; E03.9 Hypothyroidism, unspecified; F31.9 Bipolar disorder, unspecified; B96.20 Unspecified Escherichia coli [E. coli] as the cause of diseases classified elsewhere; F03.90 Unspecified dementia, unspecified severity, without behavioral disturbance, psychotic disturbance, mood disturbance, and anxiety; K21.9 Gastro-esophageal reflux disease without esophagitis; R00.1 Bradycardia, unspecified; I34.0 Nonrheumatic mitral (valve) insufficiency; E87.6 Hypokalemia; E83.42 Hypomagnesemia; M16.10 Unilateral primary osteoarthritis, unspecified hip; E78.00 Pure hypercholesterolemia, unspecified; E66.9 Obesity, unspecified; T50.995A Adverse effect of other drugs, medicaments and biological substances, initial encounter; Y92.9 Unspecified place or not applicable; F41.9 Anxiety disorder, unspecified; Z68.28 Body mass index [BMI] 28.0-28.9, adult; I25.2 Old myocardial infarction; Z79.899 Other long term (current) drug therapy; Z79.82 Long term (current) use of aspirin; Z79.4 Long term (current) use of insulin; Z86.19 Personal history of other infectious and parasitic diseases; Z90.49 Acquired absence of other specified parts of digestive tract; Z87.891 Personal history of nicotine dependence; Z95.5 Presence of coronary angioplasty implant and graft; Z86.73 Personal history of transient ischemic attack (TIA), and cerebral infarction without residual deficits; Z82.3 Family history of stroke; Z83.3 Family history of diabetes mellitus; Z82.49 Family history of ischemic heart disease and other diseases of the circulatory system
CPT/HCPCS: 36415; 71045; 80048; 80053; 81001; 82140; 82550; 82607; 82728; 82746; 82803; 82962; 83540; 83550; 83605; 83735; 83880; 84484; 85025; 85027; 85045; 87040; 87086; 87088; 87186; 93005; 93010; 93306; 94640; 96374; 96375; 96376; 99285; G8978-GP; G8979-GP; G8987-GO; G8988-GO; G8996-GN; G8997-GN; G8998-GN; J0692; J1940; J1956; J2060; J2405; J2930; J3370; J3475; J3490; J7060; J7620; Q4081; S0028

== ENCOUNTER 2018-05-23 16:10 | Emergency (ER) | payer MEDICARE ==
[2018-05-23] MEDS ORDERED: ASPIRIN 81 MG TABLET, CHEWABLE PO ONE (16:36)
--- NOTE | 2018-05-23 16:37 | ER Document Report ---
ED Medical Screen (RME) - General Chief Complaint: Irregular Pulse Stated Complaint: LOW HEART RATE Time Seen by Provider: 05/23/18 16:30 Notes: 78 years old female with multiple cardiac history and other, bradycardia, presents today because her heart rate was fluctuating between 30-60 according to the visiting nurse. And also was having shortness of breath and lower leg swelling. On examination-bilateral inspiratory crackles were heard in the lower lung field. And also 2-3+ pitting edema over the ankle. TRAVEL OUTSIDE OF THE [place] IN LAST 30 DAYS: No - Related Data Allergies/Adverse Reactions: No Known Allergies Allergy (Verified 05/23/18 16:27) Past Medical History - Past Medical History Cardiac Medical History: Reports: Hx Congestive Heart Failure, Hx Coronary Artery Disease, Hx Heart Attack, Hx Hypercholesterolemia, Hx Hypertension Denies: Hx Peripheral Vascular Disease, Hx Pulmonary Embolism Pulmonary Medical History: Denies: Hx Tuberculosis Neurological Medical History: Reports: Hx Cerebrovascular Accident Endocrine Medical History: Reports: Hx Diabetes Mellitus Type 2, Hx Hypothyroidism Renal/ Medical History: Denies: Hx Peritoneal Dialysis GI Medical History: Reports: Hx Gastroesophageal Reflux Disease Musculoskeltal Medical History: 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 Psychiatric Medical History: Reports: Hx Anxiety, Hx Bipolar Disorder, Hx Depression Past Surgical History: Reports: Hx Cardiac Catheterization - stents, Hx Cholecystectomy, Hx Orthopedic Surgery - hand - Immunizations Hx Diphtheria, Pertussis, Tetanus Vaccination: Yes History of Influenza Vaccine for 07/2017 - 12/2017 Season: No Physical Exam - Vital signs Vitals: Temp Pulse Resp Pulse Ox 97.7 F 64 16 97 05/23/18 16:18 05/23/18 16:18 05/23/18 16:18 05/23/18 16:18 Course - Vital Signs Vital signs: Temp Pulse Resp BP Pulse Ox 97.7 F 64 16 97 05/23/18 16:18 05/23/18 16:18 05/23/18 16:18 05/23/18 16:18 Doctor's Discharge - Discharge Referrals: JOHN DELONG MD [Primary Care Provider] - Follow up as needed
[2018-05-23 17:16] LABS: INTERNATIONAL RATION (INR) 0.95; PROTHROMBIN TIME 13.2 SEC (11.4-15.4)
[2018-05-23 17:23] LABS: ABSOLUTE EOSINOPHILS # (AUTO) 0.4 10^3/uL (0.0-0.6); ABSOLUTE LYMPHOCYTES (AUTO) 2.8 10^3/uL (0.5-4.7); ABSOLUTE MONOCYTES (AUTO) 0.8 10^3/uL (0.1-1.4); ABSOLUTE NEUT (AUTO) 8.1 10^3/uL (1.7-8.2); BASOPHILS % (AUTO) 0.3 % (0-2); EOSINOPHILS % (AUTO) 3.2 % (0-6); HEMATOCRIT 29.7 % (36.0-47.0); HEMOGLOBIN 9.8 g/dL (12.0-15.5); LYMPHOCYTES % (AUTO) 23.3 % (13-45); MEAN CORPUSCULAR HEMOGLOBIN 28.3 pg (27.0-33.4); MEAN CORPUSCULAR HGB CONC 33.1 g/dL (32.0-36.0); MEAN CORPUSCULAR VOLUME 86 fl (80-97); MONOCYTES % (AUTO) 6.5 % (3-13); PLATELET COUNT 323 10^3/uL (150-450); RED BLOOD COUNT 3.47 10^6/uL (3.72-5.28); RED CELL DISTRIBUTION WIDTH 17.7 % (11.5-14.0); SEGMENTED NEUTROPHILS % (AUTO) 66.7 % (42-78); TOTAL CELLS COUNTED % (AUTO) 100 %; WHITE BLOOD COUNT 12.2 10^3/uL (4.0-10.5)
[2018-05-23 17:25] LABS: ALANINE AMINOTRANSFERASE 16 U/L (9-52); ALBUMIN 3.2 g/dL (3.5-5.0); ALKALINE PHOSPHATASE 66 U/L (38-126); ANION GAP 9 (5-19); ASPARTATE AMINO TRANSFERASE 26 U/L (14-36); BILIRUBIN,DIRECT 0.3 mg/dL (0.0-0.4); BILIRUBIN,TOTAL 0.6 mg/dL (0.2-1.3); BLOOD UREA NITROGEN 52 mg/dL (7-20); CALCIUM 9.1 mg/dL (8.4-10.2); CARBON DIOXIDE 29 mmol/L (22-30); CHLORIDE 110 mmol/L (98-107); CREATINE KINASE 32 U/L (30-135); GLUCOSE 123 mg/dL (75-110); POTASSIUM 3.7 mmol/L (3.6-5.0); SODIUM 148.3 mmol/L (137-145); TOTAL PROTEIN 6.9 g/dL (6.3-8.2)
--- NOTE | 2018-05-23 17:35 | RADIOLOGY REPORT (SQ) ---
EXAM DESCRIPTION: CHEST SINGLE VIEW COMPLETED DATE/TIME: 05/23/2018 5:13 pm REASON FOR STUDY: Shortness of breath COMPARISON: 05/10/2018 EXAM PARAMETERS: NUMBER OF VIEWS: One view. TECHNIQUE: Single frontal radiographic view of the chest acquired. RADIATION DOSE: NA LIMITATIONS: None. FINDINGS: LUNGS AND PLEURA: Possible small effusions. No opacities. MEDIASTINUM AND HILAR STRUCTURES: No masses. Contour normal. HEART AND VASCULAR STRUCTURES: Heart is enlarged. No evidence failure. BONES: No acute findings. HARDWARE: None in the chest. OTHER: No other significant finding. IMPRESSION: Cardiac enlargement without failure. Possible small effusions. TECHNICAL DOCUMENTATION: JOB ID: [id number] [employer]- All Rights Reserved Reading location - IP/workstation name: [email or web address]
[2018-05-23 17:38] LABS: CREATINE KINASE MB 0.57 ng/mL (<4.55); TROPONIN I 0.029 ng/mL
--- NOTE | 2018-05-23 18:34 | ER Document Report ---
ED General - General Chief Complaint: Irregular Pulse Stated Complaint: LOW HEART RATE Time Seen by Provider: 05/23/18 16:30 TRAVEL OUTSIDE OF THE [place] IN LAST 30 DAYS: No - HPI Notes: 78-year-old female with multiple medical problems including congestive heart failure and coronary artery disease presents with episode of low heart rate at home. She was discharged from the hospital earlier this month to a rehab facility. She has been home for 5 days. Visiting nurse stated that her heart rate was between 30 and 60. Patient has had no symptoms. She denies any chest pain, shortness of breath, lightheadedness. Denies any increased leg swelling from baseline. - Related Data Allergies/Adverse Reactions: No Known Allergies Allergy (Verified 05/23/18 16:27) Past Medical History - Social History Smoking Status: Former Smoker Chew tobacco use (# tins/day): No Frequency of alcohol use: None Drug Abuse: None Family History: CVA, DM, Hypertension Patient has suicidal ideation: No Patient has homicidal ideation: No - Past Medical History Cardiac Medical History: Reports: Hx Congestive Heart Failure, Hx Coronary Artery Disease, Hx Heart Attack, Hx Hypercholesterolemia, Hx Hypertension Denies: Hx Peripheral Vascular Disease, Hx Pulmonary Embolism Pulmonary Medical History: Reports: Hx Pneumonia Denies: Hx Tuberculosis Neurological Medical History: Reports: Hx Cerebrovascular Accident Endocrine Medical History: Reports: Hx Diabetes Mellitus Type 2, Hx Hypothyroidism Renal/ Medical History: Denies: Hx Peritoneal Dialysis GI Medical History: Reports: Hx Gastroesophageal Reflux Disease Musculoskeletal Medical History: 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 HENT: Negative for sore throat. Eyes: Negative for visual changes. Cardiovascular: Negative for chest pain. Positive for edema Respiratory: Negative for shortness of breath. Gastrointestinal: Negative for abdominal pain, vomiting or diarrhea. Genitourinary: Negative for dysuria. Musculoskeletal: Negative for back pain. Skin: Negative for rash. Neurological: Negative for headaches, weakness or numbness. 10 point ROS negative except as marked above and in HPI. Physical Exam - Vital signs Vitals: Temp Pulse Resp Pulse Ox 97.7 F 64 16 97 05/23/18 16:18 05/23/18 16:18 05/23/18 16:18 05/23/18 16:18 - Notes Notes: PHYSICAL EXAMINATION: GENERAL: Well-appearing, well-nourished and in no acute distress. HEAD: Atraumatic, normocephalic. EYES: Pupils equal round and reactive to light, extraocular movements intact, conjunctiva are normal. ENT: nares patent, oropharynx clear without exudates. Moist mucous membranes. NECK: Normal range of motion, supple without lymphadenopathy LUNGS: Breath sounds clear to auscultation bilaterally and equal. No wheezes rales or rhonchi. HEART: Occasional bradycardic rate and irregular rhythm, no chest wall tenderness ABDOMEN: Soft, nontender, normoactive bowel sounds. No guarding, no rebound. No masses appreciated. EXTREMITIES: Normal range of motion, 2+ bilateral pitting edema. No cyanosis. NEUROLOGICAL: Cranial nerves grossly intact. Normal speech, normal gait. Normal sensory and motor exams. PSYCH: Normal mood, normal affect. SKIN: Warm, Dry, normal turgor, no rashes or lesions noted. Course - Re-evaluation Re-evalutation: 05/23/18 18:31 All labs have significantly improved from prior admission May 18. Hemoglobin increased from 9.1-9.8. Creatinine decreased from 3.29-2.94. BNP decreased from prior, but is still chronically elevated at 23,000. Chest x-ray shows cardiomegaly with no signs of pulmonary edema and small pleural effusions. She has irregular heart rate with frequent PACs. Heart rate has remained in the 50s-60s. She was asymptomatic with the reported event at home and rate could have been confounded by PACs with compensatory pauses. Will discharge with primary care follow-up. At this time will discharge with return precautions and follow-up recommendations. Verbal discharge instructions given a the bedside and opportunity for questions given. Medication warnings reviewed. Patient is in agreement with this plan and has verbalized understanding of return precautions and the need for primary care follow-up in the next 24-72 hours. - Vital Signs Vital signs: Temp Pulse Resp BP Pulse Ox 97.7 F 64 20 188/58 H 97 05/23/18 16:18 05/23/18 16:18 05/23/18 18:02 05/23/18 18:02 05/23/18 18:02 - Laboratory Result Diagrams: 05/23/18 17:00 05/23/18 17:00 Laboratory results interpreted by me: 05/23/18 05/23/18 05/23/18 17:00 17:00 17:00 WBC 12.2 H RBC 3.47 L Hgb 9.8 L Hct 29.7 L RDW 17.7 H Sodium 148.3 H Chloride 110 H BUN 52 H Creatinine 2.94 H Est GFR ( Amer) 19 L Est GFR (Non-Af Amer) 16 L Glucose 123 H NT-Pro-B Natriuret Pep 57672 H Albumin 3.2 L Discharge - Discharge Clinical Impression: Bradycardia Condition: Stable Disposition: HOME, SELF-CARE Additional Instructions: 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 Return for any worsening or concerning symptoms. Referrals: JOHN DELONG MD [Primary Care Provider] - Follow up in 3-5 days
[2018-05-23 20:47] VITALS: BP 176/54
--- NOTE | 2018-05-24 07:34 | EKG REPORT ---
SEVERITY:- ABNORMAL ECG - SINUS RHYTHM PROBABLE LEFT ATRIAL ABNORMALITY PROBABLE LVH WITH SECONDARY REPOL ABNRM : Confirmed by: Doe Padilla MD 24-May-2018 07:33:56
== END 2018-05-23 20:35 | disposition home or self-care (01) ==
LOC: ER 16:10
DX: R00.1 Bradycardia, unspecified (principal); I50.9 Heart failure, unspecified; I25.10 Atherosclerotic heart disease of native coronary artery without angina pectoris; Z87.891 Personal history of nicotine dependence; I10 Essential (primary) hypertension; E78.00 Pure hypercholesterolemia, unspecified; E11.9 Type 2 diabetes mellitus without complications
CPT/HCPCS: 36415; 71045; 80053; 82550; 82553; 83880; 84484; 85025; 85610; 93005; 93010; 99285

== ENCOUNTER 2018-05-27 00:52 | Inpatient (IN) | payer MEDICARE ==
[2018-05-27] MEDS ORDERED: ONDANSETRON HCL INJ/PF 4 MG/2 ML SDV IV ONE (01:32)
[2018-05-27] MEDS ORDERED: NITROGLYCERIN/D5W 50 MG/250 ML RTUINJ IV PRN ×2 (01:37→04:43)
[2018-05-27] MEDS ORDERED: FUROSEMIDE INJ/PF 40 MG/4 ML SDV IV ONE (01:39)
--- NOTE | 2018-05-27 01:41 | ER Document Report ---
ED General - General Stated Complaint: NOT FEELING WELL Time Seen by Provider: 05/27/18 01:08 Cannot obtain history due to: Dementia, Unstable vital signs Notes: Patient is a 78-year-old female with a past medical history of dementia, chronic diastolic heart failure, chronic respiratory failure, hypertension, who presents by EMS for "not feeling well". The patient is unable to clarify any details why she is here with a course of her illness. She only repeats "help me " over and over again. She appears extremely unwell TRAVEL OUTSIDE OF THE [place] IN LAST 30 DAYS: No - Related Data Allergies/Adverse Reactions: No Known Allergies Allergy (Verified 05/23/18 16:27) Past Medical History - General Information source: Patient, Transfer Record, [facility] Records Cannot obtain history due to: Dementia, Unstable vital signs, Altered mental status - Social History Smoking Status: Unknown if Ever Smoked Frequency of alcohol use: None Drug Abuse: None Lives with: Jail Family History: CVA, DM, Hypertension - Past Medical History Cardiac Medical History: Reports: Hx Congestive Heart Failure, Hx Coronary Artery Disease, Hx Heart Attack, Hx Hypercholesterolemia, Hx Hypertension Denies: Hx Peripheral Vascular Disease, Hx Pulmonary Embolism Pulmonary Medical History: Reports: Hx Pneumonia Denies: Hx Tuberculosis Neurological Medical History: Reports: Hx Cerebrovascular Accident Endocrine Medical History: Reports: Hx Diabetes Mellitus Type 2, Hx Hypothyroidism Renal/ Medical History: Denies: Hx Peritoneal Dialysis GI Medical History: Reports: Hx Gastroesophageal Reflux Disease Musculoskeletal Medical History: 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 Psychiatric Medical History: Reports: Hx Anxiety, Hx Bipolar Disorder, Hx Depression Past Surgical History: Reports: Hx Cardiac Catheterization - stents, Hx Cholecystectomy, Hx Orthopedic Surgery - hand - Immunizations Hx Diphtheria, Pertussis, Tetanus Vaccination: Yes Hx Pneumococcal Vaccination: 01/11/12 Review of Systems - Review of Systems -: Yes ROS unobtainable due to patient's medical condition Physical Exam - Vital signs Vitals: Pulse Ox 96 05/27/18 01:28 Course - Re-evaluation Re-evalutation: 05/27/18 01:39 Patient presents in acute respiratory distress, breathing 36 times per minute, hypoxic to the low 80s on room air, was 94% on room air 4 days ago. She has been hospitalized previously earlier this month for CHF with associated pulmonary edema and distress this appears to be recurrence of the same. Patient has a known history of CKD stage III, diastolic heart failure although her ejection fraction on most recent echocardiogram was noted to be 65%. Patient was immediately assessed. Due to her ongoing distress despite 6 L by nasal cannula she was immediately therefore placed on BiPAP. Separable chest x- ray shows vascular congestion without overt pulmonary edema. Patient's blood pressure was noted be markedly elevated at 205 systolic. Patient will be started on aggressive nitro glycerin infusion starting at 80 mg/min after a milligram bolus. Will also give 40 mg of IV furosemide. Will obtain labs, continue on continuous monitor and reassess at regular intervals as the patient is currently critically ill. 05/27/18 02:46 Documentation is delayed as I have been continuous at the patient's bedside for approximate the past 1 hour. The patient continues respiratory distress although did have marked improvement after being placed on BiPAP. She is currently saturating 99% on 40% FiO2 12 on 6. The patient was an extremely difficult IV access. She had no visible external jugular veins. I attempted peripheral ultrasound to obtain peripheral access however on 4 separate occasions I was able to cannulate a brachial vein but was unable to thread or obtain appropriate blood return. Given the ongoing critical nature the patient , her markedly elevated blood pressure had need for IV nitroglycerin, IV furosemide, and her critical state I did proceed to place a right femoral central line without any complication. The patient was then given a 1 mg bolus of nitroglycerin. She has then been started on a nitroglycerin infusion of 80 mcg/min and will up titrate to target a systolic pressure of 160. 40 mg of furosemide is now been administered. 05/27/18 03:13 Nitroglycerin infusion has been increased 120 mcg/min. Patient's breathing continues to be improved on BiPAP. Blood pressure remains markedly elevated despite infusion of nitroglycerin and nitroglycerin bolus. 05/27/18 04:12 Patient's respiratory status remains overall unchanged. Mentation unchanged. She continues to ventilate well on BiPAP. Her nitroglycerin infusion has been increased to 180 mg/min as her systolic blood pressure continue to be elevated to the 190s. I discussed this case with Dr. King Guerra who is excepted the patient for admission. - Vital Signs Vital signs: Temp Pulse Resp BP Pulse Ox 24 H 200/94 H 98 05/27/18 03:51 05/27/18 03:51 05/27/18 03:51 - Laboratory Result Diagrams: 05/27/18 01:30 05/27/18 01:30 Laboratory results interpreted by me: 05/27/18 05/27/18 01:30 01:30 WBC 21.3 H RBC 3.71 L Hgb 10.5 L Hct 32.2 L RDW 18.7 H Monocytes % (Manual) 0 L Abs Neuts (Manual) 14.9 H Abs Lymphs (Manual) 6.2 H Abs Monocytes (Manual) 0.0 L NT-Pro-B Natriuret Pep 12906 H - Diagnostic Test Radiology reviewed: Image reviewed, Reports reviewed Radiology results interpreted by me: 05/27/18 03:14 Chest x-ray: Vascular congestion without overt pulmonary edema. Procedures - Central Line Right Femoral Consent obtained: Yes Central line pre-insertion: Sterile PPE donned, Chloraprep applied, Sterile drapes applied Central line lumen type: Triple Anesthetic type: 1% Lidocaine mL's of anesthesia: 4 Ultrasound guided: Yes CM at insertion site: 30 Line secured with sutures: Yes Central line post-insertion: Blood return from lumens, Biopatch applied, Sutured , Sterile dressing applied Number of attempts: 1 Complications: No Critical Care Note - Critical Care Note Total time excluding time spent on procedures (mins): 76 Comments: Critical care time spent obtaining history from patient or surrogate, discussions with consultants, development of treatment plan with patient or surrogate, evaluation of patient's response to treatment, examination of patient , ordering and performing treatments and interventions, ordering and review of laboratory studies, re-evaluation of patient's condition, ordering and review of radiographic studies and review of old charts Discharge - Discharge Clinical Impression: Hypoxia, Hypertensive emergency, Chronic renal insufficiency, stage IV (severe) CHF exacerbation Qualifiers: Heart failure type: unspecified Qualified Code(s): I50.9 - Heart failure, unspecified Condition: Critical Disposition: ADMITTED INPATIENT Admitting Provider: Hospitalist Unit Admitted: ICU Referrals: JOHN DELONG MD [Primary Care Provider] - Follow up as needed
--- NOTE | 2018-05-27 01:47 | RADIOLOGY REPORT (SQ) ---
EXAM DESCRIPTION: XR CHEST 1 VIEW COMPLETED DATE/TME: 05/27/2018 01:31 CLINICAL HISTORY: 78 years Female, resp distress COMPARISON: 8.15.18 NUMBER OF VIEWS/TECHNIQUE: 1/AP FINDINGS: Pulmonary vascular congestion, normal cardiac silhouette, increased lung volume. No pneumothorax. Stable bony thorax. IMPRESSION: No significant change.
[2018-05-27 02:01] LABS: HEMATOCRIT 32.2 % (36.0-47.0); HEMOGLOBIN 10.5 g/dL (12.0-15.5); MEAN CORPUSCULAR HEMOGLOBIN 28.4 pg (27.0-33.4); MEAN CORPUSCULAR HGB CONC 32.7 g/dL (32.0-36.0); MEAN CORPUSCULAR VOLUME 87 fl (80-97); PLATELET COUNT 308 10^3/uL (150-450); RED BLOOD COUNT 3.71 10^6/uL (3.72-5.28); RED CELL DISTRIBUTION WIDTH 18.7 % (11.5-14.0); WHITE BLOOD COUNT 21.3 10^3/uL (4.0-10.5)
[2018-05-27 02:24] LABS: ABSOLUTE LYMPHOCYTES# (MANUAL) 6.2 10^3/uL (0.5-4.7); ABSOLUTE NEUTROPHILS# (MANUAL) 14.9 10^3/uL (1.7-8.2); BASOPHILS % (MANUAL) 0 % (0-2); EOSINOPHILS % (MANUAL) 1 % (0-6); LYMPHOCYTES % (MANUAL) 29 % (13-45); MONOCYTES % (MANUAL) 0 % (3-13); SEGMENTED NEUTROPHILS % (MAN) 70 % (42-78); TOTAL CELLS COUNTED 100
[2018-05-27 02:25] LABS: ANISOCYTOSIS 1+; PLATELET COMMENT ADEQUATE; POLYCHROMASIA 1+
[2018-05-27] MEDS ORDERED: ALPRAZOLAM 0.25 MG TABLET PO PRN (04:40)
[2018-05-27 04:41] LABS: ALANINE AMINOTRANSFERASE 22 U/L (9-52); ALBUMIN 2.8 g/dL (3.5-5.0); ALKALINE PHOSPHATASE 74 U/L (38-126); ANION GAP 12 (5-19); ASPARTATE AMINO TRANSFERASE 19 U/L (14-36); BILIRUBIN,DIRECT 0.3 mg/dL (0.0-0.4); BILIRUBIN,TOTAL 0.7 mg/dL (0.2-1.3); BLOOD UREA NITROGEN 50 mg/dL (7-20); CALCIUM 9.1 mg/dL (8.4-10.2); CARBON DIOXIDE 26 mmol/L (22-30); CHLORIDE 111 mmol/L (98-107); GLUCOSE 220 mg/dL (75-110); SODIUM 148.8 mmol/L (137-145); TOTAL PROTEIN 6.1 g/dL (6.3-8.2)
[2018-05-27] MEDS ORDERED: MAG HYDROX/AL HYDROX/SIMETH SUSP 30 ML UDCUP PO PRN (04:41)
[2018-05-27] MEDS ORDERED: MAGNESIUM HYDROXIDE SUSP 30 ML UDCUP PO PRN (04:41)
--- NOTE | 2018-05-27 04:56 | PDOC H&P ---
History of Present Illness Admission Date/PCP: 05/27/18 04:23 JOHN DELONG Patient complains of: Shortness of breath History of Present Illness: KAM DEAN is a 78 year old female with a past medical history of stage IV chronic kidney disease, diastolic heart failure, recurrent admissions for hypertensive emergency and vascular dementia. Patient was recently discharged from [facility] to live with her son who is at bedside stating she became abruptly short of breath prompting evaluation in the emergency room where she is found to have a blood pressure of 217/117. He states blood pressure medication recently changed secondary to bradycardia. Patient admits chest tightness, no nausea or vomiting. In the emergency room she is started on BiPAP , IV Lasix and IV nitroglycerin then referred to the hospitalist for admission. Past Medical History Cardiac Medical History: Reports: Congestive Heart Failure, Coronary Artery Disease, Myocardial Infarction, Hyperlipidema, Hypertension Denies: Peripheral Vascular Disease, Pulmonary Embolism Pulmonary Medical History: Reports: Pneumonia Denies: Tuberculosis Endocrine Medical History: Reports: Diabetes Mellitus Type 2, Hypothyroidism GI Medical History: Reports: Gastroesophageal Reflux Disease Musculoskeltal Medical History: Reports: Arthritis - hip Psychiatric Medical History: Reports: Bipolar Disorder, Depression Hematology: Reports: Anemia Past Surgical History Past Surgical History: Reports: Cardiac Catheterization - stents, Cholecystectomy, Orthopedic Surgery - hand Social History Information Source: Patient, Relative, [facility] Records Lives with: [facility] Smoking Status: Unknown if Ever Smoked Frequency of Alcohol Use: None Hx Recreational Drug Use: No Drugs: None Hx Prescription Drug Abuse: No - Advance Directive Resuscitation Status: Do Not Resuscitate Family History Family History: CVA, DM, Hypertension Parental Family History Reviewed: Yes Children Family History Reviewed: Yes Sibling(s) Family History Reviewed.: Yes Medication/Allergy Home Medications: Aspirin [Aspirin 81 mg Chewable Tablet] 81 mg PO DAILY 05/09/18 Calcitriol [Rocaltrol 0.25 mcg Capsule] 0.25 mcg PO MOWEFR@1000 05/09/18 Escitalopram Oxalate [Lexapro] 20 mg PO DAILY 05/09/18 Hydralazine HCl 100 mg PO Q8 05/09/18 Isosorbide Mononitrate [Isosorbide Mononitrate ER] 120 mg PO DAILY 05/09/18 Nitroglycerin [Nitrostat] 0.4 mg SL Q5MP PRN 05/09/18 Pantoprazole Sodium [Protonix] 40 mg PO DAILY 05/09/18 Alprazolam 0.25 mg PO BID PRN 05/23/18 Aspirin 81 mg PO DAILY 05/23/18 Clonidine HCl 0.2 mg PO TID 05/23/18 Clopidogrel Bisulfate [Plavix 75 mg Tablet] 75 mg PO DAILY 05/23/18 Gabapentin 200 mg PO TID 05/23/18 Lisinopril 20 mg PO BID 05/23/18 Magnesium Oxide 400 mg PO BID 05/23/18 Nifedipine [Adalat cc] 60 mg PO BID 05/23/18 Potassium Chloride 20 meq PO DAILY 05/23/18 Allergies/Adverse Reactions: No Known Allergies Allergy (Verified 05/23/18 16:27) Review of Systems ROS unobtainable: Other - Severe dyspnea Physical Exam Vital Signs: Temp Pulse Resp BP Pulse Ox 24 H 200/94 H 98 05/27/18 03:51 05/27/18 03:51 05/27/18 03:51 General appearance: PRESENT: cooperative, severe distress. ABSENT: no acute distress, hard of hearing Head exam: PRESENT: atraumatic, normocephalic Eye exam: PRESENT: conjunctiva pink, EOMI, PERRLA. ABSENT: scleral icterus Ear exam: PRESENT: normal external ear exam Mouth exam: PRESENT: moist, tongue midline Neck exam: PRESENT: full ROM, JVD. ABSENT: carotid bruit, lymphadenopathy Respiratory exam: PRESENT: accessory muscle use, crackles, prolonged expiratory phas, rales, retraction, symmetrical, tachypnea. ABSENT: rhonchi, stridor Cardiovascular exam: PRESENT: gallop, +S1, +S2, tachycardia Pulses: PRESENT: normal dorsalis pedis pul Vascular exam: PRESENT: normal capillary refill GI/Abdominal exam: PRESENT: normal bowel sounds, soft. ABSENT: distended, guarding, mass, organolmegaly, rebound, tenderness Rectal exam: PRESENT: deferred Extremities exam: PRESENT: full ROM, +1 edema - Right leg. ABSENT: calf tenderness, clubbing, pedal edema Neurological exam: PRESENT: alert, awake, oriented to person, oriented to place , oriented to time, oriented to situation, CN II-XII grossly intact. ABSENT: motor sensory deficit Psychiatric exam: PRESENT: appropriate affect, normal mood. ABSENT: homicidal ideation, suicidal ideation Skin exam: PRESENT: dry, intact, warm. ABSENT: cyanosis, rash Results Impressions: Chest X-Ray 05/27/18 01:31 IMPRESSION: No significant change. Assessment & Plan - Diagnosis (1) Hypertensive emergency Is this a current diagnosis for this admission?: Yes Plan: Unclear medication compliance, complicated by vascular dementia. IV nitroglycerin, Lasix and hydralazine, attempt to transition clonidine and nitroglycerin to transdermal patch (2) CHF exacerbation Qualifiers: Heart failure type: unspecified Qualified Code(s): I50.9 - Heart failure, unspecified Is this a current diagnosis for this admission?: Yes Plan: Diastolic failure secondary to #1, follow-up cardiac enzymes (3) Chronic renal insufficiency, stage IV (severe) Is this a current diagnosis for this admission?: Yes Plan: Chemistry pending, not a candidate for dialysis. (4) Leg edema, right Is this a current diagnosis for this admission?: Yes Plan: Denies trauma, ultrasound for evaluation of DVT. - Time Time Spent: 50 to 70 Minutes - Inpatient Certification Medical Necessity: Need Close Monitoring Due to Risk of Patient Decompensation
[2018-05-27 05:08] LABS: APPEARANCE,URINE CLEAR; BILIRUBIN,URINE NEGATIVE (NEGATIVE); COLOR,URINE YELLOW; GLUCOSE, URINE 150 mg/dL (NEGATIVE); KETONES,URINE NEGATIVE (NEGATIVE); LEUKOCYTE ESTERASE,URINE NEGATIVE (NEGATIVE); NITRITE,URINE NEGATIVE (NEGATIVE); PROTEIN,URINE >=500 mg/dL (NEGATIVE); URINE SPECIFIC GRAVITY 1.015; UROBILINOGEN,URINE NEGATIVE mg/dL (<2.0)
[2018-05-27 06:37] LABS: VENOUS BLOOD BASE EXCESS 1.3 mmol/L; VENOUS BLOOD HCO3 27.1 mmol/L (20-32); VENOUS BLOOD PCO2 49.7 mmHg (35-63); VENOUS BLOOD PH 7.36 (7.30-7.42)
[2018-05-27 07:17] LABS: CREATINE KINASE MB 1.79 ng/mL (<4.55)
[2018-05-27 07:20] LABS: TROPONIN I 0.314 ng/mL
[2018-05-27] MEDS: HYDRALAZINE HCL 50 MG TABLET PO SCH ×3 (07:32→22:58)
[2018-05-27] MEDS: HEPARIN SOD (PORCINE) 5,000 UNIT/ML 1 ML SYRINGE SUBCUT SCH ×3 (07:33→22:57)
--- NOTE | 2018-05-27 07:55 | EKG REPORT ---
SEVERITY:- ABNORMAL ECG - SINUS TACHYCARDIA BORDERLINE R WAVE PROGRESSION, ANTERIOR LEADS NONSPECIFIC T ABNORMALITIES, LATERAL LEADS LA ABNORMALITY : Confirmed by: Doe Padilla MD 27-May-2018 07:54:15
[2018-05-27] MEDS: LISINOPRIL 10 MG TABLET PO SCH ×2 (09:55→18:29)
[2018-05-27] MEDS: GABAPENTIN 100 MG CAPSULE PO SCH ×3 (09:55→18:29)
[2018-05-27] MEDS: ASPIRIN 81 MG TABLET, CHEWABLE PO SCH (09:55)
[2018-05-27] MEDS: POTASSIUM CHLORIDE 10 MEQ CAPSULE.ER PO SCH ×2 (09:55→22:57)
[2018-05-27] MEDS: CLONIDINE HCL 0.2 MG TABLET PO SCH ×3 (09:56→18:58)
[2018-05-27] MEDS: ISOSORBIDE MONONITRATE 60 MG TAB.ER.24H PO SCH (09:56)
[2018-05-27] MEDS: CLOPIDOGREL BISULFATE 75 MG TABLET PO SCH (09:56)
[2018-05-27] MEDS: DOCUSATE SODIUM 100 MG CAPSULE PO SCH (09:56)
[2018-05-27] MEDS: MAGNESIUM OXIDE 400 MG TABLET PO SCH ×2 (09:56→18:29)
[2018-05-27] MEDS ORDERED: FUROSEMIDE INJ/PF 40 MG/4 ML SDV IV SCH (10:00)
[2018-05-27 11:19] LABS: ANION GAP 10 (5-19); BLOOD UREA NITROGEN 51 mg/dL (7-20); CALCIUM 9.1 mg/dL (8.4-10.2); CARBON DIOXIDE 27 mmol/L (22-30); CHLORIDE 110 mmol/L (98-107); CREATINE KINASE 43 U/L (30-135); GLUCOSE 172 mg/dL (75-110); POTASSIUM 4.2 mmol/L (3.6-5.0); SODIUM 147.4 mmol/L (137-145)
[2018-05-27 11:31] LABS: CREATINE KINASE MB 3.13 ng/mL (<4.55); TROPONIN I 0.883 ng/mL
--- NOTE | 2018-05-27 12:54 | EKG REPORT ---
SEVERITY:- ABNORMAL ECG - SINUS RHYTHM PROBABLE LEFT ATRIAL ABNORMALITY ABNORMAL T, CONSIDER ISCHEMIA, ANT-LAT LEADS BORDERLINE PROLONGED QT INTERVAL : Confirmed by: Doe Padilla MD 27-May-2018 12:54:09
[2018-05-27 15:27] LABS: ARTERIAL BLOOD BASE EXCESS 5.1 mmol/L; ARTERIAL BLOOD H2CO3 1.34 mmol/L (1.05-1.35); ARTERIAL BLOOD HCO3 29.8 mmol/L (20-26); ARTERIAL BLOOD O2 SATURATION 98.8 % (94-98); ARTERIAL BLOOD PCO2 44.5 mmHg (35-45); ARTERIAL BLOOD PH 7.44 (7.35-7.45); ARTERIAL BLOOD PO2 136.6 mmHg (80-100); ARTERIAL BLOOD TOTAL CO2 31.1 mmol/L (21-25)
[2018-05-27 15:30] LABS: ARTERIAL BLOOD FIO2 40%
[2018-05-27 16:09] LABS: FREE T3 2.66 pg/mL (2.77-5.27); FREE T4 (FREE THYROXINE) 1.26 ng/dL (0.78-2.19)
[2018-05-27 16:23] LABS: THYROID STIMULATING HORMONE 1.18 uIU/mL (0.47-4.68)
--- NOTE | 2018-05-27 17:23 | Progress Note ---
Provider Note Provider Note: Patient admitted to the ICU earlier this morning. Please see initial H&P for assessment and plan. Patient seen on rounds early this morning in the ICU. Spoke with ICU team and nursing regarding patient care and management. Patient is currently on BiPAP for respiratory distress and CHF exacerbation. Her ABG today was grossly normal with good PO2, pH and PCO2. I did look at her previous BNP numbers and they have always been greater than 20 ,000 or so. At one time she was given 100,000 BNP. She does have a history of renal failure and this may also contribute to this elevated number. She is currently on Lasix IV for diuresing but not really making that much urine. Her creatinine is stable but we need to monitor it for good urine output. During the day called by nursing since patient's heart rate was in the 30s-40s with elevated troponin but her blood pressure was stable. I have consulted Dr. Miranda, certified coder, regarding patient's elevated troponin and bradycardia and I had spoken to him over the phone. He has already seen patient and told me to do nothing about it at this time since her blood pressure is stable.
[2018-05-27 17:27] LABS: CREATINE KINASE MB 2.55 ng/mL (<4.55); TROPONIN I 0.945 ng/mL
[2018-05-27 22:20] LABS: CREATINE KINASE MB 2.18 ng/mL (<4.55)
[2018-05-27 22:24] LABS: TROPONIN I 0.75 ng/mL
[2018-05-27] MEDS: CLONIDINE HCL 0.1 MG TABLET PO SCH (23:01)
[2018-05-28 04:06] LABS: TROPONIN I 0.546 ng/mL
[2018-05-28 04:11] LABS: CREATINE KINASE MB 2.01 ng/mL (<4.55)
[2018-05-28] MEDS: HYDRALAZINE HCL 50 MG TABLET PO SCH ×3 (05:08→23:22)
[2018-05-28] MEDS: HEPARIN SOD (PORCINE) 5,000 UNIT/ML 1 ML SYRINGE SUBCUT SCH ×3 (05:08→23:23)
[2018-05-28 05:37] LABS: ABSOLUTE EOSINOPHILS # (AUTO) 0.2 10^3/uL (0.0-0.6); ABSOLUTE LYMPHOCYTES (AUTO) 2.1 10^3/uL (0.5-4.7); ABSOLUTE MONOCYTES (AUTO) 0.6 10^3/uL (0.1-1.4); ABSOLUTE NEUT (AUTO) 4.2 10^3/uL (1.7-8.2); BASOPHILS % (AUTO) 0.6 % (0-2); EOSINOPHILS % (AUTO) 3.1 % (0-6); HEMATOCRIT 24.8 % (36.0-47.0); LYMPHOCYTES % (AUTO) 30.1 % (13-45); MEAN CORPUSCULAR HEMOGLOBIN 28.9 pg (27.0-33.4); MEAN CORPUSCULAR HGB CONC 33.1 g/dL (32.0-36.0); MEAN CORPUSCULAR VOLUME 87 fl (80-97); MONOCYTES % (AUTO) 7.8 % (3-13); PLATELET COUNT 201 10^3/uL (150-450); RED BLOOD COUNT 2.84 10^6/uL (3.72-5.28); RED CELL DISTRIBUTION WIDTH 17.9 % (11.5-14.0); SEGMENTED NEUTROPHILS % (AUTO) 58.4 % (42-78); TOTAL CELLS COUNTED % (AUTO) 100 %; WHITE BLOOD COUNT 7.1 10^3/uL (4.0-10.5)
[2018-05-28 05:47] LABS: ANION GAP 7 (5-19); BLOOD UREA NITROGEN 54 mg/dL (7-20); CALCIUM 9.1 mg/dL (8.4-10.2); CARBON DIOXIDE 30 mmol/L (22-30); CHLORIDE 112 mmol/L (98-107); GLUCOSE 96 mg/dL (75-110); POTASSIUM 4.5 mmol/L (3.6-5.0); SODIUM 148.7 mmol/L (137-145)
[2018-05-28 06:00] LABS: HEMOGLOBIN 8.2 g/dL (12.0-15.5)
[2018-05-28] MEDS: POTASSIUM CHLORIDE 10 MEQ CAPSULE.ER PO SCH ×2 (11:11→23:21)
[2018-05-28] MEDS: GABAPENTIN 100 MG CAPSULE PO SCH ×3 (11:11→18:08)
[2018-05-28] MEDS: CLONIDINE HCL 0.1 MG TABLET PO SCH ×2 (11:12→23:22)
[2018-05-28] MEDS: ISOSORBIDE MONONITRATE 60 MG TAB.ER.24H PO SCH (11:12)
[2018-05-28] MEDS: ASPIRIN 81 MG TABLET, CHEWABLE PO SCH (11:12)
[2018-05-28] MEDS: CLOPIDOGREL BISULFATE 75 MG TABLET PO SCH (11:13)
[2018-05-28] MEDS: DOCUSATE SODIUM 100 MG CAPSULE PO SCH (11:13)
[2018-05-28] MEDS: LISINOPRIL 10 MG TABLET PO SCH ×2 (11:13→18:08)
[2018-05-28] MEDS: MAGNESIUM OXIDE 400 MG TABLET PO SCH ×2 (11:13→18:07)
[2018-05-28] MEDS: FUROSEMIDE 20 MG TABLET PO SCH (11:14)
--- NOTE | 2018-05-28 15:06 | RADIOLOGY REPORT (SQ) ---
EXAM DESCRIPTION: VENOUS UNILATERAL LOWER COMPLETED DATE/TIME: 05/28/2018 2:52 pm REASON FOR STUDY: right leg edema COMPARISON: None. TECHNIQUE: Dynamic and static moore scale and color images acquired of the right leg venous system. S elected spectral images acquired with additional compression and augmentation maneuvers. The contrala teral common femoral vein and saphenofemoral junction were also imaged. Images stored on PACS. LIMITATIONS: None. FINDINGS: RIGHT: COMMON FEMORAL: Bandages for central line in the right common femoral vein. Not examined. FEMORAL: Normal compression and augmentation. No visualized echogenic material on moore scale. No defe cts on color images. POPLITEAL: Normal compression, augmentation. No visualized echogenic material on moore scale. No defec ts on color images. CALF VESSELS: Normal compression, augmentation. No visualized echogenic material on moore scale. No de fects on color images. GSV and SSV: Normal compression, augmentation. No visualized echogenic material on moore scale. No def ects on color images. ANY DEEP VENOUS INSUFFICIENCY: Not evaluated. ANY EVIDENCE OF POPLITEAL CYST: No. OTHER: No other significant finding. LEFT COMMON FEMORAL VEIN AND SAPHENOFEMORAL JUNCTION: Normal phasicity, compression and augmentation. No visualized echogenic material on moore scale. No de fects on color images. IMPRESSION: NO EVIDENCE OF DVT OR SVT IN THE RIGHT LEG. TECHNICAL DOCUMENTATION: JOB ID: [id number] [employer]- All Rights Reserved Reading location - IP/workstation name: [email or web address]
[2018-05-28 16:16] LABS: ARTERIAL BLOOD BASE EXCESS 4.9 mmol/L; ARTERIAL BLOOD H2CO3 1.33 mmol/L (1.05-1.35); ARTERIAL BLOOD HCO3 29.4 mmol/L (20-26); ARTERIAL BLOOD O2 SATURATION 96.8 % (94-98); ARTERIAL BLOOD PCO2 44.1 mmHg (35-45); ARTERIAL BLOOD PH 7.44 (7.35-7.45); ARTERIAL BLOOD PO2 85.7 mmHg (80-100); ARTERIAL BLOOD TOTAL CO2 30.8 mmol/L (21-25)
[2018-05-28 16:17] LABS: ARTERIAL BLOOD FIO2 2L
[2018-05-28 16:40] LABS: ANION GAP 7 (5-19); BLOOD UREA NITROGEN 57 mg/dL (7-20); CALCIUM 8.9 mg/dL (8.4-10.2); CARBON DIOXIDE 28 mmol/L (22-30); CHLORIDE 109 mmol/L (98-107); GLUCOSE 160 mg/dL (75-110); POTASSIUM 5.1 mmol/L (3.6-5.0)
[2018-05-28 16:50] LABS: CREATINE KINASE MB 1.1 ng/mL (<4.55); TROPONIN I 0.254 ng/mL
--- NOTE | 2018-05-28 17:31 | RADIOLOGY REPORT (SQ) ---
EXAM DESCRIPTION: CT HEAD WITHOUT COMPLETED DATE/TIME: 05/28/2018 4:59 pm REASON FOR STUDY: rule out intercranial hemorrhage COMPARISON: 04/14/2018 TECHNIQUE: Axial images acquired through the brain without intravenous contrast. Images reviewed wi th bone, brain and subdural windows. Additional sagittal and coronal reconstructions were generated. Images stored on PACS. All CT scanners at this facility use dose modulation, iterative reconstruction, and/or weight based d osing when appropriate to reduce radiation dose to as low as reasonably achievable (ALARA). [facility]: Dose Right [facility]: CareDose [facility]: Dose Right [facility]: Teradose 4D [facility]: Smart Jiberish RADIATION DOSE: CT Rad equipment meets quality standard of care and radiation dose reduction techniq ues were employed. CTDIvol: 53.2 mGy. DLP: 964 mGy-cm.mGy. LIMITATIONS: None. FINDINGS: VENTRICLES: Prominent. CEREBRUM: No masses. No hemorrhage. No midline shift. Areas of low density in the white matter mos t likely due to chronic micro-vascular ischemic change. No evidence for acute infarction. Focal lac unar infarct at the site of previous hemorrhage. CEREBELLUM: No masses. No hemorrhage. No alteration of density. No evidence for acute infarction. EXTRAAXIAL SPACES: Age-related involutional change. No fluid collections. No masses. ORBITS AND GLOBE: No intra- or extraconal masses. Normal contour of globe without masses. CALVARIUM: No fracture. PARANASAL SINUSES: No fluid or mucosal thickening. SOFT TISSUES: No mass or hematoma. OTHER: No other significant finding. IMPRESSION: CHRONIC CHANGES OF ATROPHY AND MICROVASCULAR ISCHEMIA. Focal lacunar infarct at the sit e of previous hemorrhage. NO ACUTE PROCESS. EVIDENCE OF ACUTE STROKE: NO. TECHNICAL DOCUMENTATION: JOB ID: [id number] Quality ID # [id number]: Final reports with documentation of one or more dose reduction techniques (e.g., Au tomated exposure control, adjustment of the mA and/or kV according to patient size, use of iterative reconstruction technique) 2010 [employer]- All Rights Reserved Reading location - IP/workstation name: [email or web address]
--- NOTE | 2018-05-28 17:59 | PDOC PROGRESS REPORT ---
Subjective Progress Note for:: 05/28/18 Subjective:: I assumed care today. Ms. Bocanegra is a 78-year-old female with CKD stage IV, diastolic heart failure, hypertension and vascular dementia who was admitted for hypertensive emergency in the setting of acute congestive heart failure. She was initially started on nitroglycerin drip and was started on IV Lasix. No acute event overnight. Patient has been transitioned to p.o. medications. She has been taken off nitro drip. This morning, she denies any acute complaint. She has been diuresing well. She denies shortness of breath or chest pain. She did have another transient episode of asymptomatic bradycardia this afternoon with stable blood pressures. Reason For Visit: HTN EMERGENCY,HEART FAILURE Physical Exam Vital Signs: Temp Pulse Resp BP Pulse Ox 97.3 F 74 12 140/43 H 100 05/28/18 05:58 05/28/18 08:00 05/28/18 15:29 05/28/18 15:29 05/28/18 15:29 Intake & Output 05/27/18 05/28/18 05/29/18 06:59 06:59 06:59 Intake Total 0 Output Total 487 Balance 0 -487 Weight 163 lb 2.273 oz 163 lb 12.855 oz 163 lb 12.855 oz General appearance: PRESENT: no acute distress, well-developed, well-nourished Head exam: PRESENT: atraumatic, normocephalic Eye exam: PRESENT: conjunctiva pink, EOMI, PERRLA. ABSENT: scleral icterus Neck exam: ABSENT: carotid bruit, JVD, lymphadenopathy, thyromegaly Respiratory exam: PRESENT: rhonchi - No wheezing or crackles Cardiovascular exam: PRESENT: RRR Pulses: PRESENT: normal dorsalis pedis pul Rectal exam: PRESENT: deferred Neurological exam: PRESENT: alert, awake Results Laboratory Results: 05/28/18 05:20 05/28/18 15:55 05/28/18 05/28/18 05/28/18 05:20 05:20 15:55 WBC 7.1 RBC 2.84 L Hgb 8.2 L D Hct 24.8 L MCV 87 MCH 28.9 MCHC 33.1 RDW 17.9 H Plt Count 201 Seg Neutrophils % 58.4 Lymphocytes % 30.1 Monocytes % 7.8 Eosinophils % 3.1 Basophils % 0.6 Absolute Neutrophils 4.2 Absolute Lymphocytes 2.1 Absolute Monocytes 0.6 Absolute Eosinophils 0.2 Absolute Basophils 0.0 Carbonic Acid HCO3/H2CO3 Ratio ABG pH ABG pCO2 ABG pO2 ABG HCO3 ABG O2 Saturation ABG Base Excess FiO2 Sodium 148.7 H 144.0 Potassium 4.5 5.1 H Chloride 112 H 109 H Carbon Dioxide 30 28 Anion Gap 7 7 BUN 54 H 57 H Creatinine 2.96 H 2.85 H Est GFR ( Amer) 19 L 19 L Est GFR (Non-Af Amer) 15 L 16 L Glucose 96 160 H Calcium 9.1 8.9 Magnesium 2.0 2.1 05/28/18 15:55 WBC RBC Hgb Hct MCV MCH MCHC RDW Plt Count Seg Neutrophils % Lymphocytes % Monocytes % Eosinophils % Basophils % Absolute Neutrophils Absolute Lymphocytes Absolute Monocytes Absolute Eosinophils Absolute Basophils Carbonic Acid 1.33 HCO3/H2CO3 Ratio 22:1 ABG pH 7.44 ABG pCO2 44.1 ABG pO2 85.7 ABG HCO3 29.4 H ABG O2 Saturation 96.8 ABG Base Excess 4.9 FiO2 2L Sodium Potassium Chloride Carbon Dioxide Anion Gap BUN Creatinine Est GFR ( Amer) Est GFR (Non-Af Amer) Glucose Calcium Magnesium 05/27/18 05/27/18 05/27/18 06:00 06:00 10:25 Creatine Kinase 31 43 CK-MB (CK-2) 1.79 Troponin I 0.314 05/27/18 05/27/18 05/27/18 10:25 14:45 14:45 Creatine Kinase 35 CK-MB (CK-2) 3.13 2.55 Troponin I 0.883 0.945 05/27/18 05/27/18 05/28/18 21:25 21:25 03:20 Creatine Kinase 31 29 L CK-MB (CK-2) 2.18 Troponin I 0.750 05/28/18 05/28/18 05/28/18 03:20 15:55 15:55 Creatine Kinase 24 L CK-MB (CK-2) 2.01 1.10 Troponin I 0.546 0.254 Impressions: Chest X-Ray 05/27/18 01:31 IMPRESSION: No significant change. Head CT 05/28/18 00:00 IMPRESSION: CHRONIC CHANGES OF ATROPHY AND MICROVASCULAR ISCHEMIA. Focal lacunar infarct at the site of previous hemorrhage. NO ACUTE PROCESS. EVIDENCE OF ACUTE STROKE: NO. Venous Doppler Study 05/28/18 00:00 IMPRESSION: NO EVIDENCE OF DVT OR SVT IN THE RIGHT LEG. Assessment & Plan - Diagnosis (1) Hypertensive emergency Is this a current diagnosis for this admission?: Yes Plan: Resolved. Off nitro drip. Blood pressures are at goal running in the 140/50s. Continue p.o. hydralazine, clonidine, ISMN and lisinopril. (2) Acute on chronic diastolic (congestive) heart failure Is this a current diagnosis for this admission?: Yes Plan: CHF exacerbation resolved. Continue Lasix 20 mg daily. (3) Chronic renal insufficiency, stage IV (severe) Is this a current diagnosis for this admission?: Yes Plan: Creatinine at baseline. On Lasix 20 mg daily for CHF. Repeat BMP tomorrow.
[2018-05-29] MEDS: HEPARIN SOD (PORCINE) 5,000 UNIT/ML 1 ML SYRINGE SUBCUT SCH ×2 (06:37→13:24)
[2018-05-29] MEDS: HYDRALAZINE HCL 50 MG TABLET PO SCH ×3 (06:37→23:16)
--- NOTE | 2018-05-29 08:36 | PROGRESS NOTE E ---
Progress Note NAME: KAM DEAN : 1940 AGE: 78Y DATE: 05/28/2018 ROOM: 611 SUBJECTIVE: Note that patient is very lethargic and confused. She also has T-wave inversions on her EKG, the differential diagnosis which is *------* ischemia versus cerebral T waves. The patient denies any chest pain or shortness of breath. No other history can be obtained from the patient. PHYSICAL EXAMINATION: GENERAL: The patient appears to be chronically ill and of frail build. VITAL SIGNS: She is afebrile with a temperature of 98.6 degrees Fahrenheit. Pulse is 64 beats per minute. Her heart rate has come up with the decrease in the patient's clonidine. Blood pressure is starting to rise up to 159/51. Respirations are 12 per minute. O2 sats are 98% on an FIO2 of 2 L nasal cannula. The patient is off the BiPAP today. HEENT: Head is atraumatic, normocephalic. Eyes - Pupils are equal, round, regular, reactive to light and accommodation. Extraocular movements are normal. There is no conjunctival pallor. There is no scleral icterus. ENT is negative. NECK: Supple. There is no JVD. Carotids are equal. There is no bruit. There is no lymphadenopathy. Trachea is central. LUNGS: Clear to auscultation and percussion. There is no chest wall tenderness. HEART: S1, S2 is heard. S1 is of normal intensity. There is no S3 gallop. There is no S4 gallop. There is a systolic murmur in the left sternal border and the apex. There is no rub. ABDOMEN: Soft, nontender. There is no hepatosplenomegaly. Bowel sounds are well heard. CENTRAL NERVOUS SYSTEM: The patient is conscious, awake. She is disoriented but moves all 4 extremities. EXTREMITIES: Femorals are slightly diminished. Leg pulses are diminished. There is no pedal edema. There is no cyanosis or clubbing. PSYCHIATRIC: The patient does not appear to be agitated. DIAGNOSTICS: The patient's venous Doppler study shows no evidence of DVT or SVT in the right leg. The monitor strip shows deep T-wave inversions diffusely. The patient's white count is 7100, hemoglobin is 8.2, hematocrit is 24.8, platelet count is 201,000. The patient's sodium is 144, potassium 5.1, chloride 109, CO2 is 28. The patient's BUN is 57, creatinine is 2.85, GFR is 19 per minute, which is chronic kidney disease stage 4. The patient's glucose is 160, calcium is 8.9, and her magnesium is 2.1. Troponin I has come down to 0.254. IMPRESSION: 1. HYPERTENSIVE EMERGENCY, RESOLVED. Blood pressure is reasonable but still not well controlled. 2. BRADYCARDIA SECONDARY TO CLONIDINE. Heart rate improved with decrease in clonidine. 3. CHF EXACERBATION, AT PRESENT STABLE. 4. T-WAVE INVERSIONS DIFFUSELY WHICH ARE DEEP T-WAVE INVERSIONS. The troponin is trending down; hence, in view of the patient's prior history of intracranial hemorrhage, would recommend getting a CT scan of the head to make sure that the patient is not having an extension of the hemorrhage or a new infarction which can cause cerebral T waves. 5. CHRONIC RENAL INSUFFICIENCY STAGE 4. 6. RIGHT LEG EDEMA WITH NO EVIDENCE OF DVT OR SVT. RECOMMENDATIONS: Continue current treatment. I would try to add another antihypertensive so that we do not have to increase the dose of clonidine. Also, the patient's bradycardia may be a combination of the HYDRAULIC MECHANIC effect as well as the patient being on clonidine. If the heart rate does come up we will retry getting her back on the clonidine at her prior dosage since this has controlled her blood pressure well. Note, 40 minutes were spent on the patient. Her medications were reviewed. Medical decision making is of high complexity. Await CT scan of the head. Discussed with the hospitalist taking care of the patient. DICTATING PHYSICIAN: LORENZA RING M.D. [id number] PHY#: [id number] ID: [id number] JOB#: [id number] ACCT: [id number] cc: >
[2018-05-29] MEDS: FUROSEMIDE 20 MG TABLET PO SCH (09:13)
[2018-05-29] MEDS: CLOPIDOGREL BISULFATE 75 MG TABLET PO SCH (09:13)
[2018-05-29] MEDS: ISOSORBIDE MONONITRATE 60 MG TAB.ER.24H PO SCH (09:13)
[2018-05-29] MEDS: GABAPENTIN 100 MG CAPSULE PO SCH ×3 (09:13→17:40)
[2018-05-29] MEDS: CLONIDINE HCL 0.1 MG TABLET PO SCH ×2 (09:13→23:16)
[2018-05-29] MEDS: ASPIRIN 81 MG TABLET, CHEWABLE PO SCH (09:14)
[2018-05-29] MEDS: DOCUSATE SODIUM 100 MG CAPSULE PO SCH (09:14)
[2018-05-29] MEDS: MAGNESIUM OXIDE 400 MG TABLET PO SCH ×2 (09:14→17:41)
[2018-05-29] MEDS: LISINOPRIL 10 MG TABLET PO SCH ×2 (09:14→17:40)
[2018-05-29] MEDS: POTASSIUM CHLORIDE 10 MEQ CAPSULE.ER PO SCH ×2 (09:14→23:17)
[2018-05-29 12:20] LABS: ABSOLUTE EOSINOPHILS # (AUTO) 0.2 10^3/uL (0.0-0.6); ABSOLUTE LYMPHOCYTES (AUTO) 2.1 10^3/uL (0.5-4.7); ABSOLUTE MONOCYTES (AUTO) 0.6 10^3/uL (0.1-1.4); ABSOLUTE NEUT (AUTO) 5.6 10^3/uL (1.7-8.2); BASOPHILS % (AUTO) 0.5 % (0-2); EOSINOPHILS % (AUTO) 2.9 % (0-6); HEMATOCRIT 23.2 % (36.0-47.0); LYMPHOCYTES % (AUTO) 24.9 % (13-45); MEAN CORPUSCULAR HEMOGLOBIN 29.2 pg (27.0-33.4); MEAN CORPUSCULAR HGB CONC 33.2 g/dL (32.0-36.0); MEAN CORPUSCULAR VOLUME 88 fl (80-97); MONOCYTES % (AUTO) 7.1 % (3-13); PLATELET COUNT 175 10^3/uL (150-450); RED BLOOD COUNT 2.64 10^6/uL (3.72-5.28); RED CELL DISTRIBUTION WIDTH 17.5 % (11.5-14.0); SEGMENTED NEUTROPHILS % (AUTO) 64.6 % (42-78); TOTAL CELLS COUNTED % (AUTO) 100 %; WHITE BLOOD COUNT 8.6 10^3/uL (4.0-10.5)
[2018-05-29 12:22] LABS: HEMOGLOBIN 7.7 g/dL (12.0-15.5)
[2018-05-29 12:34] LABS: ALANINE AMINOTRANSFERASE 21 U/L (9-52); ALBUMIN 2.3 g/dL (3.5-5.0); ALKALINE PHOSPHATASE 54 U/L (38-126); ANION GAP 7 (5-19); ASPARTATE AMINO TRANSFERASE 13 U/L (14-36); BILIRUBIN,DIRECT 0.3 mg/dL (0.0-0.4); BILIRUBIN,TOTAL 0.4 mg/dL (0.2-1.3); BLOOD UREA NITROGEN 53 mg/dL (7-20); CARBON DIOXIDE 29 mmol/L (22-30); CHLORIDE 107 mmol/L (98-107); GLUCOSE 162 mg/dL (75-110); PHOSPHORUS 4.4 mg/dL (2.5-4.5); POTASSIUM 4.7 mmol/L (3.6-5.0); SODIUM 142.5 mmol/L (137-145); TOTAL PROTEIN 5.2 g/dL (6.3-8.2)
[2018-05-29] MEDS ORDERED: DEXTROSE 40% GEL 15 GM TUBE X 2 PO PRN (12:43)
[2018-05-29] MEDS ORDERED: DEXTROSE 50%-WATER SYRINGE 25 GM/50 ML DOSE IV PRN (12:43)
[2018-05-29] MEDS ORDERED: DEXTROSE 40% GEL 15 GM TUBE PO PRN (12:43)
[2018-05-29] MEDS ORDERED: GLUCAGON,HUMAN RECOMB 1 MG INJ IM PRN (12:43)
[2018-05-29] MEDS ORDERED: DEXTROSE 50%-WATER SYRINGE 12.5 GM/25 ML DOSE IV PRN (12:43)
--- NOTE | 2018-05-29 17:26 | RADIOLOGY REPORT (SQ) ---
EXAM DESCRIPTION: CHEST SINGLE VIEW COMPLETED DATE/TIME: 05/29/2018 5:12 pm REASON FOR STUDY: SOB COMPARISON: 05/27/2018 EXAM PARAMETERS: NUMBER OF VIEWS: One view. TECHNIQUE: Single frontal radiographic view of the chest acquired. RADIATION DOSE: NA LIMITATIONS: None. FINDINGS: LUNGS AND PLEURA: Left pleural effusion. Increased opacification in the left lung. Pulmo nary vascular congestion. Mild interstitial edema. MEDIASTINUM AND HILAR STRUCTURES: No masses. Contour normal. HEART AND VASCULAR STRUCTURES: Cardiomegaly. BONES: No acute findings. HARDWARE: None in the chest. OTHER: No other significant finding. IMPRESSION: Cardiomegaly. There appears to be asymmetric pulmonary edema versus airspace disease th e left lung. Left pleural effusion. TECHNICAL DOCUMENTATION: JOB ID: [id number] [id number] [employer]- All Rights Reserved Reading location - IP/workstation name: [email or web address]
[2018-05-29] MEDS ORDERED: FUROSEMIDE INJ/PF 20 MG/2 ML SDV ONE (17:38)
[2018-05-29] MEDS ORDERED: IPRATROPIUM/ALBUTEROL 0.5-2.5 MG/3 ML AMPUL NEB ONE (17:45)
[2018-05-29] MEDS: INSULIN LISPRO 100 UNIT/ML 3 ML VIAL SUBCUT PRN (17:46)
[2018-05-29] MEDS: FUROSEMIDE INJ/PF 20 MG/2 ML SDV IV SCH (18:17)
--- NOTE | 2018-05-29 18:59 | PDOC PROGRESS REPORT ---
Subjective Progress Note for:: 05/29/18 Subjective:: Patient noted to be intermittently bradycardic. Patient had received half a unit of blood transfusion and subsequently developed shortness of breath. This however responded to IV Lasix. Patient blood pressure remains elevated with systolic over 180 most of the time. Patient antihypertensive medications reviewed. Currently she is getting hydralazine 100 mg p.o. 3 times a day and also on Imdur total dose of 120 mg a day. Patient also receiving clonidine. Patient was on carvedilol as an outpatient but this was discontinued because of bradycardia. Clonidine dose was also reduced. Patient remains short of breath and is noted to be in CHF. Reason For Visit: HTN EMERGENCY,HEART FAILURE Physical Exam Vital Signs: Temp Pulse Resp BP Pulse Ox 99.1 F 88 22 H 186/82 H 96 05/29/18 17:54 05/29/18 18:03 05/29/18 18:28 05/29/18 18:28 05/29/18 18:28 Intake & Output 05/28/18 05/29/18 05/30/18 06:59 06:59 06:59 Intake Total 350 143 Output Total 487 550 645 Balance -487 -200 -502 Weight 74.3 kg 72.9 kg Exam: GENERAL: well-nourished and in no acute distress. Alert and oriented x 2. Patient has been noted to be intermittently confused. HEAD: Atraumatic, normocephalic. EYES: Pupils equal round and reactive to light, extraocular movements intact, sclera anicteric, conjunctiva are normal. ENT: TMs normal, nares patent, oropharynx clear without exudates. Moist mucous membranes. No oral ulcerations or bleeding gums noted NECK: supple without lymphadenopathy. Trachea is central. No cervical or axillary lymphadenopathy noted. Carotids are 2+, JVD WNL LUNGS: Respiration seems nonlabored, no significant accessory muscle action noted. Breath sounds clear to auscultation bilaterally and equal noted. No wheezes rales or rhonchi noted. No significant dullness noted on percussion. CHEST: Palpation of the chest wall shows no significant chest wall tenderness. HEART: [place] [employer], No PSH, 1/6 NELL aortic area, 1/6 wilder systolic murmur mitral area, no rubs, no gallops. ABDOMEN: Soft, no significant tenderness appreciated, normoactive bowel sounds. No guarding, no rebound. No rigidity noted . No masses appreciated. EXTREMITIES: Pedal pulses are 1-2+, no calf tenderness noted. No clubbing or cyanosis. negative pedal edema noted NEUROLOGICAL: Focused neurological exam showed no significant neurologic deficit. Normal speech, no focal weakness appreciated. PSYCH: Normal mood, normal affect. Could not be checked. SKIN: No significant ecchymosis, skin is noted to be warm. MUSCULOSKELETAL EXAM: No significant acute joint swelling noted. Results Laboratory Results: 05/29/18 11:58 05/29/18 11:58 05/29/18 05/29/18 05/29/18 11:58 11:58 14:17 WBC 8.6 RBC 2.64 L Hgb 7.7 L Hct 23.2 L MCV 88 MCH 29.2 MCHC 33.2 RDW 17.5 H Plt Count 175 Seg Neutrophils % 64.6 Lymphocytes % 24.9 Monocytes % 7.1 Eosinophils % 2.9 Basophils % 0.5 Absolute Neutrophils 5.6 Absolute Lymphocytes 2.1 Absolute Monocytes 0.6 Absolute Eosinophils 0.2 Absolute Basophils 0.0 Sodium 142.5 Potassium 4.7 Chloride 107 Carbon Dioxide 29 Anion Gap 7 BUN 53 H Creatinine 3.06 H Est GFR ( Amer) 18 L Est GFR (Non-Af Amer) 15 L Glucose 162 H Calcium 9.0 Phosphorus 4.4 Magnesium 2.1 Total Bilirubin 0.4 AST 13 L ALT 21 Alkaline Phosphatase 54 Total Protein 5.2 L Albumin 2.3 L Blood Type B POSITIVE Antibody Screen NEGATIVE 05/27/18 05/27/18 05/27/18 06:00 06:00 10:25 Creatine Kinase 31 43 CK-MB (CK-2) 1.79 Troponin I 0.314 05/27/18 05/27/18 05/27/18 10:25 14:45 14:45 Creatine Kinase 35 CK-MB (CK-2) 3.13 2.55 Troponin I 0.883 0.945 05/27/18 05/27/18 05/28/18 21:25 21:25 03:20 Creatine Kinase 31 29 L CK-MB (CK-2) 2.18 Troponin I 0.750 05/28/18 05/28/18 05/28/18 03:20 15:55 15:55 Creatine Kinase 24 L CK-MB (CK-2) 2.01 1.10 Troponin I 0.546 0.254 EKG Comments: Telemetry shows sinus rhythm with occasional PVCs. Bradycardia also noted. Initial EKGs had shown ST segment depression lateral chest leads. Impressions: Head CT 05/28/18 00:00 IMPRESSION: CHRONIC CHANGES OF ATROPHY AND MICROVASCULAR ISCHEMIA. Focal lacunar infarct at the site of previous hemorrhage. NO ACUTE PROCESS. EVIDENCE OF ACUTE STROKE: NO. Venous Doppler Study 05/28/18 00:00 IMPRESSION: NO EVIDENCE OF DVT OR SVT IN THE RIGHT LEG. Chest X-Ray 05/29/18 17:03 IMPRESSION: Cardiomegaly. There appears to be asymmetric pulmonary edema versus airspace disease the left lung. Left pleural effusion. Assessment & Plan - Diagnosis (1) Acute on chronic diastolic (congestive) heart failure Is this a current diagnosis for this admission?: Yes (2) Chronic renal insufficiency, stage IV (severe) Is this a current diagnosis for this admission?: Yes (3) Hypertensive emergency Is this a current diagnosis for this admission?: Yes (4) Bradycardia Is this a current diagnosis for this admission?: Yes (5) Elevated troponin Is this a current diagnosis for this admission?: Yes - Notes Notes: At this point, agree with IV Lasix. May switch to Demadex which may work better in patient with renal failure. Will start patient on doxazosin for better blood pressure control. Doxazosin should not cause bradycardia. Chronic renal insufficiency: Nephrology seen the patient. Patient may end up needing dialysis. Hypertensive emergency: Patient remains with high blood pressure. We will continue to monitor blood pressure. Bradycardia: Will observe. Once heart rate improved may need to gradually institute beta-ry therapy. Troponin I elevation: These are in the non-STEMI range. Will consider patient from aspirin to Plavix which is gentler on the stomach. - Time Time with patient: Greater than 35 minutes - CODE STATUS : was discussed, patient remains DO NOT RESUSCITATE. Surrogate decision-maker patient's daughter. Multiple medical problems were addressed. More than 50% of the time spent coordinating care, discussing management plans with involved caregivers. Management plans discussed with involved personnels. Medical decision making was of moderate to high complexity, patient's has multiple comorbidities. Medications reviewed and adjusted accordingly: Yes
[2018-05-29] MEDS: DOXAZOSIN MESYLATE 4 MG TABLET PO SCH (23:27)
[2018-05-30] MEDS: HYDRALAZINE HCL 50 MG TABLET PO SCH ×3 (06:22→21:58)
[2018-05-30 08:18] LABS: ALANINE AMINOTRANSFERASE 16 U/L (9-52); ALBUMIN 2.2 g/dL (3.5-5.0); ALKALINE PHOSPHATASE 47 U/L (38-126); ANION GAP 8 (5-19); ASPARTATE AMINO TRANSFERASE 12 U/L (14-36); BILIRUBIN,DIRECT 0.3 mg/dL (0.0-0.4); BILIRUBIN,TOTAL 0.6 mg/dL (0.2-1.3); BLOOD UREA NITROGEN 54 mg/dL (7-20); CARBON DIOXIDE 26 mmol/L (22-30); CHLORIDE 107 mmol/L (98-107); GLUCOSE 131 mg/dL (75-110); PHOSPHORUS 5.1 mg/dL (2.5-4.5); POTASSIUM 4.6 mmol/L (3.6-5.0); SODIUM 141.3 mmol/L (137-145)
[2018-05-30 08:21] LABS: ABSOLUTE BASOPHILS # (AUTO) 0.1 10^3/uL (0.0-0.2); ABSOLUTE EOSINOPHILS # (AUTO) 0.2 10^3/uL (0.0-0.6); ABSOLUTE LYMPHOCYTES (AUTO) 1.7 10^3/uL (0.5-4.7); ABSOLUTE MONOCYTES (AUTO) 0.6 10^3/uL (0.1-1.4); ABSOLUTE NEUT (AUTO) 5.2 10^3/uL (1.7-8.2); BASOPHILS % (AUTO) 0.8 % (0-2); EOSINOPHILS % (AUTO) 2.5 % (0-6); HEMATOCRIT 23.1 % (36.0-47.0); MEAN CORPUSCULAR HEMOGLOBIN 29.3 pg (27.0-33.4); MEAN CORPUSCULAR HGB CONC 33.2 g/dL (32.0-36.0); MEAN CORPUSCULAR VOLUME 88 fl (80-97); MONOCYTES % (AUTO) 8.2 % (3-13); PLATELET COUNT 175 10^3/uL (150-450); RED BLOOD COUNT 2.62 10^6/uL (3.72-5.28); RED CELL DISTRIBUTION WIDTH 17.5 % (11.5-14.0); SEGMENTED NEUTROPHILS % (AUTO) 66.5 % (42-78); TOTAL CELLS COUNTED % (AUTO) 100 %; WHITE BLOOD COUNT 7.9 10^3/uL (4.0-10.5)
[2018-05-30 08:27] LABS: HEMOGLOBIN 7.7 g/dL (12.0-15.5)
--- NOTE | 2018-05-30 08:40 | EKG REPORT ---
SEVERITY:- ABNORMAL ECG - SINUS RHYTHM ABNORMAL T, CONSIDER ISCHEMIA, LATERAL LEADS PROLONGED QT INTERVAL : Confirmed by: Margie Denton 30-May-2018 08:38:23
[2018-05-30] MEDS: ASPIRIN 81 MG TABLET, CHEWABLE PO SCH (09:40)
[2018-05-30] MEDS: CLONIDINE HCL 0.1 MG TABLET PO SCH ×2 (09:40→21:58)
[2018-05-30] MEDS: GABAPENTIN 100 MG CAPSULE PO SCH ×3 (09:41→18:10)
[2018-05-30] MEDS: POTASSIUM CHLORIDE 10 MEQ CAPSULE.ER PO SCH ×2 (09:41→21:58)
[2018-05-30] MEDS: MAGNESIUM OXIDE 400 MG TABLET PO SCH ×2 (09:41→18:10)
[2018-05-30] MEDS: ISOSORBIDE MONONITRATE 60 MG TAB.ER.24H PO SCH (09:41)
[2018-05-30] MEDS: DOCUSATE SODIUM 100 MG CAPSULE PO SCH (09:41)
[2018-05-30] MEDS: LISINOPRIL 10 MG TABLET PO SCH ×2 (09:42→18:10)
[2018-05-30] MEDS: CLOPIDOGREL BISULFATE 75 MG TABLET PO SCH (09:42)
[2018-05-30] MEDS: FUROSEMIDE INJ/PF 20 MG/2 ML SDV IV SCH ×2 (09:43→18:10)
[2018-05-30] MEDS: DOXAZOSIN MESYLATE 4 MG TABLET PO SCH (09:43)
[2018-05-30] MEDS: INSULIN LISPRO 100 UNIT/ML 3 ML VIAL SUBCUT PRN ×3 (13:39→22:16)
--- NOTE | 2018-05-30 21:34 | PDOC PROGRESS REPORT ---
Subjective Progress Note for:: 05/30/18 Subjective:: Ms. Kemp is a 78-year-old female past medical history of stage IV CKD diastolic heart failure hypertension and vascular dementia and hemorrhagic stroke patient was admitted for hypertensive emergency in the setting of acute congestive heart failure. She initially was started on nitro and IV Lasix patient was subsequently transitioned to p.o. medication cardiology was consulted for comanagement of his hypertensive emergency and congestive heart failure. No acute events overnight however patient has been hypertensive since admission patient has also been bradycardic but currently her bradycardia has resolved. Acute events overnight. Reason For Visit: HTN EMERGENCY,HEART FAILURE Physical Exam Vital Signs: Temp Pulse Resp BP Pulse Ox 97.7 F 55 L 13 129/52 H 100 05/30/18 16:23 05/30/18 16:23 05/30/18 16:23 05/30/18 16:23 05/30/18 16:23 Intake & Output 05/29/18 05/30/18 05/31/18 06:59 06:59 06:59 Intake Total 350 143 960 Output Total 550 1120 245 Balance -200 -977 715 Weight 72.9 kg 74.9 kg General appearance: PRESENT: no acute distress, well-developed, well-nourished Head exam: PRESENT: atraumatic, normocephalic Eye exam: PRESENT: conjunctiva pink, EOMI, PERRLA. ABSENT: scleral icterus Ear exam: PRESENT: normal external ear exam Mouth exam: PRESENT: moist, tongue midline Neck exam: ABSENT: carotid bruit, JVD, lymphadenopathy, thyromegaly Respiratory exam: PRESENT: clear to auscultation santa. ABSENT: rales, rhonchi, wheezes Cardiovascular exam: PRESENT: RRR. ABSENT: diastolic murmur, rubs, systolic murmur Pulses: PRESENT: normal dorsalis pedis pul Vascular exam: PRESENT: normal capillary refill GI/Abdominal exam: PRESENT: normal bowel sounds, soft. ABSENT: distended, guarding, mass, organolmegaly, rebound, tenderness Rectal exam: PRESENT: deferred Extremities exam: PRESENT: full ROM. ABSENT: calf tenderness, clubbing, pedal edema Neurological exam: PRESENT: alert, awake, oriented to person, oriented to place , oriented to time, oriented to situation, CN II-XII grossly intact. ABSENT: motor sensory deficit Psychiatric exam: PRESENT: appropriate affect, normal mood. ABSENT: homicidal ideation, suicidal ideation Skin exam: PRESENT: dry, intact, warm. ABSENT: cyanosis, rash Results Laboratory Results: 05/30/18 07:45 05/30/18 07:45 05/30/18 05/30/18 07:45 07:45 WBC 7.9 RBC 2.62 L Hgb 7.7 L Hct 23.1 L MCV 88 MCH 29.3 MCHC 33.2 RDW 17.5 H Plt Count 175 Seg Neutrophils % 66.5 Lymphocytes % 22.0 Monocytes % 8.2 Eosinophils % 2.5 Basophils % 0.8 Absolute Neutrophils 5.2 Absolute Lymphocytes 1.7 Absolute Monocytes 0.6 Absolute Eosinophils 0.2 Absolute Basophils 0.1 Sodium 141.3 Potassium 4.6 Chloride 107 Carbon Dioxide 26 Anion Gap 8 BUN 54 H Creatinine 3.01 H Est GFR ( Amer) 18 L Est GFR (Non-Af Amer) 15 L Glucose 131 H Calcium 9.0 Phosphorus 5.1 H Magnesium 2.1 Total Bilirubin 0.6 AST 12 L ALT 16 Alkaline Phosphatase 47 Total Protein 5.0 L Albumin 2.2 L 05/27/18 05/27/18 05/27/18 06:00 06:00 10:25 Creatine Kinase 31 43 CK-MB (CK-2) 1.79 Troponin I 0.314 05/27/18 05/27/18 05/27/18 10:25 14:45 14:45 Creatine Kinase 35 CK-MB (CK-2) 3.13 2.55 Troponin I 0.883 0.945 05/27/18 05/27/18 05/28/18 21:25 21:25 03:20 Creatine Kinase 31 29 L CK-MB (CK-2) 2.18 Troponin I 0.750 05/28/18 05/28/18 05/28/18 03:20 15:55 15:55 Creatine Kinase 24 L CK-MB (CK-2) 2.01 1.10 Troponin I 0.546 0.254 Impressions: Head CT 05/28/18 00:00 IMPRESSION: CHRONIC CHANGES OF ATROPHY AND MICROVASCULAR ISCHEMIA. Focal lacunar infarct at the site of previous hemorrhage. NO ACUTE PROCESS. EVIDENCE OF ACUTE STROKE: NO. Venous Doppler Study 05/28/18 00:00 IMPRESSION: NO EVIDENCE OF DVT OR SVT IN THE RIGHT LEG. Chest X-Ray 05/29/18 17:03 IMPRESSION: Cardiomegaly. There appears to be asymmetric pulmonary edema versus airspace disease the left lung. Left pleural effusion. Assessment & Plan - Diagnosis (1) Hypertensive emergency Is this a current diagnosis for this admission?: Yes Plan: Off of nitro drip. We will continue hydralazine clonidine isosorbide mononitrate lisinopril and Lasix p.o. cardiology on board. Will follow up the recommendation. (2) Acute on chronic diastolic (congestive) heart failure Is this a current diagnosis for this admission?: Yes Plan: Continue Lasix p.o. and monitor volume status. (3) Chronic renal insufficiency, stage IV (severe) Is this a current diagnosis for this admission?: Yes Plan: Creatinine and electrolytes remained stable outpatient nephrology follow-up. (4) Anemia in chronic kidney disease (CKD) Qualifiers: Chronic kidney disease stage: stage 4 (severe) Qualified Code(s): N18.4 - Chronic kidney disease, stage 4 (severe); D63.1 - Anemia in chronic kidney disease; D63.1 - Anemia in chronic kidney disease Is this a current diagnosis for this admission?: Yes
[2018-05-31] MEDS: HYDRALAZINE HCL 50 MG TABLET PO SCH ×3 (05:38→22:58)
--- NOTE | 2018-05-31 09:35 | EKG REPORT ---
SEVERITY:- ABNORMAL ECG - SINUS RHYTHM ABNORMAL T, CONSIDER ISCHEMIA, LATERAL LEADS BORDERLINE PROLONGED QT INTERVAL : Confirmed by: Margie Denton 31-May-2018 09:33:26
[2018-05-31] MEDS: POTASSIUM CHLORIDE 10 MEQ CAPSULE.ER PO SCH ×2 (11:09→22:58)
[2018-05-31] MEDS: MAGNESIUM OXIDE 400 MG TABLET PO SCH ×2 (11:10→19:05)
[2018-05-31] MEDS: CLOPIDOGREL BISULFATE 75 MG TABLET PO SCH (11:10)
[2018-05-31] MEDS: LISINOPRIL 10 MG TABLET PO SCH ×2 (11:10→19:05)
[2018-05-31] MEDS: GABAPENTIN 100 MG CAPSULE PO SCH ×3 (11:10→19:05)
[2018-05-31] MEDS: CLONIDINE HCL 0.1 MG TABLET PO SCH ×2 (11:10→22:58)
[2018-05-31] MEDS: DOCUSATE SODIUM 100 MG CAPSULE PO SCH (11:10)
[2018-05-31] MEDS: ASPIRIN 81 MG TABLET, CHEWABLE PO SCH (11:10)
[2018-05-31] MEDS: ISOSORBIDE MONONITRATE 60 MG TAB.ER.24H PO SCH (11:10)
[2018-05-31] MEDS: FUROSEMIDE INJ/PF 20 MG/2 ML SDV IV SCH ×2 (11:12→19:07)
[2018-05-31] MEDS: DOXAZOSIN MESYLATE 4 MG TABLET PO SCH (11:12)
--- NOTE | 2018-05-31 19:49 | PDOC PROGRESS REPORT ---
Subjective Progress Note for:: 05/31/18 Subjective:: Acute events overnight. Reason For Visit: HTN EMERGENCY,HEART FAILURE Physical Exam Vital Signs: Temp Pulse Resp BP Pulse Ox 98.5 F 62 12 142/47 H 96 05/31/18 16:00 05/31/18 16:00 05/31/18 16:00 05/31/18 16:00 05/31/18 16:00 Intake & Output 05/30/18 05/31/18 06/01/18 06:59 06:59 06:59 Intake Total 143 1080 867 Output Total 1120 1345 750 Balance -977 -265 117 Weight 74.9 kg 73.4 kg General appearance: PRESENT: no acute distress, well-developed, well-nourished Head exam: PRESENT: atraumatic, normocephalic Eye exam: PRESENT: conjunctiva pink, EOMI, PERRLA. ABSENT: scleral icterus Ear exam: PRESENT: normal external ear exam Mouth exam: PRESENT: moist, tongue midline Neck exam: ABSENT: carotid bruit, JVD, lymphadenopathy, thyromegaly Respiratory exam: PRESENT: clear to auscultation santa. ABSENT: rales, rhonchi, wheezes Cardiovascular exam: PRESENT: RRR. ABSENT: diastolic murmur, rubs, systolic murmur Pulses: PRESENT: normal dorsalis pedis pul Vascular exam: PRESENT: normal capillary refill GI/Abdominal exam: PRESENT: normal bowel sounds, soft. ABSENT: distended, guarding, mass, organolmegaly, rebound, tenderness Rectal exam: PRESENT: deferred Extremities exam: PRESENT: full ROM. ABSENT: calf tenderness, clubbing, pedal edema Neurological exam: PRESENT: alert, awake, oriented to person, oriented to place , oriented to time, oriented to situation, CN II-XII grossly intact. ABSENT: motor sensory deficit Psychiatric exam: PRESENT: appropriate affect, normal mood. ABSENT: homicidal ideation, suicidal ideation Skin exam: PRESENT: dry, intact, warm. ABSENT: cyanosis, rash Results Laboratory Results: 05/30/18 07:45 05/30/18 07:45 05/27/18 05/27/18 05/27/18 06:00 06:00 10:25 Creatine Kinase 31 43 CK-MB (CK-2) 1.79 Troponin I 0.314 05/27/18 05/27/1805/27/18 10:25 14:45 14:45 Creatine Kinase 35 CK-MB (CK-2) 3.13 2.55 Troponin I 0.883 0.945 05/27/18 05/27/18 05/28/18 21:25 21:25 03:20 Creatine Kinase 31 29 L CK-MB (CK-2) 2.18 Troponin I 0.750 05/28/18 05/28/18 05/28/18 03:20 15:55 15:55 Creatine Kinase 24 L CK-MB (CK-2) 2.01 1.10 Troponin I 0.546 0.254 Impressions: Head CT 05/28/18 00:00 IMPRESSION: CHRONIC CHANGES OF ATROPHY AND MICROVASCULAR ISCHEMIA. Focal lacunar infarct at the site of previous hemorrhage. NO ACUTE PROCESS. EVIDENCE OF ACUTE STROKE: NO. Venous Doppler Study 05/28/18 00:00 IMPRESSION: NO EVIDENCE OF DVT OR SVT IN THE RIGHT LEG. Chest X-Ray 05/29/18 17:03 IMPRESSION: Cardiomegaly. There appears to be asymmetric pulmonary edema versus airspace disease the left lung. Left pleural effusion. Assessment & Plan - Diagnosis (1) Hypertensive emergency Is this a current diagnosis for this admission?: Yes Plan: Off of nitro drip. We will continue hydralazine clonidine isosorbide mononitrate lisinopril and Lasix p.o. cardiology on board. Will follow up the recommendation. (2) Acute on chronic diastolic (congestive) heart failure Is this a current diagnosis for this admission?: Yes Plan: Continue Lasix p.o. and monitor volume status. (3) Chronic renal insufficiency, stage IV (severe) Is this a current diagnosis for this admission?: Yes Plan: Creatinine and electrolytes remained stable outpatient nephrology follow-up. (4) Anemia in chronic kidney disease (CKD) Qualifiers: Chronic kidney disease stage: stage 4 (severe) Qualified Code(s): N18.4 - Chronic kidney disease, stage 4 (severe); D63.1 - Anemia in chronic kidney disease; D63.1 - Anemia in chronic kidney disease Is this a current diagnosis for this admission?: Yes Plan: Patient still makes urine electrolytes within normal limits patient does not need urgent hemodialysis currently. Patient will follow up with nephrology as outpatient. We will continue to monitor volume status and electrolytes daily.
--- NOTE | 2018-05-31 20:16 | PDOC PROGRESS REPORT ---
Subjective Progress Note for:: 05/30/18 Subjective:: Patient seen on morning rounds. Generally improved. Patient noted to be intermittently bradycardic but overall heart rate is improved. Yesterday patient had received half a unit of blood transfusion and subsequently developed shortness of breath. This however responded to IV Lasix. Patient was placed on doxazosin. There is limited choice on antihypertensive in this patient. Subsequently, patient blood pressure today was noted to be much better controlled. Reason For Visit: HTN EMERGENCY,HEART FAILURE Physical Exam Vital Signs: Temp Pulse Resp BP Pulse Ox 97.9 F 78 20 150/43 H 91 L 05/30/18 20:19 05/30/18 20:19 05/30/18 20:19 05/30/18 20:19 05/30/18 20:19 Intake & Output 05/29/18 05/30/18 05/31/18 06:59 06:59 06:59 Intake Total 350 143 960 Output Total 550 1120 245 Balance -200 -977 715 Weight 72.9 kg 74.9 kg Exam: GENERAL: well-nourished and in no acute distress. Alert and oriented x 2 HEAD: Atraumatic, normocephalic. EYES: Pupils equal round and reactive to light, extraocular movements intact, sclera anicteric, conjunctiva are normal. ENT: TMs normal, nares patent, oropharynx clear without exudates. Moist mucous membranes. No oral ulcerations or bleeding gums noted NECK: supple without lymphadenopathy. Trachea is central. No cervical or axillary lymphadenopathy noted. Carotids are 2+, JVD WNL LUNGS: Respiration seems nonlabored, no significant accessory muscle action noted. Few bibasilar crackles are noted. No wheezes rales or rhonchi noted. No significant dullness noted on percussion. CHEST: Palpation of the chest wall shows no significant chest wall tenderness. 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 ABDOMEN: Soft, no significant tenderness appreciated, normoactive bowel sounds. No guarding, no rebound. No rigidity noted . No masses appreciated. EXTREMITIES: Pedal pulses are 1-2+, no calf tenderness noted. No clubbing or cyanosis. negative pedal edema noted NEUROLOGICAL: Focused neurological exam showed no significant neurologic deficit. Normal speech, no focal weakness appreciated. PSYCH: Normal mood, normal affect. Judgment and insight not checked. SKIN: No significant ecchymosis, skin is noted to be warm. MUSCULOSKELETAL EXAM: No significant acute joint swelling noted. Results Laboratory Results: 05/30/18 07:45 05/30/18 07:45 05/30/18 05/30/18 07:45 07:45 WBC 7.9 RBC 2.62 L Hgb 7.7 L Hct 23.1 L MCV 88 MCH 29.3 MCHC 33.2 RDW 17.5 H Plt Count 175 Seg Neutrophils % 66.5 Lymphocytes % 22.0 Monocytes % 8.2 Eosinophils % 2.5 Basophils % 0.8 Absolute Neutrophils 5.2 Absolute Lymphocytes 1.7 Absolute Monocytes 0.6 Absolute Eosinophils 0.2 Absolute Basophils 0.1 Sodium 141.3 Potassium 4.6 Chloride 107 Carbon Dioxide 26 Anion Gap 8 BUN 54 H Creatinine 3.01 H Est GFR ( Amer) 18 L Est GFR (Non-Af Amer) 15 L Glucose 131 H Calcium 9.0 Phosphorus 5.1 H Magnesium 2.1 Total Bilirubin 0.6 AST 12 L ALT 16 Alkaline Phosphatase 47 Total Protein 5.0 L Albumin 2.2 L 05/27/18 05/27/18 05/27/18 06:00 06:00 10:25 Creatine Kinase 31 43 CK-MB (CK-2) 1.79 Troponin I 0.314 05/27/18 05/27/18 05/27/18 10:25 14:45 14:45 Creatine Kinase 35 CK-MB (CK-2) 3.13 2.55 Troponin I 0.883 0.945 05/27/18 05/27/18 05/28/18 21:25 21:25 03:20 Creatine Kinase 31 29 L CK-MB (CK-2) 2.18 Troponin I 0.750 05/28/18 05/28/18 05/28/18 03:20 15:55 15:55 Creatine Kinase 24 L CK-MB (CK-2) 2.01 1.10 Troponin I 0.546 0.254 EKG Comments: EKG reviewed showed QT prolongation. Will repeat EKG in a.m. Impressions: Head CT 05/28/18 00:00 IMPRESSION: CHRONIC CHANGES OF ATROPHY AND MICROVASCULAR ISCHEMIA. Focal lacunar infarct at the site of previous hemorrhage. NO ACUTE PROCESS. EVIDENCE OF ACUTE STROKE: NO. Venous Doppler Study 05/28/18 00:00 IMPRESSION: NO EVIDENCE OF DVT OR SVT IN THE RIGHT LEG. Chest X-Ray 05/29/18 17:03 IMPRESSION: Cardiomegaly. There appears to be asymmetric pulmonary edema versus airspace disease the left lung. Left pleural effusion. Assessment & Plan - Diagnosis (1) Acute on chronic diastolic (congestive) heart failure Is this a current diagnosis for this admission?: Yes (2) Chronic renal insufficiency, stage IV (severe) Is this a current diagnosis for this admission?: Yes (3) Hypertensive emergency Is this a current diagnosis for this admission?: Yes (4) Bradycardia Is this a current diagnosis for this admission?: Yes (5) Elevated troponin Is this a current diagnosis for this admission?: Yes - Notes Notes: Patient generally improved. Blood pressure is improved. Chronic renal insufficiency: Nephrology seen the patient. Patient may end up needing dialysis. Hypertensive emergency: Patient remains with high blood pressure, but overall blood pressure is improved. We will continue to monitor blood pressure. Bradycardia: Will observe. Once heart rate improved may need to gradually institute beta-ry therapy. Troponin I elevation: These are in the non-STEMI range. Will consider patient from aspirin to Plavix which is gentler on the stomach. - Time Time with patient: 15-25 minutes - CODE STATUS : was discussed, patient remains DO NOT RESUSCITATE. Surrogate decision-maker unchanged. Multiple medical problems were addressed. More than 50% of the time spent coordinating care, discussing management plans with involved caregivers. Management plans discussed with involved personnels. Medical decision making was of moderate to high complexity, patient's has multiple comorbidities. Medications reviewed and adjusted accordingly: Yes
--- NOTE | 2018-05-31 20:33 | PDOC PROGRESS REPORT ---
Subjective Progress Note for:: 05/31/18 Subjective:: Patient seen on evening rounds. Generally improved. Overall heart rate is improved. Patient is also noted to be more alert today. She is oriented to place and person but had difficulty with gait. Reason For Visit: HTN EMERGENCY,HEART FAILURE Physical Exam Vital Signs: Temp Pulse Resp BP Pulse Ox 98.5 F 62 12 142/47 H 96 05/31/18 16:00 05/31/18 16:00 05/31/18 16:00 05/31/18 16:00 05/31/18 16:00 Intake & Output 05/30/18 05/31/18 06/01/18 06:59 06:59 06:59 Intake Total 143 1080 867 Output Total 1120 1345 750 Balance -977 -265 117 Weight 74.9 kg 73.4 kg Exam: GENERAL: well-nourished and in no acute distress. Alert and oriented x 2 HEAD: Atraumatic, normocephalic. EYES: Pupils equal round and reactive to light, extraocular movements intact, sclera anicteric, conjunctiva are normal. ENT: TMs normal, nares patent, oropharynx clear without exudates. Moist mucous membranes. No oral ulcerations or bleeding gums noted NECK: supple without lymphadenopathy. Trachea is central. No cervical or axillary lymphadenopathy noted. Carotids are 2+, JVD WNL LUNGS: Respiration seems nonlabored, no significant accessory muscle action noted. Breath sounds clear to auscultation bilaterally and equal noted. No wheezes rales or rhonchi noted. No significant dullness noted on percussion. CHEST: Palpation of the chest wall shows no significant chest wall tenderness. 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 ABDOMEN: Soft, no significant tenderness appreciated, normoactive bowel sounds. No guarding, no rebound. No rigidity noted . No masses appreciated. EXTREMITIES: Pedal pulses are 1-2+, no calf tenderness noted. No clubbing or cyanosis. 1+ pedal edema noted NEUROLOGICAL: Focused neurological exam showed no significant neurologic deficit. Normal speech, no focal weakness appreciated. PSYCH: Normal mood, normal affect. Judgment and insight not checked SKIN: No significant ecchymosis, skin is noted to be warm. MUSCULOSKELETAL EXAM: No significant acute joint swelling noted. Results Laboratory Results: 05/30/18 07:45 05/30/18 07:45 05/27/18 05/27/18 05/27/18 06:00 06:00 10:25 Creatine Kinase 31 43 CK-MB (CK-2) 1.79 Troponin I 0.314 05/27/18 05/27/18 05/27/18 10:25 14:45 14:45 Creatine Kinase 35 CK-MB (CK-2) 3.13 2.55 Troponin I 0.883 0.945 05/27/18 05/27/18 05/28/18 21:25 21:25 03:20 Creatine Kinase 31 29 L CK-MB (CK-2) 2.18 Troponin I 0.750 05/28/18 05/28/18 05/28/18 03:20 15:55 15:55 Creatine Kinase 24 L CK-MB (CK-2) 2.01 1.10 Troponin I 0.546 0.254 EKG Comments: Sinus rhythm, ischemic T-wave changes anterior precordial leads with borderline prolonged QT. Impressions: Head CT 05/28/18 00:00 IMPRESSION: CHRONIC CHANGES OF ATROPHY AND MICROVASCULAR ISCHEMIA. Focal lacunar infarct at the site of previous hemorrhage. NO ACUTE PROCESS. EVIDENCE OF ACUTE STROKE: NO. Venous Doppler Study 05/28/18 00:00 IMPRESSION: NO EVIDENCE OF DVT OR SVT IN THE RIGHT LEG. Chest X-Ray 05/29/18 17:03 IMPRESSION: Cardiomegaly. There appears to be asymmetric pulmonary edema versus airspace disease the left lung. Left pleural effusion. Assessment & Plan - Diagnosis (1) Acute on chronic diastolic (congestive) heart failure Is this a current diagnosis for this admission?: Yes (2) Chronic renal insufficiency, stage IV (severe) Is this a current diagnosis for this admission?: Yes (3) Hypertensive emergency Is this a current diagnosis for this admission?: Yes (4) Bradycardia Is this a current diagnosis for this admission?: Yes (5) Elevated troponin Is this a current diagnosis for this admission?: Yes - Notes Notes: Heart rate generally improved. EKG to be repeated in the morning. This is because of QTC being prolonged. Patient is DNR therefore do not plan to do any ischemia workup unless patient has significant chest pain. Chronic renal insufficiency: Nephrology seen the patient. Patient may end up needing dialysis. Hypertensive emergency: Patient remains with high blood pressure, but overall blood pressure is improved. We will continue to monitor blood pressure. Bradycardia: Will observe. Once heart rate improved may need to gradually institute beta-ry therapy. Troponin I elevation: These are in the non-STEMI range. However due to comorbid diagnosis and DNR status, not planning any ischemia workup. - Time Time with patient: 15-25 minutes - CODE STATUS : was discussed, patient remains DO NOT RESUSCITATE. Surrogate decision-maker unchanged. Multiple medical problems were addressed. More than 50% of the time spent coordinating care, discussing management plans with involved caregivers. Management plans discussed with involved personnels. Medical decision making was of moderate to high complexity, patient's has multiple comorbidities. Medications reviewed and adjusted accordingly: Yes
[2018-05-31] MEDS: INSULIN LISPRO 100 UNIT/ML 3 ML VIAL SUBCUT PRN (23:00)
[2018-06-01] MEDS: HYDRALAZINE HCL 50 MG TABLET PO SCH ×2 (06:16→13:36)
[2018-06-01 08:19] LABS: ABSOLUTE EOSINOPHILS # (AUTO) 0.6 10^3/uL (0.0-0.6); ABSOLUTE LYMPHOCYTES (AUTO) 1.9 10^3/uL (0.5-4.7); ABSOLUTE MONOCYTES (AUTO) 0.6 10^3/uL (0.1-1.4); ABSOLUTE NEUT (AUTO) 4.8 10^3/uL (1.7-8.2); BASOPHILS % (AUTO) 0.3 % (0-2); EOSINOPHILS % (AUTO) 7.8 % (0-6); HEMATOCRIT 21.2 % (36.0-47.0); LYMPHOCYTES % (AUTO) 24.1 % (13-45); MEAN CORPUSCULAR HEMOGLOBIN 30.2 pg (27.0-33.4); MEAN CORPUSCULAR HGB CONC 34.8 g/dL (32.0-36.0); MEAN CORPUSCULAR VOLUME 87 fl (80-97); MONOCYTES % (AUTO) 7.9 % (3-13); PLATELET COUNT 197 10^3/uL (150-450); RED BLOOD COUNT 2.44 10^6/uL (3.72-5.28); RED CELL DISTRIBUTION WIDTH 16.8 % (11.5-14.0); SEGMENTED NEUTROPHILS % (AUTO) 59.9 % (42-78); TOTAL CELLS COUNTED % (AUTO) 100 %; WHITE BLOOD COUNT 7.9 10^3/uL (4.0-10.5)
[2018-06-01 08:26] LABS: HEMOGLOBIN 7.4 g/dL (12.0-15.5)
[2018-06-01] MEDS: FUROSEMIDE INJ/PF 20 MG/2 ML SDV IV SCH ×2 (09:36→17:49)
[2018-06-01] MEDS: DOCUSATE SODIUM 100 MG CAPSULE PO SCH (09:36)
[2018-06-01] MEDS: MAGNESIUM OXIDE 400 MG TABLET PO SCH ×2 (09:37→17:47)
[2018-06-01] MEDS: GABAPENTIN 100 MG CAPSULE PO SCH ×3 (09:37→17:47)
[2018-06-01] MEDS: POTASSIUM CHLORIDE 10 MEQ CAPSULE.ER PO SCH (09:37)
[2018-06-01] MEDS: ISOSORBIDE MONONITRATE 60 MG TAB.ER.24H PO SCH (09:37)
[2018-06-01] MEDS: CLOPIDOGREL BISULFATE 75 MG TABLET PO SCH (09:37)
[2018-06-01] MEDS: LISINOPRIL 10 MG TABLET PO SCH ×2 (09:37→17:46)
[2018-06-01] MEDS: CLONIDINE HCL 0.1 MG TABLET PO SCH (09:37)
[2018-06-01] MEDS: DOXAZOSIN MESYLATE 4 MG TABLET PO SCH (09:40)
[2018-06-01] MEDS: ASPIRIN 81 MG TABLET, CHEWABLE PO SCH (09:40)
[2018-06-01] MEDS: INSULIN LISPRO 100 UNIT/ML 3 ML VIAL SUBCUT PRN (12:41)
[2018-06-01] MEDS: FERROUS SULFATE 325 MG TABLET PO SCH ×2 (13:36→17:46)
[2018-06-01] MEDS ORDERED: EPOETIN ALFA INJ 20,000 UNIT/1 ML VIAL (ONCOLOGY) SUBCUT ONE (14:00)
[2018-06-01 14:15] LABS: ABSOLUTE EOSINOPHILS # (AUTO) 0.6 10^3/uL (0.0-0.6); ABSOLUTE LYMPHOCYTES (AUTO) 2.2 10^3/uL (0.5-4.7); ABSOLUTE MONOCYTES (AUTO) 0.6 10^3/uL (0.1-1.4); ABSOLUTE NEUT (AUTO) 4.2 10^3/uL (1.7-8.2); BASOPHILS % (AUTO) 0.5 % (0-2); EOSINOPHILS % (AUTO) 8.2 % (0-6); HEMATOCRIT 23.5 % (36.0-47.0); LYMPHOCYTES % (AUTO) 28.7 % (13-45); MEAN CORPUSCULAR HEMOGLOBIN 29.4 pg (27.0-33.4); MEAN CORPUSCULAR HGB CONC 33.6 g/dL (32.0-36.0); MEAN CORPUSCULAR VOLUME 88 fl (80-97); MONOCYTES % (AUTO) 7.8 % (3-13); PLATELET COUNT 212 10^3/uL (150-450); RED BLOOD COUNT 2.69 10^6/uL (3.72-5.28); RED CELL DISTRIBUTION WIDTH 17.4 % (11.5-14.0); SEGMENTED NEUTROPHILS % (AUTO) 54.8 % (42-78); TOTAL CELLS COUNTED % (AUTO) 100 %; WHITE BLOOD COUNT 7.7 10^3/uL (4.0-10.5)
[2018-06-01 14:18] LABS: HEMOGLOBIN 7.9 g/dL (12.0-15.5)
--- NOTE | 2018-06-01 17:19 | PDOC CONSULTATION ---
Consultation Consult Date: 06/01/18 Consult reason:: ckd and anemia History of Present Illness Admission Date/PCP: 05/27/18 04:23 JOHN DELONG History of Present Illness: KAM DEAN is a 78 year old female with a past medical history of stage IV chronic kidney disease, diastolic heart failure, recurrent admissions for hypertensive emergency and vascular dementia. She became abruptly short of breath prompting evaluation in the emergency room where she is found to have a blood pressure of 217/117. In the emergency room she is started on BiPAP, IV Lasix and IV nitroglycerin. A head CT was done the next day and showed that there was no acute process. While in the hospital her hemoglobin dropped from 10.2 to 8.5 and kept trending down. She was found to be hemocult negative. Hemoglobin stabilized in the 7s. She was given procrit today. Patient at the time of examination appeared at her normal baseline confusion. She denied chest pain, SOB, lightheadedness or dizziness. She also denied seeing blood in her stool or dark tarry stools. Patient was supposed to be following up at Dr. Elizondo' office for procrit shots but the family had failed to schedule any. Past Medical History Cardiac Medical History: Reports: Coronary Artery Disease, Hyperlipidemia, Myocardial Infarction Denies: Peripheral Vascular Disease, Pulmonary Embolism Pulmonary Medical History: Reports: Pneumonia Denies: Tuberculosis Endocrine Medical History: Reports: Diabetes Mellitus Type 2, Hypothyroidism Renal/ Medical History: Reports: Chronic Kidney Disease Stage IV, Hypokalemia , Hypomagnesemia GI Medical History: Reports: Gastroesophageal Reflux Disease Musculoskeltal Medical History: Reports: Arthritis - hip Psychiatric Medical History: Reports: Bipolar Disorder, Depression Past Surgical History Past Surgical History: Reports: Cardiac Catheterization - stents, Cholecystectomy, Orthopedic Surgery - hand Social History Lives with: Assisted Smoking Status: Unknown if Ever Smoked Frequency of Alcohol Use: None Hx Recreational Drug Use: No Drugs: None Hx Prescription Drug Abuse: No - Advance Directive Resuscitation Status: Do Not Resuscitate Family History Parental Family History Reviewed: No Children Family History Reviewed: NA Sibling(s) Family History Reviewed.: NA Medication/Allergy Home Medications: Alprazolam [Xanax] 0.25 mg PO Q12HP PRN 05/27/18 Atorvastatin Calcium [Lipitor 20 mg Tablet] 20 mg PO QHS 05/27/18 Bumetanide [Bumex 1 mg Tablet] 1 mg PO DAILY 05/27/18 Calcitriol [Rocaltrol 0.25 mcg Capsule] 0.25 mcg PO Q2D 05/27/18 Clopidogrel Bisulfate [Plavix 75 mg Tablet] 75 mg PO DAILY 05/27/18 Hydralazine HCl 100 mg PO Q8 05/27/18 Insulin Detemir [Levemir Flextouch] 20 units SQ QPM 05/27/18 Isosorbide Mononitrate [Isosorbide Mononitrate ER] 120 mg PO DAILY 05/27/18 Lisinopril [Prinivil] 20 mg PO Q12 05/27/18 Pantoprazole Sodium [Protonix] 40 mg PO DAILY 05/27/18 Potassium Chloride [Klor-Con M20] 20 meq PO DAILY 05/27/18 Allergies/Adverse Reactions: No Known Allergies Allergy (Verified 05/23/18 16:27) Review of Systems Constitutional: ABSENT: headache(s), weakness Eyes: ABSENT: visual disturbances Nose, Mouth, and Throat: ABSENT: headache(s) Cardiovascular: ABSENT: chest pain, orthropnea Gastrointestinal: ABSENT: hematochezia, melena Genitourinary: ABSENT: dysuria, hematuria Neurological: PRESENT: confusion, memory loss Physical Exam Vital Signs: Temp Pulse Resp BP Pulse Ox 98.1 F 52 L 16 139/51 H 94 06/01/18 15:03 06/01/18 15:03 06/01/18 15:03 06/01/18 15:03 06/01/18 15:03 Intake & Output 05/31/18 06/01/18 06/02/18 06:59 06:59 06:59 Intake Total 1080 867 831 Output Total 1345 1500 750 Balance -265 -633 81 Weight 73.4 kg 74.6 kg General appearance: PRESENT: no acute distress, disheveled Mouth exam: PRESENT: moist, neck supple Neck exam: PRESENT: full ROM. ABSENT: JVD Respiratory exam: PRESENT: clear to auscultation [place], symmetrical, unlabored. ABSENT: accessory muscle use, tachypnea Cardiovascular exam: PRESENT: RRR, +S1, +S2 Extremities exam: PRESENT: pedal edema, tenderness Musculoskeletal exam: PRESENT: tenderness. ABSENT: normal inspection Neurological exam: PRESENT: alert, oriented to place. ABSENT: oriented to person, oriented to time, oriented to situation Psychiatric exam: PRESENT: flat affect Skin exam: PRESENT: dry, intact, warm. ABSENT: cyanosis Results Laboratory Results: 06/01/18 12:45 05/30/18 07:45 06/01/18 06/01/18 06/01/18 06:15 06:15 12:30 WBC 7.9 RBC 2.44 L Hgb 7.4 L Hct 21.2 L MCV 87 MCH 30.2 MCHC 34.8 RDW 16.8 H Plt Count 197 Seg Neutrophils % 59.9 Lymphocytes % 24.1 Monocytes % 7.9 Eosinophils % 7.8 H Basophils % 0.3 Absolute Neutrophils 4.8 Absolute Lymphocytes 1.9 Absolute Monocytes 0.6 Absolute Eosinophils 0.6 Absolute Basophils 0.0 Magnesium 2.3 Stool Occult Blood NEGATIVE 06/01/18 12:45 WBC 7.7 RBC 2.69 L Hgb 7.9 L Hct 23.5 L MCV 88 MCH 29.4 MCHC 33.6 RDW 17.4 H Plt Count 212 Seg Neutrophils % 54.8 Lymphocytes % 28.7 Monocytes % 7.8 Eosinophils % 8.2 H Basophils % 0.5 Absolute Neutrophils 4.2 Absolute Lymphocytes 2.2 Absolute Monocytes 0.6 Absolute Eosinophils 0.6 Absolute Basophils 0.0 Magnesium Stool Occult Blood 05/27/18 05/27/18 05/27/18 06:00 06:00 10:25 Creatine Kinase 31 43 CK-MB (CK-2) 1.79 Troponin I 0.314 05/27/18 05/27/18 05/27/18 10:25 14:45 14:45 Creatine Kinase 35 CK-MB (CK-2) 3.13 2.55 Troponin I 0.883 0.945 05/27/18 05/27/18 05/28/18 21:25 21:25 03:20 Creatine Kinase 31 29 L CK-MB (CK-2) 2.18 Troponin I 0.750 05/28/18 05/28/18 05/28/18 03:20 15:55 15:55 Creatine Kinase 24 L CK-MB (CK-2) 2.01 1.10 Troponin I 0.546 0.254 Impressions: Head CT 05/28/18 00:00 IMPRESSION: CHRONIC CHANGES OF ATROPHY AND MICROVASCULAR ISCHEMIA. Focal lacunar infarct at the site of previous hemorrhage. NO ACUTE PROCESS. EVIDENCE OF ACUTE STROKE: NO. Venous Doppler Study 05/28/18 00:00 IMPRESSION: NO EVIDENCE OF DVT OR SVT IN THE RIGHT LEG. Chest X-Ray 05/29/18 17:03 IMPRESSION: Cardiomegaly. There appears to be asymmetric pulmonary edema versus airspace disease the left lung. Left pleural effusion. Assessment & Plan - Diagnosis (1) Chronic renal insufficiency, stage IV (severe) Is this a current diagnosis for this admission?: Yes Plan: Patient is currently at baseline and safe for discharge. She will need to follow up with me a week from today (2) Anemia in chronic kidney disease (CKD) Qualifiers: Chronic kidney disease stage: stage 4 (severe) Qualified Code(s): N18.4 - Chronic kidney disease, stage 4 (severe); D63.1 - Anemia in chronic kidney disease; D63.1 - Anemia in chronic kidney disease Is this a current diagnosis for this admission?: Yes Plan: Patient tami occult negative, she is stable for discharge since receiving the procrit shot. She will need to follow up in one week in my office so she can receive a procrit shot. She will need procrit weekly until she gets into the 9s. Family will need to be more compliant with scheduling and bringing her to procrit appointments. (3) Hypertensive emergency Is this a current diagnosis for this admission?: Yes Plan: looks to be controlled
[2018-06-01 18:46] VITALS: BP 148/51
--- NOTE | 2018-06-01 20:33 | EKG REPORT ---
SEVERITY:- ABNORMAL ECG - SINUS RHYTHM PROBABLE LVH WITH SECONDARY REPOL ABNRM BORDERLINE PROLONGED QT INTERVAL : Confirmed by: Margie Denton 01-Jun-2018 17:32:20
--- NOTE | 2018-06-02 18:12 | PDOC PROGRESS REPORT ---
Subjective Progress Note for:: 06/01/18 Subjective:: Patient seen on morning rounds. Generally improved. Overall heart rate is improved. Patient has been stable for last several days. She is expected to be discharged. Reason For Visit: HTN EMERGENCY,HEART FAILURE Physical Exam Vital Signs: Temp Pulse Resp BP Pulse Ox 98.1 F 52 L 16 148/51 H 94 06/01/18 18:41 06/01/18 18:41 06/01/18 18:41 06/01/18 18:41 06/01/18 18:41 Intake & Output 05/31/18 06/01/18 06/02/18 06:59 06:59 06:59 Intake Total 2599 399 9875 Output Total 1345 1500 1200 Balance -265 -208 -129 Weight 73.4 kg 74.6 kg Exam: GENERAL: well-nourished and in no acute distress. Alert and oriented x 2 HEAD: Atraumatic, normocephalic. EYES: Pupils equal round and reactive to light, extraocular movements intact, sclera anicteric, conjunctiva are normal. ENT: TMs normal, nares patent, oropharynx clear without exudates. Moist mucous membranes. No oral ulcerations or bleeding gums noted NECK: supple without lymphadenopathy. Trachea is central. No cervical or axillary lymphadenopathy noted. Carotids are 2+, JVD WNL LUNGS: Respiration seems nonlabored, no significant accessory muscle action noted. Breath sounds clear to auscultation bilaterally and equal noted. No wheezes rales or rhonchi noted. No significant dullness noted on percussion. CHEST: Palpation of the chest wall shows no significant chest wall tenderness. 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 ABDOMEN: Soft, no significant tenderness appreciated, normoactive bowel sounds. No guarding, no rebound. No rigidity noted . No masses appreciated. EXTREMITIES: Pedal pulses are 1-2+, no calf tenderness noted. No clubbing or cyanosis. negative pedal edema noted NEUROLOGICAL: Focused neurological exam showed no significant neurologic deficit. Normal speech, no focal weakness appreciated. PSYCH: Normal mood, normal affect. Judgment and insight not checked. SKIN: No significant ecchymosis, skin is noted to be warm. MUSCULOSKELETAL EXAM: No significant acute joint swelling noted. Results Laboratory Results: 06/01/18 12:45 05/30/18 07:45 06/01/18 06/01/18 06/01/18 06:15 06:15 12:30 WBC 7.9 RBC 2.44 L Hgb 7.4 L Hct 21.2 L MCV 87 MCH 30.2 MCHC 34.8 RDW 16.8 H Plt Count 197 Seg Neutrophils % 59.9 Lymphocytes % 24.1 Monocytes % 7.9 Eosinophils % 7.8 H Basophils % 0.3 Absolute Neutrophils 4.8 Absolute Lymphocytes 1.9 Absolute Monocytes 0.6 Absolute Eosinophils 0.6 Absolute Basophils 0.0 Magnesium 2.3 Stool Occult Blood NEGATIVE 06/01/18 12:45 WBC 7.7 RBC 2.69 L Hgb 7.9 L Hct 23.5 L MCV 88 MCH 29.4 MCHC 33.6 RDW 17.4 H Plt Count 212 Seg Neutrophils % 54.8 Lymphocytes % 28.7 Monocytes % 7.8 Eosinophils % 8.2 H Basophils % 0.5 Absolute Neutrophils 4.2 Absolute Lymphocytes 2.2 Absolute Monocytes 0.6 Absolute Eosinophils 0.6 Absolute Basophils 0.0 Magnesium Stool Occult Blood 05/27/18 05/27/18 05/27/18 06:00 06:00 10:25 Creatine Kinase 31 43 CK-MB (CK-2) 1.79 Troponin I 0.314 05/27/18 05/27/18 05/27/18 10:25 14:45 14:45 Creatine Kinase 35 CK-MB (CK-2) 3.13 2.55 Troponin I 0.883 0.945 05/27/18 05/27/18 05/28/18 21:25 21:25 03:20 Creatine Kinase 31 29 L CK-MB (CK-2) 2.18 Troponin I 0.750 05/28/18 05/28/18 05/28/18 03:20 15:55 15:55 Creatine Kinase 24 L CK-MB (CK-2) 2.01 1.10 Troponin I 0.546 0.254 EKG Comments: Showed sinus rhythm without any sustained tachycardia or bradycardia Impressions: Head CT 05/28/18 00:00 IMPRESSION: CHRONIC CHANGES OF ATROPHY AND MICROVASCULAR ISCHEMIA. Focal lacunar infarct at the site of previous hemorrhage. NO ACUTE PROCESS. EVIDENCE OF ACUTE STROKE: NO. Venous Doppler Study 05/28/18 00:00 IMPRESSION: NO EVIDENCE OF DVT OR SVT IN THE RIGHT LEG. Chest X-Ray 05/29/18 17:03 IMPRESSION: Cardiomegaly. There appears to be asymmetric pulmonary edema versus airspace disease the left lung. Left pleural effusion. Assessment & Plan - Diagnosis (1) Acute on chronic diastolic (congestive) heart failure Is this a current diagnosis for this admission?: Yes (2) Chronic renal insufficiency, stage IV (severe) Is this a current diagnosis for this admission?: Yes (3) Hypertensive emergency Is this a current diagnosis for this admission?: Yes (4) Bradycardia Is this a current diagnosis for this admission?: Yes (5) Elevated troponin Is this a current diagnosis for this admission?: Yes - Notes Notes: Heart rate generally improved. QTc is just borderline prolonged. EKG reviewed shows LVH with secondary ST-T wave changes. Heart rate 65. Patient is DNR therefore do not plan to do any ischemia workup unless patient has significant chest pain. Chronic renal insufficiency: Nephrology seen the patient. Patient may end up needing dialysis. Nephrology now following. Hypertensive emergency: Patient remains with high blood pressure, but overall blood pressure is improved. We will continue to monitor blood pressure. Bradycardia: Resolved. Would recommend cardiac event monitoring as an outpatient. Troponin I elevation: These are in the non-STEMI range. However due to comorbid diagnosis and DNR status, not planning any ischemia workup. Patient can follow-up with me in the office with family and patient wishes. - Time Time with patient: 15-25 minutes - CODE STATUS : was discussed, patient remains DO NOT RESUSCITATE. Surrogate decision-maker unchanged. Multiple medical problems were addressed. More than 50% of the time spent coordinating care, discussing management plans with involved caregivers. Management plans discussed with involved personnels. Medical decision making was of moderate to high complexity, patient's has multiple comorbidities. Medications reviewed and adjusted accordingly: Yes
--- NOTE | 2018-06-03 20:48 | PDOC DISCHARGE SUMMARY ---
General - Admit/Disc Date/PCP Admission Date/Primary Care Provider: 05/27/18 04:23 JOHN DELONG Discharge Date: 06/01/18 - Discharge Diagnosis (1) Hypertensive emergency Is this a current diagnosis for this admission?: Yes (2) Acute on chronic diastolic (congestive) heart failure Is this a current diagnosis for this admission?: Yes (3) Chronic renal insufficiency, stage IV (severe) Is this a current diagnosis for this admission?: Yes (4) Anemia in chronic kidney disease (CKD) Is this a current diagnosis for this admission?: Yes - Additional Information Resuscitation Status: Do Not Resuscitate Discharge Diet: Cardiac, Diabetic Discharge Activity: Activity As Tolerated, Balance Activity w/Rest, Weigh Daily Prescriptions: Ferrous Sulfate [Feosol 325 mg Tablet] 325 mg PO BID 30 Days tablet Home Medications: Alprazolam [Xanax] 0.25 mg PO Q12HP PRN 05/27/18 Atorvastatin Calcium [Lipitor 20 mg Tablet] 20 mg PO QHS 05/27/18 Bumetanide [Bumex 1 mg Tablet] 1 mg PO DAILY 05/27/18 Calcitriol [Rocaltrol 0.25 mcg Capsule] 0.25 mcg PO Q2D 05/27/18 Clopidogrel Bisulfate [Plavix 75 mg Tablet] 75 mg PO DAILY 05/27/18 Hydralazine HCl 100 mg PO Q8 05/27/18 Insulin Detemir [Levemir Flextouch] 20 units SQ QPM 05/27/18 Isosorbide Mononitrate [Isosorbide Mononitrate ER] 120 mg PO DAILY 05/27/18 Lisinopril [Prinivil] 20 mg PO Q12 05/27/18 Pantoprazole Sodium [Protonix] 40 mg PO DAILY 05/27/18 Ferrous Sulfate [Feosol 325 mg Tablet] 325 mg PO BID 30 Days tablet 06/01/18 History of Present Illness Patient complains of: SOB History of Present Illness: KAM DEAN is a 78 year old female with a past medical history of stage IV chronic kidney disease, diastolic heart failure, recurrent admissions for hypertensive emergency and vascular dementia. Patient was recently discharged from nursing home to live with her son who is at bedside stating she became abruptly short of breath prompting evaluation in the emergency room where she is found to have a blood pressure of 217/117. He states blood pressure medication recently changed secondary to bradycardia. Patient admited to chest tightness, no nausea or vomiting. Hospital Course Hospital Course: 1. Hypertensive emergency Patient was transferred to ICU where she was still on IV drip and transition to hydralazine, clonidine, isosorbide mononitrate, lisinopril and Lasix patient was transferred to medical floor where she remains normotensive. 2. Chronic renal insufficiency, stage IV Patient remained euvolemic during hospitalization, nephrology was consulted. Follow-up visit with stratigrapher was planned. 3. Acute on chronic diastolic heart failure Patient continued her Lasix and her volume status was monitored, audiology was consulted please refer to cardiology consultation. 4. Anemia of CKD Hemoccult negative ,Procrit was given, nephrology consulted, nephrology follow- up was planned by stratigrapher. Note. On the day of discharge patient denied any chest pain, shortness of breath, fever, chills, nausea, vomiting, abdominal pain, diarrhea, constipation , and urinary symptoms Physical Exam Vital Signs: Temp Pulse Resp BP Pulse Ox 98.1 F 52 L 16 148/51 H 94 06/01/18 18:41 06/01/18 18:41 06/01/18 18:41 06/01/18 18:41 06/01/18 18:41 Intake & Output 06/02/18 06/03/18 06/04/18 06:59 06:59 06:59 Intake Total 1071 Output Total 1200 Balance -129 General appearance: PRESENT: no acute distress, well-developed, well-nourished Head exam: PRESENT: atraumatic, normocephalic Eye exam: PRESENT: conjunctiva pink, EOMI, PERRLA. ABSENT: scleral icterus Ear exam: PRESENT: normal external ear exam Mouth exam: PRESENT: moist, tongue midline Neck exam: ABSENT: carotid bruit, JVD, lymphadenopathy, thyromegaly Respiratory exam: PRESENT: clear to auscultation santa. ABSENT: rales, rhonchi, wheezes Cardiovascular exam: PRESENT: RRR. ABSENT: diastolic murmur, rubs, systolic murmur Pulses: PRESENT: normal dorsalis pedis pul Vascular exam: PRESENT: normal capillary refill GI/Abdominal exam: PRESENT: normal bowel sounds, soft. ABSENT: distended, guarding, mass, organolmegaly, rebound, tenderness Rectal exam: PRESENT: deferred Extremities exam: PRESENT: full ROM. ABSENT: calf tenderness, clubbing, pedal edema Neurological exam: PRESENT: alert, awake, oriented to person, oriented to place , oriented to time, oriented to situation, CN II-XII grossly intact. ABSENT: motor sensory deficit Psychiatric exam: PRESENT: appropriate affect, normal mood. ABSENT: homicidal ideation, suicidal ideation Skin exam: PRESENT: dry, intact, warm. ABSENT: cyanosis, rash Results Laboratory Results: 06/01/18 12:45 05/30/18 07:45 05/27/18 05/27/18 05/27/18 06:00 06:00 10:25 Creatine Kinase 31 43 CK-MB (CK-2) 1.79 Troponin I 0.314 05/27/18 05/27/18 05/27/18 10:25 14:45 14:45 Creatine Kinase 35 CK-MB (CK-2) 3.13 2.55 Troponin I 0.883 0.945 05/27/18 05/27/18 05/28/18 21:25 21:25 03:20 Creatine Kinase 31 29 L CK-MB (CK-2) 2.18 Troponin I 0.750 05/28/18 05/28/18 05/28/18 03:20 15:55 15:55 Creatine Kinase 24 L CK-MB (CK-2) 2.01 1.10 Troponin I 0.546 0.254 Impressions: Head CT 05/28/18 00:00 IMPRESSION: CHRONIC CHANGES OF ATROPHY AND MICROVASCULAR ISCHEMIA. Focal lacunar infarct at the site of previous hemorrhage. NO ACUTE PROCESS. EVIDENCE OF ACUTE STROKE: NO. Venous Doppler Study 05/28/18 00:00 IMPRESSION: NO EVIDENCE OF DVT OR SVT IN THE RIGHT LEG. Chest X-Ray 05/29/18 17:03 IMPRESSION: Cardiomegaly. There appears to be asymmetric pulmonary edema versus airspace disease the left lung. Left pleural effusion. Qualifiers - * PATIENT BEING DISCHARGED WITH ANY OF THE FOLLOWING DIAGNOSIS: No
== END 2018-06-01 19:47 | disposition home health service (06) | DRG 304 ==
LOC: ER 00:52 → EH 04:23 → ICU 06:40 → 3W 05-30 17:34
PROVIDERS: ADMIT Internal Medicine; ATTEND Internal Medicine
PROC: 06HM33Z Insertion of Infusion Device into Right Femoral Vein, Percutaneous Approach (ICD-10-PCS; principal; 2018-05-27)
PROC: 5A09557 Assistance with Respiratory Ventilation, Greater than 96 Consecutive Hours, Continuous Positive Airway Pressure (ICD-10-PCS; 2018-05-27)
PROC: 30233N1 Transfusion of Nonautologous Red Blood Cells into Peripheral Vein, Percutaneous Approach (ICD-10-PCS; 2018-05-29)
DX: I16.1 Hypertensive emergency (principal); I50.33 Acute on chronic diastolic (congestive) heart failure; N18.4 Chronic kidney disease, stage 4 (severe); J96.10 Chronic respiratory failure, unspecified whether with hypoxia or hypercapnia; I13.0 Hypertensive heart and chronic kidney disease with heart failure and stage 1 through stage 4 chronic kidney disease, or unspecified chronic kidney disease; E11.22 Type 2 diabetes mellitus with diabetic chronic kidney disease; I25.10 Atherosclerotic heart disease of native coronary artery without angina pectoris; I25.2 Old myocardial infarction; E78.5 Hyperlipidemia, unspecified; E03.9 Hypothyroidism, unspecified; K21.9 Gastro-esophageal reflux disease without esophagitis; M19.90 Unspecified osteoarthritis, unspecified site; F32.9 Major depressive disorder, single episode, unspecified; F01.50 Vascular dementia, unspecified severity, without behavioral disturbance, psychotic disturbance, mood disturbance, and anxiety; D63.1 Anemia in chronic kidney disease; R00.1 Bradycardia, unspecified; T46.5X5A Adverse effect of other antihypertensive drugs, initial encounter; Z90.49 Acquired absence of other specified parts of digestive tract; Z66 Do not resuscitate; Z82.49 Family history of ischemic heart disease and other diseases of the circulatory system; Z83.3 Family history of diabetes mellitus; Z82.3 Family history of stroke; Z79.82 Long term (current) use of aspirin; Z79.899 Other long term (current) drug therapy; Z79.4 Long term (current) use of insulin
CPT/HCPCS: 36415; 36430; 70450; 71045; 80048; 80053; 81001; 82272; 82550; 82553; 82803; 82962; 83605; 83735; 83880; 84100; 84439; 84443; 84481; 84484; 85025; 86850; 86900; 86901; 86920; 87040; 93005; 93010; 93971; 94640; 94660; 96365; 96366; 96375; 99291; 99292; C1751; J0885; J1644; J1815; J1940; J2405; J3490; J7620; P9016

== ENCOUNTER 2018-06-09 20:30 | Inpatient (IN) | payer MEDICARE ==
[2018-06-09] MEDS ORDERED: FUROSEMIDE INJ/PF 40 MG/4 ML SDV ONE (20:39)
[2018-06-09] MEDS ORDERED: NITROGLYCERIN/D5W 50 MG/250 ML RTUINJ IV PRN (20:44)
[2018-06-09] MEDS ORDERED: FUROSEMIDE INJ/PF 40 MG/4 ML SDV IV ONE (20:44)
--- NOTE | 2018-06-09 20:47 | ER Document Report ---
ED General - General Chief Complaint: Respiratory Distress Stated Complaint: DIFFICULTY BREATHING Time Seen by Provider: 06/09/18 20:44 Cannot obtain history due to: Unstable vital signs Notes: Patient is a 78-year-old female with a past medical history of CHF and chronic kidney disease who presents in severe respiratory distress. History is extremely limited secondary to the acuity of the patient's presentation as she is unable to provide any history due to her distress. EMS reports that family on scene reported that the patient had an abrupt onset of severe shortness of breath just prior to arrival. She was saturating 84% on room air and does not normally have an oxygen requirement. No additional history can be obtained at this time. TRAVEL OUTSIDE OF THE [place] IN LAST 30 DAYS: No - Related Data Allergies/Adverse Reactions: No Known Allergies Allergy (Verified 05/23/18 16:27) Past Medical History - General Information source: Emergency Med Personnel, [facility] Records Cannot obtain history due to: Unstable vital signs - Social History Smoking Status: Unknown if Ever Smoked Frequency of alcohol use: None Drug Abuse: None Lives with: Family Family History: CVA, DM, Hypertension - Past Medical History Cardiac Medical History: Reports: Hx Congestive Heart Failure, Hx Coronary Artery Disease, Hx Heart Attack, Hx Hypercholesterolemia, Hx Hypertension Denies: Hx Peripheral Vascular Disease, Hx Pulmonary Embolism Pulmonary Medical History: Reports: Hx Pneumonia Denies: Hx Tuberculosis Neurological Medical History: Reports: Hx Cerebrovascular Accident Endocrine Medical History: Reports: Hx Diabetes Mellitus Type 2, Hx Hypothyroidism Renal/ Medical History: Denies: Hx Peritoneal Dialysis GI Medical History: Reports: Hx Gastroesophageal Reflux Disease Musculoskeletal Medical History: 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 HENT: Negative for sore throat. Eyes: Negative for visual changes. Cardiovascular: Negative for chest pain. Respiratory: Positive for shortness of breath. Gastrointestinal: Negative for abdominal pain, vomiting or diarrhea. Genitourinary: Negative for dysuria. Musculoskeletal: Negative for back pain. Skin: Negative for rash. Neurological: Negative for headaches, weakness or numbness. 10 point ROS negative except as marked above and in HPI. Physical Exam - Vital signs Vitals: Resp Pulse Ox 24 H 100 06/09/18 20:35 06/09/18 20:35 Interpretation: Hypertensive, Tachycardic, Tachypneic Notes: PHYSICAL EXAMINATION: GENERAL: Appears very uncomfortable, in severe respiratory distress HEAD: Atraumatic, normocephalic. EYES: Pupils equal round and reactive to light, extraocular movements intact, sclera anicteric, conjunctiva are normal. ENT: nares patent, oropharynx clear without exudates. Moderately dry mucous membranes. NECK: Normal range of motion, supple without lymphadenopathy LUNGS: Severe respiratory distress, breathing approximately 45 times per minute. Diminished air movement throughout with scattered crackles throughout. Pleural ultrasound shows B-lines throughout. HEART: Regular tachycardia without murmurs, bedside echocardiogram without pericardial effusion ABDOMEN: Soft, nontender, normoactive bowel sounds. No guarding, no rebound. No masses appreciated. EXTREMITIES: Normal range of motion, 3+ pitting edema in the bilateral lower external knees that is equal and symmetric. NEUROLOGICAL: No focal neurological deficits. Moves all extremities spontaneously and on command. PSYCH: Somewhat lethargic SKIN: Warm, Dry, normal turgor, no rashes or lesions noted. Course - Re-evaluation Re-evalutation: 06/09/18 20:45 Documentation is delayed as I been at this patient's bedside continuously since she arrived. In summary this is a 78-year-old woman has a history of CHF with recurrent episodes of hypertensive emergency, flash pulmonary edema. The patient arrives with symptoms and exam as well as vitals consistent with acute flash pulmonary edema. She is in severe respiratory distress, rales in all lung carrizales, diffuse B-lines on pulmonary ultrasound. Bedside echocardiogram does not show any evidence of pericardial effusion or regional dyskinesia. Patient's initial blood pressures were in the 240s systolic. I did bolus the patient 1 mg of nitroglycerin. 5 minutes past and the patient's blood pressure had minimal improvements of an additional milligram bolus was administered. This did affect 40 mg of IV furosemide was also administered. The patient's blood pressure sufficiently down into the 120s. Her infusion was initially started 120 mg/min and was rapidly up titrated to 200 mcg/min. The patient's distress significantly improved after bolusing 2 mg of nitroglycerin and placing her on BiPAP, 12/6 at 35% FiO2. Will continue to be at the bedside at regular intervals for aggressive up titration of her nitroglycerin infusion targeting systolic blood pressure of 160 mmHg. A stat portable chest x-ray and standard laboratories including a blood gas have been sent. Patient is critically ill due to being high risk for respiratory decompensation and need for intubation. She will require frequent reevaluations. 06/09/18 20:58 Patient's distress is significantly improving. Her nitroglycerin infusion has been uptitrated 250 mcg/min although her pressure remains quite elevated at 225 on 140. Will continue to titrate aggressively although I am relieved by her degree of improvement at this time. 06/09/18 21:36 Patient's work of breathing as well as her blood pressure continues to dramatically improved. She is no longer in any respiratory distress. On lung examination I no longer appreciate any rales and there is clear air movement in the on 250 mcg/min of nitroglycerin her blood pressure has come down to 188 systolic. Her labs are noted for baseline renal failure unchanged from her prior hospitalization. Her chest x-ray shows vascular congestion and diffuse trace pulmonary edema. I discussed with Dr. Guerra the hospitalist on-call who has accepted the patient for admission. 06/09/18 23:03 Patient's blood pressures continued down trend appropriately we have been able to demonstrate her nitroglycerin infusion to 160 mg/min. - Vital Signs Vital signs: Temp Pulse Resp BP Pulse Ox 99.7 F 74 12 160/82 H 99 06/10/18 00:23 06/10/18 00:30 06/10/18 02:32 06/10/18 02:32 06/10/18 02:32 - Laboratory Result Diagrams: 06/09/18 20:35 06/09/18 20:35 Laboratory results interpreted by me: 06/09/18 06/09/18 06/09/18 20:35 20:35 20:35 WBC 18.1 H RBC 3.48 L Hgb 10.0 L Hct 30.8 L RDW 18.5 H Plt Count 462 H Absolute Neutrophils 10.9 H Absolute Lymphocytes 4.9 H Absolute Eosinophils 1.1 H Sodium 147.5 H Potassium 3.3 L Chloride 110 H BUN 31 H Creatinine 3.02 H Est GFR ( Amer) 18 L Est GFR (Non-Af Amer) 15 L Glucose 154 H NT-Pro-B Natriuret Pep 81614 H Albumin 3.3 L - Diagnostic Test Radiology reviewed: Image reviewed, Reports reviewed Radiology results interpreted by me: 06/09/18 21:38 Chest x-ray: Vascular congestion, trace pulmonary edema throughout. - EKG Interpretation by Me Additional EKG results interpreted by me: 06/09/18 21:38 Sinus tachycardia. Rate 98. No ST elevations or depressions. Intermittent PVCs. QTC is 470. Critical Care Note - Critical Care Note Total time excluding time spent on procedures (mins): 76 Comments: Critical care time spent obtaining history from patient or surrogate, discussions with consultants, development of treatment plan with patient or surrogate, evaluation of patient's response to treatment, examination of patient , ordering and performing treatments and interventions, ordering and review of laboratory studies, re-evaluation of patient's condition, ordering and review of radiographic studies and review of old charts Discharge - Discharge Clinical Impression: Flash pulmonary edema, Respiratory distress, Hypertensive emergency Renal failure Qualifiers: Renal failure chronicity: acute Acute renal failure type: unspecified Qualified Code(s): N17.9 - Acute kidney failure, unspecified Condition: Fair Disposition: ADMITTED INPATIENT Admitting Provider: Hospitalist Unit Admitted: ICU
[2018-06-09 21:04] LABS: ABSOLUTE BASOPHILS # (AUTO) 0.1 10^3/uL (0.0-0.2); ABSOLUTE EOSINOPHILS # (AUTO) 1.1 10^3/uL (0.0-0.6); ABSOLUTE LYMPHOCYTES (AUTO) 4.9 10^3/uL (0.5-4.7); ABSOLUTE MONOCYTES (AUTO) 1.2 10^3/uL (0.1-1.4); ABSOLUTE NEUT (AUTO) 10.9 10^3/uL (1.7-8.2); BASOPHILS % (AUTO) 0.5 % (0-2); EOSINOPHILS % (AUTO) 5.8 % (0-6); HEMATOCRIT 30.8 % (36.0-47.0); LYMPHOCYTES % (AUTO) 27.2 % (13-45); MEAN CORPUSCULAR HEMOGLOBIN 28.8 pg (27.0-33.4); MEAN CORPUSCULAR HGB CONC 32.6 g/dL (32.0-36.0); MEAN CORPUSCULAR VOLUME 89 fl (80-97); MONOCYTES % (AUTO) 6.5 % (3-13); PLATELET COUNT 462 10^3/uL (150-450); RED BLOOD COUNT 3.48 10^6/uL (3.72-5.28); RED CELL DISTRIBUTION WIDTH 18.5 % (11.5-14.0); TOTAL CELLS COUNTED % (AUTO) 100 %; WHITE BLOOD COUNT 18.1 10^3/uL (4.0-10.5)
--- NOTE | 2018-06-09 21:11 | RADIOLOGY REPORT (SQ) ---
EXAM DESCRIPTION: CHEST SINGLE VIEW COMPLETED DATE/TIME: 06/09/2018 8:51 pm REASON FOR STUDY: SOB COMPARISON: Chest films 05/29/2018, 05/27/2018, 05/10/2018 EXAM PARAMETERS: NUMBER OF VIEWS: One view. TECHNIQUE: Single frontal radiographic view of the chest acquired. RADIATION DOSE: NA LIMITATIONS: None. FINDINGS: LUNGS AND PLEURA: Partial clearing of the left basilar airspace disease compared to 018. There is trace left pleural fluid. Right lung and pleural space unremarkable. No pneumothorax. MEDIASTINUM AND HILAR STRUCTURES: No masses. Contour normal. HEART AND VASCULAR STRUCTURES: Mild cardiomegaly BONES: No acute findings. HARDWARE: None in the chest. OTHER: No other significant finding. IMPRESSION: Persistent left basilar consolidation with trace left pleural effusion. TECHNICAL DOCUMENTATION: JOB ID: [id number] [employer]- All Rights Reserved Reading location - IP/workstation name: [email or web address]
[2018-06-09 21:28] LABS: ALANINE AMINOTRANSFERASE 19 U/L (9-52); ALBUMIN 3.3 g/dL (3.5-5.0); ALKALINE PHOSPHATASE 87 U/L (38-126); ANION GAP 15 (5-19); ASPARTATE AMINO TRANSFERASE 25 U/L (14-36); BILIRUBIN,DIRECT 0.4 mg/dL (0.0-0.4); BILIRUBIN,TOTAL 0.6 mg/dL (0.2-1.3); BLOOD UREA NITROGEN 31 mg/dL (7-20); CALCIUM 9.9 mg/dL (8.4-10.2); CARBON DIOXIDE 23 mmol/L (22-30); CHLORIDE 110 mmol/L (98-107); GLUCOSE 154 mg/dL (75-110); POTASSIUM 3.3 mmol/L (3.6-5.0); SODIUM 147.5 mmol/L (137-145); TOTAL PROTEIN 6.7 g/dL (6.3-8.2)
--- NOTE | 2018-06-09 21:54 | EKG REPORT ---
SEVERITY:- ABNORMAL ECG - SINUS TACHYCARDIA WITH PAC VENTRICULAR BIGEMINY CONSIDER LEFT VENTRICULAR HYPERTROPHY : Confirmed by: oDe Padilla MD 09-Jun-2018 21:53:05
[2018-06-09 22:02] LABS: TROPONIN I 0.2 ng/mL; VENOUS BLOOD BASE EXCESS 1.5 mmol/L; VENOUS BLOOD HCO3 26.4 mmol/L (20-32); VENOUS BLOOD PCO2 42.7 mmHg (35-63); VENOUS BLOOD PH 7.41 (7.30-7.42)
[2018-06-09] MEDS ORDERED: DEXTROSE 50%-WATER 25 GM/50 ML DISP.SYRIN IV PRN ×2 (23:09)
[2018-06-09] MEDS ORDERED: IPRATROPIUM/ALBUTEROL 0.5-2.5 MG/3 ML AMPUL NEB PRN (23:09)
[2018-06-09] MEDS ORDERED: MAG HYDROX/AL HYDROX/SIMETH SUSP 30 ML UDCUP PO PRN (23:09)
[2018-06-09] MEDS ORDERED: DEXTROSE 40% GEL 15 GM TUBE PO PRN ×2 (23:09)
[2018-06-09] MEDS ORDERED: ACETAMINOPHEN 325 MG TABLET PO PRN (23:09)
[2018-06-09] MEDS ORDERED: TEMAZEPAM 7.5 MG CAPSULE PO PRN (23:09)
[2018-06-09] MEDS ORDERED: GLUCAGON,HUMAN RECOMB 1 MG INJ SUBCUT PRN (23:09)
[2018-06-09] MEDS ORDERED: CALCITRIOL 0.25 MCG CAPSULE PO SCH (23:15)
[2018-06-10 00:28] LABS: CREATINE KINASE MB 1.06 ng/mL (<4.55)
[2018-06-10] MEDS: IPRATROPIUM/ALBUTEROL 0.5-2.5 MG/3 ML AMPUL NEB SCH ×3 (00:30→16:11)
[2018-06-10 00:32] LABS: TROPONIN I 0.218 ng/mL
[2018-06-10 00:53] LABS: URINE AMPHETAMINES SCREEN NEGATIVE; URINE BARBITURATES SCREEN NEGATIVE; URINE COCAINE SCREEN NEGATIVE; URINE MARIJUANA (THC) SCREEN NEGATIVE; URINE METHADONE SCREEN NEGATIVE; URINE PHENCYCLIDINE SCREEN NEGATIVE
[2018-06-10 00:56] LABS: URINE BENZODIAZEPINES SCREEN UNCONFIRMED POSITIVE
[2018-06-10] MEDS: POTASSI CL 20 MEQ/50 ML RIDER 20 MEQ/50 ML RTUPB IV SCH ×2 (01:11→03:25)
[2018-06-10] MEDS: NITROGLYCERIN/D5W 50 MG/250 ML RTUINJ IV PRN ×2 (01:12→09:33)
--- NOTE | 2018-06-10 05:31 | PDOC H&P ---
History of Present Illness Admission Date/PCP: 06/09/18 22:03 Patient complains of: Shortness of breath History of Present Illness: KAM DEAN is a 78 year old female with a past medical history of stage IV chronic kidney disease, diastolic heart failure, recurrent admissions for hypertensive emergency and vascular dementia. Patient was recently discharged from [facility] 05/24 and prior to that from [facility] facility but now resides with her son having 2 life-threatening presentations requiring admission in the last 2 weeks. Patient presents after immediate onset of severe shortness of breath prompting a call to EMS she is found to have systolic blood pressure of 240, pulse oximetry of 85% without baseline oxygen requirement. He is brought to the emergency room for evaluation on BiPAP requiring nitroglycerin. Imaging reveals fluid pulmonary edema. She is unable to provide history given shortness of breath. In addition to being a poor historian. Past Medical History Cardiac Medical History: Reports: Congestive Heart Failure, Coronary Artery Disease, Myocardial Infarction, Hyperlipidema, Hypertension Denies: Peripheral Vascular Disease, Pulmonary Embolism Pulmonary Medical History: Reports: Pneumonia Denies: Tuberculosis Endocrine Medical History: Reports: Diabetes Mellitus Type 2, Hypothyroidism GI Medical History: Reports: Gastroesophageal Reflux Disease Musculoskeltal Medical History: Reports: Arthritis - hip Psychiatric Medical History: Reports: Bipolar Disorder, Depression Hematology: Reports: Anemia Past Surgical History Past Surgical History: Reports: Cardiac Catheterization - stents, Cholecystectomy, Orthopedic Surgery - hand Social History Information Source: Emergency Med Personnel, [facility] Records Lives with: Family Smoking Status: Unknown if Ever Smoked Frequency of Alcohol Use: None Hx Recreational Drug Use: No Drugs: None Hx Prescription Drug Abuse: No - Advance Directive Resuscitation Status: Full Code Family History Family History: CVA, DM, Hypertension Parental Family History Reviewed: Yes Children Family History Reviewed: Yes Sibling(s) Family History Reviewed.: Yes Medication/Allergy Home Medications: Alprazolam [Xanax] 0.25 mg PO Q12HP PRN 05/27/18 Atorvastatin Calcium [Lipitor 20 mg Tablet] 20 mg PO QHS 05/27/18 Bumetanide [Bumex 1 mg Tablet] 1 mg PO DAILY 05/27/18 Calcitriol [Rocaltrol 0.25 mcg Capsule] 0.25 mcg PO Q2D 05/27/18 Clopidogrel Bisulfate [Plavix 75 mg Tablet] 75 mg PO DAILY 05/27/18 Hydralazine HCl 100 mg PO Q8 05/27/18 Insulin Detemir [Levemir Flextouch] 20 units SQ QPM 05/27/18 Isosorbide Mononitrate [Isosorbide Mononitrate ER] 120 mg PO DAILY 05/27/18 Lisinopril [Prinivil] 20 mg PO Q12 05/27/18 Pantoprazole Sodium [Protonix] 40 mg PO DAILY 05/27/18 Ferrous Sulfate [Feosol 325 mg Tablet] 325 mg PO BID 30 Days tablet 06/01/18 Allergies/Adverse Reactions: No Known Allergies Allergy (Verified 05/23/18 16:27) Review of Systems ROS unobtainable: Due to mental status Physical Exam Vital Signs: Temp Pulse Resp BP Pulse Ox 99.7 F 74 15 160/82 H 100 06/10/18 00:23 06/10/18 00:30 06/10/18 04:03 06/10/18 02:32 06/10/18 04:03 Intake & Output 06/08/18 06/09/18 06/10/18 11:59 11:59 11:59 Intake Total 50 Output Total 200 Balance -150 Weight 72.5 kg General appearance: PRESENT: cooperative, disheveled, severe distress. ABSENT: hard of hearing Head exam: PRESENT: atraumatic, normocephalic Eye exam: PRESENT: conjunctiva pink, EOMI, PERRLA. ABSENT: scleral icterus Ear exam: PRESENT: normal external ear exam Mouth exam: PRESENT: moist, tongue midline Neck exam: PRESENT: full ROM, JVD. ABSENT: lymphadenopathy Respiratory exam: PRESENT: accessory muscle use, crackles, decreased breath sounds, prolonged expiratory phas, retraction, symmetrical, tachypnea, wheezes. ABSENT: chest wall tenderness Cardiovascular exam: PRESENT: gallop, RRR, +S1, tachycardia. ABSENT: rubs, systolic murmur Pulses: PRESENT: normal dorsalis pedis pul Vascular exam: PRESENT: normal capillary refill GI/Abdominal exam: PRESENT: normal bowel sounds, soft. ABSENT: distended, guarding, mass, organolmegaly, rebound, tenderness Rectal exam: PRESENT: deferred Extremities exam: PRESENT: full ROM. ABSENT: calf tenderness, clubbing, pedal edema Neurological exam: PRESENT: alert, awake, oriented to person, oriented to place , oriented to time, oriented to situation, CN II-XII grossly intact. ABSENT: motor sensory deficit Psychiatric exam: PRESENT: appropriate affect, normal mood. ABSENT: homicidal ideation, suicidal ideation Skin exam: PRESENT: dry, intact, warm. ABSENT: cyanosis, rash Results Laboratory Results: 06/09/18 06/09/18 23:20 23:20 Magnesium 2.3 TSH 2.33 06/09/18 06/09/18 23:20 23:20 Creatine Kinase 33 CK-MB (CK-2) 1.06 Troponin I 0.218 Impressions: Chest X-Ray 06/09/18 00:00 IMPRESSION: Persistent left basilar consolidation with trace left pleural effusion. Assessment & Plan - Diagnosis (1) Hypertensive emergency Is this a current diagnosis for this admission?: Yes Plan: Most likely secondary to medication noncompliance, IV nitroglycerin, Cardene and diuretics initiated. Follow-up cardiac enzymes (2) Flash pulmonary edema Is this a current diagnosis for this admission?: Yes Plan: Secondary to #1, follow-up cardiac enzymes, BiPAP (3) Renal failure Qualifiers: Renal failure chronicity: acute Acute renal failure type: unspecified Qualified Code(s): N17.9 - Acute kidney failure, unspecified Is this a current diagnosis for this admission?: Yes Plan: At baseline, follow-up chemistry (4) Acute on chronic diastolic (congestive) heart failure Is this a current diagnosis for this admission?: Yes Plan: Acute exacerbation secondary to uncontrolled hypertension, complicated by vascular dementia and medication, lifestyle noncompliance and independent setting (5) Vascular dementia Is this a current diagnosis for this admission?: Yes Plan: Palliative care consult ordered - Time Time Spent: 50 to 70 Minutes - Inpatient Certification Medical Necessity: Need Close Monitoring Due to Risk of Patient Decompensation
[2018-06-10 05:41] LABS: ABSOLUTE BASOPHILS # (AUTO) 0.1 10^3/uL (0.0-0.2); ABSOLUTE EOSINOPHILS # (AUTO) 0.1 10^3/uL (0.0-0.6); ABSOLUTE LYMPHOCYTES (AUTO) 2.1 10^3/uL (0.5-4.7); ABSOLUTE MONOCYTES (AUTO) 0.6 10^3/uL (0.1-1.4); ABSOLUTE NEUT (AUTO) 5.5 10^3/uL (1.7-8.2); EOSINOPHILS % (AUTO) 1.4 % (0-6); HEMATOCRIT 23.1 % (36.0-47.0); LYMPHOCYTES % (AUTO) 24.9 % (13-45); MEAN CORPUSCULAR HEMOGLOBIN 29.8 pg (27.0-33.4); MEAN CORPUSCULAR HGB CONC 33.9 g/dL (32.0-36.0); MEAN CORPUSCULAR VOLUME 88 fl (80-97); MONOCYTES % (AUTO) 7.5 % (3-13); PLATELET COUNT 328 10^3/uL (150-450); RED BLOOD COUNT 2.62 10^6/uL (3.72-5.28); RED CELL DISTRIBUTION WIDTH 18.4 % (11.5-14.0); SEGMENTED NEUTROPHILS % (AUTO) 65.2 % (42-78); TOTAL CELLS COUNTED % (AUTO) 100 %; WHITE BLOOD COUNT 8.4 10^3/uL (4.0-10.5)
[2018-06-10 05:44] LABS: ANION GAP 9 (5-19); BLOOD UREA NITROGEN 33 mg/dL (7-20); CALCIUM 8.9 mg/dL (8.4-10.2); CARBON DIOXIDE 25 mmol/L (22-30); CHLORIDE 113 mmol/L (98-107); CREATINE KINASE 27 U/L (30-135); GLUCOSE 132 mg/dL (75-110); POTASSIUM 4.2 mmol/L (3.6-5.0)
[2018-06-10 05:55] LABS: CREATINE KINASE MB 1.28 ng/mL (<4.55); TROPONIN I 0.258 ng/mL
[2018-06-10 05:56] LABS: HEMOGLOBIN 7.8 g/dL (12.0-15.5)
[2018-06-10] MEDS: HEPARIN SOD (PORCINE) 5,000 UNIT/ML 1 ML SYRINGE SUBCUT SCH ×3 (06:39→22:53)
[2018-06-10] MEDS: HYDRALAZINE HCL 50 MG TABLET PO SCH ×3 (06:39→22:54)
[2018-06-10 07:36] LABS: HEMATOCRIT 24.4 % (36.0-47.0); HEMOGLOBIN 8.2 g/dL (12.0-15.5); MEAN CORPUSCULAR HEMOGLOBIN 29.6 pg (27.0-33.4); MEAN CORPUSCULAR HGB CONC 33.5 g/dL (32.0-36.0); MEAN CORPUSCULAR VOLUME 89 fl (80-97); PLATELET COUNT 330 10^3/uL (150-450); RED BLOOD COUNT 2.76 10^6/uL (3.72-5.28); RED CELL DISTRIBUTION WIDTH 18.7 % (11.5-14.0); WHITE BLOOD COUNT 8.3 10^3/uL (4.0-10.5)
[2018-06-10] MEDS: LISINOPRIL 10 MG TABLET PO SCH ×2 (09:31→22:54)
[2018-06-10] MEDS: FERROUS SULFATE 325 MG TABLET PO SCH ×2 (09:32→19:04)
[2018-06-10] MEDS: BUMETANIDE 1 MG TABLET PO SCH (09:32)
[2018-06-10] MEDS: CLOPIDOGREL BISULFATE 75 MG TABLET PO SCH (09:32)
[2018-06-10] MEDS: NICARDIPINE HCL RTU, ISO-OS 20 MG/200 ML RTUINJ IV PRN ×4 (10:52→22:54)
[2018-06-10 12:40] LABS: CREATINE KINASE MB 1.45 ng/mL (<4.55); TROPONIN I 0.192 ng/mL
[2018-06-10] MEDS: AMLODIPINE BESYLATE 5 MG TABLET PO SCH (13:32)
--- NOTE | 2018-06-10 14:57 | PDOC PROGRESS REPORT ---
Subjective Progress Note for:: 06/10/18 Subjective:: Ms. Bocanegra is a 78 yr old female with a past medical history of chronic kidney disease stage IV, hypertension, dementia, chronic diastolic heart failure who was admitted for hypertensive emergency and pulmonary edema. Patient was initially started on nitroglycerin drip. Patient was recently admitted and discharge for the same problem. No acute event overnight. Patient has dementia but does communicate that her breathing is slightly better this morning. She denies chest pain, dizziness or palpitations. Blood pressures remain elevated in the 190 over 90s while on nitro drip. Currently not on nicardipine drip. Reason For Visit: HTN EMERGENCY, PULMONARY EDEMA,DHF Physical Exam Vital Signs: Temp Pulse Resp BP Pulse Ox 98.6 F 68 0 L 126/49 H 100 06/10/18 12:00 06/10/18 12:00 06/10/18 13:23 06/10/18 13:23 06/10/18 13:23 Intake & Output 06/09/18 06/10/18 06/11/18 06:59 06:59 06:59 Intake Total 50 727 Output Total 450 315 Balance -400 412 Weight 159 lb 13.362 oz General appearance: PRESENT: no acute distress, well-developed, well-nourished Head exam: PRESENT: atraumatic, normocephalic Eye exam: PRESENT: conjunctiva pink, EOMI, PERRLA. ABSENT: scleral icterus Ear exam: PRESENT: normal external ear exam Mouth exam: PRESENT: moist, tongue midline Neck exam: ABSENT: carotid bruit, JVD, lymphadenopathy, thyromegaly Respiratory exam: PRESENT: clear to auscultation santa, rales - minimal rales on the right base. ABSENT: wheezes Cardiovascular exam: PRESENT: RRR. ABSENT: diastolic murmur, rubs Pulses: PRESENT: normal dorsalis pedis pul GI/Abdominal exam: PRESENT: normal bowel sounds, soft. ABSENT: distended, guarding, mass, organolmegaly, rebound, tenderness Neurological exam: PRESENT: alert, awake, oriented to person Results Laboratory Results: 06/10/18 07:14 06/10/18 05:12 06/09/18 06/09/18 06/10/18 23:20 23:20 05:12 WBC RBC Hgb Hct MCV MCH MCHC RDW Plt Count Seg Neutrophils % Lymphocytes % Monocytes % Eosinophils % Basophils % Absolute Neutrophils Absolute Lymphocytes Absolute Monocytes Absolute Eosinophils Absolute Basophils Sodium 147.0 H Potassium 4.2 Chloride 113 H Carbon Dioxide 25 Anion Gap 9 BUN 33 H Creatinine 2.99 H Est GFR ( Amer) 18 L Est GFR (Non-Af Amer) 15 L Glucose 132 H Calcium 8.9 Magnesium 2.3 TSH 2.33 06/10/18 06/10/18 05:12 07:14 WBC 8.4 8.3 RBC 2.62 L 2.76 L Hgb 7.8 L D 8.2 L Hct 23.1 L 24.4 L MCV 88 89 MCH 29.8 29.6 MCHC 33.9 33.5 RDW 18.4 H 18.7 H Plt Count 328 330 Seg Neutrophils % 65.2 Lymphocytes % 24.9 Monocytes % 7.5 Eosinophils % 1.4 Basophils % 1.0 Absolute Neutrophils 5.5 Absolute Lymphocytes 2.1 Absolute Monocytes 0.6 Absolute Eosinophils 0.1 Absolute Basophils 0.1 Sodium Potassium Chloride Carbon Dioxide Anion Gap BUN Creatinine Est GFR ( Amer) Est GFR (Non-Af Amer) Glucose Calcium Magnesium TSH 06/09/18 06/09/18 06/10/18 23:20 23:20 05:12 Creatine Kinase 33 27 L CK-MB (CK-2) 1.06 Troponin I 0.218 06/10/18 06/10/18 06/10/18 05:12 11:40 11:40 Creatine Kinase 26 L CK-MB (CK-2) 1.28 1.45 Troponin I 0.258 0.192 Impressions: Chest X-Ray 06/09/18 00:00 IMPRESSION: Persistent left basilar consolidation with trace left pleural effusion. Assessment & Plan - Diagnosis (1) Hypertensive emergency Is this a current diagnosis for this admission?: Yes Plan: On nitro drip. BP running still in the 190/90s. Restart nicardipine drip. Continue home meds including PO hydralazine. Resume Imdur. Will also add amlodipine 5 mg daily. Wean off nitro and nicardipine drips tpo target a BP of 130-140 systolic for now. (2) Acute on chronic diastolic (congestive) heart failure Is this a current diagnosis for this admission?: Yes Plan: Patient was given IV lasix on admission. Continue home dose of PO bumex. Patient has diastolic heart failure and exacerbation is likely from severe, uncontrolled hypertension rather than fluid volume overload. Will continue to optimize blood pressure control. (3) Elevated troponin Is this a current diagnosis for this admission?: Yes Plan: This is likely from demand ischemia and CKD. Patient does not complain of chest pain. EKG does not show acute changes. - Time Time Spent with patient: 25-34 minutes
[2018-06-10] MEDS ORDERED: (PENDING PHARMACY ID) (Isosorbide Mononitrate [Isosorbide Mononitrate Er] 120 MG) PO SCH (15:00)
[2018-06-10] MEDS: ISOSORBIDE MONONITRATE 60 MG TAB.ER.24H PO SCH (15:46)
[2018-06-10] MEDS ORDERED: PROPOFOL 0 MG/0 ML INFUS..BTL IV ONE (15:48)
--- NOTE | 2018-06-10 19:11 | EKG REPORT ---
SEVERITY:- ABNORMAL ECG - SINUS RHYTHM PAIRED VENTRICULAR PREMATURE COMPLEXES BORDERLINE R WAVE PROGRESSION, ANTERIOR LEADS NONSPECIFIC T ABNORMALITIES, LATERAL LEADS : Confirmed by: Doe Padilla MD 10-Jun-2018 19:10:20
[2018-06-10] MEDS ORDERED: INSULIN DETEMIR 100 UNIT/ML 3 ML PEN SUBCUT SCH (22:00)
[2018-06-10] MEDS: ATORVASTATIN CALCIUM 20 MG TABLET PO SCH (22:54)
[2018-06-11] MEDS: IPRATROPIUM/ALBUTEROL 0.5-2.5 MG/3 ML AMPUL NEB SCH ×3 (00:45→16:08)
[2018-06-11] MEDS: HYDRALAZINE HCL 50 MG TABLET PO SCH ×3 (06:45→21:44)
[2018-06-11] MEDS: HEPARIN SOD (PORCINE) 5,000 UNIT/ML 1 ML SYRINGE SUBCUT SCH ×3 (06:45→21:45)
[2018-06-11] MEDS: FERROUS SULFATE 325 MG TABLET PO SCH ×2 (09:31→17:55)
[2018-06-11] MEDS: BUMETANIDE 1 MG TABLET PO SCH (09:31)
[2018-06-11] MEDS: AMLODIPINE BESYLATE 5 MG TABLET PO SCH (09:32)
[2018-06-11] MEDS: CLOPIDOGREL BISULFATE 75 MG TABLET PO SCH (09:32)
[2018-06-11] MEDS: LISINOPRIL 10 MG TABLET PO SCH ×2 (09:32→21:44)
[2018-06-11] MEDS: ISOSORBIDE MONONITRATE 60 MG TAB.ER.24H PO SCH (09:32)
[2018-06-11] MEDS ORDERED: AMLODIPINE BESYLATE 5 MG TABLET PO SCH (11:38)
[2018-06-11] MEDS: CARVEDILOL 6.25 MG TABLET PO SCH ×2 (12:43→21:43)
--- NOTE | 2018-06-11 16:02 | PDOC PROGRESS REPORT ---
Subjective Progress Note for:: 06/11/18 Subjective:: Ms. Bocanegra is a 78 yr old female with a past medical history of chronic kidney disease stage IV, hypertension, dementia, chronic diastolic heart failure who was admitted for hypertensive emergency and pulmonary edema. Patient was initially started on nitroglycerin drip. Patient was recently admitted and discharge for the same problem. No acute event overnight. She had episodes of frequent PVCs overnight. She has been weaned off nitro and nicardipine drip overnight. Blood pressures have been running in the 160 over 90s this morning. Patient is saturating well on room air and appears comfortable. She denies any shortness of breath or chest pain. Patient's son is in the bedside and is updated about patient's status and goals of care. Reason For Visit: HTN EMERGENCY, PULMONARY EDEMA,DHF Physical Exam Vital Signs: Temp Pulse Resp BP Pulse Ox 98.8 F 87 15 152/61 H 97 06/11/18 06:00 06/11/18 08:32 06/11/18 14:00 06/11/18 13:32 06/11/18 14:00 Intake & Output 06/10/18 06/11/18 06/12/18 06:59 06:59 06:59 Intake Total 50 2088 200 Output Total 450 1465 275 Balance -400 623 -75 Weight 159 lb 13.362 oz 162 lb 14.746 oz General appearance: PRESENT: no acute distress, well-developed, well-nourished Head exam: PRESENT: atraumatic, normocephalic Eye exam: PRESENT: conjunctiva pink, EOMI, PERRLA. ABSENT: scleral icterus Ear exam: PRESENT: normal external ear exam Mouth exam: PRESENT: moist, tongue midline Neck exam: ABSENT: carotid bruit, JVD, lymphadenopathy, thyromegaly Respiratory exam: PRESENT: clear to auscultation santa. ABSENT: rales, rhonchi, wheezes Cardiovascular exam: PRESENT: RRR. ABSENT: diastolic murmur, rubs, systolic murmur GI/Abdominal exam: PRESENT: normal bowel sounds, soft. ABSENT: distended, guarding, mass, organolmegaly, rebound, tenderness Rectal exam: PRESENT: deferred Neurological exam: PRESENT: alert, awake, oriented to person, oriented to place Results Laboratory Results: 06/10/18 07:14 06/10/18 05:12 06/09/18 06/09/18 06/10/18 23:20 23:20 05:12 Creatine Kinase 33 27 L CK-MB (CK-2) 1.06 Troponin I 0.218 06/10/18 06/10/18 06/10/18 05:12 11:40 11:40 Creatine Kinase 26 L CK-MB (CK-2) 1.28 1.45 Troponin I 0.258 0.192 Impressions: Chest X-Ray 06/09/18 00:00 IMPRESSION: Persistent left basilar consolidation with trace left pleural effusion. Assessment & Plan - Diagnosis (1) Hypertensive emergency Is this a current diagnosis for this admission?: Yes Plan: Resolved. Pressures running the 160 over 90s. Continue home meds including PO hydralazine, Imdur. Increase amlodipine to 10 mg daily. Will add low-dose Coreg twice daily. Closely monitor for bradycardia as patient did have episodes of stable/asymptomatic bradycardia on her recent previous admission. (2) Acute on chronic diastolic (congestive) heart failure Is this a current diagnosis for this admission?: Yes Plan: Patient was given IV lasix on admission. Continue home dose of PO bumex. Patient has diastolic heart failure and exacerbation is likely from severe, uncontrolled hypertension rather than fluid volume overload. Will continue to optimize blood pressure control. (3) Elevated troponin Is this a current diagnosis for this admission?: Yes Plan: This is likely from demand ischemia and CKD. Patient does not complain of chest pain. EKG does not show acute changes. (4) Chronic kidney disease, stage 4 (severe) Is this a current diagnosis for this admission?: Yes Plan: Creatinine close to baseline. Repeat BMP. Avoid nephrotoxic agents. (5) Insulin dependent diabetes mellitus Is this a current diagnosis for this admission?: Yes Plan: Noted blood sugars. Patient is on Lantus 20 units at bedtime at home. Increase Lantus from 10 to 15 units at bedtime. Continue Accu-Cheks. - Time Time Spent with patient: 25-34 minutes
[2018-06-11 17:02] LABS: ANION GAP 10 (5-19); BLOOD UREA NITROGEN 30 mg/dL (7-20); CARBON DIOXIDE 24 mmol/L (22-30); CHLORIDE 109 mmol/L (98-107); GLUCOSE 102 mg/dL (75-110); POTASSIUM 3.9 mmol/L (3.6-5.0); SODIUM 143.1 mmol/L (137-145)
[2018-06-11] MEDS: ATORVASTATIN CALCIUM 20 MG TABLET PO SCH (21:43)
[2018-06-11] MEDS: AMLODIPINE BESYLATE 10 MG TABLET PO SCH (21:43)
[2018-06-11] MEDS ORDERED: INSULIN DETEMIR 100 UNIT/ML 3 ML PEN SUBCUT SCH (22:00)
[2018-06-11] MEDS ORDERED: CALCITRIOL 0.25 MCG CAPSULE PO ONE (23:45)
[2018-06-12] MEDS: IPRATROPIUM/ALBUTEROL 0.5-2.5 MG/3 ML AMPUL NEB SCH ×3 (00:26→16:09)
[2018-06-12] MEDS: HYDRALAZINE HCL 50 MG TABLET PO SCH ×3 (05:39→21:57)
[2018-06-12] MEDS: HEPARIN SOD (PORCINE) 5,000 UNIT/ML 1 ML SYRINGE SUBCUT SCH ×3 (05:39→21:59)
[2018-06-12] MEDS: BUMETANIDE 1 MG TABLET PO SCH ×2 (09:07→21:58)
[2018-06-12] MEDS: LISINOPRIL 10 MG TABLET PO SCH ×2 (09:07→21:57)
[2018-06-12] MEDS: CARVEDILOL 6.25 MG TABLET PO SCH ×2 (09:08→21:56)
[2018-06-12] MEDS: ISOSORBIDE MONONITRATE 60 MG TAB.ER.24H PO SCH (09:08)
[2018-06-12] MEDS: CLOPIDOGREL BISULFATE 75 MG TABLET PO SCH (09:08)
[2018-06-12] MEDS: FERROUS SULFATE 325 MG TABLET PO SCH ×2 (09:08→17:19)
--- NOTE | 2018-06-12 13:47 | PDOC PROGRESS REPORT ---
Subjective Progress Note for:: 06/12/18 Subjective:: Ms. Bocanegra is a 78 yr old female with a past medical history of chronic kidney disease stage IV, hypertension, dementia, chronic diastolic heart failure who was admitted for hypertensive emergency and pulmonary edema. Patient was initially started on nitroglycerin drip. Patient was recently admitted and discharge for the same problem. No acute events overnight patient denies any shortness of breath, fever, chills , chest pain, abdominal pain, nausea, vomiting, constipation, diarrhea, or any urinary symptoms Reason For Visit: HTN EMERGENCY, PULMONARY EDEMA,DHF Physical Exam Vital Signs: Temp Pulse Resp BP Pulse Ox 99.3 F 81 19 182/80 H 97 06/12/18 00:00 06/12/18 08:23 06/12/18 12:30 06/12/18 12:04 06/12/18 12:30 Intake & Output 06/11/18 06/12/18 06/13/18 06:59 06:59 06:59 Intake Total 2088 400 250 Output Total 1465 1850 325 Balance 623 -1450 -75 Weight 73.9 kg 72.2 kg General appearance: PRESENT: no acute distress, well-developed, well-nourished Head exam: PRESENT: atraumatic, normocephalic Eye exam: PRESENT: conjunctiva pink, EOMI, PERRLA. ABSENT: scleral icterus Ear exam: PRESENT: normal external ear exam Mouth exam: PRESENT: moist, tongue midline Neck exam: ABSENT: carotid bruit, JVD, lymphadenopathy, thyromegaly Respiratory exam: PRESENT: clear to auscultation santa. ABSENT: rales, rhonchi, wheezes Cardiovascular exam: PRESENT: RRR. ABSENT: diastolic murmur, rubs, systolic murmur Pulses: PRESENT: normal dorsalis pedis pul Vascular exam: PRESENT: normal capillary refill GI/Abdominal exam: PRESENT: normal bowel sounds, soft. ABSENT: distended, guarding, mass, organolmegaly, rebound, tenderness Rectal exam: PRESENT: deferred Extremities exam: PRESENT: full ROM. ABSENT: calf tenderness, clubbing, pedal edema Neurological exam: PRESENT: alert, awake, oriented to person, oriented to place , oriented to time, oriented to situation, CN II-XII grossly intact. ABSENT: motor sensory deficit Psychiatric exam: PRESENT: appropriate affect, normal mood. ABSENT: homicidal ideation, suicidal ideation Skin exam: PRESENT: dry, intact, warm. ABSENT: cyanosis, rash Results Laboratory Results: 06/10/18 07:14 06/11/18 16:20 06/11/18 16:20 Sodium 143.1 Potassium 3.9 Chloride 109 H Carbon Dioxide 24 Anion Gap 10 BUN 30 H Creatinine 2.92 H Est GFR ( Amer) 19 L Est GFR (Non-Af Amer) 16 L Glucose 102 Calcium 9.0 06/09/18 06/09/18 06/10/18 23:20 23:20 05:12 Creatine Kinase 33 27 L CK-MB (CK-2) 1.06 Troponin I 0.218 06/10/18 06/10/18 06/10/18 05:12 11:40 11:40 Creatine Kinase 26 L CK-MB (CK-2) 1.28 1.45 Troponin I 0.258 0.192 Impressions: Chest X-Ray 06/09/18 00:00 IMPRESSION: Persistent left basilar consolidation with trace left pleural effusion. Assessment & Plan - Diagnosis (1) Hypertensive urgency Is this a current diagnosis for this admission?: Yes Plan: Uncontrolled. Resume home medication. Restart carvedilol low-dose due to history of symptomatic bradycardia. Increase bumetanide to 1 mg twice daily (2) Chronic kidney disease, stage 4 (severe) Is this a current diagnosis for this admission?: Yes Plan: Creatinine close to baseline. CMP tomorrow. Monitor volume status. Avoid nephrotoxic agents. (3) Insulin dependent diabetes mellitus Is this a current diagnosis for this admission?: Yes Plan: Noted blood sugars. Decrease Lantus to 10 at bedtime due to hypoglycemia. Continue Accu-Cheks (4) Anemia in chronic kidney disease (CKD) Qualifiers: Chronic kidney disease stage: stage 4 (severe) Qualified Code(s): N18.4 - Chronic kidney disease, stage 4 (severe); D63.1 - Anemia in chronic kidney disease; D63.1 - Anemia in chronic kidney disease Is this a current diagnosis for this admission?: Yes Plan: Stable. Monitor monitor H&H and transfuse if under 7 or symptomatic. (5) Dyslipidemia Is this a current diagnosis for this admission?: Yes Plan: Continue statins (6) Elevated troponin Is this a current diagnosis for this admission?: Yes Plan: Likely due to demand ischemia and chronic CKD
[2018-06-12] MEDS ORDERED: CLONIDINE HCL 0.1 MG TABLET PO SCH (18:00)
[2018-06-12] MEDS: HYDRALAZINE HCL INJ/PF 20 MG/1 ML SDV IV PRN (18:28)
[2018-06-12] MEDS: AMLODIPINE BESYLATE 10 MG TABLET PO SCH (21:56)
[2018-06-12] MEDS: ATORVASTATIN CALCIUM 20 MG TABLET PO SCH (21:57)
[2018-06-12] MEDS: INSULIN GLARGINE,HUM.REC.ANLOG 300 UNIT/3 ML INSULN.PEN SUBCUT SCH (21:59)
[2018-06-13] MEDS: IPRATROPIUM/ALBUTEROL 0.5-2.5 MG/3 ML AMPUL NEB SCH ×3 (00:09→16:12)
[2018-06-13] MEDS: HYDRALAZINE HCL INJ/PF 20 MG/1 ML SDV IV PRN (03:37)
[2018-06-13 04:30] LABS: ABSOLUTE BASOPHILS # (AUTO) 0.1 10^3/uL (0.0-0.2); ABSOLUTE EOSINOPHILS # (AUTO) 0.7 10^3/uL (0.0-0.6); ABSOLUTE LYMPHOCYTES (AUTO) 2.8 10^3/uL (0.5-4.7); ABSOLUTE MONOCYTES (AUTO) 0.8 10^3/uL (0.1-1.4); ABSOLUTE NEUT (AUTO) 6.2 10^3/uL (1.7-8.2); BASOPHILS % (AUTO) 1.2 % (0-2); EOSINOPHILS % (AUTO) 6.8 % (0-6); HEMATOCRIT 27.6 % (36.0-47.0); HEMOGLOBIN 9.3 g/dL (12.0-15.5); LYMPHOCYTES % (AUTO) 25.9 % (13-45); MEAN CORPUSCULAR HEMOGLOBIN 29.5 pg (27.0-33.4); MEAN CORPUSCULAR HGB CONC 33.7 g/dL (32.0-36.0); MEAN CORPUSCULAR VOLUME 87 fl (80-97); MONOCYTES % (AUTO) 7.8 % (3-13); PLATELET COUNT 388 10^3/uL (150-450); RED BLOOD COUNT 3.16 10^6/uL (3.72-5.28); RED CELL DISTRIBUTION WIDTH 17.6 % (11.5-14.0); SEGMENTED NEUTROPHILS % (AUTO) 58.3 % (42-78); TOTAL CELLS COUNTED % (AUTO) 100 %; WHITE BLOOD COUNT 10.7 10^3/uL (4.0-10.5)
[2018-06-13 04:49] LABS: ALANINE AMINOTRANSFERASE 18 U/L (9-52); ALBUMIN 2.7 g/dL (3.5-5.0); ALKALINE PHOSPHATASE 69 U/L (38-126); ANION GAP 8 (5-19); ASPARTATE AMINO TRANSFERASE 22 U/L (14-36); BILIRUBIN,DIRECT 0.4 mg/dL (0.0-0.4); BILIRUBIN,TOTAL 0.7 mg/dL (0.2-1.3); BLOOD UREA NITROGEN 29 mg/dL (7-20); CALCIUM 9.4 mg/dL (8.4-10.2); CARBON DIOXIDE 23 mmol/L (22-30); CHLORIDE 111 mmol/L (98-107); GLUCOSE 100 mg/dL (75-110); POTASSIUM 3.5 mmol/L (3.6-5.0); SODIUM 141.7 mmol/L (137-145); TOTAL PROTEIN 5.7 g/dL (6.3-8.2)
[2018-06-13] MEDS: HEPARIN SOD (PORCINE) 5,000 UNIT/ML 1 ML SYRINGE SUBCUT SCH ×3 (05:59→21:54)
[2018-06-13] MEDS: HYDRALAZINE HCL 50 MG TABLET PO SCH ×3 (05:59→21:53)
[2018-06-13] MEDS ORDERED: CALCITRIOL 0.25 MCG CAPSULE PO SCH (10:00)
[2018-06-13] MEDS: BUMETANIDE 1 MG TABLET PO SCH ×2 (10:18→21:54)
[2018-06-13] MEDS: LISINOPRIL 10 MG TABLET PO SCH ×2 (10:19→21:54)
[2018-06-13] MEDS: CLOPIDOGREL BISULFATE 75 MG TABLET PO SCH (10:19)
[2018-06-13] MEDS: ISOSORBIDE MONONITRATE 60 MG TAB.ER.24H PO SCH (10:20)
[2018-06-13] MEDS: FERROUS SULFATE 325 MG TABLET PO SCH ×2 (10:20→17:32)
[2018-06-13] MEDS: CARVEDILOL 6.25 MG TABLET PO SCH (10:20)
[2018-06-13] MEDS: CLONIDINE HCL 0.2 MG TABLET PO SCH ×2 (11:43→21:53)
--- NOTE | 2018-06-13 17:53 | PDOC PROGRESS REPORT ---
Subjective Progress Note for:: 06/13/18 Subjective:: Ms. Bocanegra is a 78 yr old female with a past medical history of chronic kidney disease stage IV, hypertension, dementia, chronic diastolic heart failure who was admitted for hypertensive emergency and pulmonary edema. Patient was initially started on nitroglycerin drip. Patient was recently admitted and discharge for the same problem. No acute events overnight patient denies any shortness of breath, fever, chills , chest pain, abdominal pain, nausea, vomiting, constipation, diarrhea, or any urinary symptoms Reason For Visit: HTN EMERGENCY, PULMONARY EDEMA,DHF Physical Exam Vital Signs: Temp Pulse Resp BP Pulse Ox 98.2 F 66 16 173/68 H 97 06/13/18 16:00 06/13/18 16:13 06/13/18 16:13 06/13/18 16:00 06/13/18 16:13 Intake & Output 06/12/18 06/13/18 06/14/18 06:59 06:59 06:59 Intake Total 400 750 Output Total 1850 1350 650 Balance -1450 -600 -650 Weight 72.2 kg 70.6 kg General appearance: PRESENT: no acute distress, well-developed, well-nourished Head exam: PRESENT: atraumatic, normocephalic Eye exam: PRESENT: conjunctiva pink, EOMI, PERRLA. ABSENT: scleral icterus Ear exam: PRESENT: normal external ear exam Mouth exam: PRESENT: moist, tongue midline Neck exam: ABSENT: carotid bruit, JVD, lymphadenopathy, thyromegaly Respiratory exam: PRESENT: clear to auscultation santa. ABSENT: rales, rhonchi, wheezes Cardiovascular exam: PRESENT: RRR. ABSENT: diastolic murmur, rubs, systolic murmur Pulses: PRESENT: normal dorsalis pedis pul Vascular exam: PRESENT: normal capillary refill GI/Abdominal exam: PRESENT: normal bowel sounds, soft. ABSENT: distended, guarding, mass, organolmegaly, rebound, tenderness Rectal exam: PRESENT: deferred Extremities exam: PRESENT: full ROM. ABSENT: calf tenderness, clubbing, pedal edema Neurological exam: PRESENT: alert, awake, oriented to person, oriented to place , oriented to time, oriented to situation, CN II-XII grossly intact. ABSENT: motor sensory deficit Psychiatric exam: PRESENT: appropriate affect, normal mood. ABSENT: homicidal ideation, suicidal ideation Skin exam: PRESENT: dry, intact, warm. ABSENT: cyanosis, rash Results Laboratory Results: 06/13/18 04:09 06/13/18 04:09 06/13/18 06/13/18 04:09 04:09 WBC 10.7 H RBC 3.16 L Hgb 9.3 L Hct 27.6 L MCV 87 MCH 29.5 MCHC 33.7 RDW 17.6 H Plt Count 388 Seg Neutrophils % 58.3 Lymphocytes % 25.9 Monocytes % 7.8 Eosinophils % 6.8 H Basophils % 1.2 Absolute Neutrophils 6.2 Absolute Lymphocytes 2.8 Absolute Monocytes 0.8 Absolute Eosinophils 0.7 H Absolute Basophils 0.1 Sodium 141.7 Potassium 3.5 L Chloride 111 H Carbon Dioxide 23 Anion Gap 8 BUN 29 H Creatinine 2.86 H Est GFR ( Amer) 19 L Est GFR (Non-Af Amer) 16 L Glucose 100 Calcium 9.4 Total Bilirubin 0.7 AST 22 ALT 18 Alkaline Phosphatase 69 Total Protein 5.7 L Albumin 2.7 L 06/09/18 06/09/18 06/10/18 23:20 23:20 05:12 Creatine Kinase 33 27 L CK-MB (CK-2) 1.06 Troponin I 0.218 06/10/18 06/10/18 06/10/18 05:12 11:40 11:40 Creatine Kinase 26 L CK-MB (CK-2) 1.28 1.45 Troponin I 0.258 0.192 Impressions: Chest X-Ray 06/09/18 00:00 IMPRESSION: Persistent left basilar consolidation with trace left pleural effusion. Assessment & Plan - Diagnosis (1) Hypertensive urgency Is this a current diagnosis for this admission?: Yes Plan: Uncontrolled. Started clonidine 0.2 twice daily. (2) Chronic kidney disease, stage 4 (severe) Is this a current diagnosis for this admission?: Yes Plan: Creatinine close to baseline. CMP tomorrow. Monitor volume status. Avoid nephrotoxic agents. (3) Insulin dependent diabetes mellitus Is this a current diagnosis for this admission?: Yes Plan: Noted blood sugars. Decrease Lantus to 10 at bedtime due to hypoglycemia. Continue Accu-Cheks (4) Anemia in chronic kidney disease (CKD) Qualifiers: Chronic kidney disease stage: stage 4 (severe) Qualified Code(s): N18.4 - Chronic kidney disease, stage 4 (severe); D63.1 - Anemia in chronic kidney disease; D63.1 - Anemia in chronic kidney disease Is this a current diagnosis for this admission?: Yes Plan: Stable. Monitor monitor H&H and transfuse if under 7 or symptomatic. (5) Dyslipidemia Is this a current diagnosis for this admission?: Yes Plan: Continue statins (6) Elevated troponin Is this a current diagnosis for this admission?: Yes Plan: Likely due to demand ischemia and chronic CKD (7) Acute on chronic diastolic (congestive) heart failure Is this a current diagnosis for this admission?: Yes Plan: Continue CINDY, diuretics. Monitor volume status. Beta-blockers held due to bradycardia.
[2018-06-13] MEDS: ATORVASTATIN CALCIUM 20 MG TABLET PO SCH (21:54)
[2018-06-13] MEDS: AMLODIPINE BESYLATE 10 MG TABLET PO SCH (21:54)
[2018-06-13] MEDS: INSULIN GLARGINE,HUM.REC.ANLOG 300 UNIT/3 ML INSULN.PEN SUBCUT SCH (21:55)
[2018-06-13] MEDS: ALPRAZOLAM 0.25 MG TABLET PO PRN (22:01)
[2018-06-14] MEDS: IPRATROPIUM/ALBUTEROL 0.5-2.5 MG/3 ML AMPUL NEB SCH ×4 (01:21→23:42)
[2018-06-14 09:17] LABS: ABSOLUTE BASOPHILS # (AUTO) 0.1 10^3/uL (0.0-0.2); ABSOLUTE EOSINOPHILS # (AUTO) 0.5 10^3/uL (0.0-0.6); ABSOLUTE LYMPHOCYTES (AUTO) 2.5 10^3/uL (0.5-4.7); ABSOLUTE MONOCYTES (AUTO) 0.8 10^3/uL (0.1-1.4); ABSOLUTE NEUT (AUTO) 3.8 10^3/uL (1.7-8.2); BASOPHILS % (AUTO) 0.9 % (0-2); EOSINOPHILS % (AUTO) 6.9 % (0-6); HEMATOCRIT 25.9 % (36.0-47.0); HEMOGLOBIN 8.7 g/dL (12.0-15.5); LYMPHOCYTES % (AUTO) 32.2 % (13-45); MEAN CORPUSCULAR HEMOGLOBIN 29.4 pg (27.0-33.4); MEAN CORPUSCULAR HGB CONC 33.8 g/dL (32.0-36.0); MEAN CORPUSCULAR VOLUME 87 fl (80-97); MONOCYTES % (AUTO) 10.9 % (3-13); PLATELET COUNT 327 10^3/uL (150-450); RED BLOOD COUNT 2.98 10^6/uL (3.72-5.28); RED CELL DISTRIBUTION WIDTH 17.6 % (11.5-14.0); SEGMENTED NEUTROPHILS % (AUTO) 49.1 % (42-78); TOTAL CELLS COUNTED % (AUTO) 100 %; WHITE BLOOD COUNT 7.7 10^3/uL (4.0-10.5)
[2018-06-14 09:29] LABS: ALANINE AMINOTRANSFERASE 21 U/L (9-52); ALBUMIN 2.3 g/dL (3.5-5.0); ALKALINE PHOSPHATASE 61 U/L (38-126); ANION GAP 7 (5-19); ASPARTATE AMINO TRANSFERASE 17 U/L (14-36); BILIRUBIN,DIRECT 0.2 mg/dL (0.0-0.4); BILIRUBIN,TOTAL 0.2 mg/dL (0.2-1.3); BLOOD UREA NITROGEN 31 mg/dL (7-20); CALCIUM 8.9 mg/dL (8.4-10.2); CARBON DIOXIDE 24 mmol/L (22-30); CHLORIDE 112 mmol/L (98-107); GLUCOSE 95 mg/dL (75-110); POTASSIUM 3.3 mmol/L (3.6-5.0); SODIUM 143.3 mmol/L (137-145); TOTAL PROTEIN 5.2 g/dL (6.3-8.2)
[2018-06-14] MEDS: HYDRALAZINE HCL 50 MG TABLET PO SCH ×3 (09:51→22:34)
[2018-06-14] MEDS: HEPARIN SOD (PORCINE) 5,000 UNIT/ML 1 ML SYRINGE SUBCUT SCH ×3 (09:52→22:35)
[2018-06-14] MEDS: CLOPIDOGREL BISULFATE 75 MG TABLET PO SCH (10:01)
[2018-06-14] MEDS: CLONIDINE HCL 0.2 MG TABLET PO SCH ×2 (10:02→22:34)
[2018-06-14] MEDS: FERROUS SULFATE 325 MG TABLET PO SCH ×2 (10:02→17:13)
[2018-06-14] MEDS: LISINOPRIL 10 MG TABLET PO SCH ×2 (10:02→22:33)
[2018-06-14] MEDS: BUMETANIDE 1 MG TABLET PO SCH ×2 (10:02→22:32)
[2018-06-14] MEDS: ISOSORBIDE MONONITRATE 60 MG TAB.ER.24H PO SCH (10:03)
--- NOTE | 2018-06-14 12:55 | PDOC PROGRESS REPORT ---
Subjective Progress Note for:: 06/14/18 Subjective:: Ms. Bocanegra is a 78 yr old female with a past medical history of chronic kidney disease stage IV, hypertension, dementia, chronic diastolic heart failure who was admitted for hypertensive emergency and pulmonary edema. Patient was initially started on nitroglycerin drip. Patient was recently admitted and discharge for the same problem. No acute events overnight patient denies any shortness of breath, fever, chills , chest pain, abdominal pain, nausea, vomiting, constipation, diarrhea, or any urinary symptoms Reason For Visit: HTN EMERGENCY, PULMONARY EDEMA,DHF Physical Exam Vital Signs: Temp Pulse Resp BP Pulse Ox 98.4 F 55 L 21 H 163/54 H 98 06/14/18 11:49 06/14/18 11:49 06/14/18 11:49 06/14/18 11:49 06/14/18 00:20 Intake & Output 06/13/18 06/14/18 06/15/18 06:59 06:59 06:59 Intake Total 750 Output Total 1350 1100 237 Balance -600 -1100 -237 Weight 70.6 kg 70.2 kg General appearance: PRESENT: no acute distress, well-developed, well-nourished Head exam: PRESENT: atraumatic, normocephalic Eye exam: PRESENT: conjunctiva pink, EOMI, PERRLA. ABSENT: scleral icterus Ear exam: PRESENT: normal external ear exam Mouth exam: PRESENT: moist, tongue midline Neck exam: ABSENT: carotid bruit, JVD, lymphadenopathy, thyromegaly Respiratory exam: PRESENT: clear to auscultation santa. ABSENT: rales, rhonchi, wheezes Cardiovascular exam: PRESENT: RRR. ABSENT: diastolic murmur, rubs, systolic murmur Pulses: PRESENT: normal dorsalis pedis pul Vascular exam: PRESENT: normal capillary refill GI/Abdominal exam: PRESENT: normal bowel sounds, soft. ABSENT: distended, guarding, mass, organolmegaly, rebound, tenderness Rectal exam: PRESENT: deferred Extremities exam: PRESENT: full ROM. ABSENT: calf tenderness, clubbing, pedal edema Neurological exam: PRESENT: alert, awake, oriented to person, oriented to place , oriented to time, oriented to situation, CN II-XII grossly intact. ABSENT: motor sensory deficit Psychiatric exam: PRESENT: appropriate affect, normal mood. ABSENT: homicidal ideation, suicidal ideation Skin exam: PRESENT: dry, intact, warm. ABSENT: cyanosis, rash Results Laboratory Results: 06/14/18 04:16 06/14/18 04:16 06/14/18 06/14/18 04:16 04:16 WBC 7.7 RBC 2.98 L Hgb 8.7 L Hct 25.9 L MCV 87 MCH 29.4 MCHC 33.8 RDW 17.6 H Plt Count 327 Seg Neutrophils % 49.1 Lymphocytes % 32.2 Monocytes % 10.9 Eosinophils % 6.9 H Basophils % 0.9 Absolute Neutrophils 3.8 Absolute Lymphocytes 2.5 Absolute Monocytes 0.8 Absolute Eosinophils 0.5 Absolute Basophils 0.1 Sodium 143.3 Potassium 3.3 L Chloride 112 H Carbon Dioxide 24 Anion Gap 7 BUN 31 H Creatinine 2.99 H Est GFR ( Amer) 18 L Est GFR (Non-Af Amer) 15 L Glucose 95 Calcium 8.9 Total Bilirubin 0.2 AST 17 ALT 21 Alkaline Phosphatase 61 Total Protein 5.2 L Albumin 2.3 L 06/09/18 06/09/18 06/10/18 23:20 23:20 05:12 Creatine Kinase 33 27 L CK-MB (CK-2) 1.06 Troponin I 0.218 06/10/18 06/10/18 06/10/18 05:12 11:40 11:40 Creatine Kinase 26 L CK-MB (CK-2) 1.28 1.45 Troponin I 0.258 0.192 Impressions: Chest X-Ray 06/09/18 00:00 IMPRESSION: Persistent left basilar consolidation with trace left pleural effusion. Assessment & Plan - Diagnosis (1) Hypertensive urgency Is this a current diagnosis for this admission?: Yes Plan: Improving. Continue clonidine 0.2 twice daily. Hold carvedilol due to bradycardia. (2) Chronic kidney disease, stage 4 (severe) Is this a current diagnosis for this admission?: Yes Plan: Creatinine close to baseline. CMP tomorrow. Monitor volume status. Avoid nephrotoxic agents. (3) Insulin dependent diabetes mellitus Is this a current diagnosis for this admission?: Yes Plan: Noted blood sugars. Fasting blood glucose 95. Decrease Lantus to 8 units at bedtime. Continue Accu-Cheks (4) Anemia in chronic kidney disease (CKD) Qualifiers: Chronic kidney disease stage: stage 4 (severe) Qualified Code(s): N18.4 - Chronic kidney disease, stage 4 (severe); D63.1 - Anemia in chronic kidney disease; D63.1 - Anemia in chronic kidney disease Is this a current diagnosis for this admission?: Yes Plan: Stable. Monitor monitor H&H and transfuse if under 7 or symptomatic. (5) Dyslipidemia Is this a current diagnosis for this admission?: Yes Plan: Continue statins (6) Elevated troponin Is this a current diagnosis for this admission?: Yes Plan: Likely due to demand ischemia and chronic CKD. Denies any active chest pain. (7) Acute on chronic diastolic (congestive) heart failure Is this a current diagnosis for this admission?: Yes Plan: Continue CINDY, diuretics. Monitor volume status. Beta-blockers held due to bradycardia.
[2018-06-14] MEDS ORDERED: POTASSIUM CHLORIDE 10 MEQ CAPSULE.ER PO ONE (14:30)
[2018-06-14] MEDS ORDERED: INSULIN GLARGINE,HUM.REC.ANLOG 300 UNIT/3 ML INSULN.PEN SUBCUT SCH ×2 (14:45→22:00)
[2018-06-14] MEDS: HYDRALAZINE HCL INJ/PF 20 MG/1 ML SDV IV PRN (17:48)
[2018-06-14] MEDS: ATORVASTATIN CALCIUM 20 MG TABLET PO SCH (22:33)
[2018-06-14] MEDS: AMLODIPINE BESYLATE 10 MG TABLET PO SCH (22:33)
[2018-06-15] MEDS: HYDRALAZINE HCL INJ/PF 20 MG/1 ML SDV IV PRN (00:24)
[2018-06-15] MEDS: ALPRAZOLAM 0.25 MG TABLET PO PRN (01:15)
[2018-06-15 05:34] LABS: ABSOLUTE BASOPHILS # (AUTO) 0.1 10^3/uL (0.0-0.2); ABSOLUTE EOSINOPHILS # (AUTO) 0.8 10^3/uL (0.0-0.6); ABSOLUTE LYMPHOCYTES (AUTO) 2.3 10^3/uL (0.5-4.7); ABSOLUTE MONOCYTES (AUTO) 0.7 10^3/uL (0.1-1.4); ABSOLUTE NEUT (AUTO) 5.1 10^3/uL (1.7-8.2); BASOPHILS % (AUTO) 1.2 % (0-2); EOSINOPHILS % (AUTO) 9.3 % (0-6); HEMATOCRIT 27.3 % (36.0-47.0); HEMOGLOBIN 9.2 g/dL (12.0-15.5); LYMPHOCYTES % (AUTO) 25.1 % (13-45); MEAN CORPUSCULAR HEMOGLOBIN 29.4 pg (27.0-33.4); MEAN CORPUSCULAR HGB CONC 33.8 g/dL (32.0-36.0); MEAN CORPUSCULAR VOLUME 87 fl (80-97); MONOCYTES % (AUTO) 8.1 % (3-13); PLATELET COUNT 311 10^3/uL (150-450); RED BLOOD COUNT 3.14 10^6/uL (3.72-5.28); RED CELL DISTRIBUTION WIDTH 17.5 % (11.5-14.0); SEGMENTED NEUTROPHILS % (AUTO) 56.3 % (42-78); TOTAL CELLS COUNTED % (AUTO) 100 %
[2018-06-15] MEDS: HYDRALAZINE HCL 50 MG TABLET PO SCH (05:44)
[2018-06-15] MEDS: HEPARIN SOD (PORCINE) 5,000 UNIT/ML 1 ML SYRINGE SUBCUT SCH (05:44)
[2018-06-15 05:54] LABS: ALANINE AMINOTRANSFERASE 23 U/L (9-52); ALBUMIN 2.6 g/dL (3.5-5.0); ALKALINE PHOSPHATASE 62 U/L (38-126); ANION GAP 7 (5-19); ASPARTATE AMINO TRANSFERASE 21 U/L (14-36); BILIRUBIN,DIRECT 0.3 mg/dL (0.0-0.4); BILIRUBIN,TOTAL 0.4 mg/dL (0.2-1.3); BLOOD UREA NITROGEN 34 mg/dL (7-20); CALCIUM 9.2 mg/dL (8.4-10.2); CARBON DIOXIDE 24 mmol/L (22-30); CHLORIDE 110 mmol/L (98-107); GLUCOSE 93 mg/dL (75-110); POTASSIUM 3.7 mmol/L (3.6-5.0); SODIUM 141.3 mmol/L (137-145); TOTAL PROTEIN 5.7 g/dL (6.3-8.2)
[2018-06-15] MEDS: IPRATROPIUM/ALBUTEROL 0.5-2.5 MG/3 ML AMPUL NEB SCH (07:48)
[2018-06-15] MEDS: BUMETANIDE 1 MG TABLET PO SCH (09:35)
[2018-06-15] MEDS: CLOPIDOGREL BISULFATE 75 MG TABLET PO SCH (09:36)
[2018-06-15] MEDS: FERROUS SULFATE 325 MG TABLET PO SCH (09:36)
[2018-06-15] MEDS: CLONIDINE HCL 0.2 MG TABLET PO SCH (09:36)
[2018-06-15] MEDS: LISINOPRIL 10 MG TABLET PO SCH (09:37)
[2018-06-15] MEDS: ISOSORBIDE MONONITRATE 60 MG TAB.ER.24H PO SCH (09:37)
[2018-06-15 12:01] VITALS: BP 137/44
--- NOTE | 2018-07-05 13:56 | PDOC DISCHARGE SUMMARY ---
General - Admit/Disc Date/PCP Admission Date/Primary Care Provider: 06/09/18 22:03 Discharge Date: 06/15/18 - Discharge Diagnosis (1) Hypertensive urgency Is this a current diagnosis for this admission?: Yes Summary: Improved. started on clonidine 0.2 twice daily. Held carvedilol due to bradycardia. (2) Chronic kidney disease, stage 4 (severe) Is this a current diagnosis for this admission?: Yes Summary: Creatinine close to baseline. Avoid nephrotoxic agents. out pt nephrology follow up. (3) Insulin dependent diabetes mellitus Is this a current diagnosis for this admission?: Yes Summary: Controlled. Fasting blood glucose 95. Decreased Lantus to 8 units at bedtime. (4) Anemia in chronic kidney disease (CKD) Is this a current diagnosis for this admission?: Yes Summary: Due to CKD. Stable. out pt nephrology follow up. (5) Dyslipidemia Is this a current diagnosis for this admission?: Yes Summary: Continued on statins (6) Elevated troponin Is this a current diagnosis for this admission?: Yes Summary: Likely due to demand ischemia and chronic CKD. Denied any active chest pain. (7) Acute on chronic diastolic (congestive) heart failure Is this a current diagnosis for this admission?: Yes Summary: Continued CINDY and diuretics. Monitor volume status. Beta-blockers was held due to bradycardia. - Additional Information Resuscitation Status: Full Code Discharge Diet: As Tolerated, Cardiac, Diabetic Discharge Activity: Activity As Tolerated, Balance Activity w/Rest, Weigh Daily Home Medications: Alprazolam [Xanax 0.25 mg Tablet] 0.25 mg PO BIDP PRN 06/26/18 Amlodipine Besylate [Norvasc 10 mg Tablet] 10 mg PO DAILY 06/26/18 Atorvastatin Calcium [Lipitor 20 mg Tablet] 20 mg PO DAILY 06/26/18 Bumetanide [Bumex 1 mg Tablet] 1 mg PO QAM 06/26/18 Calcitriol [Rocaltrol 0.25 mcg Capsule] 0.25 mcg PO MOWEFR 06/26/18 Cholecalciferol (Vitamin D3) [Vitamin D3 5000 unit Capsule] 5,000 unit PO DAILY 06/26/18 Clopidogrel Bisulfate [Plavix 75 mg Tablet] 75 mg PO DAILY 06/26/18 Doxazosin Mesylate [Cardura 4 mg Tablet] 2 mg PO Q12 06/26/18 Escitalopram Oxalate [Lexapro] 20 mg PO DAILY 06/26/18 Ferrous Sulfate [Feosol 325 mg Tablet] 325 mg PO BID 06/26/18 Gabapentin [Neurontin 100 mg Capsule] 200 mg PO Q8 06/26/18 Hydralazine HCl 100 mg PO Q8 06/26/18 Insulin Detemir [Levemir] 20 unit SQ QHS 06/26/18 Isosorbide Mononitrate [Imdur 60 mg Tablet.er] 120 mg PO DAILY 06/26/18 Levetiracetam [Keppra 500 mg Tablet] 500 mg PO Q12 06/26/18 Lisinopril [Prinivil] 20 mg PO Q12 06/26/18 Pantoprazole Sodium [Protonix] 40 mg PO DAILY 06/26/18 Carvedilol [Coreg 3.125 mg Tablet] 3.125 mg PO Q12 #60 tablet 07/02/18 Glucagon,Human Recombinant [Glucagen Inj 1 mg Vial] 1 mg IM PRN PRN vial Heparin Sodium,Porcine [Heparin Inj 5,000 Units/ml 1 ml Syringe] 5,000 unit SUBCUT Q8 syringe 07/02/18 Levofloxacin [Levaquin 500 mg Tablet] 500 mg PO Q48H #6 tablet 07/02/18 History of Present Illness Patient complains of: shortness of breath History of Present Illness: KAM DEAN is a 78 year old female with a past medical history of stage IV chronic kidney disease, diastolic heart failure, recurrent admissions for hypertensive emergency and vascular dementia. Patient was recently discharged from [facility] 05/24 and prior to that from jail facility but now resides with her son having 2 life-threatening presentations requiring admission in the last 2 weeks. Patient presents after immediate onset of severe shortness of breath prompting a call to EMS she is found to have systolic blood pressure of 240, pulse oximetry of 85% without baseline oxygen requirement. He is brought to the emergency room for evaluation on BiPAP requiring nitroglycerin. Imaging reveals fluid pulmonary edema. She is unable to provide history given shortness of breath. In addition to being a poor historian. Physical Exam Vital Signs: Temp Pulse Resp BP Pulse Ox 97.9 F 44 L 17 137/44 H 95 06/15/18 11:34 06/15/18 11:34 06/15/18 11:34 06/15/18 11:34 06/15/18 11:34 Results Laboratory Results: 06/15/18 04:42 06/15/18 04:42 06/09/18 06/09/18 06/10/18 23:20 23:20 05:12 Creatine Kinase 33 27 L CK-MB (CK-2) 1.06 Troponin I 0.218 06/10/18 06/10/18 06/10/18 05:12 11:40 11:40 Creatine Kinase 26 L CK-MB (CK-2) 1.28 1.45 Troponin I 0.258 0.192 Impressions: Chest X-Ray 06/09/18 00:00 IMPRESSION: Persistent left basilar consolidation with trace left pleural effusion. Qualifiers - * PATIENT BEING DISCHARGED WITH ANY OF THE FOLLOWING DIAGNOSIS: No
== END 2018-06-15 13:04 | disposition home health service (06) | DRG 304 ==
LOC: ER 20:30 → EH 22:03 → ICU 23:55 → 5 06-14 18:42
PROVIDERS: ADMIT Internal Medicine; ATTEND Internal Medicine
PROC: 5A09457 Assistance with Respiratory Ventilation, 24-96 Consecutive Hours, Continuous Positive Airway Pressure (ICD-10-PCS; principal; 2018-06-09)
PROC: 3E0F73Z Introduction of Anti-inflammatory into Respiratory Tract, Via Natural or Artificial Opening (ICD-10-PCS; 2018-06-09)
DX: I16.0 Hypertensive urgency (principal); I50.33 Acute on chronic diastolic (congestive) heart failure; J81.1 Chronic pulmonary edema; N18.4 Chronic kidney disease, stage 4 (severe); N17.9 Acute kidney failure, unspecified; I24.8 Other forms of acute ischemic heart disease; I13.0 Hypertensive heart and chronic kidney disease with heart failure and stage 1 through stage 4 chronic kidney disease, or unspecified chronic kidney disease; E11.22 Type 2 diabetes mellitus with diabetic chronic kidney disease; F01.50 Vascular dementia, unspecified severity, without behavioral disturbance, psychotic disturbance, mood disturbance, and anxiety; E78.00 Pure hypercholesterolemia, unspecified; K21.9 Gastro-esophageal reflux disease without esophagitis; F31.9 Bipolar disorder, unspecified; D63.1 Anemia in chronic kidney disease; I49.3 Ventricular premature depolarization; F41.9 Anxiety disorder, unspecified; R00.0 Tachycardia, unspecified; I25.2 Old myocardial infarction; Z91.14 Patient's other noncompliance with medication regimen; Z95.5 Presence of coronary angioplasty implant and graft; Z90.49 Acquired absence of other specified parts of digestive tract; Z79.4 Long term (current) use of insulin; Z79.899 Other long term (current) drug therapy; Z86.73 Personal history of transient ischemic attack (TIA), and cerebral infarction without residual deficits; Z82.3 Family history of stroke; Z83.3 Family history of diabetes mellitus; Z82.49 Family history of ischemic heart disease and other diseases of the circulatory system
CPT/HCPCS: 36415; 71045; 80048; 80053; 80307; 82550; 82553; 82803; 82962; 83735; 83880; 84443; 84484; 85025; 85027; 93005; 93010; 94660; 96374; 99291; 99292; J0360; J1644; J1815; J1940; J3480; J3490; J7620

== ENCOUNTER 2018-06-26 14:06 | Inpatient (IN) | payer MEDICARE ==
[2018-06-26 14:45] LABS: ABSOLUTE BASOPHILS # (AUTO) 0.1 10^3/uL (0.0-0.2); ABSOLUTE LYMPHOCYTES (AUTO) 2.1 10^3/uL (0.5-4.7); ABSOLUTE MONOCYTES (AUTO) 0.5 10^3/uL (0.1-1.4); ABSOLUTE NEUT (AUTO) 4.6 10^3/uL (1.7-8.2); BASOPHILS % (AUTO) 0.8 % (0-2); EOSINOPHILS % (AUTO) 11.9 % (0-6); HEMATOCRIT 27.2 % (36.0-47.0); HEMOGLOBIN 9.2 g/dL (12.0-15.5); LYMPHOCYTES % (AUTO) 25.2 % (13-45); MEAN CORPUSCULAR HEMOGLOBIN 29.8 pg (27.0-33.4); MEAN CORPUSCULAR HGB CONC 33.9 g/dL (32.0-36.0); MEAN CORPUSCULAR VOLUME 88 fl (80-97); MONOCYTES % (AUTO) 5.9 % (3-13); PLATELET COUNT 214 10^3/uL (150-450); RED BLOOD COUNT 3.09 10^6/uL (3.72-5.28); RED CELL DISTRIBUTION WIDTH 16.6 % (11.5-14.0); SEGMENTED NEUTROPHILS % (AUTO) 56.2 % (42-78); TOTAL CELLS COUNTED % (AUTO) 100 %; WHITE BLOOD COUNT 8.2 10^3/uL (4.0-10.5)
[2018-06-26] MEDS ORDERED: NORMAL SALINE 500 ML IV ONE ×2 (14:56→15:08)
[2018-06-26] MEDS ORDERED: METOCLOPRAMIDE HCL INJ/PF 10 MG/2 ML SDV IV ONE (14:58)
[2018-06-26] MEDS ORDERED: GLUCAGON,HUMAN RECOMB 1 MG INJ IV ONE (15:01)
[2018-06-26 15:02] LABS: ALANINE AMINOTRANSFERASE 17 U/L (9-52); ALBUMIN 2.5 g/dL (3.5-5.0); ALKALINE PHOSPHATASE 47 U/L (38-126); ANION GAP 8 (5-19); ASPARTATE AMINO TRANSFERASE 21 U/L (14-36); BILIRUBIN,DIRECT 0.4 mg/dL (0.0-0.4); BILIRUBIN,TOTAL 0.4 mg/dL (0.2-1.3); BLOOD UREA NITROGEN 52 mg/dL (7-20); CALCIUM 9.4 mg/dL (8.4-10.2); CARBON DIOXIDE 22 mmol/L (22-30); CHLORIDE 105 mmol/L (98-107); CREATINE KINASE 111 U/L (30-135); GLUCOSE 64 mg/dL (75-110); POTASSIUM 4.1 mmol/L (3.6-5.0); SODIUM 134.7 mmol/L (137-145); TOTAL PROTEIN 5.6 g/dL (6.3-8.2)
--- NOTE | 2018-06-26 15:07 | RADIOLOGY REPORT (SQ) ---
EXAM DESCRIPTION: CT HEAD WITHOUT COMPLETED DATE/TIME: 06/26/2018 2:49 pm REASON FOR STUDY: altered mental status COMPARISON: 05/28/2018 and 03/27/2015. TECHNIQUE: Axial images acquired through the brain without intravenous contrast. Images reviewed wi th bone, brain and subdural windows. Additional sagittal and coronal reconstructions were generated. Images stored on PACS. All CT scanners at this facility use dose modulation, iterative reconstruction, and/or weight based d osing when appropriate to reduce radiation dose to as low as reasonably achievable (ALARA). [facility]: Dose Right [facility]: CareDose [facility]: Dose Right [facility]: Teradose 4D [facility]: Smart Intelligent Beauty RADIATION DOSE: CT Rad equipment meets quality standard of care and radiation dose reduction techniq ues were employed. CTDIvol: 53.2 mGy. DLP: 1070 mGy-cm.mGy. LIMITATIONS: None. FINDINGS: VENTRICLES: Prominent. CEREBRUM: No masses. No hemorrhage. No midline shift. Areas of low density in the white matter mos t likely due to chronic micro-vascular ischemic change. Old lacunar infarct on the left as well as o ld subcortical left parietal lobe infarct, both unchanged. No evidence for acute infarction. CEREBELLUM: No masses. No hemorrhage. No alteration of density. No evidence for acute infarction. EXTRAAXIAL SPACES: Age-related involutional change. No fluid collections. No masses. ORBITS AND GLOBE: No intra- or extraconal masses. Normal contour of globe without masses. CALVARIUM: No fracture. PARANASAL SINUSES: No fluid or mucosal thickening. SOFT TISSUES: No mass or hematoma. OTHER: No other significant finding. IMPRESSION: CHRONIC CHANGES OF ATROPHY AND MICROVASCULAR ISCHEMIA. 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 NO ACUTE PROCESS. EVIDENCE OF ACUTE STROKE: NO. TECHNICAL DOCUMENTATION: JOB ID: [id number] Quality ID # [id number]: Final reports with documentation of one or more dose reduction techniques (e.g., Au tomated exposure control, adjustment of the mA and/or kV according to patient size, use of iterative reconstruction technique) 2010 [email or web address]- All Rights Reserved Reading location - IP/workstation name: [email or web address]
[2018-06-26] MEDS ORDERED: ATROPINE SULFATE INJ 1 MG/10 ML DISP.SYRIN IV ONE (15:09)
--- NOTE | 2018-06-26 15:12 | RADIOLOGY REPORT (SQ) ---
EXAM DESCRIPTION: CHEST SINGLE VIEW COMPLETED DATE/TIME: 06/26/2018 3:01 pm REASON FOR STUDY: bed 20 slow hr COMPARISON: 06/09/2018 EXAM PARAMETERS: NUMBER OF VIEWS: One view. TECHNIQUE: Single frontal radiographic view of the chest acquired. RADIATION DOSE: NA LIMITATIONS: None. FINDINGS: LUNGS AND PLEURA: There is increased opacification in the left base. Increased left pleur al effusion. MEDIASTINUM AND HILAR STRUCTURES: No masses. Contour normal. HEART AND VASCULAR STRUCTURES: Cardiomegaly. No brandon pulmonary edema. BONES: No acute findings. HARDWARE: None in the chest. OTHER: No other significant finding. IMPRESSION: Increase left pleural effusion. Cannot exclude airspace disease in the left lower lobe. Cardiomegaly without CHF. TECHNICAL DOCUMENTATION: JOB ID: [id number] [employer]- All Rights Reserved Reading location - IP/workstation name: [email or web address]
[2018-06-26 15:16] LABS: CREATINE KINASE MB 0.84 ng/mL (<4.55)
[2018-06-26 15:22] LABS: TROPONIN I 0.049 ng/mL
[2018-06-26 15:35] LABS: ACETAMINOPHEN < 10 ug/mL (10-30); SALICYLATE < 1.0 mg/dL (2.0-20.0)
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
[2018-06-26] MEDS ORDERED: DEXTROSE 50%-WATER 25 GM/50 ML DISP.SYRIN IV ONE (19:14)
[2018-06-26 20:03] LABS: TROPONIN I 0.047 ng/mL
[2018-06-26] MEDS ORDERED: ALPRAZOLAM 0.25 MG TABLET PO PRN (22:43)
[2018-06-26] MEDS ORDERED: ACETAMINOPHEN 325 MG TABLET PO PRN (22:46)
[2018-06-26] MEDS ORDERED: NORMAL SALINE 1000 ML 1,000 ML IV PRN (22:46)
[2018-06-26] MEDS ORDERED: PROMETHAZINE HCL 25 MG TABLET PO PRN (22:46)
[2018-06-26] MEDS ORDERED: MAG HYDROX/AL HYDROX/SIMETH SUSP 30 ML UDCUP PO PRN (22:46)
[2018-06-26] MEDS ORDERED: DEXTROSE 50%-WATER 25 GM/50 ML DISP.SYRIN IV PRN ×2 (22:52)
[2018-06-26] MEDS ORDERED: DEXTROSE 40% GEL 15 GM TUBE PO PRN ×2 (22:52)
[2018-06-26] MEDS ORDERED: GLUCAGON,HUMAN RECOMB 1 MG INJ IM PRN (22:52)
[2018-06-26] MEDS ORDERED: INSULIN LISPRO 100 UNIT/ML 3 ML VIAL SUBCUT PRN (22:52)
[2018-06-26] MEDS ORDERED: HYDRALAZINE HCL INJ/PF 20 MG/1 ML SDV IV PRN (23:00)
[2018-06-26] MEDS ORDERED: INSULIN DETEMIR 100 UNIT/ML 3 ML PEN SUBCUT ONE (23:15)
[2018-06-26] MEDS ORDERED: LEVETIRACETAM 500 MG TABLET PO ONE (23:15)
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
--- NOTE | 2018-06-26 23:32 | EKG REPORT ---
SEVERITY:- ABNORMAL ECG - JUNCTIONAL ESCAPE RHYTHM BORDERLINE R WAVE PROGRESSION, ANTERIOR LEADS ABNORMAL T, CONSIDER ISCHEMIA, LATERAL LEADS BORDERLINE PROLONGED QT INTERVAL : Confirmed by: Ann Miranda MD 26-Jun-2018 23:31:27
[2018-06-27] MEDS ORDERED: INSULIN DETEMIR 100 UNIT/ML 3 ML PEN SUBCUT ONE (00:35)
[2018-06-27 04:33] LABS: APPEARANCE,URINE SLIGHTLY-CLOUDY; BILIRUBIN,URINE NEGATIVE (NEGATIVE); COLOR,URINE YELLOW; GLUCOSE, URINE NEGATIVE (NEGATIVE); KETONES,URINE NEGATIVE (NEGATIVE); LEUKOCYTE ESTERASE,URINE MODERATE (NEGATIVE); NITRITE,URINE NEGATIVE (NEGATIVE); PROTEIN,URINE >=500 mg/dL (NEGATIVE); URINE SPECIFIC GRAVITY 1.008; UROBILINOGEN,URINE NEGATIVE mg/dL (<2.0)
[2018-06-27 04:44] LABS: URINE AMPHETAMINES SCREEN NEGATIVE; URINE BARBITURATES SCREEN NEGATIVE; URINE BENZODIAZEPINES SCREEN NEGATIVE; URINE COCAINE SCREEN NEGATIVE; URINE MARIJUANA (THC) SCREEN NEGATIVE; URINE METHADONE SCREEN NEGATIVE; URINE PHENCYCLIDINE SCREEN NEGATIVE
[2018-06-27] MEDS: HYDRALAZINE HCL 50 MG TABLET PO SCH ×3 (05:36→21:58)
[2018-06-27] MEDS: GABAPENTIN 100 MG CAPSULE PO SCH ×3 (05:36→21:55)
[2018-06-27] MEDS: HEPARIN SOD (PORCINE) 5,000 UNIT/ML 1 ML SYRINGE SUBCUT SCH ×3 (05:37→21:52)
[2018-06-27 06:48] LABS: HEMOGLOBIN 9.3 g/dL (12.0-15.5); MEAN CORPUSCULAR HEMOGLOBIN 29.8 pg (27.0-33.4); MEAN CORPUSCULAR HGB CONC 34.4 g/dL (32.0-36.0); MEAN CORPUSCULAR VOLUME 87 fl (80-97); PLATELET COUNT 218 10^3/uL (150-450); RED BLOOD COUNT 3.11 10^6/uL (3.72-5.28); WHITE BLOOD COUNT 7.2 10^3/uL (4.0-10.5)
[2018-06-27 07:09] LABS: ANION GAP 7 (5-19); BLOOD UREA NITROGEN 52 mg/dL (7-20); CALCIUM 9.3 mg/dL (8.4-10.2); CARBON DIOXIDE 24 mmol/L (22-30); CHLORIDE 105 mmol/L (98-107); GLUCOSE 128 mg/dL (75-110); POTASSIUM 3.4 mmol/L (3.6-5.0); SODIUM 135.8 mmol/L (137-145)
[2018-06-27] MEDS: DOXAZOSIN MESYLATE 4 MG TABLET PO SCH ×2 (10:17→21:58)
[2018-06-27] MEDS: FERROUS SULFATE 325 MG TABLET PO SCH ×2 (10:17→17:15)
[2018-06-27] MEDS: ESCITALOPRAM OXALATE 10 MG TABLET PO SCH (10:17)
[2018-06-27] MEDS: LANSOPRAZOLE 30 MG TAB.RAP.DR PO SCH (10:18)
[2018-06-27] MEDS: CLOPIDOGREL BISULFATE 75 MG TABLET PO SCH (10:18)
[2018-06-27] MEDS: CHOLECALCIFEROL (D3) 1,000 UNIT TABLET PO SCH (10:18)
[2018-06-27] MEDS: ISOSORBIDE MONONITRATE 60 MG TAB.ER.24H PO SCH (10:18)
[2018-06-27] MEDS: AMLODIPINE BESYLATE 10 MG TABLET PO SCH (10:18)
[2018-06-27] MEDS: ATORVASTATIN CALCIUM 20 MG TABLET PO SCH (10:18)
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
[2018-06-27] MEDS: LEVETIRACETAM 500 MG TABLET PO SCH ×2 (12:05→21:58)
[2018-06-27] MEDS: CALCITRIOL 0.25 MCG CAPSULE PO SCH (12:05)
[2018-06-27] MEDS: INSULIN DETEMIR 100 UNIT/ML 3 ML PEN SUBCUT SCH (22:01)
[2018-06-28] MEDS: HEPARIN SOD (PORCINE) 5,000 UNIT/ML 1 ML SYRINGE SUBCUT SCH ×3 (05:51→21:23)
[2018-06-28] MEDS: GABAPENTIN 100 MG CAPSULE PO SCH ×3 (05:52→21:33)
[2018-06-28] MEDS: HYDRALAZINE HCL 50 MG TABLET PO SCH ×3 (05:53→21:32)
--- NOTE | 2018-06-28 06:15 | PDOC PROGRESS REPORT ---
Subjective Progress Note for:: 06/27/18 Subjective:: The patient is without new complaints. Reason For Visit: BRADYCARDIA Physical Exam Vital Signs: Temp Pulse Resp BP Pulse Ox 97.8 F 47 L 15 145/42 H 97 06/28/18 03:33 06/28/18 03:33 06/28/18 03:33 06/28/18 03:33 06/28/18 03:33 Intake & Output 06/26/18 06/27/18 06/28/18 06:59 06:59 06:59 Intake Total 1703 Balance 1703 Weight 69.6 kg 66.5 kg General appearance: PRESENT: no acute distress, cooperative Respiratory exam: PRESENT: other - No increased work of breathing.. ABSENT: rales, rhonchi, wheezes Cardiovascular exam: PRESENT: RRR. ABSENT: diastolic murmur, rubs, systolic murmur Pulses: PRESENT: other - Diminished distal pulses. GI/Abdominal exam: PRESENT: normal bowel sounds, organolmegaly, soft. ABSENT: distended, hernia, mass, tenderness Musculoskeletal exam: PRESENT: normal inspection. ABSENT: deformity, dislocation, tenderness Neurological exam: PRESENT: alert, awake, oriented to person, oriented to place , oriented to time, oriented to situation, CN II-XII grossly intact. ABSENT: motor sensory deficit Psychiatric exam: PRESENT: appropriate affect, normal mood Skin exam: PRESENT: dry, intact, warm Results Laboratory Results: 06/27/18 06:34 06/27/18 06:34 06/27/18 06/27/18 06:34 06:34 WBC 7.2 RBC 3.11 L Hgb 9.3 L Hct 27.0 L MCV 87 MCH 29.8 MCHC 34.4 RDW 17.0 H Plt Count 218 Sodium 135.8 L Potassium 3.4 L Chloride 105 Carbon Dioxide 24 Anion Gap 7 BUN 52 H Creatinine 3.80 H Est GFR ( Amer) 14 L Est GFR (Non-Af Amer) 12 L Glucose 128 H Calcium 9.3 Magnesium 1.9 Impressions: Head CT 06/26/18 00:00 IMPRESSION: CHRONIC CHANGES OF ATROPHY AND MICROVASCULAR ISCHEMIA. 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 NO ACUTE PROCESS. EVIDENCE OF ACUTE STROKE: NO. Chest X-Ray 06/26/18 14:19 IMPRESSION: Increase left pleural effusion. Cannot exclude airspace disease in the left lower lobe. Cardiomegaly without CHF. Assessment & Plan - Diagnosis (1) Bradycardia Is this a current diagnosis for this admission?: Yes Plan: Improved. As per cardiology. (2) Diastolic CHF, chronic Is this a current diagnosis for this admission?: Yes Plan: Diuresis as possible. (3) Elevated troponin Is this a current diagnosis for this admission?: Yes Plan: At least in part due to elevated creatinine. As per cardiology. (4) Vascular dementia Qualifiers: Dementia behavioral disturbance: without behavioral disturbance Qualified Code(s): F01.50 - Vascular dementia without behavioral disturbance Is this a current diagnosis for this admission?: Yes (5) Acute on chronic diastolic (congestive) heart failure Is this a current diagnosis for this admission?: Yes Plan: Monitor volume status and diurese as possible. (6) Acute on chronic renal failure Qualifiers: Chronic kidney disease stage: stage 4 (severe) Is this a current diagnosis for this admission?: Yes Plan: Monitor creatinine and electrolytes. Avoid nephrotoxic medications. - Time Time Spent with patient: 25-34 minutes Medications reviewed and adjusted accordingly: Yes
[2018-06-28] MEDS: LANSOPRAZOLE 30 MG TAB.RAP.DR PO SCH (08:59)
[2018-06-28] MEDS: CLOPIDOGREL BISULFATE 75 MG TABLET PO SCH (08:59)
[2018-06-28] MEDS: ATORVASTATIN CALCIUM 20 MG TABLET PO SCH (08:59)
[2018-06-28] MEDS: CHOLECALCIFEROL (D3) 1,000 UNIT TABLET PO SCH (08:59)
[2018-06-28] MEDS: AMLODIPINE BESYLATE 10 MG TABLET PO SCH (08:59)
[2018-06-28] MEDS: LEVETIRACETAM 500 MG TABLET PO SCH ×2 (09:00→21:34)
[2018-06-28] MEDS: FERROUS SULFATE 325 MG TABLET PO SCH ×2 (09:00→17:17)
[2018-06-28] MEDS: DOXAZOSIN MESYLATE 4 MG TABLET PO SCH ×2 (09:00→21:33)
[2018-06-28] MEDS: ESCITALOPRAM OXALATE 10 MG TABLET PO SCH (09:00)
[2018-06-28] MEDS: ISOSORBIDE MONONITRATE 60 MG TAB.ER.24H PO SCH (09:00)
--- NOTE | 2018-06-28 12:15 | PDOC PROGRESS REPORT ---
Subjective Progress Note for:: 06/28/18 Subjective:: Patient seems to be doing better with gradual improvement. Pt is denying any chest arm or neck discomfort. Patient denying any PND, orthopnea. Patient denied any sustained palpitations, dizziness, syncope, near syncope. Patient denying any fever chills. Patient denying any other significant discomfort. Patient is maintaining sinus bradycardia rhythm. Review of systems: Rest review of systems negative. Medications: Medications have been reviewed. Reason For Visit: BRADYCARDIA Physical Exam Vital Signs: Temp Pulse Resp BP Pulse Ox 97.8 F 49 L 15 145/42 H 97 06/28/18 03:33 06/28/18 07:00 06/28/18 03:33 06/28/18 03:33 06/28/18 03:33 Intake & Output 06/27/18 06/28/18 06/29/18 06:59 06:59 06:59 Intake Total 1703 Balance 1703 Weight 69.6 kg 66.5 kg Exam: GENERAL: well-nourished and in no acute distress. Alert and oriented x3 HEAD: Atraumatic, normocephalic. EYES: Pupils equal round and reactive to light, extraocular movements intact, sclera anicteric, conjunctiva are normal. ENT: TMs normal, nares patent, oropharynx clear without exudates. Moist mucous membranes. No oral ulcerations or bleeding gums noted NECK: supple without lymphadenopathy. Trachea is central. No cervical or axillary lymphadenopathy noted. Carotids are 2+, JVD WNL LUNGS: Respiration seems nonlabored, no significant accessory muscle action noted. Breath sounds clear to auscultation bilaterally and equal noted. No wheezes rales or rhonchi noted. No significant dullness noted on percussion. CHEST: Palpation of the chest wall shows no significant chest wall tenderness. 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 ABDOMEN: Soft, no significant tenderness appreciated, normoactive bowel sounds. No guarding, no rebound. No rigidity noted . No masses appreciated. EXTREMITIES: Pedal pulses are 1-2+, no calf tenderness noted. No clubbing or cyanosis. negative pedal edema noted NEUROLOGICAL: Focused neurological exam showed no significant neurologic deficit. Normal speech, no focal weakness appreciated. PSYCH: Normal mood, normal affect. Judgment and insight within normal limits. SKIN: No significant ecchymosis, skin is noted to be warm. MUSCULOSKELETAL EXAM: No significant acute joint swelling noted. Results Laboratory Results: 06/27/18 06:34 06/27/18 06:34 EKG Comments: Shows sinus bradycardia Impressions: Head CT 06/26/18 00:00 IMPRESSION: CHRONIC CHANGES OF ATROPHY AND MICROVASCULAR ISCHEMIA. 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 NO ACUTE PROCESS. EVIDENCE OF ACUTE STROKE: NO. Chest X-Ray 06/26/18 14:19 IMPRESSION: Increase left pleural effusion. Cannot exclude airspace disease in the left lower lobe. Cardiomegaly without CHF. Assessment & Plan - Diagnosis (1) Bradycardia Is this a current diagnosis for this admission?: Yes (2) Chronic renal insufficiency, stage IV (severe) Is this a current diagnosis for this admission?: Yes (3) Hypertension Qualifiers: Hypertension type: essential hypertension Qualified Code(s): I10 - Essential (primary) hypertension Is this a current diagnosis for this admission?: Yes (4) Diastolic CHF, chronic Is this a current diagnosis for this admission?: Yes - Notes Notes: Bradycardia: Currently asymptomatic. Continue to hold medication such as clonidine and beta-ry until heart rate goes above 60. Hydralazine nitrate combination could be used for blood pressure control. Occasionally sleep apnea can cause bradycardia and this may need to be ruled out. Chronic renal insufficiency: Currently stage IV but stable. May consider nephrology evaluation and follow-up. Hypertension: Blood pressure goal is 140/90 or less but could be somewhat more liberal in this elderly lady. Diastolic CHF: BNP is significantly elevated, this raises suspicion of possible systolic CHF as well. However an echocardiogram was performed which showed normal LVEF. Monitor for any symptomatic bradycardia. - Time Time with patient: Greater than 35 minutes - CODE STATUS was discussed, patient remains full code. Surrogate decision-maker unchanged. Multiple medical problems were addressed. More than 50% of the time spent coordinating care, discussing management plans with involved caregivers. Management plans discussed with involved personnels. Medical decision making was of moderate to high complexity, patient's has multiple comorbidities. Medications reviewed and adjusted accordingly: Yes
--- NOTE | 2018-06-28 16:08 | PDOC PROGRESS REPORT ---
Subjective Progress Note for:: 06/28/18 Subjective:: The patient is without new complaints. Reason For Visit: BRADYCARDIA Physical Exam Vital Signs: Temp Pulse Resp BP Pulse Ox 98.4 F 47 L 46 H 139/41 H 96 06/28/18 12:00 06/28/18 14:00 06/28/18 12:00 06/28/18 12:00 06/28/18 12:00 Intake & Output 06/27/18 06/28/18 06/29/18 06:59 06:59 06:59 Intake Total 1703 Balance 1703 Weight 69.6 kg 66.5 kg 66.5 kg General appearance: PRESENT: no acute distress, cooperative Respiratory exam: PRESENT: other - No increased work of breathing.. ABSENT: rales, rhonchi, wheezes Cardiovascular exam: PRESENT: RRR. ABSENT: gallop, rubs, systolic murmur Pulses: PRESENT: other - Diminished distal pulses. GI/Abdominal exam: PRESENT: normal bowel sounds, soft. ABSENT: hernia, mass, tenderness Extremities exam: ABSENT: clubbing, pedal edema, tenderness Musculoskeletal exam: PRESENT: normal inspection. ABSENT: deformity, dislocation, tenderness Neurological exam: PRESENT: alert, awake, oriented to person, oriented to place , oriented to time, oriented to situation, CN II-XII grossly intact. ABSENT: motor sensory deficit Psychiatric exam: PRESENT: appropriate affect, normal mood Skin exam: PRESENT: dry, intact, warm Results Laboratory Results: 06/27/18 06:34 06/27/18 06:34 06/27/18 06:34 TSH 4.49 Impressions: Head CT 06/26/18 00:00 IMPRESSION: CHRONIC CHANGES OF ATROPHY AND MICROVASCULAR ISCHEMIA. 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 NO ACUTE PROCESS. EVIDENCE OF ACUTE STROKE: NO. Chest X-Ray 06/26/18 14:19 IMPRESSION: Increase left pleural effusion. Cannot exclude airspace disease in the left lower lobe. Cardiomegaly without CHF. Assessment & Plan - Diagnosis (1) Bradycardia Is this a current diagnosis for this admission?: Yes Plan: Improved. As per cardiology. rate limiting medications have been held. (2) Diastolic CHF, chronic Is this a current diagnosis for this admission?: Yes Plan: Diuresis as possible. Monitor volume status. (3) Elevated troponin Is this a current diagnosis for this admission?: Yes Plan: At least in part due to elevated creatinine. As per cardiology. (4) Vascular dementia Qualifiers: Dementia behavioral disturbance: without behavioral disturbance Qualified Code(s): F01.50 - Vascular dementia without behavioral disturbance Is this a current diagnosis for this admission?: Yes Plan: Noted. (5) Acute on chronic diastolic (congestive) heart failure Is this a current diagnosis for this admission?: Yes Plan: Monitor volume status and diurese as possible. (6) Acute on chronic renal failure Qualifiers: Chronic kidney disease stage: stage 4 (severe) Is this a current diagnosis for this admission?: Yes Plan: Monitor creatinine and electrolytes. Avoid nephrotoxic medications. - Time Time Spent with patient: 25-34 minutes Medications reviewed and adjusted accordingly: Yes Anticipated discharge: Home
[2018-06-28] MEDS: INSULIN DETEMIR 100 UNIT/ML 3 ML PEN SUBCUT SCH (21:29)
[2018-06-29] MEDS: HEPARIN SOD (PORCINE) 5,000 UNIT/ML 1 ML SYRINGE SUBCUT SCH ×3 (05:33→22:42)
[2018-06-29] MEDS: HYDRALAZINE HCL 50 MG TABLET PO SCH ×3 (05:34→22:42)
[2018-06-29] MEDS: GABAPENTIN 100 MG CAPSULE PO SCH ×2 (05:34→12:59)
[2018-06-29] MEDS: FERROUS SULFATE 325 MG TABLET PO SCH ×2 (09:23→17:21)
[2018-06-29] MEDS: LEVETIRACETAM 500 MG TABLET PO SCH ×2 (09:23→22:43)
[2018-06-29] MEDS: CHOLECALCIFEROL (D3) 1,000 UNIT TABLET PO SCH (09:23)
[2018-06-29] MEDS: LANSOPRAZOLE 30 MG TAB.RAP.DR PO SCH (09:23)
[2018-06-29] MEDS: AMLODIPINE BESYLATE 10 MG TABLET PO SCH (09:23)
[2018-06-29] MEDS: CALCITRIOL 0.25 MCG CAPSULE PO SCH (09:23)
[2018-06-29] MEDS: ESCITALOPRAM OXALATE 10 MG TABLET PO SCH (09:24)
[2018-06-29] MEDS: CLOPIDOGREL BISULFATE 75 MG TABLET PO SCH (09:24)
[2018-06-29] MEDS: DOXAZOSIN MESYLATE 4 MG TABLET PO SCH ×2 (09:24→22:43)
[2018-06-29] MEDS: ISOSORBIDE MONONITRATE 60 MG TAB.ER.24H PO SCH (09:24)
--- NOTE | 2018-06-29 17:53 | PDOC PROGRESS REPORT ---
Subjective Progress Note for:: 06/29/18 Subjective:: Patient feels better today, not in distress Reason For Visit: BRADYCARDIA Physical Exam Vital Signs: Temp Pulse Resp BP Pulse Ox 98.0 F 61 12 152/45 H 96 06/29/18 17:00 06/29/18 17:00 06/29/18 17:00 06/29/18 17:00 06/29/18 17:00 Intake & Output 06/28/18 06/29/18 06/30/18 06:59 06:59 06:59 Intake Total 1703 475 Balance 1703 475 Weight 66.5 kg 70.8 kg General appearance: PRESENT: no acute distress, well-developed, well-nourished Head exam: PRESENT: atraumatic Respiratory exam: PRESENT: crackles, decreased breath sounds Cardiovascular exam: PRESENT: RRR, +S1, +S2 GI/Abdominal exam: PRESENT: normal bowel sounds, soft. ABSENT: distended, guarding, mass, organolmegaly, rebound, tenderness Musculoskeletal exam: PRESENT: ambulatory Neurological exam: PRESENT: alert, awake, other - confused Results Laboratory Results: 06/27/18 06:34 06/27/18 06:34 Impressions: Head CT 06/26/18 00:00 IMPRESSION: CHRONIC CHANGES OF ATROPHY AND MICROVASCULAR ISCHEMIA. 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 NO ACUTE PROCESS. EVIDENCE OF ACUTE STROKE: NO. Chest X-Ray 06/26/18 14:19 IMPRESSION: Increase left pleural effusion. Cannot exclude airspace disease in the left lower lobe. Cardiomegaly without CHF. Assessment & Plan - Diagnosis (1) Bradycardia Is this a current diagnosis for this admission?: Yes Plan: Limit rate reducing meds (2) Acute on chronic diastolic (congestive) heart failure Is this a current diagnosis for this admission?: Yes Plan: Diurese and monitor BMP (3) Acute on chronic renal failure Qualifiers: Chronic kidney disease stage: stage 4 (severe) Is this a current diagnosis for this admission?: Yes Plan: Continue y=to monitor, avoid nephrotoxics (4) Chronic renal insufficiency, stage IV (severe) Is this a current diagnosis for this admission?: Yes (5) Hypertension Qualifiers: Hypertension type: essential hypertension Qualified Code(s): I10 - Essential (primary) hypertension Is this a current diagnosis for this admission?: Yes (6) Vascular dementia Qualifiers: Dementia behavioral disturbance: without behavioral disturbance Qualified Code(s): F01.50 - Vascular dementia without behavioral disturbance Is this a current diagnosis for this admission?: Yes - Time Time Spent with patient: 15-24 minutes Medications reviewed and adjusted accordingly: Yes Anticipated discharge: Home
--- NOTE | 2018-06-29 21:21 | PDOC PROGRESS REPORT ---
Subjective Progress Note for:: 06/29/18 Subjective:: HR getting better. Patient seems to be doing better with gradual improvement. Pt is denying any chest arm or neck discomfort. Patient denying any PND, orthopnea. Patient denied any sustained palpitations, dizziness, syncope, near syncope. Patient denying any fever chills. Patient denying any other significant discomfort. Patient is maintaining sinus bradycardia rhythm, heart rate improves. Review of systems: Rest review of systems negative. Medications: Medications have been reviewed. Reason For Visit: BRADYCARDIA Physical Exam Vital Signs: Temp Pulse Resp BP Pulse Ox 98.0 F 62 18 148/46 H 96 06/29/18 20:00 06/29/18 20:00 06/29/18 20:00 06/29/18 20:00 06/29/18 20:00 Intake & Output 06/28/18 06/29/18 06/30/18 06:59 06:59 06:59 Intake Total 1703 475 300 Balance 1703 475 300 Weight 66.5 kg 70.8 kg Exam: GENERAL: well-nourished and in no acute distress. Alert and oriented x3 HEAD: Atraumatic, normocephalic. EYES: Pupils equal round and reactive to light, extraocular movements intact, sclera anicteric, conjunctiva are normal. ENT: TMs normal, nares patent, oropharynx clear without exudates. Moist mucous membranes. No oral ulcerations or bleeding gums noted NECK: supple without lymphadenopathy. Trachea is central. No cervical or axillary lymphadenopathy noted. Carotids are 2+, JVD WNL LUNGS: Respiration seems nonlabored, no significant accessory muscle action noted. Breath sounds clear to auscultation bilaterally and equal noted. No wheezes rales or rhonchi noted. No significant dullness noted on percussion. CHEST: Palpation of the chest wall shows no significant chest wall tenderness. 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 ABDOMEN: Soft, no significant tenderness appreciated, normoactive bowel sounds. No guarding, no rebound. No rigidity noted . No masses appreciated. EXTREMITIES: Pedal pulses are 1-2+, no calf tenderness noted. No clubbing or cyanosis. negative pedal edema noted NEUROLOGICAL: Focused neurological exam showed no significant neurologic deficit. Normal speech, no focal weakness appreciated. PSYCH: Normal mood, normal affect. Judgment and insight within normal limits. SKIN: No significant ecchymosis, skin is noted to be warm. MUSCULOSKELETAL EXAM: No significant acute joint swelling noted. Results Laboratory Results: 06/27/18 06:34 06/27/18 06:34 EKG Comments: Shows heart rate has improved to be in the high 50s to low 60s. Impressions: Head CT 06/26/18 00:00 IMPRESSION: CHRONIC CHANGES OF ATROPHY AND MICROVASCULAR ISCHEMIA. 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 NO ACUTE PROCESS. EVIDENCE OF ACUTE STROKE: NO. Chest X-Ray 06/26/18 14:19 IMPRESSION: Increase left pleural effusion. Cannot exclude airspace disease in the left lower lobe. Cardiomegaly without CHF. Assessment & Plan - Diagnosis (1) Bradycardia Is this a current diagnosis for this admission?: Yes (2) Chronic renal insufficiency, stage IV (severe) Is this a current diagnosis for this admission?: Yes (3) Hypertension Qualifiers: Hypertension type: essential hypertension Qualified Code(s): I10 - Essential (primary) hypertension Is this a current diagnosis for this admission?: Yes (4) Diastolic CHF, chronic Is this a current diagnosis for this admission?: Yes (5) Diabetes Qualifiers: Diabetes mellitus type: type 2 Diabetes mellitus assisted insulin use: unspecified intermediate frame tender insulin use status Diabetes mellitus complication status : with unspecified complications Qualified Code(s): E11.8 - Type 2 diabetes mellitus with unspecified complications Is this a current diagnosis for this admission?: Yes - Notes Notes: Continue current Rx. Bradycardia: Heart rate has gradually improved. Currently asymptomatic. Hydralazine nitrate combination could be used for blood pressure control. Occasionally sleep apnea can cause bradycardia and this may need to be ruled out. Chronic renal insufficiency: Currently stage IV but stable. May consider nephrology evaluation and follow-up. Hypertension: Blood pressure goal is 140/90 or less but could be somewhat more liberal in this elderly lady. Diastolic CHF: BNP is significantly elevated, this raises suspicion of possible systolic CHF as well. However an echocardiogram was performed which showed normal LVEF. Monitor for any symptomatic bradycardia. - Time Time with patient: 15-25 minutes - More than 50% of the time spent coordinating care, discussing management plans with involved caregivers. Management plans discussed with involved personnels. Medical decision making was of moderate to high complexity, patient's has multiple comorbidities. Medications reviewed and adjusted accordingly: Yes
[2018-06-29] MEDS: ATORVASTATIN CALCIUM 20 MG TABLET PO SCH (22:43)
[2018-06-29] MEDS: INSULIN DETEMIR 100 UNIT/ML 3 ML PEN SUBCUT SCH (23:53)
[2018-06-30 05:50] LABS: ABSOLUTE MONOCYTES (AUTO) 0.8 10^3/uL (0.1-1.4); ABSOLUTE NEUT (AUTO) 4.2 10^3/uL (1.7-8.2); BASOPHILS % (AUTO) 0.4 % (0-2); EOSINOPHILS % (AUTO) 10.7 % (0-6); HEMATOCRIT 26.7 % (36.0-47.0); HEMOGLOBIN 9.2 g/dL (12.0-15.5); LYMPHOCYTES % (AUTO) 33.1 % (13-45); MEAN CORPUSCULAR HEMOGLOBIN 30.2 pg (27.0-33.4); MEAN CORPUSCULAR HGB CONC 34.3 g/dL (32.0-36.0); MEAN CORPUSCULAR VOLUME 88 fl (80-97); PLATELET COUNT 223 10^3/uL (150-450); RED BLOOD COUNT 3.04 10^6/uL (3.72-5.28); RED CELL DISTRIBUTION WIDTH 16.6 % (11.5-14.0); SEGMENTED NEUTROPHILS % (AUTO) 46.8 % (42-78); TOTAL CELLS COUNTED % (AUTO) 100 %
[2018-06-30] MEDS: HEPARIN SOD (PORCINE) 5,000 UNIT/ML 1 ML SYRINGE SUBCUT SCH ×3 (06:07→21:52)
[2018-06-30] MEDS: GABAPENTIN 100 MG CAPSULE PO SCH ×4 (06:09→21:48)
[2018-06-30] MEDS: HYDRALAZINE HCL 50 MG TABLET PO SCH ×3 (06:11→21:48)
[2018-06-30 06:16] LABS: ANION GAP 9 (5-19); BLOOD UREA NITROGEN 50 mg/dL (7-20); CALCIUM 9.8 mg/dL (8.4-10.2); CARBON DIOXIDE 22 mmol/L (22-30); CHLORIDE 108 mmol/L (98-107); GLUCOSE 102 mg/dL (75-110); POTASSIUM 4.2 mmol/L (3.6-5.0); SODIUM 138.7 mmol/L (137-145)
[2018-06-30] MEDS: CLOPIDOGREL BISULFATE 75 MG TABLET PO SCH (10:20)
[2018-06-30] MEDS: CHOLECALCIFEROL (D3) 1,000 UNIT TABLET PO SCH (10:21)
[2018-06-30] MEDS: FERROUS SULFATE 325 MG TABLET PO SCH ×2 (10:21→17:39)
[2018-06-30] MEDS: ISOSORBIDE MONONITRATE 60 MG TAB.ER.24H PO SCH (10:21)
[2018-06-30] MEDS: LEVETIRACETAM 500 MG TABLET PO SCH ×2 (10:21→21:58)
[2018-06-30] MEDS: AMLODIPINE BESYLATE 10 MG TABLET PO SCH (10:22)
[2018-06-30] MEDS: LANSOPRAZOLE 30 MG TAB.RAP.DR PO SCH (10:22)
[2018-06-30] MEDS: DOXAZOSIN MESYLATE 4 MG TABLET PO SCH ×2 (10:22→21:50)
[2018-06-30] MEDS: ESCITALOPRAM OXALATE 10 MG TABLET PO SCH (10:23)
--- NOTE | 2018-06-30 11:44 | PDOC PROGRESS REPORT ---
Subjective Progress Note for:: 06/30/18 Subjective:: Patient is seen sitting up in the chair in bed. She is eating breakfast. She says she is feeling better. She was admitted with bradycardia but heart rate is improved Reason For Visit: BRADYCARDIA Physical Exam Vital Signs: Temp Pulse Resp BP Pulse Ox 97.8 F 77 14 160/52 H 97 06/30/18 07:43 06/30/18 07:43 06/30/18 07:43 06/30/18 07:43 06/30/18 07:43 Intake & Output 06/29/18 06/30/18 07/01/18 06:59 06:59 06:59 Intake Total 475 600 Output Total 700 Balance 475 -100 Weight 70.8 kg General appearance: PRESENT: no acute distress, well-developed, well-nourished Head exam: PRESENT: atraumatic, normocephalic Eye exam: PRESENT: conjunctiva pink, EOMI, PERRLA. ABSENT: scleral icterus Ear exam: PRESENT: normal external ear exam Mouth exam: PRESENT: moist, tongue midline Neck exam: ABSENT: carotid bruit, JVD, lymphadenopathy, thyromegaly Respiratory exam: PRESENT: decreased breath sounds. ABSENT: rales, rhonchi, wheezes Cardiovascular exam: PRESENT: RRR. ABSENT: diastolic murmur, rubs, systolic murmur Pulses: PRESENT: normal dorsalis pedis pul Vascular exam: PRESENT: normal capillary refill GI/Abdominal exam: PRESENT: normal bowel sounds, soft. ABSENT: distended, guarding, mass, organolmegaly, rebound, tenderness Rectal exam: PRESENT: deferred Extremities exam: PRESENT: full ROM. ABSENT: calf tenderness, clubbing, pedal edema Neurological exam: PRESENT: alert, awake, oriented to person. ABSENT: motor sensory deficit Psychiatric exam: PRESENT: appropriate affect, normal mood. ABSENT: homicidal ideation, suicidal ideation Skin exam: PRESENT: dry, intact, warm. ABSENT: cyanosis, rash Results Laboratory Results: 06/30/18 04:50 06/30/18 04:50 06/30/18 06/30/18 04:50 04:50 WBC 9.0 RBC 3.04 L Hgb 9.2 L Hct 26.7 L MCV 88 MCH 30.2 MCHC 34.3 RDW 16.6 H Plt Count 223 Seg Neutrophils % 46.8 Lymphocytes % 33.1 Monocytes % 9.0 Eosinophils % 10.7 H Basophils % 0.4 Absolute Neutrophils 4.2 Absolute Lymphocytes 3.0 Absolute Monocytes 0.8 Absolute Eosinophils 1.0 H Absolute Basophils 0.0 Sodium 138.7 Potassium 4.2 Chloride 108 H Carbon Dioxide 22 Anion Gap 9 BUN 50 H Creatinine 3.27 H Est GFR ( Amer) 17 L Est GFR (Non-Af Amer) 14 L Glucose 102 Calcium 9.8 Impressions: Head CT 06/26/18 00:00 IMPRESSION: CHRONIC CHANGES OF ATROPHY AND MICROVASCULAR ISCHEMIA. 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 NO ACUTE PROCESS. EVIDENCE OF ACUTE STROKE: NO. Chest X-Ray 06/26/18 14:19 IMPRESSION: Increase left pleural effusion. Cannot exclude airspace disease in the left lower lobe. Cardiomegaly without CHF. Assessment & Plan - Diagnosis (1) Bradycardia Is this a current diagnosis for this admission?: Yes Plan: Probably multifactorial including medications, kidney function, and possible underlying AV kelly disorder. Her heart rate has picked up nicely with adjustments of her medication (2) Acute on chronic diastolic (congestive) heart failure Is this a current diagnosis for this admission?: Yes Plan: Diurese and monitor BMP Appreciate cardiology follow-up. Will continue to monitor (3) Acute on chronic renal failure Qualifiers: Chronic kidney disease stage: stage 4 (severe) Is this a current diagnosis for this admission?: Yes Plan: Follow-up with [facility] as outpatient (4) Chronic renal insufficiency, stage IV (severe) Is this a current diagnosis for this admission?: Yes (5) Hypertension Qualifiers: Hypertension type: essential hypertension Qualified Code(s): I10 - Essential (primary) hypertension Is this a current diagnosis for this admission?: Yes Plan: Adjust meds for optimal BP control (6) Vascular dementia Qualifiers: Dementia behavioral disturbance: without behavioral disturbance Qualified Code(s): F01.50 - Vascular dementia without behavioral disturbance Is this a current diagnosis for this admission?: Yes - Time Time Spent with patient: 15-24 minutes Medications reviewed and adjusted accordingly: Yes Anticipated discharge: Home Within: within 72 hours - Inpatient Certification Based on my medical assessment, after consideration of the patient's comorbidities, presenting symptoms, or acuity I expect that the services needed warrant INPATIENT care.: Yes Medical Necessity: Need For Continuous Telemetry Monitoring, Risk of Complication if Not Cared For in Hospital
--- NOTE | 2018-06-30 13:06 | PDOC PROGRESS REPORT ---
Subjective Progress Note for:: 06/30/18 Subjective:: HR getting better. Today on monitor heart rate seems to be in the 70s. Patient seems to be doing better with gradual improvement. Pt is denying any chest arm or neck discomfort. Patient denying any PND, orthopnea. Patient denied any sustained palpitations, dizziness, syncope, near syncope. Patient denying any fever chills. Patient denying any other significant discomfort. Patient is maintaining sinus bradycardia rhythm, heart rate improves. Review of systems: Rest review of systems negative. Medications: Medications have been reviewed. Reason For Visit: BRADYCARDIA Physical Exam Vital Signs: Temp Pulse Resp BP Pulse Ox 98.0 F 70 14 152/42 H 96 06/30/18 11:44 06/30/18 11:44 06/30/18 11:44 06/30/18 11:44 06/30/18 11:44 Intake & Output 06/29/18 06/30/18 07/01/18 06:59 06:59 06:59 Intake Total 475 600 Output Total 700 Balance 475 -100 Weight 70.8 kg Exam: GENERAL: well-nourished and in no acute distress. Alert and oriented x3 HEAD: Atraumatic, normocephalic. EYES: Pupils equal round and reactive to light, extraocular movements intact, sclera anicteric, conjunctiva are normal. ENT: TMs normal, nares patent, oropharynx clear without exudates. Moist mucous membranes. No oral ulcerations or bleeding gums noted NECK: supple without lymphadenopathy. Trachea is central. No cervical or axillary lymphadenopathy noted. Carotids are 2+, JVD WNL LUNGS: Respiration seems nonlabored, no significant accessory muscle action noted. Breath sounds clear to auscultation bilaterally and equal noted. No wheezes rales or rhonchi noted. No significant dullness noted on percussion. CHEST: Palpation of the chest wall shows no significant chest wall tenderness. HEART: [place] ADMITTING REPRESENTATIVE, No PSH, 1/6 NELL aortic area, 1/6 wilder systolic murmur mitral area, no rubs, no gallops. ABDOMEN: Soft, no significant tenderness appreciated, normoactive bowel sounds. No guarding, no rebound. No rigidity noted . No masses appreciated. EXTREMITIES: Pedal pulses are 1-2+, no calf tenderness noted. No clubbing or cyanosis. negative pedal edema noted NEUROLOGICAL: Focused neurological exam showed no significant neurologic deficit. Normal speech, no focal weakness appreciated. PSYCH: Normal mood, normal affect. Judgment and insight within normal limits. SKIN: No significant ecchymosis, skin is noted to be warm. MUSCULOSKELETAL EXAM: No significant acute joint swelling noted. Results Laboratory Results: 06/30/18 04:50 06/30/18 04:50 06/30/18 06/30/18 04:50 04:50 WBC 9.0 RBC 3.04 L Hgb 9.2 L Hct 26.7 L MCV 88 MCH 30.2 MCHC 34.3 RDW 16.6 H Plt Count 223 Seg Neutrophils % 46.8 Lymphocytes % 33.1 Monocytes % 9.0 Eosinophils % 10.7 H Basophils % 0.4 Absolute Neutrophils 4.2 Absolute Lymphocytes 3.0 Absolute Monocytes 0.8 Absolute Eosinophils 1.0 H Absolute Basophils 0.0 Sodium 138.7 Potassium 4.2 Chloride 108 H Carbon Dioxide 22 Anion Gap 9 BUN 50 H Creatinine 3.27 H Est GFR ( Amer) 17 L Est GFR (Non-Af Amer) 14 L Glucose 102 Calcium 9.8 EKG Comments: Sinus rhythm with heart rate in the 70s. Impressions: Head CT 06/26/18 00:00 IMPRESSION: CHRONIC CHANGES OF ATROPHY AND MICROVASCULAR ISCHEMIA. 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 NO ACUTE PROCESS. EVIDENCE OF ACUTE STROKE: NO. Chest X-Ray 06/26/18 14:19 IMPRESSION: Increase left pleural effusion. Cannot exclude airspace disease in the left lower lobe. Cardiomegaly without CHF. Assessment & Plan - Diagnosis (1) Bradycardia Is this a current diagnosis for this admission?: Yes (2) Chronic renal insufficiency, stage IV (severe) Is this a current diagnosis for this admission?: Yes (3) Hypertension Qualifiers: Hypertension type: essential hypertension Qualified Code(s): I10 - Essential (primary) hypertension Is this a current diagnosis for this admission?: Yes (4) Diastolic CHF, chronic Is this a current diagnosis for this admission?: Yes (5) Diabetes Qualifiers: Diabetes mellitus type: type 2 Diabetes mellitus penitentiary insulin use: unspecified penitentiary insulin use status Diabetes mellitus complication status : with unspecified complications Qualified Code(s): E11.8 - Type 2 diabetes mellitus with unspecified complications Is this a current diagnosis for this admission?: Yes - Notes Notes: Bradycardia: Currently asymptomatic. Hydralazine nitrate combination could be used for blood pressure control. Could resume carvedilol at low dose if needed. Chronic renal insufficiency: Currently stage IV but stable. May consider nephrology evaluation and follow-up. Creatinine has come down recently. Hypertension: Blood pressure goal is 140/90 or less but could be somewhat more liberal in this elderly lady. Diastolic CHF: BNP is significantly elevated, this raises suspicion of possible systolic CHF as well. However an echocardiogram was performed which showed normal LVEF. Monitor for any symptomatic bradycardia. Patient has been encouraged to ambulate. - Time Time with patient: 15-25 minutes - More than 50% of the time spent coordinating care, discussing management plans with involved caregivers. Management plans discussed with involved personnels. Medical decision making was of moderate to high complexity, patient's has multiple comorbidities. Medications reviewed and adjusted accordingly: Yes
[2018-06-30] MEDS: ATORVASTATIN CALCIUM 20 MG TABLET PO SCH (21:51)
[2018-06-30] MEDS: INSULIN DETEMIR 100 UNIT/ML 3 ML PEN SUBCUT SCH (21:54)
[2018-07-01] MEDS: HEPARIN SOD (PORCINE) 5,000 UNIT/ML 1 ML SYRINGE SUBCUT SCH ×3 (05:39→21:49)
[2018-07-01] MEDS: GABAPENTIN 100 MG CAPSULE PO SCH ×3 (05:40→21:47)
[2018-07-01] MEDS: HYDRALAZINE HCL 50 MG TABLET PO SCH ×3 (05:41→21:45)
[2018-07-01] MEDS: CLOPIDOGREL BISULFATE 75 MG TABLET PO SCH (09:08)
[2018-07-01] MEDS: LANSOPRAZOLE 30 MG TAB.RAP.DR PO SCH (09:08)
[2018-07-01] MEDS: AMLODIPINE BESYLATE 10 MG TABLET PO SCH (09:08)
[2018-07-01] MEDS: ISOSORBIDE MONONITRATE 60 MG TAB.ER.24H PO SCH (09:08)
[2018-07-01] MEDS: LEVETIRACETAM 500 MG TABLET PO SCH ×2 (09:08→21:46)
[2018-07-01] MEDS: DOXAZOSIN MESYLATE 4 MG TABLET PO SCH ×2 (09:08→21:46)
[2018-07-01] MEDS: ESCITALOPRAM OXALATE 10 MG TABLET PO SCH (09:09)
[2018-07-01] MEDS: FERROUS SULFATE 325 MG TABLET PO SCH ×2 (09:10→17:23)
[2018-07-01] MEDS: CHOLECALCIFEROL (D3) 1,000 UNIT TABLET PO SCH (09:10)
--- NOTE | 2018-07-01 11:09 | PDOC PROGRESS REPORT ---
Subjective Progress Note for:: 07/01/18 Subjective:: HR getting better. Today on monitor heart rate seems to be in the 70s. Patient has not ambulated much. She may have some underlying depression. Patient seems to be doing better with gradual improvement. Pt is denying any chest arm or neck discomfort. Patient denying any PND, orthopnea. Patient denied any sustained palpitations, dizziness, syncope, near syncope. Patient denying any fever chills. Patient denying any other significant discomfort. Patient is maintaining sinus sinus rhythm no significant bradycardia noted. Review of systems: Rest review of systems negative. Medications: Medications have been reviewed. Reason For Visit: BRADYCARDIA Physical Exam Vital Signs: Temp Pulse Resp BP Pulse Ox 98.0 F 85 16 172/42 H 98 07/01/18 08:00 07/01/18 08:00 07/01/18 08:00 07/01/18 08:00 07/01/18 08:00 Intake & Output 06/30/18 07/01/18 07/02/18 06:59 06:59 06:59 Intake Total 600 502 Output Total 700 Balance -100 502 Weight 67.3 kg Exam: GENERAL: well-nourished and in no acute distress. Alert and oriented x3 HEAD: Atraumatic, normocephalic. EYES: Pupils equal round and reactive to light, extraocular movements intact, sclera anicteric, conjunctiva are normal. ENT: TMs normal, nares patent, oropharynx clear without exudates. Moist mucous membranes. No oral ulcerations or bleeding gums noted NECK: supple without lymphadenopathy. Trachea is central. No cervical or axillary lymphadenopathy noted. Carotids are 2+, JVD WNL LUNGS: Respiration seems nonlabored, no significant accessory muscle action noted. Breath sounds clear to auscultation bilaterally and equal noted. No wheezes rales or rhonchi noted. No significant dullness noted on percussion. CHEST: Palpation of the chest wall shows no significant chest wall tenderness. HEART: [place] PNP, No PSH, 1/6 NELL aortic area, 1/6 wilder systolic murmur mitral area, no rubs, no gallops. ABDOMEN: Soft, no significant tenderness appreciated, normoactive bowel sounds. No guarding, no rebound. No rigidity noted . No masses appreciated. EXTREMITIES: Pedal pulses are 1-2+, no calf tenderness noted. No clubbing or cyanosis. negative pedal edema noted NEUROLOGICAL: Focused neurological exam showed no significant neurologic deficit. Normal speech, no focal weakness appreciated. PSYCH: Mood seems depressed to me.. Judgment and insight within normal limits. SKIN: No significant ecchymosis, skin is noted to be warm. MUSCULOSKELETAL EXAM: No significant acute joint swelling noted. Results Laboratory Results: 06/30/18 04:50 06/30/18 04:50 EKG Comments: Telemetry shows sinus rhythm, no sustained tachyarrhythmia or bradyarrhythmia noted. Impressions: Head CT 06/26/18 00:00 IMPRESSION: CHRONIC CHANGES OF ATROPHY AND MICROVASCULAR ISCHEMIA. 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 NO ACUTE PROCESS. EVIDENCE OF ACUTE STROKE: NO. Chest X-Ray 06/26/18 14:19 IMPRESSION: Increase left pleural effusion. Cannot exclude airspace disease in the left lower lobe. Cardiomegaly without CHF. Assessment & Plan - Diagnosis (1) Bradycardia Is this a current diagnosis for this admission?: Yes (2) Chronic renal insufficiency, stage IV (severe) Is this a current diagnosis for this admission?: Yes (3) Hypertension Qualifiers: Hypertension type: essential hypertension Qualified Code(s): I10 - Essential (primary) hypertension Is this a current diagnosis for this admission?: Yes (4) Diastolic CHF, chronic Is this a current diagnosis for this admission?: Yes (5) Diabetes Qualifiers: Diabetes mellitus type: type 2 Diabetes mellitus long-term insulin use: unspecified long-term insulin use status Diabetes mellitus complication status : with unspecified complications Qualified Code(s): E11.8 - Type 2 diabetes mellitus with unspecified complications Is this a current diagnosis for this admission?: Yes - Notes Notes: Bradycardia: Was asymptomatic and now resolved. Hydralazine nitrate combination could be used for blood pressure control. Could resume carvedilol at low dose if needed. No tachycardia noted. Chronic renal insufficiency: Currently stage IV but stable. May consider nephrology evaluation and follow-up. Creatinine has come down recently. Hypertension: Blood pressure goal is 140/90 or less but could be somewhat more liberal in this elderly lady. Diastolic CHF: BNP is significantly elevated, this raises suspicion of possible systolic CHF as well. However an echocardiogram was performed which showed normal LVEF. Patient may have underlying mood disorder and depression. Patient has been encouraged to ambulate. - Time Time with patient: 15-25 minutes - More than 50% of the time spent coordinating care, discussing management plans with involved caregivers. Management plans discussed with involved personnels. Medical decision making was of moderate to high complexity, patient's has multiple comorbidities. Will sign off please reconsult if needed Medications reviewed and adjusted accordingly: Yes
--- NOTE | 2018-07-01 17:04 | PDOC PROGRESS REPORT ---
Subjective Progress Note for:: 07/01/18 Subjective:: Patient is seen sitting up in the chair in bed. She offers no complaints. She tells me that she will be going home with her son on discharge. Reason For Visit: BRADYCARDIA Physical Exam Vital Signs: Temp Pulse Resp BP Pulse Ox 97.9 F 64 17 152/45 H 98 07/01/18 16:00 07/01/18 16:00 07/01/18 16:00 07/01/18 16:00 07/01/18 16:00 Intake & Output 06/30/18 07/01/18 07/02/18 06:59 06:59 06:59 Intake Total 600 502 Output Total 700 Balance -100 502 Weight 67.3 kg General appearance: PRESENT: no acute distress, well-developed, well-nourished Head exam: PRESENT: atraumatic, normocephalic Eye exam: PRESENT: conjunctiva pink, EOMI, PERRLA. ABSENT: scleral icterus Ear exam: PRESENT: normal external ear exam Mouth exam: PRESENT: moist, tongue midline Neck exam: ABSENT: carotid bruit, JVD, lymphadenopathy, thyromegaly Respiratory exam: PRESENT: clear to auscultation santa. ABSENT: rales, rhonchi, wheezes Cardiovascular exam: PRESENT: RRR, +S1, +S2, systolic murmur. ABSENT: diastolic murmur, rubs Pulses: PRESENT: normal dorsalis pedis pul Vascular exam: PRESENT: normal capillary refill GI/Abdominal exam: PRESENT: normal bowel sounds, soft. ABSENT: distended, guarding, mass, organolmegaly, rebound, tenderness Rectal exam: PRESENT: deferred Extremities exam: PRESENT: full ROM. ABSENT: calf tenderness, clubbing, pedal edema Neurological exam: PRESENT: alert, awake, oriented to person, oriented to place. ABSENT: motor sensory deficit Psychiatric exam: PRESENT: appropriate affect, normal mood. ABSENT: homicidal ideation, suicidal ideation Skin exam: PRESENT: dry, intact, warm. ABSENT: cyanosis, rash Results Laboratory Results: 06/30/18 04:50 06/30/18 04:50 Impressions: Head CT 06/26/18 00:00 IMPRESSION: CHRONIC CHANGES OF ATROPHY AND MICROVASCULAR ISCHEMIA. 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 NO ACUTE PROCESS. EVIDENCE OF ACUTE STROKE: NO. Chest X-Ray 06/26/18 14:19 IMPRESSION: Increase left pleural effusion. Cannot exclude airspace disease in the left lower lobe. Cardiomegaly without CHF. Assessment & Plan - Diagnosis (1) Bradycardia Is this a current diagnosis for this admission?: Yes Plan: Probably multifactorial including medications, kidney function, and possible underlying AV kelly disorder. (2) Acute on chronic diastolic (congestive) heart failure Is this a current diagnosis for this admission?: Yes Plan: Diurese and monitor BMP. (3) Acute on chronic renal failure Qualifiers: Chronic kidney disease stage: stage 4 (severe) Is this a current diagnosis for this admission?: Yes Plan: Follow-up with air control electronics operator as outpatient (4) Chronic renal insufficiency, stage IV (severe) Is this a current diagnosis for this admission?: Yes (5) Hypertension Qualifiers: Hypertension type: essential hypertension Qualified Code(s): I10 - Essential (primary) hypertension Is this a current diagnosis for this admission?: Yes Plan: Adjust meds for optimal BP control (6) Vascular dementia Qualifiers: Dementia behavioral disturbance: without behavioral disturbance Qualified Code(s): F01.50 - Vascular dementia without behavioral disturbance Is this a current diagnosis for this admission?: Yes - Time Time Spent with patient: 15-24 minutes Medications reviewed and adjusted accordingly: Yes Anticipated discharge: Home Within: within 24 hours - Inpatient Certification Based on my medical assessment, after consideration of the patient's comorbidities, presenting symptoms, or acuity I expect that the services needed warrant INPATIENT care.: Yes Medical Necessity: Need Close Monitoring Due to Risk of Patient Decompensation, Need For Continuous Telemetry Monitoring
[2018-07-01] MEDS: ATORVASTATIN CALCIUM 20 MG TABLET PO SCH (21:47)
[2018-07-01] MEDS: INSULIN DETEMIR 100 UNIT/ML 3 ML PEN SUBCUT SCH (21:48)
[2018-07-02] MEDS: GABAPENTIN 100 MG CAPSULE PO SCH (05:45)
[2018-07-02] MEDS: HEPARIN SOD (PORCINE) 5,000 UNIT/ML 1 ML SYRINGE SUBCUT SCH (05:46)
[2018-07-02] MEDS: HYDRALAZINE HCL 50 MG TABLET PO SCH ×2 (05:46→13:08)
[2018-07-02 06:17] LABS: ABSOLUTE EOSINOPHILS # (AUTO) 1.4 10^3/uL (0.0-0.6); ABSOLUTE LYMPHOCYTES (AUTO) 2.7 10^3/uL (0.5-4.7); ABSOLUTE MONOCYTES (AUTO) 0.7 10^3/uL (0.1-1.4); ABSOLUTE NEUT (AUTO) 3.9 10^3/uL (1.7-8.2); BASOPHILS % (AUTO) 0.4 % (0-2); EOSINOPHILS % (AUTO) 15.4 % (0-6); HEMATOCRIT 25.4 % (36.0-47.0); HEMOGLOBIN 8.7 g/dL (12.0-15.5); LYMPHOCYTES % (AUTO) 31.3 % (13-45); MEAN CORPUSCULAR HEMOGLOBIN 30.1 pg (27.0-33.4); MEAN CORPUSCULAR HGB CONC 34.2 g/dL (32.0-36.0); MEAN CORPUSCULAR VOLUME 88 fl (80-97); MONOCYTES % (AUTO) 8.3 % (3-13); PLATELET COUNT 234 10^3/uL (150-450); RED BLOOD COUNT 2.89 10^6/uL (3.72-5.28); RED CELL DISTRIBUTION WIDTH 16.4 % (11.5-14.0); SEGMENTED NEUTROPHILS % (AUTO) 44.6 % (42-78); TOTAL CELLS COUNTED % (AUTO) 100 %; WHITE BLOOD COUNT 8.8 10^3/uL (4.0-10.5)
[2018-07-02 06:47] LABS: ANION GAP 6 (5-19); BLOOD UREA NITROGEN 48 mg/dL (7-20); CALCIUM 9.9 mg/dL (8.4-10.2); CARBON DIOXIDE 25 mmol/L (22-30); CHLORIDE 110 mmol/L (98-107); GLUCOSE 55 mg/dL (75-110); POTASSIUM 3.9 mmol/L (3.6-5.0); SODIUM 140.8 mmol/L (137-145)
--- NOTE | 2018-07-02 08:47 | EKG REPORT ---
SEVERITY:- ABNORMAL ECG - SINUS RHYTHM MULTIPLE ATRIAL PREMATURE COMPLEXES PROBABLE LEFT ATRIAL ABNORMALITY PROBABLE LVH WITH SECONDARY REPOL ABNRM BORDERLINE PROLONGED QT INTERVAL : Confirmed by: Margie Denton 02-Jul-2018 08:46:17
[2018-07-02] MEDS: DOXAZOSIN MESYLATE 4 MG TABLET PO SCH (09:46)
[2018-07-02] MEDS: CLOPIDOGREL BISULFATE 75 MG TABLET PO SCH (09:46)
[2018-07-02] MEDS: ESCITALOPRAM OXALATE 10 MG TABLET PO SCH (09:46)
[2018-07-02] MEDS: ISOSORBIDE MONONITRATE 60 MG TAB.ER.24H PO SCH (09:46)
[2018-07-02] MEDS: AMLODIPINE BESYLATE 10 MG TABLET PO SCH (09:46)
[2018-07-02] MEDS: LANSOPRAZOLE 30 MG TAB.RAP.DR PO SCH (09:46)
[2018-07-02] MEDS: CHOLECALCIFEROL (D3) 1,000 UNIT TABLET PO SCH (09:46)
[2018-07-02] MEDS: LEVETIRACETAM 500 MG TABLET PO SCH (09:47)
[2018-07-02] MEDS: CALCITRIOL 0.25 MCG CAPSULE PO SCH (09:47)
[2018-07-02] MEDS: FERROUS SULFATE 325 MG TABLET PO SCH (09:57)
[2018-07-02] MEDS ORDERED: LEVOFLOXACIN 500 MG TABLET PO SCH (10:00)
[2018-07-02 12:36] VITALS: BP 152/45
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
== END 2018-07-02 13:16 | disposition home health service (06) | DRG 917 ==
LOC: ER 14:06 → INTOOBSV 22:41 → OBSVTOIN 22:41 → EH 22:41 → 5 06-27 03:50
PROVIDERS: ADMIT Internal Medicine; ATTEND Internal Medicine
DX: T50.991A Poisoning by other drugs, medicaments and biological substances, accidental (unintentional), initial encounter (principal); I50.33 Acute on chronic diastolic (congestive) heart failure; N18.4 Chronic kidney disease, stage 4 (severe); N17.9 Acute kidney failure, unspecified; I13.0 Hypertensive heart and chronic kidney disease with heart failure and stage 1 through stage 4 chronic kidney disease, or unspecified chronic kidney disease; N39.0 Urinary tract infection, site not specified; I69.354 Hemiplegia and hemiparesis following cerebral infarction affecting left non-dominant side; R00.1 Bradycardia, unspecified; F01.50 Vascular dementia, unspecified severity, without behavioral disturbance, psychotic disturbance, mood disturbance, and anxiety; I25.10 Atherosclerotic heart disease of native coronary artery without angina pectoris; E03.9 Hypothyroidism, unspecified; K21.9 Gastro-esophageal reflux disease without esophagitis; F31.9 Bipolar disorder, unspecified; E11.22 Type 2 diabetes mellitus with diabetic chronic kidney disease; D63.1 Anemia in chronic kidney disease; F03.90 Unspecified dementia, unspecified severity, without behavioral disturbance, psychotic disturbance, mood disturbance, and anxiety; E78.00 Pure hypercholesterolemia, unspecified; F41.9 Anxiety disorder, unspecified; M16.10 Unilateral primary osteoarthritis, unspecified hip; I45.81 Long QT syndrome; Z95.5 Presence of coronary angioplasty implant and graft; I25.2 Old myocardial infarction; Z79.4 Long term (current) use of insulin; Z79.899 Other long term (current) drug therapy; Z79.02 Long term (current) use of antithrombotics/antiplatelets; Z90.49 Acquired absence of other specified parts of digestive tract; Z87.891 Personal history of nicotine dependence; Z82.3 Family history of stroke; Z83.3 Family history of diabetes mellitus; Z82.49 Family history of ischemic heart disease and other diseases of the circulatory system
CPT/HCPCS: 36415; 70450; 71045; 80048; 80053; 80307; 81001; 82550; 82553; 82962; 83735; 83880; 84443; 84484; 85025; 85027; 93005; 93010; 96361; 96374; 96375; 99291; G0378; G8978-GP; G8979-GP; G8990-GO; G8991-GO; G8992-GO; J0461; J1610; J1644; J1815; J2765; J3490

== ENCOUNTER 2018-07-30 17:09 | Emergency (ER) | payer MEDICARE ==
--- NOTE | 2018-07-30 18:05 | ER Document Report ---
ED Medical Screen (RME) - General Chief Complaint: Irregular Pulse Stated Complaint: WEAKNESS Time Seen by Provider: 07/30/18 18:04 Notes: Patient is a 78-year-old female with history of chronic kidney disease and hypertension that presents to the emergency department for chief complaint of generalized weakness, and bradycardia. Patient was seen by home health aide today, her heart rate was noted to be 35, she had a history of this in the past , where she is had hypertension associated, she has had some generalized fatigue , denies any near syncopal episodes. She is on clonidine and doxazosin, which could potentially cause the low heart rate. ROS: Unless otherwise stated in this report the patient's positive and negative responses for review of systems for constitutional, eyes, ENT, cardiovascular, respiratory, gastrointestinal, neurological, genitourinary, musculoskeletal, and integumentary systems and related systems to the presenting problem are either as stated in the HPI or were not pertinent or were negative for the symptoms and/or complaints related to the presenting medical problem. PHYSICAL EXAMINATION: Vital signs reviewed. GENERAL: Elderly female, no acute distress HEAD: Atraumatic, normocephalic. EYES: Pupils equal round extraocular movements intact, conjunctiva are normal. ENT: Nares patent NECK: Normal range of motion CV: Heart rate bradycardic, plus 3/6 systolic murmur noted LUNGS: No respiratory distress, lungs clear to auscultation bilaterally Musculoskeletal: Normal range of motion NEUROLOGICAL: Normal speech PSYCH: Normal mood, normal affect. MDM: Patient seen and examined for rapid initial assessment. Vital signs reviewed. A comprehensive ED assessment and evaluation of the patient, analysis of test results and completion of the medical decision making process will be conducted by additional ED providers. *Note is created using voice recognition software and may contain spelling, syntax or grammatical errors. TRAVEL OUTSIDE OF THE [place] IN LAST 30 DAYS: No - Related Data Allergies/Adverse Reactions: No Known Allergies Allergy (Verified 07/30/18 18:07) Past Medical History - Social History Frequency of alcohol use: None Drug Abuse: None - Past Medical History Cardiac Medical History: Reports: Hx Congestive Heart Failure, Hx Coronary Artery Disease, Hx Heart Attack, Hx Hypercholesterolemia, Hx Hypertension Denies: Hx Peripheral Vascular Disease, Hx Pulmonary Embolism Pulmonary Medical History: Reports: Hx Pneumonia Denies: Hx Tuberculosis Neurological Medical History: Reports: Hx Cerebrovascular Accident Endocrine Medical History: Reports: Hx Diabetes Mellitus Type 2, Hx Hypothyroidism Renal/ Medical History: Denies: Hx Peritoneal Dialysis GI Medical History: Reports: Hx Gastroesophageal Reflux Disease Musculoskeltal Medical History: 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 Psychiatric Medical History: Reports: Hx Anxiety, Hx Bipolar Disorder, Hx Depression Past Surgical History: Reports: Hx Cardiac Catheterization - stents, Hx Cholecystectomy, Hx Orthopedic Surgery - hand - Immunizations Hx Diphtheria, Pertussis, Tetanus Vaccination: Yes History of Influenza Vaccine for 07/2017 - 12/2017 Season: No Physical Exam - Vital signs Vitals: Temp Pulse Resp BP Pulse Ox 97.5 F 51 L 16 138/52 H 96 07/30/18 17:13 07/30/18 17:13 07/30/18 17:13 07/30/18 17:13 07/30/18 17:13 Course - Vital Signs Vital signs: Temp Pulse Resp BP Pulse Ox 97.5 F 51 L 16 138/52 H 96 07/30/18 17:13 07/30/18 17:13 07/30/18 17:13 07/30/18 17:13 07/30/18 17:13 Doctor's Discharge - Discharge Referrals: PATSY PULIDO PA-C [Primary Care Provider] - Follow up as needed
[2018-07-30 19:17] LABS: ABSOLUTE EOSINOPHILS # (AUTO) 0.5 10^3/uL (0.0-0.6); ABSOLUTE LYMPHOCYTES (AUTO) 2.1 10^3/uL (0.5-4.7); ABSOLUTE MONOCYTES (AUTO) 0.4 10^3/uL (0.1-1.4); ABSOLUTE NEUT (AUTO) 3.1 10^3/uL (1.7-8.2); BASOPHILS % (AUTO) 0.7 % (0-2); EOSINOPHILS % (AUTO) 7.7 % (0-6); HEMATOCRIT 25.4 % (36.0-47.0); HEMOGLOBIN 8.6 g/dL (12.0-15.5); MEAN CORPUSCULAR HEMOGLOBIN 29.4 pg (27.0-33.4); MEAN CORPUSCULAR HGB CONC 33.7 g/dL (32.0-36.0); MEAN CORPUSCULAR VOLUME 87 fl (80-97); PLATELET COUNT 216 10^3/uL (150-450); RED BLOOD COUNT 2.92 10^6/uL (3.72-5.28); RED CELL DISTRIBUTION WIDTH 16.4 % (11.5-14.0); SEGMENTED NEUTROPHILS % (AUTO) 50.6 % (42-78); TOTAL CELLS COUNTED % (AUTO) 100 %; WHITE BLOOD COUNT 6.1 10^3/uL (4.0-10.5)
--- NOTE | 2018-07-30 19:30 | RADIOLOGY REPORT (SQ) ---
EXAM DESCRIPTION: CHEST SINGLE VIEW COMPLETED DATE/TIME: 07/30/2018 7:10 pm REASON FOR STUDY: bradycardia COMPARISON: 08/02/2016 EXAM PARAMETERS: NUMBER OF VIEWS: One view. TECHNIQUE: Single frontal radiographic view of the chest acquired. RADIATION DOSE: NA LIMITATIONS: None. FINDINGS: LUNGS AND PLEURA: Pulmonary vascular congestion. No pulmonary edema. Small pleural effus ions. MEDIASTINUM AND HILAR STRUCTURES: No masses. Contour normal. HEART AND VASCULAR STRUCTURES: Cardiomegaly. BONES: No acute findings. HARDWARE: None in the chest. OTHER: No other significant finding. IMPRESSION: Cardiomegaly with small pleural effusions. No pulmonary edema. TECHNICAL DOCUMENTATION: JOB ID: [id number] [employer]- All Rights Reserved Reading location - IP/workstation name: [email or web address]
[2018-07-30 19:34] LABS: ALANINE AMINOTRANSFERASE 10 U/L (9-52); ALBUMIN 3.4 g/dL (3.5-5.0); ALKALINE PHOSPHATASE 56 U/L (38-126); ANION GAP 10 (5-19); ASPARTATE AMINO TRANSFERASE 18 U/L (14-36); BILIRUBIN,DIRECT 0.3 mg/dL (0.0-0.4); BILIRUBIN,TOTAL 0.5 mg/dL (0.2-1.3); BLOOD UREA NITROGEN 60 mg/dL (7-20); CALCIUM 9.5 mg/dL (8.4-10.2); CARBON DIOXIDE 24 mmol/L (22-30); CHLORIDE 109 mmol/L (98-107); GLUCOSE 131 mg/dL (75-110); POTASSIUM 3.7 mmol/L (3.6-5.0); SODIUM 142.7 mmol/L (137-145); TOTAL PROTEIN 6.8 g/dL (6.3-8.2)
[2018-07-30] MEDS ORDERED: NORMAL SALINE 500 ML IV ONE (23:04)
--- NOTE | 2018-07-30 23:22 | EKG REPORT ---
SEVERITY:- ABNORMAL ECG - SINUS RHYTHM ATRIAL PREMATURE COMPLEX ABNORMAL T, PROBABLE ISCHEMIA, ANT-LAT LEADS PROLONGED QT INTERVAL : Confirmed by: Margie Denton 30-Jul-2018 23:22:03
--- NOTE | 2018-07-30 23:34 | ER Document Report ---
ED General - General Chief Complaint: Irregular Pulse Stated Complaint: WEAKNESS Time Seen by Provider: 07/30/18 18:04 Mode of Arrival: Medic Information source: Patient TRAVEL OUTSIDE OF THE [place] IN LAST 30 DAYS: No - HPI Notes: Patient is a 78-year-old female history of chronic anemia, chronic kidney disease, hypertension, insulin-dependent diabetes and CHF presents to the emergency department with report of bradycardia with a heart rate of 35 noticed by the home health aide and mild generalized weakness. The patient also had a systolic blood pressure that was just over 100. The patient denies any unilateral weakness. She reports no chest pain or difficulty breathing or nausea or vomiting. Patient denies any dysuria. No syncopal events. Review of the records shows that patient should not be on carvedilol, but reviewing the patient's medications reveals that she is still taking carvedilol. The patient has not had her evening medications as of yet. - Related Data Allergies/Adverse Reactions: No Known Allergies Allergy (Verified 07/30/18 18:07) Past Medical History - General Information source: Patient, Relative - Social History Smoking Status: Never Smoker Frequency of alcohol use: None Drug Abuse: None Lives with: Family Family History: CVA, DM, Hypertension Patient has suicidal ideation: No Patient has homicidal ideation: No - Past Medical History Cardiac Medical History: Reports: Hx Congestive Heart Failure, Hx Coronary Artery Disease, Hx Heart Attack, Hx Hypercholesterolemia, Hx Hypertension Denies: Hx Peripheral Vascular Disease, Hx Pulmonary Embolism Pulmonary Medical History: Reports: Hx Pneumonia Denies: Hx Tuberculosis Neurological Medical History: Reports: Hx Cerebrovascular Accident Endocrine Medical History: Reports: Hx Diabetes Mellitus Type 2, Hx Hypothyroidism Renal/ Medical History: Denies: Hx Peritoneal Dialysis GI Medical History: Reports: Hx Gastroesophageal Reflux Disease Musculoskeletal Medical History: 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 Psychiatric Medical History: Reports: Hx Anxiety, Hx Bipolar Disorder, Hx Depression Past Surgical History: Reports: Hx Cardiac Catheterization - stents, Hx Cholecystectomy, Hx Orthopedic Surgery - hand - Immunizations Hx Diphtheria, Pertussis, Tetanus Vaccination: Yes Hx Pneumococcal Vaccination: 01/11/12 Review of Systems - Review of Systems -: Yes All other systems reviewed and negative Physical Exam - Vital signs Vitals: Temp Pulse Resp BP Pulse Ox 97.5 F 51 L 16 138/52 H 96 07/30/18 17:13 07/30/18 17:13 07/30/18 17:13 10/22/18 17:13 07/30/18 17:13 - Notes Notes: PHYSICAL EXAMINATION: GENERAL: Well-appearing, well-nourished and in no acute distress. HEAD: Atraumatic, normocephalic. EYES: Pupils equal round and reactive to light, extraocular movements intact, conjunctiva are normal. ENT: Nares patent, oropharynx clear without exudates. Slightly dry mucous membranes. NECK: Normal range of motion, supple without lymphadenopathy LUNGS: Breath sounds clear to auscultation bilaterally and equal. No wheezes rales or rhonchi. HEART: Regular rhythm without murmurs. Heart rate 50. ABDOMEN: Soft, nontender, nondistended abdomen. No guarding, no rebound. No masses appreciated. Female : deferred Musculoskeletal: Normal range of motion, no pitting or edema. No cyanosis. NEUROLOGICAL: Cranial nerves grossly intact. Normal sensory exams. Generalized weakness 5-/5 without focal unilateral findings. PSYCH: Normal mood, normal affect. SKIN: Warm, Dry, normal turgor, no rashes or lesions noted. Course - Re-evaluation Re-evalutation: 07/30/18 23:30 Medications reviewed with the family and the patient. The patient has a pill kit planner that is prepackaged from the drugstore. The pill kit planner does include the Coreg. Family is given specific instructions not to take the Coreg. Patient was given normal saline 500 cc and was given her other regular evening medications with the exception of the Coreg. Patient's renal insufficiency and chronic anemia are unchanged. No other acute finding noted. No gross CHF. No evidence for cardiac ischemia or acute HI. Patient's bradycardia gradually improved with more time after the Coreg was allowed to wear off. No evidence for electrolyte imbalance or pneumonia or acute HI or ischemia. 07/30/18 23:37 - Vital Signs Vital signs: Temp Pulse Resp BP Pulse Ox 97.4 F 40 L 11 L 184/59 H 97 07/30/18 22:20 07/30/18 22:20 07/30/18 22:53 07/30/18 22:53 07/30/18 22:56 - Laboratory Result Diagrams: 07/30/18 19:07 07/30/18 19:07 Laboratory results interpreted by me: 07/30/18 07/30/18 19:07 19:07 RBC 2.92 L Hgb 8.6 L Hct 25.4 L RDW 16.4 H Eosinophils % 7.7 H Chloride 109 H BUN 60 H Creatinine 3.45 H Est GFR ( Amer) 16 L Est GFR (Non-Af Amer) 13 L Glucose 131 H Magnesium 1.4 L Albumin 3.4 L - EKG Interpretation by Me EKG shows normal: Sinus rhythm Additional EKG results interpreted by me: 07/30/18 23:31 EKG as interpreted by me showed sinus rhythm with mild bradycardia rate of 55. There was no gross evidence for acute HI or ischemia noted. There were abnormal T waves anterolaterally but this was unchanged on review from previous EKG from 06/26/18. Discharge - Discharge Clinical Impression: Bradycardia, Dehydration Condition: Stable Disposition: HOME, SELF-CARE Additional Instructions: Stop carvedilol (coreg). Remove it from the pill packages, and contact the pharmacy to remove the coreg (carvedilol) from future pill packs and prescriptions. Referrals: PATSY PULIDO PA-C [Primary Care Provider] - 08/01/18
[2018-07-30] MEDS ORDERED: MAGNESIUM OXIDE 400 MG TABLET PO ONE (23:49)
[2018-07-31 00:50] VITALS: BP 142/78
== END 2018-07-31 00:25 | disposition home or self-care (01) ==
LOC: ER 17:09
DX: R00.1 Bradycardia, unspecified (principal); E86.0 Dehydration; D64.9 Anemia, unspecified; R53.1 Weakness; I50.9 Heart failure, unspecified; I25.10 Atherosclerotic heart disease of native coronary artery without angina pectoris; I11.0 Hypertensive heart disease with heart failure; E78.00 Pure hypercholesterolemia, unspecified; E11.9 Type 2 diabetes mellitus without complications; I25.2 Old myocardial infarction; Z90.49 Acquired absence of other specified parts of digestive tract; Z86.73 Personal history of transient ischemic attack (TIA), and cerebral infarction without residual deficits
CPT/HCPCS: 93005; 99285; 96360; 36415; 83735; 85025; 80053; 84484; 71045; 93010; A9270; J7040

== ENCOUNTER 2018-10-02 14:19 | Emergency (ER) | payer MEDICARE, OTHER ==
[2018-10-02] MEDS ORDERED: FAMOTIDINE 20 MG TABLET PO ONE (14:47)
[2018-10-02] MEDS ORDERED: ONDANSETRON 4 MG TAB.RAPDIS PO ONE (14:47)
[2018-10-02] MEDS ORDERED: LISINOPRIL 10 MG TABLET PO ONE (14:47)
[2018-10-02] MEDS ORDERED: ISOSORBIDE MONONITRATE 60 MG TAB.ER.24H PO ONE (14:48)
[2018-10-02] MEDS ORDERED: HYDRALAZINE HCL 50 MG TABLET PO ONE (14:48)
[2018-10-02] MEDS ORDERED: LEVETIRACETAM 500 MG TABLET PO ONE (14:48)
[2018-10-02] MEDS ORDERED: BUMETANIDE 1 MG TABLET PO ONE (14:49)
[2018-10-02] MEDS ORDERED: AMLODIPINE BESYLATE 10 MG TABLET PO ONE (14:49)
[2018-10-02] MEDS ORDERED: CLOPIDOGREL BISULFATE 75 MG TABLET PO ONE (14:49)
[2018-10-02] MEDS ORDERED: CARVEDILOL 3.125 MG TABLET PO ONE (14:49)
[2018-10-02] MEDS ORDERED: ESCITALOPRAM OXALATE 10 MG TABLET PO ONE (14:49)
--- NOTE | 2018-10-02 14:53 | ER Document Report ---
ED Medical Screen (RME) - General Chief Complaint: Medication Refill Stated Complaint: VOMITING/MEDICATION REFILL Time Seen by Provider: 10/02/18 14:44 TRAVEL OUTSIDE OF THE [place] IN LAST 30 DAYS: No - Related Data Allergies/Adverse Reactions: No Known Allergies Allergy (Verified 07/30/18 18:07) Past Medical History - Past Medical History Cardiac Medical History: Reports: Hx Congestive Heart Failure, Hx Coronary Artery Disease, Hx Heart Attack, Hx Hypercholesterolemia, Hx Hypertension Denies: Hx Peripheral Vascular Disease, Hx Pulmonary Embolism Pulmonary Medical History: Reports: Hx Pneumonia Denies: Hx Tuberculosis Neurological Medical History: Reports: Hx Cerebrovascular Accident Endocrine Medical History: Reports: Hx Diabetes Mellitus Type 2, Hx Hypothyroidism Renal/ Medical History: Denies: Hx Peritoneal Dialysis GI Medical History: Reports: Hx Gastroesophageal Reflux Disease Musculoskeltal Medical History: 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 Psychiatric Medical History: Reports: Hx Anxiety, Hx Bipolar Disorder, Hx Depression Past Surgical History: Reports: Hx Cardiac Catheterization - stents, Hx Cholecystectomy, Hx Orthopedic Surgery - hand - Immunizations Hx Diphtheria, Pertussis, Tetanus Vaccination: Yes History of Influenza Vaccine for 07/2017 - 12/2017 Season: No Physical Exam - Vital signs Vitals: Temp Pulse Resp BP Pulse Ox 98.6 F 81 20 181/102 H 97 10/02/18 14:37 10/02/18 14:37 10/02/18 14:37 10/02/18 14:37 10/02/18 14:37 Course - Re-evaluation Re-evalutation: 78-year-old with dementia as well as heart failure and hypertension among other medical problems that presents for evaluation of being out of medicines for at least 2 days. She began vomiting yesterday and has not been able to keep anything down there since. Her son who helps care for says that he works late and as such has not been able to touch base with her prescription filling company. I have seen and evaluated this patient in rapid screening evaluation. Workup has been initiated. Further diagnostics appropriate disposition and reevaluation should be performed by a second provider in the emergency department. - Vital Signs Vital signs: Temp Pulse Resp BP Pulse Ox 98.6 F 81 20 181/102 H 97 10/02/18 14:37 10/02/18 14:37 10/02/18 14:37 10/02/18 14:37 10/02/18 14:37 Doctor's Discharge - Discharge Referrals: PATSY PULIDO PA-C [Primary Care Provider] - Follow up as needed
--- NOTE | 2018-10-02 15:11 | ER Document Report ---
ED GI/ - General TRAVEL OUTSIDE OF THE [place] IN LAST 30 DAYS: No <DANIEL RUSS - Last Filed: 10/02/18 18:20> <LAY HICKMAN - Last Filed: 10/02/18 18:41> - General Chief Complaint: Medication Refill Stated Complaint: VOMITING/MEDICATION REFILL Time Seen by Provider: 10/02/18 14:44 Notes: Patient is a 78 year old female that presents to the emergency department today with complaints of needing medications refilled. Patient has also complained of vomiting and diarrhea. The patient and her brother are not sure how the patient ran out of medications. The brother at bedside states that his niece told him that she ran out so she was called. Niece states she too has no idea how the patient ran out of medication as they were filled two weeks ago. Son states the patient appears more confused than normal. She states initially that she is having diarrhea but when asked when her last bowel movement was she states two weeks ago. Patient denies any pain. (DANIEL RUSS) - Related Data Allergies/Adverse Reactions: No Known Allergies Allergy (Verified 07/30/18 18:07) Past Medical History - Social History Smoking Status: Unknown if Ever Smoked Family History: CVA, DM, Hypertension Patient has suicidal ideation: - unable to assess Patient has homicidal ideation: - unbale to assess - Past Medical History Cardiac Medical History: Reports: Hx Congestive Heart Failure, Hx Coronary Artery Disease, Hx Heart Attack, Hx Hypercholesterolemia, Hx Hypertension Denies: Hx Peripheral Vascular Disease, Hx Pulmonary Embolism Pulmonary Medical History: Reports: Hx Pneumonia Denies: Hx Tuberculosis Neurological Medical History: Reports: Hx Cerebrovascular Accident Endocrine Medical History: Reports: Hx Diabetes Mellitus Type 2, Hx Hypothyroidism Renal/ Medical History: Denies: Hx Peritoneal Dialysis GI Medical History: Reports: Hx Gastroesophageal Reflux Disease Musculoskeletal Medical History: 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 Psychiatric Medical History: Reports: Hx Anxiety, Hx Bipolar Disorder, Hx Depression Past Surgical History: Reports: Hx Cardiac Catheterization - stents, Hx Cholecystectomy, Hx Orthopedic Surgery - hand - Immunizations Hx Diphtheria, Pertussis, Tetanus Vaccination: Yes Hx Pneumococcal Vaccination: 01/11/12 <DANIEL RUSS - Last Filed: 10/02/18 18:20> Review of Systems - Review of Systems Constitutional: See HPI, Other - out of medications EENT: No symptoms reported Cardiovascular: No symptoms reported Respiratory: No symptoms reported Gastrointestinal: See HPI, Diarrhea - ?, Vomiting Genitourinary: No symptoms reported Female Genitourinary: No symptoms reported Musculoskeletal: No symptoms reported Skin: No symptoms reported Hematologic/Lymphatic: No symptoms reported Neurological/Psychological: See HPI, Confusion -: Yes All other systems reviewed and negative <DANIEL RUSS - Last Filed: 10/02/18 18:20> Physical Exam <DANIEL RUSS - Last Filed: 10/02/18 18:20> - Vital signs Vitals: Temp Pulse Resp BP Pulse Ox 98.6 F 81 20 181/102 H 97 10/02/18 14:37 10/02/18 14:37 10/02/18 14:37 10/02/18 14:37 10/02/18 14:37 - Notes Notes: PHYSICAL EXAM GENERAL: Alert, answering questions. No acute distress. HEAD: Normocephalic, atraumatic. EYES: Pupils equal, round, and reactive to light. Extraocular movements intact. ENT: Oral mucosa moist, tongue midline. NECK: Full range of motion. Supple. Trachea midline. LUNGS: Clear to auscultation bilaterally, no wheezes, rales, or rhonchi. No respiratory distress. HEART: Irregularly irregular. 2/6 systolic ejection murmur. No gallops or rubs. ABDOMEN: Soft, non-tender. Non-distended. Bowel sounds present in all 4 quadrants. No guarding, rigidity, or rebound. EXTREMITIES: Moves all 4 extremities spontaneously. No edema, radial and dors za pedis pulses 2/4 bilaterally. No cyanosis. NEUROLOGICAL: Confused, able to state that we are in [place] but unable to state that we are in a hospital. Unable to state the president or that today is Hitesh. Able to recite birthdate. SKIN: Warm, dry, decreased turgor. No rashes or lesions noted. (DANIEL RUSS) Course - Laboratory Result Diagrams: 10/02/18 15:50 10/02/18 15:50 <DANIEL RUSS - Last Filed: 10/02/18 18:20> - Laboratory Result Diagrams: 10/02/18 15:50 10/02/18 15:50 <LAY HICKMAN - Last Filed: 10/02/18 18:41> - Re-evaluation Re-evalutation: 10/02/18 17:37 CBC shows mild anemia with hemoglobin 10.4, CMP shows elevated BUN and creatini ne of 42 and 3.55, this is approximately baseline for her, lipase is normal, urinalysis shows trace leukocyte esterase, 3+ bacteria, 5 squamous epithelial cells, suspect this is contamination rather than true infection, patient also has no symptoms of urinary tract infection and no leukocytosis, there is no fever. Chest x-ray shows no acute process. Discussed with patient's son that it is very important that she receive her medications on time every day. They need to track when she is going to run out of her medications which should be fairly straightforward as she has a blister pack so they can simply count how many packets of medication she has left. Patient's brother has made a commit ment to picking up all of her medications tomorrow morning and giving them to her. Patient has been given her daily medications here today. Patient has no acute neurologic findings, no evidence of hypertensive emergency. Patient will be discharged to home. (LAY HICKMAN) - Vital Signs Vital signs: Temp Pulse Resp BP Pulse Ox 98.6 F 81 20 181/85 H 96 10/02/18 14:37 10/02/18 14:37 10/02/18 14:37 10/02/18 18:01 10/02/18 18:01 - Laboratory Laboratory results interpreted by me: 10/02/18 10/02/18 10/02/18 15:50 15:50 16:35 RBC 3.70 L Hgb 10.4 L Hct 31.5 L RDW 19.3 H Sodium 145.5 H Potassium 3.4 L Chloride 111 H BUN 42 H Creatinine 3.55 H Est GFR ( Amer) 15 L Est GFR (Non-Af Amer) 12 L Total Protein 6.1 L Albumin 2.8 L Urine Protein >=500 H Ur Leukocyte Esterase TRACE H - EKG Interpretation by Me Additional EKG results interpreted by me: 10/02/18 17:44 EKG shows sinus rhythm at a rate of 83, normal axis, borderline prolonged QT interval, multiple PACs, no ST segment elevations or depressions, there is T wave flattening noted in V6, V5, lead I and lead II as well as T wave inversions in aVL per my interpretation. (LAY HICKMAN) Discharge <DNAIEL RUSS - Last Filed: 10/02/18 18:20> <LAY HICKMAN - Last Filed: 10/02/18 18:41> - Discharge Clinical Impression: Noncompliance with medication treatment due to intermittent use of medication, Encounter for medication refill, Nausea and vomiting in adult, Chronic renal insufficiency, stage IV (severe) Anemia in chronic kidney disease (CKD) Qualifiers: Chronic kidney disease stage: stage 4 (severe) Qualified Code(s): N18.4 - Chronic kidney disease, stage 4 (severe) Vascular dementia Qualifiers: Dementia behavioral disturbance: without behavioral disturbance Qualified Code(s): F01.50 - Vascular dementia without behavioral disturbance Condition: Stable Disposition: HOME, SELF-CARE Additional Instructions: Please get her medications refilled tomorrow. It appears that they are waiting for her at the drugstore. You must pick them up and give them to her tomorrow. Referrals: PATSY PULIDO PA-C [Primary Care Provider] - Follow up as needed Scribe Attestation: 10/02/18 18:41 I personally performed the services described in the documentation, reviewed and edited the documentation which was dictated to the scribe in my presence, and it accurately records my words and actions. (LAY HICKMAN) Scribe Documentation - Scribe Written by [place]:: Dorita Mireles, 10/02/2018 1604 acting as scribe for :: Liza <DANIEL RUSS - Last Filed: 10/02/18 18:20>
--- NOTE | 2018-10-02 15:25 | RADIOLOGY REPORT (SQ) ---
EXAM DESCRIPTION: CHEST SINGLE VIEW COMPLETED DATE/TIME: 10/02/2018 3:00 pm REASON FOR STUDY: chf COMPARISON: 07/30/2018 EXAM PARAMETERS: NUMBER OF VIEWS: One view. TECHNIQUE: Single frontal radiographic view of the chest acquired. RADIATION DOSE: NA LIMITATIONS: None. FINDINGS: LUNGS AND PLEURA: Cannot exclude minimal pleural effusion on the left. MEDIASTINUM AND HILAR STRUCTURES: No masses. Contour normal. HEART AND VASCULAR STRUCTURES: Cardiomegaly. Mild pulmonary vascular congestion. No pulmonary edema . BONES: No acute findings. HARDWARE: None in the chest. OTHER: No other significant finding. IMPRESSION: Cardiomegaly with no pulmonary edema. Small left pleural effusion. TECHNICAL DOCUMENTATION: JOB ID: [id number] [employer]- All Rights Reserved Reading location - IP/workstation name: [email or web address]
--- NOTE | 2018-10-02 15:37 | EKG REPORT ---
SEVERITY:- ABNORMAL ECG - SINUS RHYTHM MULTIPLE ATRIAL PREMATURE COMPLEXES PROBABLE LEFT ATRIAL ABNORMALITY BORDERLINE T ABNORMALITIES, ANT-LAT LEADS BORDERLINE PROLONGED QT INTERVAL : Confirmed by: Margie Denton 02-Oct-2018 15:36:54
[2018-10-02 16:05] LABS: ABSOLUTE LYMPHOCYTES (AUTO) 1.8 10^3/uL (0.5-4.7); ABSOLUTE MONOCYTES (AUTO) 0.9 10^3/uL (0.1-1.4); ABSOLUTE NEUT (AUTO) 6.4 10^3/uL (1.7-8.2); BASOPHILS % (AUTO) 0.2 % (0-2); EOSINOPHILS % (AUTO) 0.4 % (0-6); HEMATOCRIT 31.5 % (36.0-47.0); HEMOGLOBIN 10.4 g/dL (12.0-15.5); MEAN CORPUSCULAR HGB CONC 32.9 g/dL (32.0-36.0); MEAN CORPUSCULAR VOLUME 85 fl (80-97); MONOCYTES % (AUTO) 9.8 % (3-13); PLATELET COUNT 208 10^3/uL (150-450); RED CELL DISTRIBUTION WIDTH 19.3 % (11.5-14.0); SEGMENTED NEUTROPHILS % (AUTO) 69.6 % (42-78); TOTAL CELLS COUNTED % (AUTO) 100 %; WHITE BLOOD COUNT 9.2 10^3/uL (4.0-10.5)
[2018-10-02 16:20] LABS: ALANINE AMINOTRANSFERASE 11 U/L (9-52); ALBUMIN 2.8 g/dL (3.5-5.0); ALKALINE PHOSPHATASE 64 U/L (38-126); ANION GAP 6 (5-19); ASPARTATE AMINO TRANSFERASE 16 U/L (14-36); BILIRUBIN,DIRECT 0.3 mg/dL (0.0-0.4); BILIRUBIN,TOTAL 0.9 mg/dL (0.2-1.3); BLOOD UREA NITROGEN 42 mg/dL (7-20); CARBON DIOXIDE 29 mmol/L (22-30); CHLORIDE 111 mmol/L (98-107); GLUCOSE 105 mg/dL (75-110); LIPASE 103.7 U/L (23-300); POTASSIUM 3.4 mmol/L (3.6-5.0); SODIUM 145.5 mmol/L (137-145); TOTAL PROTEIN 6.1 g/dL (6.3-8.2)
[2018-10-02 17:18] LABS: APPEARANCE,URINE CLOUDY; BILIRUBIN,URINE NEGATIVE (NEGATIVE); COLOR,URINE AMBER; GLUCOSE, URINE NEGATIVE (NEGATIVE); KETONES,URINE NEGATIVE (NEGATIVE); LEUKOCYTE ESTERASE,URINE TRACE (NEGATIVE); NITRITE,URINE NEGATIVE (NEGATIVE); PROTEIN,URINE >=500 mg/dL (NEGATIVE); URINE SPECIFIC GRAVITY 1.018; UROBILINOGEN,URINE NEGATIVE mg/dL (<2.0)
[2018-10-02 18:33] VITALS: BP 181/85
== END 2018-10-02 18:33 | disposition home or self-care (01) ==
LOC: ER 14:19
DX: I12.9 Hypertensive chronic kidney disease with stage 1 through stage 4 chronic kidney disease, or unspecified chronic kidney disease (principal); N18.4 Chronic kidney disease, stage 4 (severe); R19.7 Diarrhea, unspecified; F01.50 Vascular dementia, unspecified severity, without behavioral disturbance, psychotic disturbance, mood disturbance, and anxiety; R11.2 Nausea with vomiting, unspecified; N28.9 Disorder of kidney and ureter, unspecified; E78.00 Pure hypercholesterolemia, unspecified; I25.10 Atherosclerotic heart disease of native coronary artery without angina pectoris; Z91.14 Patient's other noncompliance with medication regimen; Z86.73 Personal history of transient ischemic attack (TIA), and cerebral infarction without residual deficits; Z90.49 Acquired absence of other specified parts of digestive tract; I25.2 Old myocardial infarction
CPT/HCPCS: 93005; 99284; 36415; 83690; 85025; 80053; 81001; 71045; 93010; A9270 ×11; J3490; S0119

== ENCOUNTER → 2018-10-18 | Outpatient (CLI) | payer MEDICARE, OTHER ==
[2018-10-18 11:01] LABS: HEMATOCRIT 30.2 % (36.0-47.0); HEMOGLOBIN 9.9 g/dL (12.0-15.5); MEAN CORPUSCULAR HEMOGLOBIN 27.8 pg (27.0-33.4); MEAN CORPUSCULAR HGB CONC 32.9 g/dL (32.0-36.0); MEAN CORPUSCULAR VOLUME 85 fl (80-97); PLATELET COUNT 300 10^3/uL (150-450); RED BLOOD COUNT 3.57 10^6/uL (3.72-5.28); RED CELL DISTRIBUTION WIDTH 19.7 % (11.5-14.0); WHITE BLOOD COUNT 6.5 10^3/uL (4.0-10.5)
[2018-10-18 11:26] LABS: BLOOD UREA NITROGEN 54 mg/dL (7-20); CALCIUM 9.5 mg/dL (8.4-10.2); GLUCOSE 122 mg/dL (75-110)
[2018-10-18 11:27] LABS: ANION GAP 8 (5-19); CARBON DIOXIDE 25 mmol/L (22-30); CHLORIDE 111 mmol/L (98-107); PHOSPHORUS 4.6 mg/dL (2.5-4.5); SODIUM 143.9 mmol/L (137-145)
== END ==
LOC: OD 10:21
PROVIDERS: ATTEND Physician Assistant Medical
DX: I12.9 Hypertensive chronic kidney disease with stage 1 through stage 4 chronic kidney disease, or unspecified chronic kidney disease (principal); N18.3 Chronic kidney disease, stage 3 (moderate); E11.22 Type 2 diabetes mellitus with diabetic chronic kidney disease
CPT/HCPCS: 36415; 80048; 83970; 84100; 85027